=== PATIENT | female | born 1945 | race Caucasian/White ===

== ENCOUNTER → 2017-06-07 13:23 | Outpatient (CLI) | payer MEDICARE, BC, SELFPAY ==
--- NOTE | 2017-06-07 13:28 | CT_ITS ---
STUDY: CT TEMPORAL BONES WITHOUT CONTRAST - ATTN: I.A.C. S REASON FOR EXAM: Female, 72 years old. 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 RADIATION DOSAGE (If Supplied By Facility): CTDIvol = ( 82.28 ) mGy, DLP = ( 775.93 ) mGycm TECHNIQUE: The patient was scanned in a multi detector CT scanner. Transaxial imaging was performed without the administration of intravenous contrast material. Sagittal and coronal images were reconstructed. Individualized dose optimization techniques were used for this CT. COMPARISON: None. FINDINGS: RIGHT TEMPORAL BONE Normal right internal auditory canal. Normal visualized ossicles and tympanic cavity. Normal right cochlea and semicircular canals. Normal vestibular aqueduct. Normal right petrous carotid artery. Normal right jugular fossa. Normal right mastoid air cells. Normal right petrous apex. LEFT TEMPORAL BONE Normal left internal auditory canal. Normal visualized ossicles and tympanic cavity. Normal left cochlea and semicircular canals. Normal vestibular aqueduct. Normal left petrous carotid artery. Normal right jugular fossa. Normal left mastoid air cells. Normal left petrous apex. CT/Orb Sella Post Fossa Ear w/o IMPRESSION: Normal unenhanced CT examination of the bilateral temporal bones (I.A.C.'s). Electronically Signed: Oskar Garcia MD at 14:51 EST Tel [phone], Service support ,
== END ==
PROVIDERS: Family Provider Internal Medicine; PCP Internal Medicine; Visit Provider Otolaryngology Otolaryngology/Facial Plastic Surgery
DX: R42 Dizziness and giddiness (principal)
CPT/HCPCS: 70480

== ENCOUNTER → 2017-11-12 11:48 | Outpatient (CLI) | payer MEDICARE, BC, SELFPAY ==
[2017-11-12 13:13] LABS: Potassium 4.2 mmol/L (3.5-5.1)
== END ==
PROVIDERS: Family Provider Internal Medicine; PCP Internal Medicine; Visit Provider Otolaryngology Otolaryngology/Facial Plastic Surgery
DX: Z79.899 Other long term (current) drug therapy (principal)
CPT/HCPCS: 36415; 84132

== ENCOUNTER → 2019-01-08 12:32 | Outpatient (CLI) | payer MEDICARE, BC, SELFPAY ==
--- NOTE | 2019-01-08 12:36 | BI_ITS ---
BILATERAL DIGITAL MAMMOGRAM WITH TOMOSYNTHESIS: Mediolateraloblique and craniocaudal views demonstrate no evidence of dominant parenchymal masses. No cluster of microcalcifications or architectural distortion is seen. No evidence of skin thickening is identified There has been no significant change since 04/04/2017 . Breast Density: The breast tissue is heterogeneously dense, which may obscure small masses. CAD was used to assist in final assessment. BI/SCREEN MAMM (CAD) W/SHANKAR BILAT IMPRESSION: NORMAL MAMMOGRAM BILATERALLY. ASSESSMENT CATEGORY: FINAL ASSESSMENT: BI-RAD CATEGORY I (NEGATIVE) YEARLY MAMMOGRAPHY RECOMMENDED Approximately 10% of breast cancers are not detected by mammography. A normal mammogram should not delay biopsy of a clinically suspicious abnormality. [id number] Electronically Signed: Adonis Farfan, at 18:07 EDT Tel , Service support ,
== END ==
PROVIDERS: Family Provider Internal Medicine; PCP Internal Medicine; Referring Provider Internal Medicine; Visit Provider Internal Medicine
DX: Z12.31 Encounter for screening mammogram for malignant neoplasm of breast (principal)
CPT/HCPCS: 77063; 77067

== ENCOUNTER → 2020-07-07 10:47 | Outpatient (CLI) | payer MEDICARE, BC, SELFPAY ==
[2020-06-30 13:16] VITALS: BMI 24.2
[2020-07-07 11:22] LABS: Hematocrit 40.9 % (37-47); Hemoglobin 13.5 g/dL (12.0-15.0); Mean Corpuscular Hgb 29.2 pg (27.0-32.0); Mean Corpuscular Volume 88.3 fL (81-99); Mean Platelet Vol. 10.5 fl (6.2-12.0); Platelet Count 240 K/mm3 (150-450); RBC Distribution Width CV 12.8 % (11.6-14.6); RBC Distribution Width SD 40.3 fl (35.1-43.9); Red Blood Count 4.63 M/mm3 (4.2-5.4); White Blood Count 5.9 K/mm3 (4.4-11.0)
[2020-07-07 11:26] LABS: Erythrocyte Sedimentation Rate 19 mm/hr (0-30)
[2020-07-07 11:47] LABS: Vitamin B12 950 pg/mL (211-911)
[2020-07-07 12:25] LABS: ALB/GLOB Ratio 1.1 RATIO (0.9-2.4); AST(SGOT) 20 U/L (15-37); Alanine Aminotransfer ALT/SGPT 29 U/L (13-56); Alkaline Phosphatase 100 U/L (45-117); Anion Gap 4 (5-15); BUN 17 mg/dL (7-18); BUN/Creat Ratio 20.5 RATIO (10-20); CRP 5.85 mg/L (0.0-3.0); Calcium,Total 9.4 mg/dL (8.5-10.1); Chloride 103 mmol/L (98-107); Creatinine, Serum 0.83 mg/dL (0.55-1.02); EST Glomerular Filtration Rate 71 mL/min (>60); Est Glom Filt Rate - Afr Amer 86 mL/min (>60); Globulin 3.7 g/dL (2.2-4.2); Glucose 100 mg/dL (74-106); Potassium 4.3 mmol/L (3.5-5.1); Protein, Total 7.7 g/dL (6.4-8.2); Sodium Level 134 mmol/L (136-145); Thyroid Stim Hormone (TSH) 2.62 uIU/mL (0.358-3.74)
[2020-07-08 21:05] LABS: ANTINUCLEAR ANTIBODIES DIRECT Negative (Negative)
== END ==
PROVIDERS: PCP Internal Medicine; Referring Provider Psychiatry & Neurology Neurology; Visit Provider Psychiatry & Neurology Neurology
DX: R53.83 Other fatigue (principal); I67.9 Cerebrovascular disease, unspecified
CPT/HCPCS: 36415; 80053; 82607; 82746; 84443; 85027; 85652; 86038; 86140; 86225; 86235

== ENCOUNTER → 2020-07-13 13:16 | Outpatient (CLI) | payer MEDICARE, BC, SELFPAY ==
[2020-06-30 13:16] VITALS: BMI 24.2
--- NOTE | 2020-07-13 13:19 | CT_ITS ---
STUDY: CTA HEAD AND NECK WITH CONTRAST REASON FOR EXAM: Female, 75 years old. Ischemic stroke RADIATION DOSAGE (If Supplied By Facility): CTDIvol = ( 25.94 ) mGy, DLP = ( 1353.73 ) mGycm TECHNIQUE: CT angiography was performed with a multi-detector CT scanner. Data acquisition was obtained from the skull base through the vertex following intravenous administration of IV 100mL Isovue-370. MIP images were reconstructed from the axial data set. Post-processing of the angiographic images was performed, with multiplanar reformation and 3D reconstruction. Individualized dose optimization techniques were used for this CT. COMPARISON: No relevant priors. FINDINGS: Normal bilateral petrous carotid arteries. Normal right cavernous carotid artery with a normal supraclinoid bifurcation. Normal left cavernous carotid artery with a normal supraclinoid bifurcation. Normal right A1 segments of the anterior cerebral artery. Normal left A1 segments of the anterior cerebral artery. Normal intact anterior communicating artery (ACOM). Normal bilateral A2 segments of the anterior cerebral arteries. Normal right M1 and M2 segments of the middle cerebral arteries, with a normal M1 bifurcation. Normal left M1 and M2 segments of the middle cerebral arteries, with a normal M1 bifurcation. Normal right posterior communicating artery (PCOM). Normal left posterior communicating artery (PCOM). Normal bilateral vertebral arteries. Normal basilar artery with a normal basilar bifurcation. The visualized bilateral superior cerebellar (SCA) arteries are normal. Normal bilateral P1, P2 and visualized P3 segments of the posterior cerebral arteries. There is no demonstrated aneurysm of the [place]. Mild degree of cerebral atrophy. Small calcifications in the basal ganglia bilaterally. This is a normal variant. Focal area of decreased attenuation is seen in the medial posterior occipital lobe with focal calcification. AORTIC ARCH: There is atherosclerotic calcific plaque formation of the aortic arch and great vessels arising from the aortic arch, without a hemodynamically significant stenosis. There is a normal origin of the brachiocephalic, left common carotid, and left subclavian arteries. 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 It travels posterior to the esophagus. RIGHT CAROTID ARTERIES: Normal right common carotid artery (CCA). Normal right common carotid bulb. Normal origin of the right internal carotid (ICA) artery without a hemodynamically significant stenosis. Normal visualized cervical portion of the right internal carotid artery. Normal origin of the right external carotid artery (ECA). LEFT CAROTID ARTERIES: Normal left common carotid artery (CCA). Normal left common carotid bulb. Normal origin of the left internal carotid (ICA) artery without a hemodynamically significant stenosis. Normal visualized cervical portion of the left internal carotid artery. Normal origin of the left external carotid artery (ECA). VERTEBRAL ARTERIES: Normal bilateral vertebral arteries. CT/CTA Head AND Neck W/ Contrast IMPRESSION: Normal CTA Head and neck with contrast. Electronically Signed: Oskar Garcia MD at 14:41 EDT , Service support ,
== END ==
PROVIDERS: PCP Internal Medicine; Referring Provider Psychiatry & Neurology Neurology; Visit Provider Psychiatry & Neurology Neurology
DX: I67.9 Cerebrovascular disease, unspecified (principal); Z86.73 Personal history of transient ischemic attack (TIA), and cerebral infarction without residual deficits
CPT/HCPCS: 70496; 70498; Q9967

== ENCOUNTER → 2020-08-02 12:27 | Outpatient (CLI) | payer MEDICARE, BC, SELFPAY ==
[2020-06-30 13:16] VITALS: BMI 24.2
--- NOTE | 2020-08-02 12:28 | EKG12_ITS ---
Test Reason : Blood Pressure : / mmHG Vent. Rate : 075 BPM Atrial Rate : 075 BPM P-R Int : 184 ms QRS Dur : 082 ms QT Int : 362 ms P-R-T Axes : 074 078 062 degrees QTc Int : 404 ms Normal sinus rhythm Normal ECG Confirmed by RAKESH CARRERA, AMERICA ([id number]), newspaper or periodical editor SAYRA LLANES ([id number]) on 08/03/2020 9:06:18 AM Referred By: Silvia Rowland Confirmed By:AMERICA CAMERON MD
== END ==
PROVIDERS: PCP Internal Medicine; Referring Provider Nurse Practitioner Family; Visit Provider Nurse Practitioner Family
DX: I63.9 Cerebral infarction, unspecified (principal)
CPT/HCPCS: 93005; 93225; 93226

== ENCOUNTER 2021-04-11 14:28 | Outpatient (CLI) | payer MEDICARE, BC, SELFPAY ==
[2021-04-11 16:30] LABS: Progesterone Level 1.08 ng/mL (See Comment)
[2021-04-11 16:34] LABS: Anion Gap 5 (5-15); BUN 16 mg/dL (7-18); BUN/Creat Ratio 18.3 RATIO (10-20); Calcium,Total 9.5 mg/dL (8.5-10.1); Chloride 100 mmol/L (98-107); Creatinine, Serum 0.87 mg/dL (0.55-1.02); EST Glomerular Filtration Rate 67 mL/min (>60); Est Glom Filt Rate - Afr Amer 81 mL/min (>60); Estradiol 14.9 pg/mL; Glucose 108 mg/dL (74-106); Sodium Level 135 mmol/L (136-145)
[2021-04-13 22:07] LABS: Chlamydia By Nucleic Acid AMP Negative (Negative)
[2021-04-14 11:30] LABS: Gonococcus By Nucleic Acid AMP Negative (Negative)
== END 2021-04-11 23:59 | disposition short-term general hospital (02) ==
LOC: WOBLAB 14:29
PROVIDERS: PCP Internal Medicine; Visit Provider Student in an Organized Health Care Education/Training Program
DX: Z78.0 Asymptomatic menopausal state (principal)
CPT/HCPCS: 36415; 80048; 82670; 84144; 87491; 87591

== ENCOUNTER 2021-05-23 14:22 | Outpatient (CLI) | payer MEDICARE, BC, SELFPAY ==
--- NOTE | 2021-05-23 14:28 | BI_ITS ---
MAMMOGRAPHY - BILATERAL SCREENING REASON FOR EXAM: Female, 76 years old. Routine annual screening examination. PERTINENT HISTORY: Non-contributory. TECHNIQUE: Digital bilateral breast shankar (3D mammographic acquisition) in the CC and MLO projections. 2-D mediolateral oblique (MLO) and craniocaudad (CC) views of both breasts were obtained. CAD: Full Field Digital Mammography with Computer Added Detection was performed. COMPARISON: Comparison is made with prior study dated 01/08/2019. FINDINGS: Breast Composition: There are scattered areas of fibroglandular density. There are no dominant masses or suspicious calcifications. No other significant abnormalities are identified. There has been no significant change since the prior study. BI/SCRN MAMM (CAD)W/SHANKAR BILAT IMPRESSION: Stable bilateral screening mammogram. Yearly follow-up mammogram recommended. (A) ASSESSMENT CATEGORY: BIRADS Category 1: Negative. A letter regarding these results will be sent to the patient by the facility within 30 days. Approximately 10% of breast cancers are not detected by mammography. A normal mammogram should not delay biopsy of a clinically suspicious abnormality. [id number] Electronically Signed: Oskar Garcia MD at 15:18 EST ,
[2021-05-23 15:59] LABS: Cholesterol 280 mg/dL (200); High Density Lipoprotein 79 mg/dL; Triglycerides 113 mg/dL; Very Low Density Lipoprotein 23 mg/dL (5-40)
== END 2021-05-23 23:59 | disposition home or self-care (01) ==
PROVIDERS: Psychiatry & Neurology Neurology; PCP Internal Medicine; Visit Provider Internal Medicine
DX: Z12.31 Encounter for screening mammogram for malignant neoplasm of breast (principal); E78.00 Pure hypercholesterolemia, unspecified
CPT/HCPCS: 36415; 77063; 77067; 80061

== ENCOUNTER 2021-06-29 17:01 | Emergency (ER) | payer MEDICARE, BC, SELFPAY ==
[2021-06-29] VITALS (10 sets, daily range): BP systolic 97–142; BP diastolic 68–90; PULSE 65–77; RESP 14–18; TEMP 36.5; O2SAT 95–98; BMI 23.7
--- NOTE | 2021-06-29 17:03 | EKG12_ITS ---
Test Reason : Blood Pressure : / mmHG Vent. Rate : 069 BPM Atrial Rate : 069 BPM P-R Int : 174 ms QRS Dur : 090 ms QT Int : 378 ms P-R-T Axes : 066 074 068 degrees QTc Int : 405 ms Normal sinus rhythm Normal ECG Confirmed by JOHNIE CARRERA, JULIAN ([id number]), senior editor SAYRA LLANES ([id number]) on 06/30/2021 2:48:03 PM Referred By: YULISSA Confirmed By:JULIAN JETT MD
--- NOTE | 2021-06-29 17:05 | ED.VIS.STROK ---
HPI History of Present Illness Chief Complaint: Neuro S/Sx Informant: patient and spouse/S.O. Onset/Context/Timing Onset: Days Context: Gradual Onset Timing: Waxes and wanes Narrative Narrative: Patient presents with secondary to confusion and difficulty speaking. He reports that she has not been speaking normally for the last 2 days. Apparently today she grandsons and had difficulty with that. They stated that she could not speak at all. On arrival to the emergency room she is able to speak but does not feel it is at baseline. She denies headache. She reportedly has had prior stroke but was asymptomatic with those. [facility] Medical History Breast cyst Cataracts, bilateral Chronic rhinitis CVA, old, homonymous hemianopsia Depression MISTY (generalized anxiety disorder) Gallstones Gastritis Gastritis and gastroduodenitis GERD (gastroesophageal reflux disease) History of UTI Meniere's disease Mixed hyperlipidemia Osteoporosis Quadrantanopia of right eye Home Medications triamterene-hydrochlorothiazid 1 each PO DAILY 10/28/16 [History Last Taken Unknown] 7-oxodehydroepiandroste (bulk) 1 each MC DAILY gm 06/29/20 [History Last Taken Unknown] eqfco-p-bzisagsgidkbv 150 unit tablet 300 unit PO TID PRN tablet 06/29/20 [History Last Taken Unknown] cetirizine 10 mg capsule 10 mg PO DAILY 06/29/20 [History Last Taken Unknown] coenzyme Q10 100 mg capsule 100 mg PO DAILY 06/29/20 [History Last Taken Unknown] fluoxetine 10 mg capsule 10 mg PO DAILY cap 06/29/20 [History Last Taken Unknown] minoxidil 2 % topical solution 1 ml TOPICAL BID 06/29/20 [History Last Taken Unknown] omega-3 fatty acids 1,000 mg capsule 1,000 mg PO BID 06/29/20 [History Last Taken Unknown] vitamin B complex 1 tablet PO DAILY 06/29/20 [History Last Taken Unknown] vitamins A,C,B-fpfg-gcbeak 7,160 unit-113 mg-100 unit tablet 1 tablet PO BID tablet 06/29/20 [History Last Taken Unknown] omeprazole 40 mg capsule,delayed release 40 mg PO DAILY cap 12/06/20 [History Last Taken Unknown] aspirin 81 mg tablet 81 mg PO DAILY 05/08/21 [History Last Taken Unknown] meclizine 25 mg PO DAILY PRN 06/29/21 [History Last Taken Unknown] Allergy/AdvReac Type Severity Reaction Status Date / Time Sulfa (Sulfonamide Allergy Unknown Unknown Verified 06/20/21 13:54 Antibiotics) Family History Other Heart disease Myocardial infarction Surgical History History of oophorectomy History of tonsillectomy Social History Smoking Status: Never smoker Electronic Cigarette Use: not used second hand exposure: No alcohol intake: never substance use type: does not use ROS ROS ED Constitutional Constitutional ED: Denies chills or fever(s) Eyes Eyes: Denies blurry vision or change in vision ENT ENT ED: Denies rhinorrhea or sore throat Cardiovascular Cardiovascular: Denies chest pain Respiratory/Chest Respiratory/Chest: Denies cough or dyspnea Gastrointestinal Gastrointestinal: Denies abdominal pain, nausea or vomiting Musculoskeletal Musculoskeletal: Denies myalgias Integumentary Denies rash Neurologic Neurologic: Denies headache(s) Hematologic/Lymphatic Hematologic/Lymphatic: Denies easy bleeding or easy bruising Allergic/Immunologic Allergic/Immunologic ED: Denies urticaria EXAM Physical Exam Const Vital Signs: 06/29/21 17:02 06/29/21 17:06 06/29/21 17:30 Temperature 97.7 F L 97.7 F L Temperature Source Temporal Temporal Pulse Rate 74 74 70 Respiratory Rate 14 14 17 Blood Pressure 140/72 H 140/72 H 142/90 H Blood Pressure Mean 94 94 107 Pulse Ox 96 96 97 Oxygen Delivery Method Room Air Room Air Room Air 06/29/21 18:00 06/29/21 18:30 06/29/21 19:00 Temperature Temperature Source Pulse Rate 77 77 69 Respiratory Rate 18 14 16 Blood Pressure 139/76 H 141/70 H 97/77 Blood Pressure Mean 97 93 83 Pulse Ox 97 97 98 Oxygen Delivery Method Room Air Room Air Room Air 06/29/21 19:30 06/29/21 20:00 06/29/21 20:30 Temperature Temperature Source Pulse Rate 67 65 66 Respiratory Rate 14 15 15 Blood Pressure 141/69 H 126/68 H 137/70 H Blood Pressure Mean 93 87 92 Pulse Ox 98 97 95 Oxygen Delivery Method Room Air Room Air Room Air 06/29/21 21:00 Temperature Temperature Source Pulse Rate 70 Respiratory Rate 14 Blood Pressure 140/73 H Blood Pressure Mean 95 Pulse Ox 98 Oxygen Delivery Method Room Air Positive well nourished and well developed General Appearance ED: well developed HEENT Reports moist mucous membranes Eyes PERRL and EOMs intact bilaterally Neck supple Chest Wall inspection of chest normal and palpation of chest normal Resp normal respiratory effort and clear to auscultation bilaterally Cardio Rate: regular rate Rhythm: regular rhythm GI soft to palpation and non-tender Extremity normal to inspection Neuro oriented x3 Neuro Narrative: See NIH stroke scale Sensorium / Orientation: alert Skin Lesions: no lesions Rashes: no rashes STROKE Vital Signs/Narrative: Vital Signs Pulse Resp BP Pulse Ox 06/29/21 21:00 70 14 140/73 H 98 06/29/21 20:30 66 15 137/70 H 95 06/29/21 20:00 65 15 126/68 H 97 06/29/21 19:30 67 14 141/69 H 98 NIHSS Initial: 1a Level of Consciousness: 0 1b LOC Questions (Score 2 if aphasic/stupor): 0 1c LOC Commands (Only score 1st attempt): 0 2 Best Gaze (If aphasic, use reflexive mvmts.): 0 3 Visual: 0 4 Facial Palsy: 0 5 Motor Arm Right (UN = amputation/fusion): 0 5 Motor Arm Left: 0 6 Motor Leg Right: 0 6 Motor Leg Left: 0 7 Limb ataxia (Only + if out of proportion): 0 8 Sensory (Aphasia/stupor=0 or 1, coma=2): 0 9 Best Language: 0 10 Dysarthria (mute, coma=2, intubated=UN): 1 11 Extinction and Inattention (only scored if +): 0 Total Score: 1 MDM MDM MDM Narrative Medical decision making narrative: Lab work, EKG, chest x-ray obtained. CTA of the head and neck ordered. Lab Data Attestation: I reviewed the patient's lab results. Labs: Laboratory Results - last 24 hr 06/29/21 06/29/21 06/29/21 16:54 17:03 17:03 WBC 9.6 RBC 4.75 Hgb 13.7 Hct 40.3 MCV 84.8 MCH 28.8 MCHC 34.0 RDW Std Deviation 37.7 RDW Coeff of Rahul 12.2 Plt Count 303 MPV 10.6 Immature Gran % (Auto) 0.200 Neut % (Auto) 62.6 Lymph % (Auto) 27.8 [place] % (Auto) 8.4 Eos % (Auto) 0.2 Baso % (Auto) 0.8 Absolute Neuts (auto) 6.0 Absolute Lymphs (auto) 2.66 Nucleated RBC % 0 PT 13.2 INR 1.1 APTT 26.5 Sodium Potassium Chloride Carbon Dioxide Anion Gap BUN Creatinine Estim Creat Clear Calc Est GFR (MDRD) Af Amer Est GFR (MDRD) Non-Af BUN/Creatinine Ratio Glucose Calcium Troponin I High Sens POC Glucose 124 H 06/29/21 17:03 WBC RBC Hgb Hct MCV MCH MCHC RDW Std Deviation RDW Coeff of Rahul Plt Count MPV Immature Gran % (Auto) Neut % (Auto) Lymph % (Auto) [place] % (Auto) Eos % (Auto) Baso % (Auto) Absolute Neuts (auto) Absolute Lymphs (auto) Nucleated RBC % PT INR APTT Sodium 132 L Potassium 4.0 Chloride 100 Carbon Dioxide 24.0 Anion Gap 8 BUN 13 Creatinine 0.84 Estim Creat Clear Calc 45.77 Est GFR (MDRD) Af Amer 85 Est GFR (MDRD) Non-Af 71 BUN/Creatinine Ratio 15.5 Glucose 118 H Calcium 9.5 Troponin I High Sens < 3 L POC Glucose Radiography Diagnostic Testing: Clinical Impression(s) from Imaging Studies Brain CT 06/29/21 18:09 IMPRESSION: 1. Small to medium-sized intraparenchymal hemorrhage noted within the LEFT frontal lobe, in the region of the LEFT frontal operculum with extension into the LEFT insular region, with maximal axial dimension of 2.2 x 1.8 cm, and a superior to inferior dimension of 2.1 cm. Surrounding edema is noted. This is approaching the region of Broca''s area. 2. There is trace subarachnoid blood noted within the posterior aspect of the insula and along the dorsal lateral convexity of both frontal lobes greater on LEFT than RIGHT. 3. No intraventricular blood, no evidence of ventricular dilatation. 4. Extensive deep white matter disease and area of remote infarct involving the inferior aspect of LEFT occipital lobe. 5. No midline shift. N.B. : The above Results were Read Back by Herbert Perry MD to Dr Keara MD, and understanding confirmed on 06/29/2021 18:31:53 (ET). Electronically Signed: Herbert Perry MD at 18:36 EDT , ADDENDUM: 06/29/21 1843 IMPRESSION: 1. Small to medium-sized intraparenchymal hemorrhage noted within the LEFT frontal lobe, in the region of the LEFT frontal operculum with extension into the LEFT insular region, with maximal axial dimension of 2.2 x 1.8 cm, and a superior to inferior dimension of 2.1 cm. Surrounding edema is noted. This is approaching the region of Broca''s area. 2. There is trace subarachnoid blood noted within the posterior aspect of the insula and along the dorsal lateral convexity of both frontal lobes greater on LEFT than RIGHT. 3. No intraventricular blood, no evidence of ventricular dilatation. 4. Extensive deep white matter disease and area of remote infarct involving the inferior aspect of LEFT occipital lobe. 5. No midline shift. N.B. : The above Results were Read Back by Herbert Perry MD to Dr Keara MD, and understanding confirmed on 06/29/2021 18:31:53 (ET). Electronically Signed: Herbert Perry MD at 18:36 EDT , Chest X-Ray 06/29/21 18:10 IMPRESSION: 1. No evidence of acute cardiopulmonary process Electronically Signed: Herbert ePrry MD at 18:39 EDT , EKG Initial EKG: Attestation: I personally reviewed and interpreted this EKG as follows: Interpretation: Sinus Rhythm (Sinus at 69 with no acute ischemia.) Treatment and Re-Evaluation Narrative: Chest x-ray per my interpretation reveals chronic changes only. Lab work is unremarkable. CT of the head does reveal a left intraparenchymal bleed. I spoke with at bedside as soon as CT called. He would prefer transfer to [place]. Patient has been accepted at [facility]. Patient's NIH score remains at 1. Critical Care Time Critical Care Time: Yes Critical care time (excluding procedures): 30-74 minutes (30 minutes), Including time spent:, Discussing w/Patient &/or Family/Psychopaedic Nurse, Discussing w/Consultants, Arranging Admission or Transfer and Performing Direct Patient Care at Bedside Discharge Plan Triage Chief Complaint: Neuro S/Sx ED Provider: Jojo Sarah Dx/Rx/DC Orders Clinical Impression: Hemorrhagic stroke Prescriptions: No Action Zyrtec 10 mg capsule 10 mg PO DAILY RF: 0 Beano 150 unit tablet 300 unit PO TID PRNRF: 0 vitamin B complex Tablet 1 tablet PO DAILY RF: 0 vitamins A,C,T-vdbc-ysibrj 7,160-113-100 ffqo-ox-xvzf tablet 1 tablet PO BID RF: 0 minoxidil 2 % solution 1 ml TOPICAL BID RF: 0 7-Keto DHEA Powder 1 each MC DAILY RF: 0 coenzyme Q10 100 mg capsule 100 mg PO DAILY RF: 0 omega-3 fatty acids 1,000 mg capsule 1,000 mg PO BID RF: 0 omeprazole 40 mg capsule,delayed release(DR/EC) 40 mg PO DAILY RF: 0 aspirin 81 mg tablet 81 mg PO DAILY RF: 0 triamterene-hydrochlorothiazid 1 EACH capsule 1 each PO DAILY RF: 0 fluoxetine 10 mg capsule 10 mg PO DAILY RF: 0 meclizine 25 mg Tablet 25 mg PO DAILY PRN (Reason: Dizziness) RF: 0 Primary Care Provider: Reagan Hodges Referrals: Reagan Hodges MD [Primary Care Provider] - Disposition Disposition: Acute Care Hospital Discharge Location: [facility] Discharge Date/Time: 06/29/21 21:26
[2021-06-29 17:34] LABS: Anion Gap 8 (5-15); BUN 13 mg/dL (7-18); BUN/Creat Ratio 15.5 RATIO (10-20); Calcium,Total 9.5 mg/dL (8.5-10.1); Chloride 100 mmol/L (98-107); Creatinine, Serum 0.84 mg/dL (0.55-1.02); EST Glomerular Filtration Rate 71 mL/min (>60); Est Glom Filt Rate - Afr Amer 85 mL/min (>60); Estimated Creatinine Clearance 45.77 ml/min; Glucose 118 mg/dL (74-106); Sodium Level 132 mmol/L (136-145); Troponin-I HS < 3 pg/mL (3.0-54.0)
--- NOTE | 2021-06-29 17:40 | ED.RN ---
PATIENT STATES THAT SHE HAS BEEN DIZZY AND OFF BALANCE FOR A COUPLE WEEKS. HAS BEEN TAKING MECLIZINE DAILY.
[2021-06-29 17:45] LABS: International Normalized Ratio 1.1; Prothrombin Time (Protime)PT. 13.2 SECONDS (11.7-14.9)
[2021-06-29 17:46] LABS: Absolute Lymphocyte Count 2.66 X10^3/uL (0.83-4.51); Basophil# 0.08 X10^3/uL; Basophil% 0.8 % (0-1); Eosinophil# 0.02 X10^3/uL; Eosinophils% 0.2 % (0-5); Hematocrit 40.3 % (37-47); Hemoglobin 13.7 g/dL (12.0-15.0); Lymphocyte # 2.66 X10^3/ul (0.83-4.51); Lymphocyte % 27.8 % (19-41); Mean Corpuscular Hgb 28.8 pg (27.0-32.0); Mean Corpuscular Volume 84.8 fL (81-99); Mean Platelet Vol. 10.6 fl (6.2-12.0); Monocyte% 8.4 % (0-10); NRBC Flagged by Analyzer 0 % (0-5); Neutrophil % 62.6 % (47-70); Partial Thromboplast Time 26.5 Seconds (24.1-36.2); Platelet Count 303 K/mm3 (150-450); RBC Distribution Width CV 12.2 % (11.6-14.6); RBC Distribution Width SD 37.7 fl (35.1-43.9); Red Blood Count 4.75 M/mm3 (4.2-5.4); White Blood Count 9.6 K/mm3 (4.4-11.0)
[2021-06-29 17:55] LABS: Bedside Glucose 124 mg/dL (74-106)
--- NOTE | 2021-06-29 18:09 | CT_ITS ---
INDICATION: Neuro deficit, acute, stroke suspected EXAMINATION: CT BRAIN - CT Head Stroke Protocol W/O Contrast Injection TECHNIQUE: Multiple axial images were obtained of the head without intravenous contrast. A radiation dose optimization technique was used for this scan. IV Contrast dosage and agent: None. Radiation Dose (provided by facility) CTDIvol (NA ) mGy, DLP ( NA) mGy-cm COMPARISON: 07/13/2020 FINDINGS: HEMISPHERES: 1. The cerebral parenchyma, ventricular system and gyral pattern have normal configuration. 2. There is focal area of interparenchymal hemorrhage along the lateral aspect LEFT frontal lobe extending into the insula, maximal axial dimension estimated at approximately 2.2 x 1.8 cm, superior to inferior dimension estimated at 2.1 cm. Mild surrounding edema is present. 3. There is trace subarachnoid blood within the insula. Additional trace subarachnoid blood noted along the lateral convexity of both frontal lobes greater on LEFT than RIGHT. No intraventricular blood noted. 4. Chronic deep white matter disease is noted bilaterally, additional area of remote infarct and encephalomalacic N noted along the inferior aspect of the LEFT occipital lobe. 5. No area of acute territorial infarct identified. Incidental note of scattered benign calcifications in the basal ganglia. CEREBELLUM - BRAINSTEM: The cerebellum, brainstem, basilar and suprasellar cisterns have normal appearance. No Chiari malformation. PITUITARY: Infundibulum and pituitary have normal configuration. Midline structures appear normal. VESSELS: 1. No significant vascular calcifications in the cavernous carotid vessels. 2. No hyperdense vascular signs noted.. ORBITS AND PARANASAL SINUSES: 1. Normal appearance of the bony orbits. Normal appearance of the globes and retrobulbar soft tissues.. 2. Paranasal sinuses are clear. BONY ELEMENTS: Bony elements of the cranial vault, facial skeleton and skull base have normal appearance. SCALP AND SOFT TISSUES: Normal appearance of the soft tissues of the scalp and the visualized face OTHER: None CT/STROKE Brain/Head without Cont IMPRESSION: 1. Small to medium-sized intraparenchymal hemorrhage noted within the LEFT frontal lobe, in the region of the LEFT frontal operculum with extension into the LEFT insular region, with maximal axial dimension of 2.2 x 1.8 cm, and a superior to inferior dimension of 2.1 cm. Surrounding edema is noted. This is approaching the region of Broca''s area. 2. There is trace subarachnoid blood noted within the posterior aspect of the insula and along the dorsal lateral convexity of both frontal lobes greater on LEFT than RIGHT. 3. No intraventricular blood, no evidence of ventricular dilatation. 4. Extensive deep white matter disease and area of remote infarct involving the inferior aspect of LEFT occipital lobe. 5. No midline shift. N.B. : The above Results were Read Back by Herbert Perry MD to Dr Keara MD, and understanding confirmed on 06/29/2021 18:31:53 (ET). Electronically Signed: Herbert Perry MD at 18:36 EDT ,
--- NOTE | 2021-06-29 18:10 | RAD_ITS ---
INDICATION: Neuro deficit, acute, stroke suspected EXAMINATION/TECHNIQUE: X-RAY - XR Chest 1 View COMPARISON: 10/28/2016 FINDINGS: LIFE-SUPPORT AND LINES: 1. None HEART AND VESSELS: The cardiac silhouette, pulmonary vasculature have normal appearance. No evidence of congestive failure. LUNGS AND PLEURAL SPACES: Lungs are clear. No focal infiltrate, consolidation or effusions. No evidence of pneumothorax. No pulmonary mass is noted. MEDIASTINUM AND HILAR REGIONS: No masses adenopathy noted. No areas of calcification. Visualized upper airway is normal in position. BONY ELEMENTS: No acute bony changes noted. RAD/Chest 1 View IMPRESSION: 1. No evidence of acute cardiopulmonary process Electronically Signed: Herbert Perry MD at 18:39 EDT ,
--- NOTE | 2021-06-29 18:23 | ED.RN ---
[facility] ETA AROUND [id number]
--- NOTE | 2021-06-29 18:33 | ED.RN ---
PER [facility], [facility] TRANSPORTING TO BE HERE [phone]
--- NOTE | 2021-06-29 18:47 | ED.RN ---
NEED TO CALL [facility] WHEN WE GET A BED
== END 2021-06-29 21:26 | disposition short-term general hospital (02) ==
PROVIDERS: Emergency Provider Emergency Medicine; PCP Internal Medicine; Visit Provider Emergency Medicine
DX: I63.9 Cerebral infarction, unspecified (principal); R47.9 Unspecified speech disturbances; E78.2 Mixed hyperlipidemia; R41.0 Disorientation, unspecified; K21.9 Gastro-esophageal reflux disease without esophagitis; M81.0 Age-related osteoporosis without current pathological fracture; Z86.73 Personal history of transient ischemic attack (TIA), and cerebral infarction without residual deficits
CPT/HCPCS: 70450; 71045; 80048; 82962; 84484; 85025; 85610; 85730; 93005; 99285; A4216

== ENCOUNTER 2021-08-26 09:48 | Emergency (ER) | payer MEDICARE, BC, SELFPAY ==
[2021-08-26 09:49] VITALS: BP 143/98; PULSE 79; RESP 18; TEMP 36.6; O2SAT 97; O2SAT 98; BMI 23.1
--- NOTE | 2021-08-26 10:05 | EKG12_ITS ---
Test Reason : CP Blood Pressure : / mmHG Vent. Rate : 078 BPM Atrial Rate : 078 BPM P-R Int : 174 ms QRS Dur : 086 ms QT Int : 366 ms P-R-T Axes : 063 071 059 degrees QTc Int : 417 ms Normal sinus rhythm Normal ECG Confirmed by JOHNIE CARRERA, JULIAN ([id number]), editor index LEYDA TUCKER ([id number]) on 08/29/2021 1:11:47 PM Referred By: Confirmed By:JULIAN JETT MD
--- NOTE | 2021-08-26 10:05 | CT_ITS ---
STUDY: CT BRAIN WITHOUT CONTRAST REASON FOR EXAM: Female, 76 years old. blurry vision RADIATION DOSAGE (If Supplied By Facility): CTDIvol = ( 44.99 ) mGy, DLP = ( 762.36 ) mGycm TECHNIQUE: Transaxial CT imaging of the brain was performed without administration of intravenous contrast material. Individualized dose optimization techniques were used for this CT. COMPARISON: No relevant priors. FINDINGS: Normal soft tissue structures. Normal calvarium. There is mild cortical and central atrophy. There are dystrophic calcifications in the medial lentiform nuclei bilaterally likely age-related. There is moderate chronic microvascular ischemic change in the periventricular white matter most pronounced extending superior laterally and posteriorly from the body and atrium of the left lateral ventricle. There is no evidence of acute intra or extra-axial hemorrhage. There is no intracranial hemorrhage. There are no findings of an acute ischemic infarction. Normal visualized paranasal sinuses. CT/Brain/Head without Contrast IMPRESSION: Mild cortical and central atrophy. Dystrophic calcifications basal ganglia bilaterally. Moderate chronic microvascular ischemic change most pronounced in the periventricular white matter adjacent to the body and atrium of the left lateral ventricle extending into the left frontoparietal centrum semiovale. Electronically Signed: Delvis Teran MD, LAILA at 10:29 EDT ,
--- NOTE | 2021-08-26 10:10 | EX.ED.DYSGE1 ---
HPI <IVETH Balbuena - Last Filed: 08/26/21 12:38> History of Present Illness Chief Complaint: Chest Pain Narrative Narrative: 76-year-old female with history of CVA hypertension hyperlipidemia presents the emergency department with 1 week of intermittent left-sided back pain that radiates to her epigastric area. Patient is pain-free on arrival, patient recently 1.5 months ago was admitted [facility] for CVA. Patient states that her vision to her right eye is getting worse since getting discharged. Patient does have M?ni?re's disease with weird study. However today, patient had continued pain to her chest, left back and was here for evaluation. Patient did have echocardiogram and a full work-up done at [facility] 1.5 months ago. PFS <IVETH Balbuena - Last Filed: 08/26/21 12:38> [facility] Medical History Breast cyst Cataracts, bilateral Chronic rhinitis CVA, old, homonymous hemianopsia Depression MISTY (generalized anxiety disorder) Gallstones Gastritis Gastritis and gastroduodenitis GERD (gastroesophageal reflux disease) History of UTI Meniere's disease Mixed hyperlipidemia Osteoporosis Quadrantanopia of right eye Home Medications 7-oxodehydroepiandroste (bulk) 1 each MC DAILY gm 06/29/20 [History Last Taken Unknown] glfxy-g-nppwasxlgpnmh 150 unit tablet 300 unit PO TID PRN tablet 06/29/20 [History Last Taken Unknown] cetirizine 10 mg capsule 10 mg PO DAILY 06/29/20 [History Last Taken Unknown] fluoxetine 10 mg capsule 10 mg PO DAILY cap 06/29/20 [History Last Taken Unknown] minoxidil 2 % topical solution 1 ml TOPICAL BID 06/29/20 [History Last Taken Unknown] vitamin B complex 1 tablet PO DAILY 06/29/20 [History Last Taken Unknown] vitamins A,C,F-mdfs-lwpfmw 7,160 unit-113 mg-100 unit tablet 1 tablet PO BID tablet 06/29/20 [History Last Taken Unknown] omeprazole 40 mg capsule,delayed release 40 mg PO DAILY cap 12/06/20 [History Last Taken Unknown] meclizine 25 mg PO DAILY PRN 06/29/21 [History Last Taken Unknown] aspirin 81 mg tablet,delayed release 81 mg PO DAILY 07/27/21 [History Last Taken Unknown] ezetimibe 10 mg tablet 10 mg PO DAILY 07/27/21 [History Last Taken Unknown] Allergy/AdvReac Type Severity Reaction Status Date / Time Sulfa (Sulfonamide Allergy Unknown Unknown Verified 08/26/21 09:53 Antibiotics) Family History Other Heart disease Myocardial infarction Surgical History History of oophorectomy History of tonsillectomy Social History Smoking Status: Never smoker Electronic Cigarette Use: not used second hand exposure: No alcohol intake: never substance use type: does not use ROS <IVETH Balbuena - Last Filed: 08/26/21 12:38> ROS ED ROS Narrative Constitutional: Negative for fever, chills, weight loss, weakness Eyes: Negative for vision loss, double vision. Positive vision change of the right ENT: Negative for any sore throat, ear pain, congestion Cardiovascular: Negative for any tightness, palpitations. Positive for chest pain Respiratory: Negative for any cough, sputum production, hemoptysis, dyspnea, dyspnea on exertion, orthopnea Gastrointestinal: Negative for any abdominal pain, nausea, vomiting, diarrhea, constipation, blood in stool, blood in vomit : Negative for any urinary frequency, dysuria, retention, blood in urine Muscle skeletal: Negative for any muscle joint pain, stiffness, myalgias, arthralgias, neck pain. Positive left-sided back pain Neurological: Negative for any headache, syncope, numbness or tingling, dizziness Skin: Negative for any rashes, lumps, itching, abrasions, lacerations Psychiatric: Negative for any depression, anxiety, stress, suicidal ideation, homicidal ideation Hematologic: Negative for any easy bruising, excessive bruising, easy bleeding Allergies: Negative for any eczema, hives, rash EXAM <IVETH Balbuena - Last Filed: 08/26/21 12:38> Physical Exam Narrative Exam Narrative: Vital signs reviewed. Patient is asymptomatic at this time. HEET: Head normocephalic atraumatic, TMs clear bilaterally. Posterior pharynx is clear, moist mucous membranes. Nares clear bilaterally. Pupils equal round react to light Neck: Supple with no lymphadenopathy or tenderness. No signs of meningismus, negative jolt sign. Cardiac: Regular rate and rhythm no murmurs gallops or rubs, equal peripheral pulses bilaterally. Respiratory: Lungs clear to auscultation bilaterally. No chest tenderness. Abdomen: Soft, nontender, nondistended. No abdominal bruit or pulsatile masses. No hepatosplenomegaly Extremities: No peripheral edema, no signs of gross trauma or deformity. Active full range of motion of all extremities. Neuro: Cranial nerves II through XII intact, no focal neurological deficits. Skin: Clean dry and intact with no rash, purpura, petechiae, vesicles or pustules. Backs/flank: No CVA tenderness, no midline spinal tenderness, no deformity. Psych: Normal mood and affect. No SI, HI or acute psychosis. Const Vital Signs: 08/26/21 09:49 08/26/21 10:09 08/26/21 13:14 Temperature 98 F Temperature Source Oral Pulse Rate 79 89 Respiratory Rate 18 16 Blood Pressure 143/98 H 121/69 H Blood Pressure Mean 113 Pulse Ox 98 96 Oxygen Delivery Method Room Air Room Air Positive well nourished and well developed General Appearance ED: well developed <Dr. Sis Da Silva DO - Last Filed: 08/26/21 18:13> Physical Exam Const Vital Signs: 08/26/21 09:49 08/26/21 10:09 08/26/21 13:14 Temperature 98 F Temperature Source Oral Pulse Rate 79 89 Respiratory Rate 18 16 Blood Pressure 143/98 H 121/69 H Blood Pressure Mean 113 Pulse Ox 98 96 Oxygen Delivery Method Room Air Room Air [facility] <IVETH Balbuena - Last Filed: 08/26/21 12:38> [facility] Narrative Medical decision making narrative: Patient appears well, patient appears nontoxic, vital signs are stable. Patient presents to the emergency department with complaints of some blurred vision as well as left-sided back pain, epigastric pain. Patient did receive a full cardiac work-up as well as CT scan of the brain. Patient CBC was unremarkable, patient's chemistries were unremarkable, D-dimer was negative, patient had a negative high-sensitivity troponin. Patient's liver function test were unremarkable lipase was within normal limits. Patient's urinalysis was negative for any infection. Patient did receive a chest x-ray, this showed no acute process. Patient's CT the brain showed mild cortical and central atrophy. Chronic changes, no acute process. Looking at the patient's records from [facility], patient does have decreased vision to the upper vega of her vision that is chronic and ongoing since this past stroke. This is not new. I do not believe that the patient is suffering from any acute cardiopulmonary process. Patient has minimal evidence for any ACS, PE, ME. The patient looks well, feels well. The patient feels comfortable going home and will follow up outpatient. Patient be diagnosed with chest wall pain, history of CVA, stable for discharge instructed return for worsening symptoms Lab Data Labs: Laboratory Results - last 24 hr 08/26/21 08/26/21 08/26/21 09:55 09:55 09:55 WBC 5.9 RBC 4.64 Hgb 13.7 Hct 39.9 MCV 86.0 MCH 29.5 MCHC 34.3 RDW Std Deviation 39.2 RDW Coeff of Rahul 12.5 Plt Count 280 MPV 10.8 Immature Gran % (Auto) 0.200 Neut % (Auto) 56.5 Lymph % (Auto) 32.7 Fountain % (Auto) 7.1 Eos % (Auto) 2.6 Baso % (Auto) 0.9 Absolute Neuts (auto) 3.3 Absolute Lymphs (auto) 1.92 Nucleated RBC % 0 D-Dimer Quant (PE/DVT) 0.27 Sodium 135 L Potassium 3.9 Chloride 102 Carbon Dioxide 27.0 Anion Gap 6 BUN 12 Creatinine 0.81 Estim Creat Clear Calc 47.46 Est GFR (MDRD) Af Amer 89 Est GFR (MDRD) Non-Af 74 BUN/Creatinine Ratio 14.9 Glucose 128 H Calcium 9.4 Total Bilirubin Direct Bilirubin AST ALT Alkaline Phosphatase Troponin I High Sens < 3 L Total Protein Albumin Globulin Lipase Urine Color Urine Clarity Urine pH Ur Specific Garretson Urine Protein Urine Glucose (UA) Urine Ketones Urine Occult Blood Urine Nitrite Urine Bilirubin Urine Urobilinogen Ur Leukocyte Esterase Urine RBC Urine WBC Ur Squamous Epith Cells Urine Bacteria Urine Mucus 08/26/21 08/26/21 08/26/21 09:55 09:55 09:55 WBC RBC Hgb Hct MCV MCH MCHC RDW Std Deviation RDW Coeff of Rahul Plt Count MPV Immature Gran % (Auto) Neut % (Auto) Lymph % (Auto) Fountain % (Auto) Eos % (Auto) Baso % (Auto) Absolute Neuts (auto) Absolute Lymphs (auto) Nucleated RBC % D-Dimer Quant (PE/DVT) Sodium Potassium Chloride Carbon Dioxide Anion Gap BUN Creatinine Estim Creat Clear Calc Est GFR (MDRD) Af Amer Est GFR (MDRD) Non-Af BUN/Creatinine Ratio Glucose Calcium Total Bilirubin 0.50 Direct Bilirubin 0.12 AST 17 ALT 23 Alkaline Phosphatase 93 Troponin I High Sens Cancelled Total Protein 7.7 Albumin 3.9 Globulin 3.8 Lipase 143 Urine Color Urine Clarity Urine pH Ur Specific Garretson Urine Protein Urine Glucose (UA) Urine Ketones Urine Occult Blood Urine Nitrite Urine Bilirubin Urine Urobilinogen Ur Leukocyte Esterase Urine RBC Urine WBC Ur Squamous Epith Cells Urine Bacteria Urine Mucus 08/26/21 11:54 WBC RBC Hgb Hct MCV MCH MCHC RDW Std Deviation RDW Coeff of Rahul Plt Count MPV Immature Gran % (Auto) Neut % (Auto) Lymph % (Auto) Fountain % (Auto) Eos % (Auto) Baso % (Auto) Absolute Neuts (auto) Absolute Lymphs (auto) Nucleated RBC % D-Dimer Quant (PE/DVT) Sodium Potassium Chloride Carbon Dioxide Anion Gap BUN Creatinine Estim Creat Clear Calc Est GFR (MDRD) Af Amer Est GFR (MDRD) Non-Af BUN/Creatinine Ratio Glucose Calcium Total Bilirubin Direct Bilirubin AST ALT Alkaline Phosphatase Troponin I High Sens Total Protein Albumin Globulin Lipase Urine Color Yellow Urine Clarity Clear Urine pH 7.0 Ur Specific Garretson 1.005 Urine Protein Negative Urine Glucose (UA) Normal Urine Ketones Negative Urine Occult Blood Negative Urine Nitrite Negative Urine Bilirubin Negative Urine Urobilinogen Normal Ur Leukocyte Esterase Negative Urine RBC 0 SEEN Urine WBC 0 SEEN Ur Squamous Epith Cells 0 SEEN Urine Bacteria 0 SEEN Urine Mucus 0 SEEN Radiography Diagnostic Testing: Clinical Impression(s) from Imaging Studies Brain CT 08/26/21 10:05 IMPRESSION: Mild cortical and central atrophy. Dystrophic calcifications basal ganglia bilaterally. Moderate chronic microvascular ischemic change most pronounced in the periventricular white matter adjacent to the body and atrium of the left lateral ventricle extending into the left frontoparietal centrum semiovale. Electronically Signed: Delvis Teran MD, LAILA at 10:29 EDT , Chest X-Ray 08/26/21 10:20 IMPRESSION: Probable bilateral nipple shadows. Recommend repeat PA and slight oblique views with nipple markers in place. Remainder of lungs clear. Electronically Signed: Delvis Teran MD, LAILA at 10:40 EDT , EKG Normal sinus rhythm: Attestation: I personally reviewed and interpreted this EKG as follows: Comments: Normal sinus rhythm, rate of 70 bpm, VA interval under 74 ms, QRS duration 86 ms, no acute ST elevation, no acute infarct noted <Dr. Sis Da Silva, DO - Last Filed: 08/26/21 18:13> [facility] MDM Narrative Medical decision making narrative: I have personally performed a face to face assessment of the patient and have reviewed the SHAHNAZ Note. I performed a substantive portion of the visit including all aspects of the following. My ye findings include: History is patient who is evaluated for intermittent episodes of epigastric and left-sided backslash chest discomfort for the past week. Patient did have a ischemic stroke with hemorrhagic conversion in the end of May and was treated [facility] conservatively. Patient also feels that she her vision has been more off over the past week. Exam is Patient is well-appearing in no acute distress. Normocephalic atraumatic. EOMI. Moist mucosal membranes. Neck is supple with no JVD. Lungs clear to auscultation. Heart regular rate and rhythm. Abdomen is soft and nontender. Skin is normal with no rash. No edema of the lower extremities appreciated. No deformity of the extremities appreciated. On neuro exam patient has bilateral right upper quadrant visual field cut but no other acute neurologic process. Normal [id number]. Normal coordination and no truncal ataxia. Medical Decision Making patient is evaluated for sensation of worsening vision changes as well as this vague chest/epigastric discomfort. Given her recent hospitalization a D-dimer was obtained but patient is no other PE risk factors. This is normal I do not suspect a PE or think a CT is indicated. CBC is normal. BMP is normal. Liver panel lipase added on as she does have epigastric and discomfort with this is also normal. EKG is normal with no acute changes and her high since her troponin is less than 3. I do not think this is ACS. I did review patient's chart from [facility] on [address], which has documented that the patient has previously had this right upper quadrant hemianopsia. I do not think this is an acute stroke. I suspect patient is continue to have symptoms from her prior stroke. I do not think there is any acute pathology and I do not think patient requires admission at this time. She is agreeable to splenic care. She is encouraged to follow-up outpatient. She is counseled on return precautions. Other additions or changes: [None] Lab Data Attestation: I reviewed the patient's lab results. Labs: Laboratory Results - last 24 hr 08/26/21 08/26/21 08/26/21 09:55 09:55 09:55 WBC 5.9 RBC 4.64 Hgb 13.7 Hct 39.9 MCV 86.0 MCH 29.5 MCHC 34.3 RDW Std Deviation 39.2 RDW Coeff of Rahul 12.5 Plt Count 280 MPV 10.8 Immature Gran % (Auto) 0.200 Neut % (Auto) 56.5 Lymph % (Auto) 32.7 Fountain % (Auto) 7.1 Eos % (Auto) 2.6 Baso % (Auto) 0.9 Absolute Neuts (auto) 3.3 Absolute Lymphs (auto) 1.92 Nucleated RBC % 0 D-Dimer Quant (PE/DVT) 0.27 Sodium 135 L Potassium 3.9 Chloride 102 Carbon Dioxide 27.0 Anion Gap 6 BUN 12 Creatinine 0.81 Estim Creat Clear Calc 47.46 Est GFR (MDRD) Af Amer 89 Est GFR (MDRD) Non-Af 74 BUN/Creatinine Ratio 14.9 Glucose 128 H Calcium 9.4 Total Bilirubin Direct Bilirubin AST ALT Alkaline Phosphatase Troponin I High Sens < 3 L Total Protein Albumin Globulin Lipase Urine Color Urine Clarity Urine pH Ur Specific Garretson Urine Protein Urine Glucose (UA) Urine Ketones Urine Occult Blood Urine Nitrite Urine Bilirubin Urine Urobilinogen Ur Leukocyte Esterase Urine RBC Urine WBC Ur Squamous Epith Cells Urine Bacteria Urine Mucus 08/26/21 08/26/21 08/26/21 09:55 09:55 09:55 WBC RBC Hgb Hct MCV MCH MCHC RDW Std Deviation RDW Coeff of Rahul Plt Count MPV Immature Gran % (Auto) Neut % (Auto) Lymph % (Auto) Fountain % (Auto) Eos % (Auto) Baso % (Auto) Absolute Neuts (auto) Absolute Lymphs (auto) Nucleated RBC % D-Dimer Quant (PE/DVT) Sodium Potassium Chloride Carbon Dioxide Anion Gap BUN Creatinine Estim Creat Clear Calc Est GFR (MDRD) Af Amer Est GFR (MDRD) Non-Af BUN/Creatinine Ratio Glucose Calcium Total Bilirubin 0.50 Direct Bilirubin 0.12 AST 17 ALT 23 Alkaline Phosphatase 93 Troponin I High Sens Cancelled Total Protein 7.7 Albumin 3.9 Globulin 3.8 Lipase 143 Urine Color Urine Clarity Urine pH Ur Specific Garretson Urine Protein Urine Glucose (UA) Urine Ketones Urine Occult Blood Urine Nitrite Urine Bilirubin Urine Urobilinogen Ur Leukocyte Esterase Urine RBC Urine WBC Ur Squamous Epith Cells Urine Bacteria Urine Mucus 08/26/21 11:54 WBC RBC Hgb Hct MCV MCH MCHC RDW Std Deviation RDW Coeff of Rahul Plt Count MPV Immature Gran % (Auto) Neut % (Auto) Lymph % (Auto) Fountain % (Auto) Eos % (Auto) Baso % (Auto) Absolute Neuts (auto) Absolute Lymphs (auto) Nucleated RBC % D-Dimer Quant (PE/DVT) Sodium Potassium Chloride Carbon Dioxide Anion Gap BUN Creatinine Estim Creat Clear Calc Est GFR (MDRD) Af Amer Est GFR (MDRD) Non-Af BUN/Creatinine Ratio Glucose Calcium Total Bilirubin Direct Bilirubin AST ALT Alkaline Phosphatase Troponin I High Sens Total Protein Albumin Globulin Lipase Urine Color Yellow Urine Clarity Clear Urine pH 7.0 Ur Specific Garretson 1.005 Urine Protein Negative Urine Glucose (UA) Normal Urine Ketones Negative Urine Occult Blood Negative Urine Nitrite Negative Urine Bilirubin Negative Urine Urobilinogen Normal Ur Leukocyte Esterase Negative Urine RBC 0 SEEN Urine WBC 0 SEEN Ur Squamous Epith Cells 0 SEEN Urine Bacteria 0 SEEN Urine Mucus 0 SEEN Radiography Diagnostic Testing: Clinical Impression(s) from Imaging Studies Brain CT 08/26/21 10:05 IMPRESSION: Mild cortical and central atrophy. Dystrophic calcifications basal ganglia bilaterally. Moderate chronic microvascular ischemic change most pronounced in the periventricular white matter adjacent to the body and atrium of the left lateral ventricle extending into the left frontoparietal centrum semiovale. Electronically Signed: Delvis Teran MD, JD at 10:29 EDT , Chest X-Ray 08/26/21 10:20 IMPRESSION: Probable bilateral nipple shadows. Recommend repeat PA and slight oblique views with nipple markers in place. Remainder of lungs clear. Electronically Signed: Delvis Teran MD, JD at 10:40 EDT , Discharge Plan Triage Chief Complaint: Chest Pain ED Midlevel Provider: Kalpesh Christy ED Provider: Sis Da Silva Dx/Rx/DC Orders Clinical Impression: History of cardioembolic cerebrovascular accident (CVA), Acute chest wall pain Instructions: ED Chest Pain, Uncertain Cause Prescriptions: No Action Zyrtec 10 mg capsule 10 mg PO DAILY RF: 0 Beano 150 unit tablet 300 unit PO TID PRNRF: 0 vitamin B complex Tablet 1 tablet PO DAILY RF: 0 vitamins A,C,W-qbgc-wosspx 7,160-113-100 mllo-dj-jkub tablet 1 tablet PO BID RF: 0 minoxidil 2 % solution 1 ml TOPICAL BID RF: 0 7-Keto DHEA Powder 1 each MC DAILY RF: 0 omeprazole 40 mg capsule,delayed release(DR/EC) 40 mg PO DAILY RF: 0 aspirin [Aspirin Low Dose] 81 mg tablet,delayed release (DR/EC) 81 mg PO DAILY RF: 0 ezetimibe [Zetia] 10 mg tablet 10 mg PO DAILY RF: 0 fluoxetine 10 mg capsule 10 mg PO DAILY RF: 0 meclizine 25 mg Tablet 25 mg PO DAILY PRN (Reason: Dizziness) RF: 0 Primary Care Provider: Reagan Hodges Referrals: Reagan Hodges MD [Primary Care Provider] - Activity Restrictions/Additional Instructions: At this time, there is no indication of ongoing stroke, pulmonary embolus, cardiac issues. You are being diagnosed with chest wall pain, please use Tylenol for pain and follow-up with your PCP. Please return for any worsening symptoms Print Language: [place] Disposition Disposition: Home, Self Care Discharge Date/Time: 08/26/21 13:15
[2021-08-26 10:17] LABS: Absolute Lymphocyte Count 1.92 X10^3/uL (0.83-4.51); Absolute Neutrophil Count 3.3 X10^3/uL (2.0-7.7); Basophil# 0.05 X10^3/uL; Basophil% 0.9 % (0-1); Eosinophil# 0.15 X10^3/uL; Eosinophils% 2.6 % (0-5); Hematocrit 39.9 % (37-47); Hemoglobin 13.7 g/dL (12.0-15.0); Lymphocyte # 1.92 X10^3/ul (0.83-4.51); Lymphocyte % 32.7 % (19-41); Mean Corp Hgb Conc 34.3 g/dL (32-36); Mean Corpuscular Hgb 29.5 pg (27.0-32.0); Mean Platelet Vol. 10.8 fl (6.2-12.0); Monocyte# 0.42 X10^3/uL; Monocyte% 7.1 % (0-10); NRBC Flagged by Analyzer 0 % (0-5); Neutrophil # 3.33 X10^3/uL (2.7-7.7); Neutrophil % 56.5 % (47-70); Platelet Count 280 K/mm3 (150-450); RBC Distribution Width CV 12.5 % (11.6-14.6); RBC Distribution Width SD 39.2 fl (35.1-43.9); Red Blood Count 4.64 M/mm3 (4.2-5.4); White Blood Count 5.9 K/mm3 (4.4-11.0)
--- NOTE | 2021-08-26 10:20 | RAD_ITS ---
STUDY: X-RAY CHEST REASON FOR EXAM: Female, 76 years old. chest pain TECHNIQUE: Frontal view COMPARISON: 06/29/2021 5:59 PM FINDINGS: Probable bilateral nipple shadows. Remainder of lungs clear bilaterally. There is no demonstrated pleural abnormality. Normal size heart. Normal mediastinum and kendell. Normal visualized pulmonary arteries. Normal visualized aortic arch and descending thoracic aorta. Normal visualized thoracic spine. Normal visualized ribs, clavicles, and shoulders. There is no demonstrated abnormality of the visualized soft tissue structures of the upper abdomen. RAD/Chest 1 View (Portable) IMPRESSION: Probable bilateral nipple shadows. Recommend repeat PA and slight oblique views with nipple markers in place. Remainder of lungs clear. Electronically Signed: Delvis Teran MD, LAILA at 10:40 EDT ,
[2021-08-26 10:39] LABS: Anion Gap 6 (5-15); BUN 12 mg/dL (7-18); BUN/Creat Ratio 14.9 RATIO (10-20); Calcium,Total 9.4 mg/dL (8.5-10.1); Chloride 102 mmol/L (98-107); Creatinine, Serum 0.81 mg/dL (0.55-1.02); EST Glomerular Filtration Rate 74 mL/min (>60); Est Glom Filt Rate - Afr Amer 89 mL/min (>60); Estimated Creatinine Clearance 47.46 ml/min; Glucose 128 mg/dL (74-106); Potassium 3.9 mmol/L (3.5-5.1); Sodium Level 135 mmol/L (136-145); Troponin-I HS (w/2H Reflex) < 3 pg/mL (3.0-54.0)
[2021-08-26 10:56] LABS: D-Dimer Quantitative (DVT/PE) 0.27 FEU/ug/m (0.27-0.49)
[2021-08-26 11:25] LABS: Lipase 143 U/L (73-393)
[2021-08-26 11:29] LABS: AST(SGOT) 17 U/L (15-37); Alanine Aminotransfer ALT/SGPT 23 U/L (13-56); Albumin, Serum 3.9 g/dL (3.2-5.0); Alkaline Phosphatase 93 U/L (45-117); Bilirubin, Direct 0.12 mg/dL (0.00-0.30); Globulin 3.8 g/dL (2.2-4.2); Protein, Total 7.7 g/dL (6.4-8.2)
[2021-08-26 11:57] LABS: Bacteria 0 SEEN /hpf (None Seen); Mucous, Urine 0 SEEN /hpf (<or=2+); Red Blood Cells-Urine 0 SEEN /hpf (0-5); Squamous Epithelial Cells - UA 0 SEEN /hpf (5-10); White Blood Cells 0 SEEN /hpf (0-5)
[2021-08-26 12:06] LABS: Color, Urine Yellow (Yellow); Glucose, Dipstick Normal (Normal); Ketone-Dipstick Negative (Negative); Leukocyte Esterase-Dipstick Negative /ul (Negative); Nitrite-Dipstick Negative (Negative); Occult Blood-Urine Negative /ul (Negative); Protein-Dipstick Negative (Negative); Specific Gravity, Urine 1.005 (1.002-1.030); Urine Bilirubin Dipstick Negative (Negative); Urine Clarity Clear (Clear); Urine Urobilinogen Normal (Normal)
[2021-08-26 12:14] LABS: Reflex Troponin-HS? (from REC) Y
[2021-08-26 13:14] VITALS: BP 121/69; PULSE 89; RESP 16; O2SAT 96
== END 2021-08-26 13:15 | disposition home or self-care (01) ==
PROVIDERS: Nurse Practitioner; Emergency Provider Emergency Medicine; PCP Internal Medicine; Visit Provider Emergency Medicine
DX: R07.89 Other chest pain (principal); G31.9 Degenerative disease of nervous system, unspecified; M54.9 Dorsalgia, unspecified; H53.8 Other visual disturbances; Z86.73 Personal history of transient ischemic attack (TIA), and cerebral infarction without residual deficits; R10.13 Epigastric pain; E78.2 Mixed hyperlipidemia; Z79.82 Long term (current) use of aspirin
CPT/HCPCS: 70450; 71045; 80048; 80076; 81001; 83690; 84484; 85025; 85379; 87086; 87088; 93005; 99283

== ENCOUNTER → 2021-10-23 | Outpatient (CLI) | payer MEDICARE, BC, SELFPAY ==
[2021-10-23 18:26] LABS: Hemoglobin A1c 5.5 % (3.8-5.6)
== END | disposition home or self-care (01) ==
PROVIDERS: PCP Internal Medicine; Referring Provider Psychiatry & Neurology Neurology; Visit Provider Psychiatry & Neurology Neurology
DX: R73.9 Hyperglycemia, unspecified (principal)
CPT/HCPCS: 36415; 83036

== ENCOUNTER → 2022-03-29 | Outpatient (CLI) | payer MEDICARE, BC, SELFPAY ==
[2022-03-29 17:46] LABS: Hematocrit 39.1 % (37-47); Hemoglobin 12.8 g/dL (12.0-15.0); Mean Corp Hgb Conc 32.7 g/dL (32-36); Mean Corpuscular Hgb 28.6 pg (27.0-32.0); Mean Corpuscular Volume 87.3 fL (81-99); Platelet Count 297 K/mm3 (150-450); RBC Distribution Width CV 12.5 % (11.6-14.6); RBC Distribution Width SD 39.7 fl (35.1-43.9); Red Blood Count 4.48 M/mm3 (4.2-5.4); White Blood Count 6.6 K/mm3 (4.4-11.0)
[2022-03-29 18:28] LABS: ALB/GLOB Ratio 1.2 RATIO (0.9-2.4); AST(SGOT) 13 U/L (15-37); Alanine Aminotransfer ALT/SGPT 19 U/L (13-56); Alkaline Phosphatase 94 U/L (45-117); Anion Gap 9 (5-15); BUN 12 mg/dL (7-18); BUN/Creat Ratio 15.7 RATIO (10-20); Calcium,Total 9.1 mg/dL (8.5-10.1); Chloride 98 mmol/L (98-107); Creatinine, Serum 0.76 mg/dL (0.55-1.02); EST Glomerular Filtration Rate 78 mL/min (>60); Est Glom Filt Rate - Afr Amer 95 mL/min (>60); Globulin 3.3 g/dL (2.2-4.2); Glucose 100 mg/dL (74-106); Potassium 4.1 mmol/L (3.5-5.1); Protein, Total 7.3 g/dL (6.4-8.2); Sodium Level 133 mmol/L (136-145); Thyroid Stim Hormone (TSH) 1.35 uIU/mL (0.358-3.74)
[2022-04-03 16:35] LABS: Vitamin B1, Thiamine 108.1 nmol/L (66.5-200.0)
== END | disposition home or self-care (01) ==
LOC: MTLAB 14:07
PROVIDERS: PCP Internal Medicine; Referring Provider Psychiatry & Neurology Neurology; Visit Provider Psychiatry & Neurology Neurology
DX: I67.9 Cerebrovascular disease, unspecified (principal); F03.90 Unspecified dementia, unspecified severity, without behavioral disturbance, psychotic disturbance, mood disturbance, and anxiety; R53.83 Other fatigue
CPT/HCPCS: 36415; 80053; 82746; 84425; 84443; 85027

== ENCOUNTER 2022-04-29 12:07 | Emergency (ER) | payer MEDICARE, BC, SELFPAY ==
[2022-04-29 12:08] VITALS: BP 136/66; PULSE 85; RESP 16; TEMP 36.8; O2SAT 98; BMI 22.3
[2022-04-29] MEDS: Ondansetron 4 MG/2 ML Vial IV (13:10)
[2022-04-29] MEDS: 0.9% Normal Saline 1,000 ML 1000 ML IV (13:10)
[2022-04-29] MEDS: Morphine 4 MG/ML Syringe IV (13:11)
[2022-04-29 13:13] VITALS: RESP 16
[2022-04-29 13:33] LABS: Absolute Lymphocyte Count 1.07 X10^3/uL (0.83-4.51); Absolute Neutrophil Count 8.9 X10^3/uL (2.0-7.7); Basophil# 0.04 X10^3/uL; Basophil% 0.4 % (0-1); Eosinophil# 0.01 X10^3/uL; Eosinophils% 0.1 % (0-5); Hematocrit 37.7 % (37-47); Hemoglobin 12.7 g/dL (12.0-15.0); Lymphocyte # 1.07 X10^3/ul (0.83-4.51); Lymphocyte % 10.1 % (19-41); Mean Corp Hgb Conc 33.7 g/dL (32-36); Mean Corpuscular Hgb 29.2 pg (27.0-32.0); Mean Corpuscular Volume 86.7 fL (81-99); Mean Platelet Vol. 10.3 fl (6.2-12.0); Monocyte# 0.58 X10^3/uL; Monocyte% 5.5 % (0-10); NRBC Flagged by Analyzer 0 % (0-5); Neutrophil # 8.87 X10^3/uL (2.7-7.7); Neutrophil % 83.4 % (47-70); Platelet Count 247 K/mm3 (150-450); RBC Distribution Width CV 12.8 % (11.6-14.6); RBC Distribution Width SD 40.5 fl (35.1-43.9); Red Blood Count 4.35 M/mm3 (4.2-5.4); White Blood Count 10.6 K/mm3 (4.4-11.0)
--- NOTE | 2022-04-29 13:41 | ED.VIS.GI ---
HPI HPI - GI History of Present Illness Chief Complaint: Abd Pain Informant: patient Abdominal Pain/Flank Pain Onset: Weeks (1) Context: Gradual Onset Timing: Continuous Quality: Sharp Location: LLQ Worsened by: Nothing Relieved by: - (Having a bowel movement) Nausea/Vomiting/Emesis GI Symptom: Positive for Nausea; Negative for Vomiting Diarrhea/Melena/Hematochezia GI Symptom: Negative for Diarrhea, Melena or Hematochezia Associated Symptoms Associated Symptoms: Positive for Frequency; Negative for Dysuria or Hematuria Narrative Narrative: Patient presents with abdominal pain that has been getting progressively worse over the past week. Patient states it began rather suddenly. Patient states it is sharp. Patient states it is over the left lower abdomen. Patient states nothing makes it worse. Patient states it gets better briefly after having a bowel movement. Patient admits to some nausea but denies any vomiting. Patient denies any diarrhea, melena, or hematochezia. Patient admits to some urinary frequency but denies any dysuria or hematuria. Patient denies any fevers or chills. PFSH PFSH Medical History Breast cyst Cataracts, bilateral Cerebrovascular accident (CVA) Chronic rhinitis CVA, old, homonymous hemianopsia Depression MISTY (generalized anxiety disorder) Gallstones Gastritis Gastritis and gastroduodenitis GERD (gastroesophageal reflux disease) History of UTI Meniere's disease Mixed hyperlipidemia Osteoporosis Quadrantanopia of right eye Home Medications 7-oxodehydroepiandroste (bulk) (7-Keto DHEA powder) 1 each miscellaneous DAILY 06/29/20 [History Last Taken Unknown] pbzha-f-ermimuzpobtma 150 unit tablet (Beano) 300 unit PO TID PRN 06/29/20 [History Last Taken Unknown] fluoxetine 10 mg capsule 10 mg PO DAILY 06/29/20 [History Last Taken Unknown] minoxidil 2 % topical solution 1 ml topical BID 06/29/20 [History Last Taken Unknown] vitamin B complex 1 tablet PO DAILY 06/29/20 [History Last Taken Unknown] vitamins A,C,W-mqdn-cycjfq 2,148 mcg-113 mg-45 mg-17.4 mg tablet 1 tablet PO BID 06/29/20 [History Last Taken Unknown] omeprazole 40 mg capsule,delayed release 40 mg PO DAILY 12/06/20 [History Last Taken Unknown] meclizine 25 mg tablet 25 mg PO DAILY PRN Dizziness 06/29/21 [History Last Taken Unknown] aspirin 81 mg tablet,delayed release (Mayela Low Dose Aspirin) 81 mg PO DAILY 07/27/21 [History Last Taken Unknown] ezetimibe 10 mg tablet (Zetia) 10 mg PO DAILY 07/27/21 [History Last Taken Unknown] rosuvastatin 5 mg tablet 5 mg PO 10/23/21 [History Last Taken Unknown] Allergy/AdvReac Type Severity Reaction Status Date / Time Sulfa (Sulfonamide Allergy Unknown Unknown Verified 04/29/22 12:08 Antibiotics) Family History Other Heart disease Myocardial infarction Surgical History History of oophorectomy History of tonsillectomy Social History Smoking Status: Never smoker Electronic Cigarette Use: not used second hand exposure: No alcohol intake: never substance use type: does not use ROS ROS ED Constitutional Constitutional ED: Denies chills or fever(s) Eyes Eyes: Denies blurry vision or change in vision ENT ENT ED: Denies rhinorrhea or sore throat Cardiovascular Cardiovascular: Denies chest pain or palpitations Respiratory/Chest Respiratory/Chest: Denies cough or dyspnea Gastrointestinal Gastrointestinal: Reports abdominal pain and nausea; Denies constipation, diarrhea or vomiting Genitourinary Genitourinary ED: Denies dysuria or hematuria Musculoskeletal Musculoskeletal: Reports back pain; Denies neck pain Integumentary Denies abscess or rash Neurologic Neurologic: Reports headache(s); Denies weakness Allergic/Immunologic Allergic/Immunologic ED: Denies mouth swelling or urticaria EXAM Physical Exam Const Vital Signs: 04/29/22 12:08 04/29/22 13:13 04/29/22 15:23 Temperature 98.3 F Temperature Source Temporal Pulse Rate 85 73 Respiratory Rate 16 16 16 Blood Pressure 136/66 H 118/62 Blood Pressure Mean 89 80 Pulse Ox 98 99 Oxygen Delivery Method Room Air Room Air Positive well nourished and well developed General Appearance ED: well developed HEENT Reports moist mucous membranes Neck supple and no JVD Resp normal respiratory effort and clear to auscultation bilaterally Cardio regular rate, regular rhythm and no murmurs GI normal to inspection, nondistended, normoactive bowel sounds Palpation: soft and tender LLQ; Negative for guarding or rebound tenderness present Extremity normal to inspection General Extremety ED: Negative for edema or tenderness General Extremity: Negative for edema Neuro oriented x3, CN's II-XII intact bilaterally and no sensory deficits noted Sensorium / Orientation: alert Motor Exam: strength 5/5 throughout Psych mental status grossly normal Skin no rashes or lesions noted MDM MDM MDM Narrative Medical decision making narrative: Patient was given IV fluids, morphine, and Zofran. Differential diagnosis includes diverticulosis, diverticulitis, urinary tract infection, pyelonephritis, ureteral calculus, bowel obstruction, perforation, and abscess. CBC will be obtained to assess for leukocytosis and anemia. Basic metabolic profile will be obtained to assess for electrolyte abnormality, and renal function. Urinalysis will be obtained to assess for urinary tract infection and hematuria. CT scan of the abdomen and pelvis will be obtained to assess for diverticulitis, diverticulosis, bowel obstruction, perforation, and ureteral calculus. Lab Data Attestation: I reviewed the patient's lab results. Lab results narrative: CBC was reviewed and was within normal limits. Basic metabolic profile was reviewed and was within normal limits. Urinalysis was reviewed and was normal. Labs: Laboratory Results - last 24 hr 04/29/22 04/29/22 04/29/22 13:12 13:12 14:05 WBC 10.6 RBC 4.35 Hgb 12.7 Hct 37.7 MCV 86.7 MCH 29.2 MCHC 33.7 RDW Std Deviation 40.5 RDW Coeff of Rahul 12.8 Plt Count 247 MPV 10.3 Immature Gran % (Auto) 0.500 Neut % (Auto) 83.4 H Lymph % (Auto) 10.1 L [place] % (Auto) 5.5 Eos % (Auto) 0.1 Baso % (Auto) 0.4 Absolute Neuts (auto) 8.9 H Absolute Lymphs (auto) 1.07 Nucleated RBC % 0 Sodium 136 Potassium 4.2 Chloride 102 Carbon Dioxide 27.0 Anion Gap 7 BUN 10 Creatinine 0.81 Estim Creat Clear Calc 47.46 Est GFR (MDRD) Af Amer 88 Est GFR (MDRD) Non-Af 73 BUN/Creatinine Ratio 12.3 Glucose 120 H Calcium 9.2 Urine Color Yellow Urine Clarity Clear Urine pH 6.5 Ur Specific [place] 1.010 Urine Protein Negative Urine Glucose (UA) Normal Urine Ketones 15 H Urine Occult Blood 10 H Urine Nitrite Negative Urine Bilirubin Negative Urine Urobilinogen Normal Ur Leukocyte Esterase Negative Urine RBC 0 SEEN Urine WBC 0 SEEN Ur Squamous Epith Cells 0 SEEN Urine Bacteria 0 SEEN Urine Mucus 0 SEEN Radiography Diagnostic Testing: Clinical Impression(s) from Imaging Studies Abdomen/Pelvis CT 04/29/22 14:59 IMPRESSION: 1. 1.3 cm solitary calcified gallstone. 2. Diverticulosis in the sigmoid colon and descending colon but no diverticulitis. 3. No suspicious acute abnormality in the abdomen and pelvis. Electronically Signed: Link Santos MD at 15:30 EST , CT scan of the abdomen and pelvis was reviewed. On my independent review, there is no acute process. There is no free air. There is no evidence of bowel obstruction. Radiologist also interpreted the CT scan and noted diverticulosis of the sigmoid colon but no diverticulitis. He also noted a 1.3 cm solitary gallstone. The patient's pain is in the left lower quadrant. This should not be a cause of her pain. Treatment and Re-Evaluation Narrative: Patient was feeling better on reevaluation. Patient was advised of her findings. Patient was instructed to eat a bland diet. Patient was instructed to drink plenty of fluids. Patient was instructed to follow-up with her primary care physician and 5 to 7 days. Patient understood and was agreeable with the plan. All questions were answered. Discharge Plan Triage Chief Complaint: Abd Pain ED Provider: Maurice Giordano Dx/Rx/DC Orders Clinical Impression: Left lower quadrant abdominal pain, Nausea Instructions: ED Abdominal Pain Unkn Cause Fem Prescriptions: No Action Beano 150 unit tablet 300 unit PO TID PRN vitamin B complex Tablet 1 tablet PO DAILY vitamins A,C,X-bcng-akpcvf 7,160-113-100 iokr-xu-tdyc tablet 1 tablet PO BID Rx Instructions: administer with AM and PM meals minoxidil 2 % solution 1 ml TOPICAL BID 7-Keto DHEA Powder 1 each MC DAILY Rx Instructions: Take 100mg PO Daily omeprazole 40 mg capsule,delayed release(DR/EC) 40 mg PO DAILY Label Comments: TAKE 1 CAPSULE BY MOUTH EVERY DAY rosuvastatin 5 mg tablet 5 mg PO Label Comments: TAKE 1 TABLET BY MOUTH EVERYDAY AT BEDTIME aspirin [Mayela Low Dose Aspirin] 81 mg tablet,delayed release (DR/EC) 81 mg PO DAILY ezetimibe [Zetia] 10 mg tablet 10 mg PO DAILY fluoxetine 10 mg capsule 10 mg PO DAILY meclizine 25 mg Tablet 25 mg PO DAILY PRN (Reason: Dizziness) Primary Care Provider: Fatimah Bond Referrals: Fatimah Bond DO [Primary Care Provider] - 5-7 Days Disposition Disposition: Home, Self Care
[2022-04-29 13:48] LABS: Anion Gap 7 (5-15); BUN 10 mg/dL (7-18); BUN/Creat Ratio 12.3 RATIO (10-20); Calcium,Total 9.2 mg/dL (8.5-10.1); Chloride 102 mmol/L (98-107); Creatinine, Serum 0.81 mg/dL (0.55-1.02); EST Glomerular Filtration Rate 73 mL/min (>60); Est Glom Filt Rate - Afr Amer 88 mL/min (>60); Estimated Creatinine Clearance 47.46 ml/min; Glucose 120 mg/dL (74-106); Potassium 4.2 mmol/L (3.5-5.1); Sodium Level 136 mmol/L (136-145)
[2022-04-29 14:08] LABS: Bacteria 0 SEEN /hpf (None Seen); Mucous, Urine 0 SEEN /hpf (<or=2+); Red Blood Cells-Urine 0 SEEN /hpf (0-5); Squamous Epithelial Cells - UA 0 SEEN /hpf (5-10); White Blood Cells 0 SEEN /hpf (0-5)
[2022-04-29 14:16] LABS: Color, Urine Yellow (Yellow); Glucose, Dipstick Normal (Normal); Ketone-Dipstick 15 mg/dl (Negative); Leukocyte Esterase-Dipstick Negative /ul (Negative); Nitrite-Dipstick Negative (Negative); Occult Blood-Urine 10 /ul (Negative); Protein-Dipstick Negative (Negative); Urine Bilirubin Dipstick Negative (Negative); Urine Clarity Clear (Clear); Urine Urobilinogen Normal (Normal); Urine pH 6.5 (5.0 - 8.0)
--- NOTE | 2022-04-29 14:59 | CT_ITS ---
EXAM: CT ABDOMEN AND PELVIS WITHOUT INTRAVENOUS CONTRAST CLINICAL INDICATION: Abdominal pain TECHNIQUE: Helically acquired images were obtained of the abdomen and pelvis without intravenous contrast. This CT exam was performed using one or more of the following dose reduction techniques: automated exposure control, adjustment of the mA and/or kV according to patient size, and/or use of iterative reconstruction technique. This report was created using [employer] report generation technology. RADIATION DOSE: CTDIvol = 6.15 mGy, DLP = 276.51 mGy-cm COMPARISON: None. FINDINGS: LOWER THORAX: Unremarkable. Lung bases are clear. No cardiomegaly. No significant pericardial effusion. ABDOMEN: LIVER: Unremarkable. Homogeneous. GALLBLADDER AND BILE DUCTS: 1.3 cm calcified gallstone. No gallbladder distention or wall edema. No intra- or extrahepatic biliary ductal dilation. PANCREAS: Unremarkable. No focal cystic mass. SPLEEN: Unremarkable. Normal size without focal cystic or solid mass. ADRENALS: Unremarkable. No nodules. KIDNEYS AND URETERS: Unremarkable. Normal renal size and position. No hydronephrosis. STOMACH AND BOWEL: Few diverticula in the sigmoid colon and lower descending colon without diverticulitis. No stomach or bowel distention. PELVIS: APPENDIX: Normal. BLADDER: Unremarkable. REPRODUCTIVE: Unremarkable as visualized. No mass. ABDOMEN and PELVIS: INTRAPERITONEAL SPACE: Unremarkable. No ascites or other fluid collection. No free air. BONES/JOINTS: Unremarkable. No suspicious lytic or blastic abnormality. SOFT TISSUES: Unremarkable. No discrete abdominal or pelvic wall hernia. VASCULATURE: Unremarkable. Abdominal aorta is non-dilated. LYMPH NODES: Unremarkable. No enlarged lymph nodes. CT/Abdomen/Pelvis without Cont IMPRESSION: 1. 1.3 cm solitary calcified gallstone. 2. Diverticulosis in the sigmoid colon and descending colon but no diverticulitis. 3. No suspicious acute abnormality in the abdomen and pelvis. Electronically Signed: Link Santos MD at 15:30 EST ,
[2022-04-29 15:23] VITALS: BP 118/62; PULSE 73; RESP 16; O2SAT 99
== END 2022-04-29 16:34 | disposition home or self-care (01) ==
PROVIDERS: Emergency Provider Emergency Medicine; PCP Internal Medicine; Visit Provider Emergency Medicine
DX: R10.32 Left lower quadrant pain (principal); R35.0 Frequency of micturition; E78.2 Mixed hyperlipidemia; R11.0 Nausea; Z86.73 Personal history of transient ischemic attack (TIA), and cerebral infarction without residual deficits; K21.9 Gastro-esophageal reflux disease without esophagitis
CPT/HCPCS: 74176; 80048; 81001; 85025; 96361; 96374; 96375; 99283; J7030; J2405

== ENCOUNTER → 2022-06-05 | Outpatient (CLI) | payer MEDICARE, BC, SELFPAY ==
--- NOTE | 2022-06-05 13:05 | BI_ITS ---
MAMMOGRAPHY - BILATERAL SCREENING REASON FOR EXAM: Female, 77 years old. Routine annual screening examination. PERTINENT HISTORY: Non-contributory. TECHNIQUE: Digital bilateral breast shankar (3D mammographic acquisition) in the CC and MLO projections. 2-D mediolateral oblique (MLO) and craniocaudad (CC) views of both breasts were obtained. CAD: Full Field Digital Mammography with Computer Added Detection was performed. COMPARISON: Comparison is made with prior study dated February 20, 2022 and January 08, 2019. FINDINGS: Breast Composition: There are scattered areas of fibroglandular density. There are no dominant masses or suspicious calcifications. No other significant abnormalities are identified. There has been no significant change since the prior study. BI/SCRN MAMM (CAD)W/SHANKAR BILAT IMPRESSION: Stable bilateral screening mammogram. Yearly follow-up mammogram recommended. (A) ASSESSMENT CATEGORY: BIRADS Category 1: Negative. A letter regarding these results will be sent to the patient by the facility within 30 days. Approximately 10% of breast cancers are not detected by mammography. A normal mammogram should not delay biopsy of a clinically suspicious abnormality. [id number] Electronically Signed: Oskra Garcia MD at 17:29 EST ,
--- NOTE | 2022-06-05 13:05 | US_ITS ---
EXAM: US RIGHT UPPER EXTREMITY NON-VASCULAR, COMPLETE CLINICAL INDICATION: mass of right axilla TECHNIQUE: Real-time ultrasound scan of the right upper extremity with image documentation. This report was created using [employer] report [employer] technology. COMPARISON: None. FINDINGS: Elongated fat-containing structure in the area of the right axilla with no suspicious features. This measures 2.5 x 0.8 cm. No other significant abnormalities. US/Ext Non Vasc Limited/Soft Tiss IMPRESSION: Lipoma involving the right axilla. Electronically Signed: Bryan Canada MD at 2:24 EST ,
== END | disposition home or self-care (01) ==
LOC: US 13:02
PROVIDERS: PCP Internal Medicine; Visit Provider Internal Medicine
DX: Z12.31 Encounter for screening mammogram for malignant neoplasm of breast (principal); R22.31 Localized swelling, mass and lump, right upper limb
CPT/HCPCS: 76882; 77063; 77067

== ENCOUNTER → 2022-06-14 | Outpatient (CLI) | payer MEDICARE, BC, SELFPAY | END | disposition home or self-care (01) | LOC: LABSPEC 13:21 | PROVIDERS: PCP Internal Medicine; Referring Provider Internal Medicine; Visit Provider Internal Medicine | DX: E87.5 Hyperkalemia (principal) | CPT/HCPCS: 84132 ==

== ENCOUNTER → 2022-07-24 | Outpatient (CLI) | payer MEDICARE, BC, SELFPAY ==
[2022-07-24 18:44] LABS: Anion Gap 6 (5-15); BUN 13 mg/dL (7-18); BUN/Creat Ratio 18.1 RATIO (10-20); Calcium,Total 9.2 mg/dL (8.5-10.1); Chloride 99 mmol/L (98-107); Creatinine, Serum 0.72 mg/dL (0.55-1.02); EST Glomerular Filtration Rate 84 mL/min (>60); Est Glom Filt Rate - Afr Amer 101 mL/min (>60); Glucose 99 mg/dL (74-106); Potassium 3.9 mmol/L (3.5-5.1); Sodium Level 130 mmol/L (136-145)
== END | disposition home or self-care (01) ==
LOC: MTLAB 15:38
PROVIDERS: PCP Internal Medicine; Referring Provider Psychiatry & Neurology Neurology; Visit Provider Psychiatry & Neurology Neurology
DX: E87.1 Hypo-osmolality and hyponatremia (principal); R53.83 Other fatigue
CPT/HCPCS: 36415; 80048

== ENCOUNTER 2022-10-12 10:08 | Day surgery (SDC) | payer MEDICARE, BC, SELFPAY ==
[2022-10-11 08:16] VITALS: BMI 20.8
--- NOTE | 2022-10-12 12:16 | CL.IE_ITS ---
Patient: FAYE LMIA Study Date: 10/12/2022 Performing: Cornell Pandya MD : 1945 Age: 77 Gender: female PROCEDURES PERFORMED [id number])INSERTION OF LOOP RECORDER INDICATIONS Atrial fibrillation and past cva PROCEDURE DETAILS The patient was brought to the Catheterization Lab in the postabsorptive nonsedated state. Informed consent was obtained prior to the procedure. Incision was made to the left upper chest. ICM Loop Recorder was inserted. The patient tolerated the procedure well. Estimated Blood Loss: < 10 mls IMPLANTED / EX-PLANTED DEVICES IMPLANTED DEVICE(S): ICM Loop Recorder - Director Medical Affairs: [employer], Model # [id number] , Serial # [id number] DEVICE PARAMETERS CONCLUSIONS / RECOMMENDATIONS Device Conclusions: Successful implantation of a patient activated loop recorder. Device Recommendations: Follow up with Primary Care Physician PROCEDURE MEDICATIONS Versed 1 mg IV Oxygen: 2 L/min via nasal cannula Ancef 1 Gm IV @ 10/12/2022 11:59:40 Signed By Cornell Pandya MD On 10/12/2022 12:15:13 Cornell Pandya MD
== END 2022-10-12 13:10 | disposition home or self-care (01) ==
PROVIDERS: PCP Internal Medicine; Referring Provider Internal Medicine Cardiovascular Disease; Visit Provider Internal Medicine Cardiovascular Disease
DX: I48.91 Unspecified atrial fibrillation (principal); Z86.73 Personal history of transient ischemic attack (TIA), and cerebral infarction without residual deficits; E78.00 Pure hypercholesterolemia, unspecified; E87.1 Hypo-osmolality and hyponatremia; E78.5 Hyperlipidemia, unspecified; Z82.49 Family history of ischemic heart disease and other diseases of the circulatory system
CPT/HCPCS: 33285; 99152; J7040

== ENCOUNTER 2022-12-17 14:48 | Emergency (ER) | payer MEDICARE, BC, SELFPAY ==
[2022-12-17 14:52] VITALS: BP 131/76; PULSE 79; RESP 18; TEMP 36.3; O2SAT 96; BMI 21.0
--- NOTE | 2022-12-17 15:20 | CT_ITS ---
We are attempting to reach an attending provider to discuss findings. An addendum with communication details will be sent when the communication is complete. INDICATION: Neuro deficit, acute, stroke suspected EXAMINATION: CT BRAIN - CT Head Stroke Protocol W/O Contrast Injection TECHNIQUE: Multiple axial images were obtained of the head without intravenous contrast. A radiation dose optimization technique was used for this scan. IV Contrast dosage and agent: None. RADIATION DOSAGE (If Supplied By Facility): CTDIvol = ( ) mGy, DLP = ( ) mGycm COMPARISON: August 26, 2021 FINDINGS: BRAIN PARENCHYMA: No intra- or extra-axial hemorrhage. No evidence of acute infarct. Moderate periventricular white matter ischemic changes with old deep white matter infarct in left parietal lobe. There is also old infarct in left occipital lobe demonstrating dystrophic calcification. No intracranial mass or mass effect. There is preservation of the cruz/white matter interface. Posterior fossa structures are unremarkable. CSF SPACES: Mild cerebral atrophy No hydrocephalus. Basal cisterns are patent. CALVARIUM, SKULL BASE, PARANASAL SINUSES AND MASTOID AIR CELLS: Clear. No discrete lytic or blastic abnormalities. ORBITS: Both globes, extraocular muscles, optic nerves and retrobulbar fat appear unremarkable. No significant change since prior exam CT/STROKE Brain/Head without Cont IMPRESSION: Mild atrophy and moderate periventricular white matter ischemic changes. Old left occipital lobe infarct and old deep white matter infarct in left parietal lobe No acute bleed. If concern for acute infarct MRI recommended Electronically Signed: Faraz Chung MD at 16:12 EDT ,
[2022-12-17 15:22] VITALS: PULSE 67; RESP 16; O2SAT 100; O2SAT 97
--- NOTE | 2022-12-17 15:22 | CT_ITS ---
We are attempting to reach an attending provider to discuss findings. An addendum with communication details will be sent when the communication is complete. STUDY: CTA HEAD AND NECK WITH CONTRAST REASON FOR EXAM: Female, 77 years old. vision change RADIATION DOSAGE (If Supplied By Facility): CTDIvol = ( 15.56 ) mGy, DLP = ( 534.50 ) mGycm TECHNIQUE: CT angiography was performed with a multi-detector CT scanner. Data acquisition was obtained from the skull base through the vertex following intravenous administration of IV 100mL [id number]-[id number]. MIP images were reconstructed from the axial data set. Post-processing of the angiographic images was performed, with multiplanar reformation and 3D reconstruction. Individualized dose optimization techniques were used for this CT. COMPARISON: No relevant priors. FINDINGS: Normal bilateral petrous carotid arteries. Normal right cavernous carotid artery with a normal supraclinoid bifurcation. Normal left cavernous carotid artery with a normal supraclinoid bifurcation. Normal right A1 segments of the anterior cerebral artery. Normal left A1 segments of the anterior cerebral artery. Anterior communicating artery not visualized consistent with normal variant). Normal bilateral A2 segments of the anterior cerebral arteries. Normal right M1 and M2 segments of the middle cerebral arteries, with a normal M1 bifurcation. Normal left M1 and M2 segments of the middle cerebral arteries, with a normal M1 bifurcation. Normal right posterior communicating artery (PCOM). Normal left posterior communicating artery (PCOM). Normal bilateral vertebral arteries. Normal basilar artery with a normal basilar bifurcation. The visualized bilateral superior cerebellar (SCA) arteries are normal. Normal bilateral P1, P2 and visualized P3 segments of the posterior cerebral arteries. There is no demonstrated aneurysm of the [place]. AORTIC ARCH: Normal visualized aortic arch. Normal origins of the brachiocephalic, left common carotid, and left subclavian arteries. RIGHT CAROTID ARTERIES: Normal right common carotid artery (CCA). Normal right common carotid bulb. Normal origin of the right internal carotid (ICA) artery without a hemodynamically significant stenosis. Normal visualized cervical portion of the right internal carotid artery. Normal origin of the right external carotid artery (ECA). LEFT CAROTID ARTERIES: Normal left common carotid artery (CCA). Normal left common carotid bulb. Normal origin of the left internal carotid (ICA) artery without a hemodynamically significant stenosis. Normal visualized cervical portion of the left internal carotid artery. Normal origin of the left external carotid artery (ECA). VERTEBRAL ARTERIES: Normal bilateral vertebral arteries. CT/CTA Head AND Neck W/ Contrast IMPRESSION: Normal CTA Head and neck with contrast. Electronically Signed: Faraz Chung MD at 16:15 EDT ,
--- NOTE | 2022-12-17 15:22 | EDS_ITS ---
HPI History of Present Illness Chief Complaint: Vision Prob Informant: patient and spouse/S.O. Onset/Context/Timing Location: Bilateral Eyes Onset: Today Context: Sudden Onset Timing: Continuous Current Severity: Mild Maximum Severity: Moderate Associated Symptoms History of injury: No Visual correction: None Narrative Narrative: 77-year-old female history of prior strokes and intracranial bleed last year. States today around 130 had blurry vision. It is improved but still not at her baseline. Denies any trouble speaking. No trouble walking. No weakness to her upper or lower extremities or numbness. Prior similar symptoms: Yes Recent Illness/Hospitalization: No [facility] Medical History Abdominal pain Breast cyst Cataracts, bilateral Cerebrovascular accident (CVA) Chronic rhinitis CVA, old, homonymous hemianopsia Depression Diarrhea MISTY (generalized anxiety disorder) Gallstones Gastritis Gastritis and gastroduodenitis GERD (gastroesophageal reflux disease) History of UTI Hypercholesterolemia Hyperlipidemia Meniere's disease Mixed hyperlipidemia Osteoporosis Quadrantanopia of right eye Vascular dementia, moderate, with anxiety Home Medications minoxidil 2 % topical solution 1 ml topical BID 06/29/20 [History Last Taken Unknown] vitamins A,C,G-kucw-vupiwp 2,148 mcg-113 mg-45 mg-17.4 mg tablet 1 tablet PO BID 06/29/20 [History Last Taken Unknown] aspirin 81 mg tablet,delayed release (Mayela Low Dose Aspirin) 81 mg PO DAILY 07/27/21 [History Last Taken Unknown] omeprazole 40 mg capsule,delayed release 40 mg PO DAILY PRN acid reflux 10/03/22 [History Last Taken Unknown] ezetimibe 10 mg tablet 10 mg PO DAILY 10/05/22 [History Last Taken Unknown] Allergy/AdvReac Type Severity Reaction Status Date / Time sulfamethoxazole Allergy Intermediate Other Verified 12/17/22 14:52 [From Bactrim] trimethoprim [From Bactrim] Allergy Intermediate Other Verified 12/17/22 14:52 cetirizine [From Zyrtec] Allergy Unknown Unknown Verified 12/17/22 14:52 Bgisykc-KWO-YdH Reductase Allergy Unknown Unknown Verified 12/17/22 14:52 Inhibitor Sulfa (Sulfonamide Allergy Unknown Unknown Verified 12/17/22 14:52 Antibiotics) Family History Other Heart disease Myocardial infarction Surgical History History of oophorectomy History of tonsillectomy Hx of cataract extraction Social History Smoking Status: Never smoker Electronic Cigarette Use: not used second hand exposure: No alcohol intake: never substance use type: does not use what type of physical activity do you participate in: none seatbelt use: always ROS ROS ED ROS Narrative Denies recent illness. Review of Systems ROS Unobtainable: Denies due to encephalopathy Constitutional Constitutional ED: Denies chills or fever(s) Eyes Eyes: Denies blurry vision ENT ENT ED: Denies ear pain Cardiovascular Cardiovascular: Denies chest pain or palpitations Respiratory/Chest Respiratory/Chest: Denies cough or dyspnea Gastrointestinal Gastrointestinal: Denies abdominal pain Genitourinary Genitourinary ED: Denies dysuria or hematuria Musculoskeletal Musculoskeletal: Denies arthralgias Integumentary Denies abscess Neurologic Neurologic: Denies headache(s) or paresthesias Psychiatric Psychiatric: Denies anxiety or depression Endocrine Endocrinology: Denies polydipsia Hematologic/Lymphatic Hematologic/Lymphatic: Denies easy bleeding Allergic/Immunologic Allergic/Immunologic ED: Denies mouth swelling EXAM Physical Exam Narrative Exam Narrative: Well-appearing 77-year-old female. Vital signs stable afebrile. H EENT exam. Normal speech. No facial droop. Given very advised motions are intact. Neck nontender. Lungs clear to auscultation bilaterally. Heart regular rhythm rate about 80 no murmur. Chest wall nontender. Abdomen soft nontender. Moving all 4 extremities. 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 Dorsi plantarflexion intact. No drift. Fingertip to nose within normal limits. Neurologically she is awake and alert with no focal motor deficits. NIH 0. Const Vital Signs: 12/17/22 14:52 Temperature 97.4 F L Temperature Source Temporal Pulse Rate 79 Respiratory Rate 18 Blood Pressure 131/76 H Blood Pressure Mean 94 Pulse Ox 96 Oxygen Delivery Method Room Air Positive well nourished and well developed; Negative for obese, cachectic, contractures or unkempt General Appearance ED: well developed and NAD; Negative for unkempt, cachectic or contractures Nutritional Appearance: Negative for cachectic or obese HEENT Denies other atraumatic; Negative for trauma, tenderness or other Nose: external nose normal Neck no lymphadenopathy, supple and no JVD General: Negative for tenderness Resp normal respiratory effort, no retractions, no use of accessory muscles and clear to auscultation bilaterally Cardio regular rate, regular rhythm, S1 normal heart sound, S2 normal heart sound and no murmurs GI non-tender, non-distended and no masses Inspection: Negative for other Auscultation: normoactive bowel sounds Palpation: soft Back/Spine no CVA tenderness General Back: Negative for CVA tenderness Extremity normal to inspection General Extremety ED: Negative for edema or other findings General Extremity: Negative for edema or other findings Neuro oriented x3, CN's II-XII intact bilaterally and moves all extremities Sensorium / Orientation: alert, oriented to person, oriented to place and o riented to time; Negative for orientation impaired Motor Exam: strength 5/5 throughout Psych Appearance: Negative for unkempt Attitude: No agitated Mood & Affect: Negative for depressed, anxious or tearful Skin no wounds Lesions: no lesions Rashes: no rashes Trauma: Negative for abrasion or laceration MDM MDM MDM Narrative Medical decision making narrative: 77-year-old vision change. Neurologic exam otherwise normal. She undergo a stroke work-up. She is currently not a tPA candidate. Repeat exam patient doing well at 5 PM. Neurologic exam remains normal. Her vision is back to her baseline. She and I and her discussed her test results. She is comfortable not being admitted. 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 NIH is 0. History & Record Review Discussion w/independent historian: Patient and Family Lab Data Attestation: I reviewed the patient's lab results. Lab results narrative: CBC, chemistries and troponin are all normal. PT/INR unremarkable. CTA head and neck unremarkable per the radiologist. CT brain unremarkable per radiologist. Radiography Chest X-Ray - ED: 1 View, Read by ED Physician, Heart, Lungs, Mediastinum, Bony Structures, No Acute Disease and Chronic Changes Diagnostic Testing: Chest x-ray, portable, single view shows no acute abnormality. Normal cardiac silhouette. Normal mediastinum. Normal lung vega. Left-sided loop recorder. Chronic changes. No acute abnormality Rhythm Strip Rhythm Strip: Sinus Rhythm Rate: 70 Ectopy: None EKG Initial EKG: Attestation: I personally reviewed and interpreted this EKG as follows: Interpretation: Sinus Rhythm and No Acute Injury Pattern Comments: Normal sinus rhythm rate of 70 no acute signs of [place] or ischemia. Discharge Plan Triage Chief Complaint: Vision Prob ED Provider: Jonas Verdugo Dx/Rx/DC Orders Prescriptions: No Action vitamins A,C,F-apfb-umkgjg 7,160-113-100 wkqv-gi-xsbv tablet 1 tablet PO BID Rx Instructions: administer with AM and PM meals minoxidil 2 % solution 1 ml TOPICAL BID omeprazole 40 mg capsule,delayed release(DR/EC) 40 mg PO DAILY PRN (Reason: acid reflux) Patient Comments: TAKE 1 CAPSULE BY MOUTH EVERY DAY aspirin [Mayela Low Dose Aspirin] 81 mg tablet,delayed release (DR/EC) 81 mg PO DAILY ezetimibe 10 mg tablet 10 mg PO DAILY Primary Care Provider: Fatimah Bond Referrals: Fatimah Bond DO [Primary Care Provider] -
[2022-12-17 15:34] LABS: Absolute Lymphocyte Count 1.66 X10^3/uL (0.83-4.51); Absolute Neutrophil Count 3.6 X10^3/uL (2.0-7.7); Basophil# 0.05 X10^3/uL; Basophil% 0.9 % (0-1); Eosinophil# 0.05 X10^3/uL; Eosinophils% 0.9 % (0-5); Hematocrit 38.7 % (37-47); Hemoglobin 12.8 g/dL (12.0-15.0); Lymphocyte # 1.66 X10^3/ul (0.83-4.51); Lymphocyte % 28.6 % (19-41); Mean Corp Hgb Conc 33.1 g/dL (32-36); Mean Corpuscular Volume 87.8 fL (81-99); Monocyte# 0.43 X10^3/uL; Monocyte% 7.4 % (0-10); NRBC Flagged by Analyzer 0 % (0-5); Neutrophil # 3.59 X10^3/uL (2.7-7.7); Neutrophil % 61.7 % (47-70); Platelet Count 217 K/mm3 (150-450); RBC Distribution Width CV 11.9 % (11.6-14.6); RBC Distribution Width SD 38.5 fl (35.1-43.9); Red Blood Count 4.41 M/mm3 (4.2-5.4); White Blood Count 5.8 K/mm3 (4.4-11.0)
[2022-12-17 15:43] LABS: Prothrombin Time (Protime)PT. 13.1 SECONDS (11.7-14.9)
--- NOTE | 2022-12-17 15:50 | RAD_ITS ---
STUDY: X-RAY CHEST REASON FOR EXAM: Female, 77 years old. Neuro deficit, acute, stroke suspected TECHNIQUE: AP portable COMPARISON: August 26, 2021 FINDINGS: The lungs are clear and expanded. There is no demonstrated pleural abnormality. Normal size heart. Normal mediastinum and kendell. Normal visualized pulmonary arteries. Normal visualized aortic arch and descending thoracic aorta. Normal visualized thoracic spine. Normal visualized ribs, clavicles, and shoulders. There is no demonstrated abnormality of the visualized soft tissue structures of the upper abdomen. No significant change since prior study RAD/Chest 1 View IMPRESSION: Normal x-ray examination of the chest. Electronically Signed: Faraz Chung MD at 16:49 EDT ,
[2022-12-17 15:57] LABS: Anion Gap 5 (5-15); BUN 12 mg/dL (7-18); BUN/Creat Ratio 16.2 RATIO (10-20); Calcium,Total 9.2 mg/dL (8.5-10.1); Chloride 102 mmol/L (98-107); Creatinine, Serum 0.74 mg/dL (0.55-1.02); EST Glomerular Filtration Rate 81 mL/min (>60); Est Glom Filt Rate - Afr Amer 98 mL/min (>60); Estimated Creatinine Clearance 37.85 ml/min; Glucose 109 mg/dL (74-106); Potassium 3.9 mmol/L (3.5-5.1); Sodium Level 135 mmol/L (136-145); Troponin-I HS < 3 pg/mL (3.0-54.0)
[2022-12-17 16:13] VITALS: BP 112/57; PULSE 68; RESP 18; O2SAT 98
[2022-12-17 16:34] LABS: Bedside Glucose 86 mg/dL (74-106)
[2022-12-17 17:03] VITALS: BP 114/82; PULSE 68; RESP 18; O2SAT 98
[2022-12-17 17:21] VITALS: BP 132/84; PULSE 71; RESP 15; O2SAT 98
== END 2022-12-17 17:22 | disposition home or self-care (01) ==
PROVIDERS: Emergency Provider Emergency Medicine; PCP Internal Medicine; Visit Provider Emergency Medicine
DX: H53.9 Unspecified visual disturbance (principal); E78.2 Mixed hyperlipidemia; Z86.73 Personal history of transient ischemic attack (TIA), and cerebral infarction without residual deficits; Z79.82 Long term (current) use of aspirin; K21.9 Gastro-esophageal reflux disease without esophagitis; Z79.899 Other long term (current) drug therapy; Z98.49 Cataract extraction status, unspecified eye
CPT/HCPCS: 70450; 70496; 70498; 71045; 80048; 82962; 84484; 85025; 85610; 85730; 93005; 99284; Q9967

== ENCOUNTER → 2023-01-22 | Outpatient (CLI) | payer MEDICARE, BC, SELFPAY ==
--- NOTE | 2023-01-22 12:48 | MRI_ITS ---
EXAM: MR HEAD WITHOUT AND WITH INTRAVENOUS CONTRAST CLINICAL INDICATION: possible TIAs (vision loss, confusion, aphasia), please compare to previous MRI and CT 06/2021 TECHNIQUE: Multiplanar and multisequence MR images of the brain were obtained without and with intravenous contrast. Magnetic field strength 1.5 T. CONTRAST: 11 cc of Clariscan IV. COMPARISON: Noncontrast head CT 12/17/2022. MRV brain 07/03/2021. FINDINGS: BRAIN AND EXTRA-AXIAL SPACES: Small old left frontal opercular cortical infarct. Abnormal T2 signal in the deep cerebral white matter is consistent with chronic small vessel ischemic/degenerative changes. The cerebral and cerebellar sulci are prominent consistent with brain atrophy. No intra- or extra-axial hemorrhage. No intracranial mass or mass effect. Basal cisterns are patent. SELLA: Unremarkable. Normal sella turcica, pituitary gland, infundibular stalk, optic chiasm and hypothalamus. AUDITORY SYSTEM: Unremarkable. The internal auditory canals are patent. BONES/JOINTS: Unremarkable. No discrete lytic or blastic abnormalities. SINUSES: Unremarkable as visualized. Clear. MASTOID AIR CELLS: Unremarkable as visualized. Clear. ORBITS: Unremarkable as visualized. Both globes, extraocular muscles, optic nerves and retrobulbar fat appear unremarkable. VASCULATURE: Unremarkable as visualized. Normal flow voids in the major intracranial circulation. MRI/Brain W/WO Contrast IMPRESSION: 1. Small old left frontal opercular cortical infarct. 2. Chronic small vessel ischemic/degenerative changes. 3. Mild cerebral and cerebellar atrophy. Electronically Signed: Bob Campuzano MD at 5:53 EDT ,
[2023-01-22 13:23] LABS: CREATININE FINGERSTICK < 0.9 mg/dL (0.55-1.02); EGFR FINGERSTICK > 60.0000 mL/min (>60)
== END | disposition home or self-care (01) ==
LOC: MRI 12:27
PROVIDERS: PCP Internal Medicine; Referring Provider Psychiatry & Neurology Neurology; Visit Provider Psychiatry & Neurology Neurology
DX: G45.9 Transient cerebral ischemic attack, unspecified (principal); F03.90 Unspecified dementia, unspecified severity, without behavioral disturbance, psychotic disturbance, mood disturbance, and anxiety; I61.9 Nontraumatic intracerebral hemorrhage, unspecified; I67.9 Cerebrovascular disease, unspecified
CPT/HCPCS: 70553; A9575

== ENCOUNTER 2023-03-21 05:06 | Day surgery (SDC) | payer MEDICARE, BC, SELFPAY ==
--- NOTE | 2023-03-20 06:30 | COLBX_PTH ---
PATIENT: FAYE LIMA LOC: EN U#:[id number] AGE/SX: 77/F ROOM: RE03/21/[address]: Dr. Roland Jessica DO : 1945 BED: DIS: 03/21/2023 SPEC #: [id number] RECD: 03/21/23 09:13 STATUS: MYRANDA MARLENI #: [id number] JORDY: 03/20/23 06:[address]: Roland Jessica DEPT: SURGICAL PATHOLOGY RECD BY: Linda Atkins ENTERED: 03/21/23 09:14 SP TYPE: COLON BX OTHR DR: Dr. Fatimah Bond DO Tissues: A - Duodenum, NOS B - Gastric mucous membrane Procedures: Surgery Specimen Level IV HEADER OPERATION: Colonoscopy, EGD, biopsy PRE-OP DIAGNOSIS: Flatulence, gastritis, screening for colon cancer TISSUE SUBMITTED: A - Duodenum ulcer biopsy, B - Gastric ulcer biopsy MICROSCOPIC DIAGNOSIS A. Duodenal ulcer, biopsy: Focal gastric metaplasia. Focal granulation suggestive of ulcer. B. Gastric ulcer, biopsy: Focal changes of ulcer. Mild chronic inflammation. AM:mauricio 03/22/2023 COMMENT B. The results of immunohistochemistry for Helicobacter pylori will be reported separately ([id number]). MICROSCOPIC DESCRIPTION Slides are reviewed. GROSS DESCRIPTION A - Received in fixative is one container labeled with the patient's name and designated duodenum ulcer biopsy. The specimen consists of multiple irregular fragments of light hernandez soft tissue that in aggregate measure 1.2 x 0.5 x 0.1 cm. The specimen is totally submitted in one cassette. B - Received in fixative is one container labeled with the patient's name and designated gastric ulcer biopsy. The specimen consists of multiple irregular fragments of light hernandez soft tissue that in aggregate measure 1.2 x 0.5 x 0.1 cm. The specimen is totally submitted in one cassette. / SJ:mauricio 03/21/2023 TC:2 CPT: 49772 x2
--- NOTE | 2023-03-20 06:30 | IMM_PTH ---
PATIENT: FAYE LIMA LOC: EN U#:[id number] AGE/SX: 77/F ROOM: RE03/21/[address]: Dr. Roland Jessica DO : 1945 BED: DIS: 03/21/2023 SPEC #: [id number] RECD: 03/21/23 13:10 STATUS: MYRANDA REQ #: [id number] JORDY: 03/20/23 06:[address]: Roland Jessica DEPT: IMMUNOHISTOCHEMISTRY RECD BY: Linda Atkins ENTERED: 03/21/23 13:11 SP TYPE: IMMUNO OTHR DR: Dr. Fatimah Bond DO Tissues: B - Gastric mucous membrane Procedures: H Pylori (initial) PHYSICIAN & [place] [id number] SPECIMEN INFORMATION: Tissue Source: B - Gastric ulcer biopsy Clinical Info: Colonoscopy Specimen Number: [id number] CPT code: 42328 METHODOLOGY: Deparaffinized sections of prefer/formalin-fixed tissue or PAP/DQ stained slides are incubated with monoclonal/polyclonal antibodies/oligonucleotide probes. Localization is made via biotin free immunoperoxidase method. Appropriate controls are performed and reacted as expected. Results on target cell population are indicated in the following table: RESULTS: ANTIBODY / CLONE RESULT Block B H Pylori (polyclonal) negative These tests were developed and their performance characteristics determined by [facility]. They may not have been cleared or approved by the U.S. Food and Drug Administration. The FDA has determined that such clearance or approval is not necessary. The above immunohistochemical/dualISH markers are ordered and reviewed by the Pathologist. INTERPRETATION: B. Gastric ulcer, biopsy: Negative for Helicobacter pylori organisms. AM:mauricio 03/22/2023
[2023-03-21] MEDS: Lactated Ringers 1,000 ML 15 ML IV (05:54)
[2023-03-21 05:55] VITALS: BP 102/60; PULSE 66; RESP 18; TEMP 36.6; O2SAT 100; BMI 21.0
--- NOTE | 2023-03-21 06:37 | PCM.HP.BLA ---
History and Physical Date of Admission: 03/21/23 FAYE LIMA, is a 77 F who presents to the office today for PMH dementia *BGI established 08.13.22 with primary concern of flatulence. Reports history of abdominal pain, resolved with start of probiotic. BM daily and soft but incomplete evacuation. Start fiber. OV 03.13.23 Reports that typically she has a normal BM each day without difficulty. Recently has been having some heartburn and loose stools in the last two days. ROS Const Constitutional: No fatigue ENT ENT: No difficulty swallowing Gastro GI: No abdominal pain, belching, bloating, change in bowel habits, change in stool character, coffee ground emesis, constipation, cramping, diarrhea, heartburn, difficulty swallowing, feeling full early, excessive flatus, incontinent of stools, Vomiting blood/hematemesis, Blood in stool, loose stools, Black,tarry stools, nausea/dyspepsia, pain with swallowing, vomiting or other Musc Musculoskeletal: Positive for stiffness and leg pain at night; No joint pain Skin Skin: No yellowing of the eye or itchy eyes Psych Psychiatric: Positive for anxiety and Positive for depression Endo Endocrine: No fatigue Aller/Imm Allergy/Immunologic: No itchy eyes Yury/Lymp Hematologic/Lymphatic: No easy bleeding or easy bruising Exam Const General: cooperative, healthy appearing and comfortable Nutritional Appearance: average body habitus Orientation: alert, awake and oriented x3 HENMT Head: normal to inspection Eyes Sclera: sclerae normal Resp Effort & Inspection: normal respiratory effort GI Inspection: normal to inspection Palpation: soft, no hepatosplenomegaly, no masses and nontender Skin General: no rashes or lesions noted Neuro Gait: normal gait Quality Reporting Tobacco Screening (CMS 138) Smoking Status: Never smoker Assessment and Plan Assessment and Plan (1) Flatulence: Status: Chronic Plan: Somewhat of a difficult historian. She is unaccompanied today. Flatulence most bothersome symptom for her at this time, sometimes feels like not evacuated. She has psyllium husk at home, will try taking it daily to see if that helps. She reports that she has epigastric abdominal pain that radiates into her back that has been present for the past 6 months. It is present 70% of the time. It is a sharp pain that is 10 out of 10 at worst and 8 out of 10 currently. Is worsened by nothing and relieved by food. Patient is here today because she has been nauseated and vomited multiple times over the past 3 days. No blood in her emesis. She has had subjective fever and chills. No diarrhea. Her last bowel movement was yesterday. No melena or hematochezia. No dysuria or frequency. According to her this workup she does have a hip of bloating and got some resolution with doxycycline. Apparently she was treated for small bacterial overgrowth. I suspect a lot of her symptoms in her upper GI tract is likely secondary to bile induced gastritis versus NSAID induced gastropathy or duodenopathy and less likely H. pylori associated disease. She will undergo an upper endoscopy to evaluate upper GI tract. Continue omeprazole therapy. (2) Gastritis: Status: Chronic Qualifiers: Gastritis type: other gastritis Chronicity: chronic Gastritis bleeding: without bleeding Qualified Code(s): K29.50 - Unspecified chronic gastritis without bleeding Plan: She does have a history of gastritis but I do not know what type of gastritis it was. We will evaluate her upper GI tract for previous injury and current if any inflammation. (3) Screening for colon cancer: Status: Acute Plan: Patient has complaints of weight loss and thinner caliber stools with rectal pain. It has been over 10 years since she had her last colonoscopy. She will undergo screening colonoscopy to evaluate her lower GI tract for colon cancer and precancerous polyps. She was explained alternatives, risk, benefits including not withstanding bleeding, infection, sepsis, perforation, need for emergent urgent . She have an ASA of 3. Orders: Orders EGD 03/21/23 K29.70 - Gastritis, unspecified, without bleeding, R14.3 - Flatulence Colonoscopy 03/21/23 K29.70 - Gastritis, unspecified, without bleeding, R14.3 - Flatulence I have examined the patient and the H&P has been reviewed. There are no clinical changes since date of exam.
[2023-03-21 07:20] VITALS: BP 102/60; BP 99/59; PULSE 68; RESP 18; TEMP 36.2; O2SAT 100
[2023-03-21 07:25] VITALS: BP 102/60; BP 91/63; PULSE 66; RESP 18; O2SAT 99
--- NOTE | 2023-03-21 07:27 | OP.CCLET_ITS ---
03/21/2023 Fatimah Bond [address] [place] [address] Re : Upper GI endoscopy procedure for Kiya Cabello Dear Dr. Bond This procedure was performed on March. My impressions and recommendations are as follows: Impressions : - Normal esophagus. - Erythematous mucosa in the gastric body. - Non-bleeding gastric ulcers with no stigmata of bleeding. Biopsied. - Oozing duodenal ulcers with pigmented material. Treated with a heater probe. Biopsied. Recommendations : - Discharge patient to home. - Resume previous diet. - Continue present medications. - Await pathology results. My findings are described in the full procedure note, which is enclosed. If I can be of further assistance, please feel free to contact me at . Sincerely, Roland Jessica, 03/21/2023 7:26:05 AM This report has been signed electronically.
--- NOTE | 2023-03-21 07:27 | OP.EGD_ITS ---
Patient Name: Kiya Cabello Procedure Date: 03/21/2023 5:47 AM Date of : 1945 Age: 77 Procedure: Upper GI endoscopy Indications: Epigastric abdominal pain Providers: Roland Jessica DO Referring MD: Roland Jessica DO Medicines: Monitored Anesthesia Care Patient Profile: This is a 77 year old female. Refer to note in patient chart for documentation of history and physical. Patient has symptoms of chronic epigastric abdominal pain. Complications: No immediate complications. Procedure: Pre-Anesthesia Assessment: - Prior to the procedure, a History and Physical was performed, and patient medications and allergies were reviewed. The patient is competent. The risks and benefits of the procedure and the sedation options and risks were discussed with the patient. All questions were answered and informed consent was obtained. Patient identification and proposed procedure were verified by the physician in the pre-procedure area. Mental Status Examination: alert and oriented. Airway Examination: normal oropharyngeal airway and neck mobility. Respiratory Examination: clear to auscultation. CV Examination: normal. Prophylactic Antibiotics: The patient does not require prophylactic antibiotics. Prior Anticoagulants: The patient has taken no anticoagulant or antiplatelet agents. ASA Grade Assessment: II - A patient with mild systemic disease. After reviewing the risks and benefits, the patient was deemed in satisfactory condition to undergo the procedure. The anesthesia plan was to use monitored anesthesia care (MAC). Immediately prior to administration of medications, the patient was re-assessed for adequacy to receive sedatives. The heart rate, respiratory rate, oxygen saturations, blood pressure, adequacy of pulmonary ventilation, and response to care were monitored throughout the procedure. The physical status of the patient was re-assessed after the procedure. After obtaining informed consent, the endoscope was passed under direct vision. Throughout the procedure, the patient's blood pressure, pulse, and oxygen saturations were monitored continuously. The Colonoscope was introduced through the mouth, and advanced to the second part of duodenum. The upper GI endoscopy was accomplished without difficulty. The patient tolerated the procedure well. Scope In: 5:55:08 AM Scope Out: 7:00:58 AM Total Procedure Duration Time 1 hour 5 minutes 50 seconds Findings: The examined esophagus was normal. Patchy mildly erythematous mucosa without bleeding was found in the gastric body. Two non-bleeding cratered gastric ulcers with no stigmata of bleeding were found in the gastric antrum. The largest lesion was 6 mm in largest dimension. Biopsies were taken with a cold forceps for histology. Verification of patient identification for the specimen was done. Biopsies were taken with a cold forceps for Helicobacter pylori testing. Verification of patient identification for the specimen was done. Estimated blood loss was minimal. Two oozing linear duodenal ulcers with pigmented material were found in the duodenal bulb. The largest lesion was 6 mm in largest dimension. Coagulation for hemostasis using heater probe was successful. Biopsies were taken with a cold forceps for histology. Verification of patient identification for the specimen was done. Estimated blood loss was minimal. Impression: - Normal esophagus. - Erythematous mucosa in the gastric body. - Non-bleeding gastric ulcers with no stigmata of bleeding. Biopsied. - Oozing duodenal ulcers with pigmented material. Treated with a heater probe. Biopsied. Recommendation: - Discharge patient to home. - Resume previous diet. - Continue present medications. - Await pathology results. Procedure Code(s): --- Professional --- 32135, 59, Esophagogastroduodenoscopy, flexible, transoral; with control of bleeding, any method 45226, 51, Esophagogastroduodenoscopy, flexible, transoral; with biopsy, single or multiple CPT copyright 2021 [employer]. All rights reserved. The codes documented in this report are preliminary and upon revival clerk review may be revised to meet current compliance requirements. Roland Jessica DO 03/21/2023 7:26:05 AM This report has been signed electronically. Number of Addenda: 0 Note Initiated On: 03/21/2023 5:47 AM
--- NOTE | 2023-03-21 07:28 | OP.CCLET_ITS ---
03/21/2023 Fatimah Bond [address] [place] [address] Re : Colonoscopy procedure for Kiya Cabello Dear Dr. Bond This procedure was performed on March. My impressions and recommendations are as follows: Impressions : - Diverticulosis in the recto-sigmoid colon, in the sigmoid colon and in the descending colon. - The examination was otherwise normal on direct and retroflexion views. - No specimens collected. Recommendations : - Discharge patient to home. - Resume previous diet. - Continue present medications. - Repeat colonoscopy in 10 years for screening purposes. My findings are described in the full procedure note, which is enclosed. If I can be of further assistance, please feel free to contact me at . Sincerely, Roland Jessica, 03/21/2023 7:27:58 AM This report has been signed electronically.
--- NOTE | 2023-03-21 07:28 | OP.COLON_ITS ---
Patient Name: Kiya Cabello Procedure Date: 03/21/2023 7:01 AM Date of : 1945 Age: 77 Procedure: Colonoscopy Indications: Screening for colorectal malignant neoplasm Providers: Roland Jessica DO Referring MD: Roland Jessica DO Medicines: Monitored Anesthesia Care Patient Profile: This is a 77 year old female. Refer to note in patient chart for documentation of history and physical. Patient has symptoms of chronic epigastric abdominal pain. Last Colonoscopy: more than 10 years ago. Complications: No immediate complications. Procedure: Pre-Anesthesia Assessment: - Prior to the procedure, a History and Physical was performed, and patient medications and allergies were reviewed. The patient is competent. The risks and benefits of the procedure and the sedation options and risks were discussed with the patient. All questions were answered and informed consent was obtained. Patient identification and proposed procedure were verified by the physician in the pre-procedure area. Mental Status Examination: alert and oriented. Airway Examination: normal oropharyngeal airway and neck mobility. Respiratory Examination: clear to auscultation. CV Examination: normal. Prophylactic Antibiotics: The patient does not require prophylactic antibiotics. Prior Anticoagulants: The patient has taken no anticoagulant or antiplatelet agents. ASA Grade Assessment: II - A patient with mild systemic disease. After reviewing the risks and benefits, the patient was deemed in satisfactory condition to undergo the procedure. The anesthesia plan was to use monitored anesthesia care (MAC). Immediately prior to administration of medications, the patient was re-assessed for adequacy to receive sedatives. The heart rate, respiratory rate, oxygen saturations, blood pressure, adequacy of pulmonary ventilation, and response to care were monitored throughout the procedure. The physical status of the patient was re-assessed after the procedure. After I obtained informed consent, the scope was passed under direct vision. Throughout the procedure, the patient's blood pressure, pulse, and oxygen saturations were monitored continuously. The Colonoscope was introduced through the anus and advanced to the terminal ileum. The colonoscopy was performed without difficulty. The patient tolerated the procedure well. The quality of the bowel preparation was adequate. The terminal ileum, ileocecal valve, appendiceal orifice, and rectum were photographed. Scope In: 7:03:28 AM Scope Withdrawal Time 0 hours 6 minutes 42 seconds Scope Out: 7:14:23 AM Total Procedure Duration Time 0 hours 10 minutes 55 seconds Findings: The perianal and digital rectal examinations were normal. Multiple small and large-mouthed diverticula were found in the recto-sigmoid colon, sigmoid colon and descending colon. The exam was otherwise without abnormality on direct and retroflexion views. Impression: - Diverticulosis in the recto-sigmoid colon, in the sigmoid colon and in the descending colon. - The examination was otherwise normal on direct and retroflexion views. - No specimens collected. Recommendation: - Discharge patient to home. - Resume previous diet. - Continue present medications. - Repeat colonoscopy in 10 years for screening purposes. Procedure Code(s): --- Professional --- G0121, Colorectal cancer screening; colonoscopy on individual not meeting criteria for high risk CPT copyright 2021 [employer]. All rights reserved. The codes documented in this report are preliminary and upon sample tester review may be revised to meet current compliance requirements. Roland Jessica DO 03/21/2023 7:27:58 AM This report has been signed electronically. Number of Addenda: 0 Note Initiated On: 03/21/2023 7:01 AM
[2023-03-21 07:30] VITALS: BP 102/60; BP 96/65; PULSE 66; RESP 18; TEMP 36.4; O2SAT 100
[2023-03-21 07:52] VITALS: BP 102/60
== END 2023-03-21 08:08 | disposition home or self-care (01) ==
LOC: EN 05:06 → AC 05:17
PROVIDERS: PCP Internal Medicine; Referring Provider Internal Medicine Gastroenterology; Visit Provider Internal Medicine Gastroenterology
PROC: 0DJD8ZZ Inspection of Lower Intestinal Tract, Via Natural or Artificial Opening Endoscopic (ICD-10-PCS; CPT 45378; principal; 2023-03-21 06:25)
DX: Z12.11 Encounter for screening for malignant neoplasm of colon (principal); F03.90 Unspecified dementia, unspecified severity, without behavioral disturbance, psychotic disturbance, mood disturbance, and anxiety; K25.9 Gastric ulcer, unspecified as acute or chronic, without hemorrhage or perforation; K57.30 Diverticulosis of large intestine without perforation or abscess without bleeding; K29.50 Unspecified chronic gastritis without bleeding; K26.4 Chronic or unspecified duodenal ulcer with hemorrhage; K31.A19 Gastric intestinal metaplasia without dysplasia, unspecified site; Z79.82 Long term (current) use of aspirin; Z79.899 Other long term (current) drug therapy; E78.2 Mixed hyperlipidemia; K21.9 Gastro-esophageal reflux disease without esophagitis
CPT/HCPCS: G0121; 43239; 43255; 88305; 88342; J7120; J2405

== ENCOUNTER → 2023-04-25 | Outpatient (CLI) | payer MEDICARE, BC, SELFPAY ==
--- NOTE | 2023-04-25 12:28 | CT_ITS ---
STUDY: CT CHEST WITH CONTRAST REASON FOR EXAM: Female, 77 years old. FAM HX CAD RADIATION DOSAGE (If Supplied By Facility): CTDIvol = ( 24.66 ) mGy, DLP = ( 1538.49 ) mGycm TECHNIQUE: Transaxial imaging was performed following intravenous administration of IV-100 ML ISOVUE 370. Individualized dose optimization techniques were used for this CT. COMPARISON: No relevant priors. FINDINGS: CHEST The lungs are normal. There is no demonstrated pleural abnormality. There are calcifications of the coronary arteries. There are small lymph nodes within the mediastinum, which are normal in size and morphology most compatible with reactive lymph hyperplasia. Normal hilar regions. Normal unenhanced pulmonary arteries. There is atherosclerotic calcification of the aortic arch. Aberrant origin of the right subclavian artery. There are degenerative changes of the thoracic spine. There is no demonstrated abnormality of the visualized upper abdomen. IMPRESSION: Aberrant origin of the right subclavian artery. Mild coronary artery calcification. Electronically Signed: Oskar Garcia MD at 15:14 EST Reading Location ID and State: [address] [facility] , Service support , STUDY: CT CHEST WITHOUT CONTRAST REASON FOR EXAM: Female, 77 years old. FAM HX CAD RADIATION DOSAGE (If Supplied By Facility): CTDIvol = ( 24.66 ) mGy, DLP = ( 1538.49 ) mGycm TECHNIQUE: Transaxial imaging was performed without the administration of intravenous contrast material. Individualized dose optimization techniques were used for this CT. COMPARISON: No relevant priors. FINDINGS: CHEST The lungs are normal. There is no demonstrated pleural abnormality. There are calcifications of the coronary arteries. There are small lymph nodes within the mediastinum, which are normal in size and morphology most compatible with reactive lymph hyperplasia. Normal hilar regions. Normal unenhanced pulmonary arteries. Normal aorta arch and descending thoracic aorta. There are degenerative changes of the thoracic spine. There is no demonstrated abnormality of the visualized upper abdomen. CT/Limited Chest CT Cardiac Only IMPRESSION: Mild coronary artery calcification. Electronically Signed: Oskar Garcia MD at 15:15 EST ,
--- OUTSIDE RECORDS SUMMARY | 2023-04-25 12:38 | XMS RPT_ITS | CCD ---
Author Name Unknown Address [address] [place] [address] Organization [facility] Care Team Providers Care Steamblaster Name Role Phone Reagan Mejia MD Primary Care Provider [phone] Eb GILLILAND, Amisha Unavailable Unavailable Varun DO Fatimah Unavailable [phone] [place] CHIEF CONTROLLER TOWER, Ava Unavailable Unavailable Varun DOCucoFatimah Unavailable Jero Simmons LPN Unavailable Unavailable Unavailable Unavailable Shawna Berry MA Unavailable Unavailable Friend, Dr. Watkins Unavailable [phone] [place] CHIEF CONTROLLER TOWER, Kayela Unavailable Unavailable Aubrey MASSEYN, Jade Unavailable Unavailable Manjc STEELE, Lexi Unavailable Unavailable Fatimah Bond DO Attending Unavailable Fatimah Bond DO Referring Unavailable Fatimah Bond DO Consulting Unavailable Reagan Mejia MD Primary Care Provider [phone] Reagan Mejia MD Primary Care Provider [phone] Fatimah Bond DO Primary Care Provider REAGAN MEJIA Primary Care Unavailable ADRIANNA PITTMAN Attending Unavailable REAGAN MEJIA Referring Unavailable REAGAN MEJIA Primary Care Unavailable CODY, SARY Attending Unavailable Allergies Allergy Classification Reported Allergen(s) Allergy Type Date of Onset Reaction(s) Facility (15 sources) atorvastatin; Translations: [ATORVASTATIN] Drug Allergy 11-04-19 21 Intolerance [facility] Work Phone: (15 sources) Sulfonamides (Antibiotic); Translations: [SULFA (SULFONAMIDE ANTIBIOTICS)] Propensity to adverse reactions to drug 01-08-20 15 Other: See Comments [facility] (20 sources) Cetirizine; Translations: [ZyrTEC *ANTIHISTAMINES*] Drug Allergy [facility] Work Phone: (20 sources) Sulfamethoxazole / Trimethoprim; Translations: [Bactrim *ANTI-INFECTIVE AGENTS - MISC.*] Drug Allergy [facility]; [facility] Work Phone: Medications Completed/Discontinued Medications Medication Drug Class(es) Dates Sig (Normalized) Sig (Original) [id number]-[id number]-qbpmmiojfpwys (BEANO ORAL) (14 sources) take 2 tablets by mo uth three times daily before mealtime as needed [id number]-[id number]-naerppsgbcdo e (BEANO ORAL) Take 2 tablets by mouth three times daily before meals. Patient taking as needed. 0 Active Problems Active Problems Problem Classification Problem Date Documented Da te Episodic/Chronic Abdominal pain (20 sources) Epigastric pain; Translations: [Epigastric pain] Resolved: 10-18-2022 12-27-2021 Episodic Acute cerebrovascular disease (20 sources) Intracranial hemorrhage; Translations: [Nontraumatic intracranial hemorrhage, unspecified] Onset: 06-29-2021 06-29-2021 Chronic Past or Other Problems Problem Classification Problem Date Documented Date Episodic/Chronic Blindness and vision defects (14 sources) Homonymous bilateral field defects, right side; Translations: [Homonymous bilateral field defects] Onset: 03-16-2020 03-16-2020 Episodic Gastritis and duodenitis (14 sources) Gastritis; Translations: [Gastritis, unspecified, without bleeding] Onset: 06-02-2013 08-07-2017 Episodic Headache; including migraine (14 sources) Headache; Translations: [Headache] Onset: 06-29-2021 07-05-2021 Episodic Other circulatory disease (14 sources) History of cerebrovascular accident; Translations: [Personal history of transient ischemic attack (TIA), and cerebral infarction without residual deficits] Onset: 06-29-2021 06-29-2021 Episodic Unclassified (20 sources) Deliveries (Parity); Translations: [Deliveries (Parity)] 12-27-2021 Results Test Name Value Interpretation Reference Range Facil ity Vital Signs Date Time Vital Sign Value Performing Clinician Facility 10-18-2022 13:19-0400 Body height 154.94 cm Shawnajarred Berry MA [facility] Work Phone: 10-18-2022 13:040 Body mass index (BMI) [Ratio] 21.54 kg/m2 Shawna Jamal [facility] Work Phone: 10-18-2022 13:040 Body surface area Derived from formula 1.49 m2 Shawna Berry MA [facility] Work Phone: 10-18-2022 13:040 Body temperature 96.1 [degF] Shawnajarred Berry MA [facility] Work Phone: 10-18-2022 13: Body weight 51.71 kg Shawnajarred Berry MA [facility] Work Phone: 10-18-2022 13:040 Diastolic blood pressure 80 mm[Hg] Shawna Jamalkatiana [facility] Work Phone: Encounters Encounter Date Encounter Type Care Provider Facility Start: 10-18-2022 End: 10-18-2022 Office outpatient visit 25 minutes Fatimah Bond DO Work Phone: [facility] Start: 10-18-2022 Review Fatimah quesada DO Work Phone: [facility] Start: 10-15-2022 ambulatory Kelsie Montano MA [facility] Procedures Date Procedure Procedure Detail Performing Clinician Start: 12-25-2022 End: 12-25-2022 Neurology Visit Report Procedure Note: See Note; NOTES: [facility] [address] [facility] [place] [id number] OFFICE VISIT Date of Service: 12/25/22 MR#: [id number] Acct: [id number] Name: KIYA CABELLO Rep #: [id number] : 1945 Provider: Dr. Terence mendoza MD Age/Sex: 77/F Location: [facility] Status: Signed Intake Vital Signs 07/24/22 14:27 12/17/22 14:52 12/25/22 13:41 Height 5 ft 2 in 5 ft 2 in 5 ft 2 in Weight: 116 lb 6 oz BMI 21.2 BP 120/60 Blood Pressure Location Lt brachial Position Sitting Respiration 16 Pulse 81 Pulse Source Monitor Temp 98.4 F Temp Source Temporal Pulse Oximetry (%) 98 Oxygen Delivery Method room air Intake Visit Reasons: 5 MO Chief Complaint: Medical Technical Writer Required: No Accompanied by: Self Allergies sulfamethoxazole [From Bactrim] Allergy (Intermediate, Verified 12/25/22 13:49) Other trimethoprim [From Bactrim] Allergy (Intermediate, Verified 12/25/22 13:49) Other cetirizine [From Zyrtec] Allergy (Unknown, Verified 12/25/22 13:49) Unknown Onmwgoi-IAE-GxA Reductase Inhibitor Allergy (Unknown, Verified 12/25/22 13:49) Unknown Sulfa (Sulfonamide Antibiotics) Allergy (Unknown, Verified 12/25/22 13:49) Unknown [facility] Medical History Abdominal pain Breast cyst Cataracts, bilateral Cerebrovascular accident (CVA) Chronic rhinitis CVA, old, homonymous hemianopsia Depression Diarrhea MISTY (generalized anxiety disorder) Gallstones Gastritis Gastritis and gastroduodenitis GERD (gastroesophageal reflux disease) History of UTI Hypercholesterolemia Hyperlipidemia Meniere's disease Mixed hyperlipidemia Osteoporosis Quadrantanopia of right eye Vascular dementia, moderate, with anxiety Surgical History History of oophorectomy History of tonsillectomy Hx of cataract extraction Family History Other Heart disease Myocardial infarction Social History Smoking Status: Never smoker Electronic Cigarette Use: not used second hand exposure: No alcohol intake: never substance use type: does not use what type of physical activity do you participate in: none seatbelt use: always HPI HPI Chief Complaint: Details: Interim History: Kiya returns for follow-up visit. She has a history of hypercholesterolemia and elevated C- reactive protein. On routine eye examination in 2019, she was noted to have a right visual field deficit and a subsequent head MRI revealed an old left occipital and left parietal cortical infarcts (that were not seen an a prior MRI from 2017), as well as chronic small vessel ischemic disease. She did not have acute symptoms that made her aware of cerebrovascular ischemia. 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 She has chronic bilateral tinnitus and chronic bilateral hearing loss and also experiences intermittent disequilibrium and has had vertigo. She had pulsatile tinnitus. She uses hearing aids. She has triamterene/hydrochlorothiazi de twice per week and her dizziness diminished diminished; since her last visit in June 2022 she discontinued triamterene/hydrochlorothiazi de and has had an increase in the frequency of her dizziness. She has had some neck pain. She has had brief sharp stabbing pains in the neck and right side of the head that last for seconds each that began around 2014; these previously occurred 2-3 times per day but since 2021 these have diminished in frequency and are presently not a prominent symptom. Her neck pain has recently diminished. She takes fluoxetine for depression and anxiety. Due to concern about possible side effects, she decided to discontinue atorvastatin. She no longer takes Zetia. She has been taking aspirin 81 mg daily since the . She reported having a history of 4 occurrences of gastric ulcer, the last of which occurred in 2020. She took omeprazole for a period of time but subsequently discontinued this. She has fatigue. B12 1500 mcg injections have been of benefit for her fatigue. She stated that on prior evaluation the elevated C-reactive protein was thought to be related to an autoimmune process however she is unaware of any specific autoimmune disease being diagnosed. Her C-reactive protein checked in 2020 was again elevated. A 48-hour Holter did not reveal atrial fibrillation. She has seen a grey inspector, Dr. Pandya. She now has an implanted loop recorder. She was hospitalized on 06/29/2021 with aphasia that began earlier that day and had nausea and vomiting for the prior 2 days. On evaluation, she was found to have an acute left frontal 2.2 x 2.1 x 1.8 cm intracerebral hemorrhage with extension to the left insular lobe with associated edema and trace bilateral subarachnoid hemorrhage. Initial blood pressure was noted to be 140/72. Neurosurgery was consulted. She did not need surgical intervention. A cerebral angiogram did not reveal evidence of aneurysm or other vascular malformation that would account for her hemorrhage. Aspirin was held for a period of time and then resumed at her prior dose of 81 mg daily. She is now essentially back to her baseline. A 14 day cardiac event monitor in June 2021, did not reveal atrial fibrillation or atrial flutter. Coenzyme Q 10 was discontinued due to concern of increased bleeding risk with this supplement. She reports in October 2022 she had a 5-minute episode of expressive aphasia; she did not seek medical attention for this. Earlier in November 2022 she had an episode of confusion and difficulty focusing her vision that resolved over a period of several hours. She was seen in the emergency room that day; her symptoms were improving; a head CT did not reveal acute pathology. She was discharged home with instructions to follow-up with her eye doctor. A diagnosis of TIA/acute cerebrovascular ischemia was not made. Since 2016 she has had some memory difficulty and this had gradually worsened over time including some further worsening within recent months. She has a tendency to forget conversations and to r epeat conversations. On one occasion, she made 3 trips to the grocery store to obtain an item and each time purchased the wrong item. She has poor recall of faces. She has word finding difficulty and this has recently worsened further. Increasingly, her has been driving her to appointments and other errands. Donepezil was not well tolerated (caused bad dreams) and was discontinued. Mini-mental status exam score was 27/30 in March 2022. Physical Exam: Neuro: The patient is awake; she is mildly bradyphrenic; she is oriented to day of the week; she was able to spell world backwards; she was able to subtract 7 from 100; speech is fluent; no nystagmus; EOMI; she reports having mild partial incomplete visual field impairment in the temporal field of the right eye; visual vega are full in the left eye; visual acuity is 20/70 on the right and 20/100 on the left; she had a tendency to repeat conversations during the interview; gait is unremarkable Neck: No bruits HEENT: Tympanic membranes are clear Heart: Regular rate and rhythm Note: On prior testing a right superior homonymous quadrantanopia was noted Office Meds cyanocobalamin (vitamin B-12) 1,000 mcg/mL injection solution Performing Provider: Terence Briones MD Performing Location: [facility] Administered by: Teresa Farley on 12/25/22 14:47 Dose Route Admin Location Dispensed Lot Number Expiration Date NACHO Rodriguez ufacturer 1,000 mcg IM left deltoid 1 mL [id number] 03/31/25 18024-584-79 SAFIA SULLIVAN Comments: She has fatigue. Her last B12 injection was of benefit for fatigue. The patient is awake and alert. B12 1500mcg IM was administered today. There were no complications Supplemental Info Brain MRI 06/22/14 IMPRESSION: Patchy white matter abnormality in the periventricular deep white matter distribution consistent with moderate small vessel ischemic changes. No abnormal enhancement in the internal auditory canal or cerebellopontine angle cisterns. EKG 04/06/17 Normal sinus rhythm Nonspecific ST abnormality Abnormal ECG Head MRI (03/17/2020): Remote left occipital and left parietal cortical infarcts which are new since 03/29/2017. Mild interval progression of chronic microvascular ischemic changes. No evidence of an acute intracranial process. Chronic blood byproducts are now noted along the margins of the remote infarct in the inferior left occipital lobe and at the cephalad margin of the left parietal occipital sulcus. 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 His images were reviewed on 08/04/2020. CBC, BMP, Lipid Profile (04/05/20): Na 135, CHOL 220, LDL CHOL 129, N-HDL CHOL 150 CBC, CMP, C-reactive protein, B12, folate, TSH, ESR, LONNIE (07/07/2020): Sodium 134, C-reactive protein 5.85 (elevated), B12 950. Head/neck CTA (07/13/2020): Normal CTA of head and neck. These images were reviewed on 08/04/2020. 48-hour Holter (08/02-08/2020): Average heart rate was 75 bpm in normal sinus rhythm. The minimum heart rate was 54 bpm and sinus bradycardia. The maximum heart rate was 129 bpm and sinus tachycardia. There were a total of 57 ventricular ectopic beats. There were a total of 27 supraventricular ectopic beats. The longest R- R interval was 1.3 seconds. There was no atrial fibrillation. There was no ventricular tachycardia. The patient kept a 48-hour diary and noted flutters and pain under her left breast which occasionally correlated with ectopy. EKG (08/03/2020): Normal sinus rhythm; normal EKG BMP (04/11/2021): Sodium 135, glucose 108 Cytochrome P450 2C19 (05/23/2021): Findings are consistent with ultra-rapid metabolic activity (rapid metabolism of drug utilizing this pathway may lead to inadequate drug efficacy and therapeutic failure because the drug may not reach the therapeutic serum concentration. For pro drugs like clopidogrel, ultra-rapid metabolizer's may be at risk for elevated exposure of active drug metabolites leading to adverse drug reaction). EKG (06/29/2021): Normal sinus rhythm. Normal EKG. CBC, PT/PTT, troponin, BMP (06/29/2021): Sodium 132, glucose [address] (06/29/2021): FINDINGS: HEMISPHERES: 1. The cerebral parenchyma, ventricular system and gyral pattern have normal configuration. 2. There is focal area of interparenchymal hemorrhage along the lateral aspect LEFT frontal lobe extending into the insula, maximal axial dimension estimated at approximately 2.2 x 1.8 cm, superior to inferior dimension estimated at 2.1 cm. Mild surrounding edema is present. 3. There is trace subarachnoid blood within the insula. Additional trace subarachnoid blood noted along the lateral convexity of both frontal lobes greater on LEFT than RIGHT. No intraventricular blood noted. 4. Chronic deep white matter disease is noted bilaterally, additional area of remote infarct and encephalomalacic N noted along the inferior aspect of the LEFT occipital lobe. 5. No area of acute territorial infarct identified. Incidental note of scattered benign calcifications in the basal ganglia. CEREBELLUM - BRAINSTEM: The cerebellum, brainstem, basilar and suprasellar cisterns have normal appearance. No Chiari malformation. PITUITARY: Infundibulum and pituitary have normal configuration. Midline structures appear normal. VESSELS: 1. No significant vascular calcifications in the cavernous carotid vessels. 2. No hyperdense vascular signs noted.. ORBITS AND PARANASAL SINUSES: 1. Normal appearance of the bony orbits. Normal appearance of the globes and retrobulbar soft tissues.. 2. Paranasal sinuses are clear. BONY ELEMENTS: Bony elements of the cranial vault, facial skeleton and skull base have normal appearance. SCALP AND SOFT TISSUES: Normal appearance of the soft tissues of the scalp and the visualized face OTHER: None IMPRESSION: 1. Small to medium-sized intraparenchymal hemorrhage noted within the LEFT frontal lobe, in the region of the LEFT frontal operculum with extension into the LEFT insular region, with maximal axial dimension of 2.2 x 1.8 cm, and a superior to inferior dimension of 2.1 cm. Surrounding edema is noted. This is approaching the region of Broca''s area. 2. There is trace subarachnoid blood noted within the posterior aspect of the insula and along the dorsal lateral convexity of both frontal lobes greater on LEFT than RIGHT. 3. No intraventricular blood, no evidence of ventricular dilatation. 4. Extensive deep white matter disease and area of remote infarct involving the inferior aspect of LEFT occipital lobe. 5. No midline shift. These images were reviewed on 07/27/2021. Head CT (06/30/2021): Stable left frontal operculum intraparenchymal hemorrhage. Stable bilateral subarachnoid hemorrhage. Local mass-effect. There is mild generalized volume loss. Scattered patchy foci of low-attenuation are present within supratentorial white matter which is nonspecific finding but likely represents mild microvascular ischemia. Chronic left occipital infarct. Head/neck CTA (06/30/2021): Left frontal operculum parenchymal hemorrhage measuring up to 2.6 x 2.0 cm with surrounding vasogenic edema. There is subarachnoid extension of hemorrhage into the left sylvian fissure and bifrontal regions. No major intracranial branch occlusion. No intracranial aneurysm identified. No spot sign identified on the CTA portion. Right internal carotid stenosis: 0% Left internal carotid stenosis: 0% Codominant patent bilateral vertebral arteries. Cardiac echo (06/30/2021): Technically difficult exam due to small windows, respiratory interference. The left ventricle is small. There is no left ventricular hypertrophy. Left ventricular systolic function is hyperdynamic. EF equals 75+/- 5% (visual estimate). Normal left ventricular diastolic function. The right ventricle is normal in size. Right ventricular systolic function is normal. There is mild (1+) tricuspid valve regurgitation. CBC, BMP, PT/PTT, TSH, T3, free T4, lipid profile (06/30/2021): TSH 4.46 (elevated) cholesterol 280, H non-HDL cholesterol 210, LDL cholesterol 188, sodium 134 Cervical cerebral angiography (07/01/2021): No evidence of cerebral aneurysm or early venous drainage to suggest etiology of ICH/SAH. A variant arch anatomy with late takeoff of right subclavian artery from descending arch and bifurcating or igin to bilateral carotids. BMP, CBC, phosphorus, magnesium (07/01/2021): Sodium 134, bicarb 21. BMP, CBC (07/02/2021): Sodium 131, bicarb 20 BMP, CBC (07/03/2021): Sodium 132 Head MRI (07/03/2021): Impression: 1) scattered foci restricted diffusion within cerebral convexity cortex, consistent with multiple acute punctate cortical infarcts. No evidence of acute restricted diffusion in a large vessel distribution. 2) redemonstration of isointense and hyperintense left frontal operculum intraparenchymal hematoma perilesional vasogenic edema, unchanged. Minimal marginal enhancement without evidence of nodular mass. No abnormal parenchymal or leptomeningeal enhancement to indicate underlying neoplasm. 3) sequela of chronic transcortical infarct posterior left temporal/occipital lobe. FLAIR signal consistent with chronic medial left parietal lobe cortical infarct. Findings also noted moderate/advanced degree supratentorial chronic microvascular ischemic changes in the centrum semiovale, deep and subcortical levels. Transesophageal echo (07/05/2021): The left ventricle is small. There is moderate left ventricular hypertrophy. Left ventricular systolic function is normal. Ejection fraction equals 70+/- 5% (visual estimate). The right ventricle is normal in size. Right ventricular systolic function is normal. There are no significant valvular abnormalities. No vegetation seen. Normal variant mild thickening with lab raise excrescence noted on undersurface of valve. Arch and descending aorta are normal in caliber without atheromatous disease. No cardiac source of embolus seen. 14 day cardiac event monitor (07/13/21-07/27/21): Primary rhythm was sinus rhythm. Average heart rate was 72 bpm. MInimum heart rate was 53 bpm. Maximum heart rate was 126 bpm. Atrial fibrillation or flutter: burdon was 0%. PSVT: burden was 0.05%. maximal count per 24 hours was 88. SVT (AT,RT): 22 events, longest event 18 beats, fastest event 152 bpm. Pauses: 0 events AV Block: 0% PVC(s): burden was 0.61%, maximal count per 24 hours 642, 2 disparate morphologies. Ventricular tachycardia: 1 event (4 beats; rate 114 bpm). CBC, CMP (08/26/2021): Sodium 135, glucose [address] (08/26/2021): FINDINGS: Normal soft tissue structures. Normal calvarium. There is mild cortical and central atrophy. There are dystrophic calcifications in the medial lentiform nuclei bilaterally likely age-related. There is moderate chronic microvascular ischemic change in the periventricular white matter most pronounced extending superior laterally and posteriorly from the body and atrium of the left lateral ventricle. There is no evidence of acute intra or extra-axial hemorrhage. There is no intracranial hemorrhage. There are no findings of an acute ischemic infarction. Normal visualized paranasal sinuses. IMPRESSION: Mild cortical and central atrophy. Dystrophic calcifications basal ganglia bilaterally. Moderate chronic microvascular ischemic change most pronounced in the periventricular white matter adjacent to the body and atrium of the left lateral ventricle extending into the left frontoparietal centrum semiovale. EKG (08/26/2021): Normal sinus rhythm; normal EKG. Hemoglobin A1c (10/23/2021): Normal. CBC, CMP, thiamine, folate, TSH (03/29/2022): Sodium 133 CBC (04/29/22): unremarkable. Vitamin D, CBC, ESR, urine culture, CMP, B12, c-reactive protein, TSH (06/13/22): vitamin D 29.4 (marginally low), mixed urogenital robinson (10,000-25,000 CFU/ml) on urine culture, glucose 102 (high), sodium 129 (low), potassium 5.5 (high), B12 1380 (high) Potassium (06/14/2022): Normal. BMP (07/24/2022): Sodium 130 (low) EKG (10/03/2022): Sinus rhythm - negative precordial T waves. Within normal limits. CBC, BMP, troponin, PT/PTT (12/17/2022): Sodium 135 (low) Head CT (12/17/2022): COMPARISON: August 26, 2021 FINDINGS: BRAIN PARENCHYMA: No intra- or extra-axial hemorrhage. No evidence of acute infarct. Moderate periventricular white matter ischemic changes with old deep white matter infarct in left parietal lobe. There is also old infarct in left occipital lobe demonstrating dystrophic calcification. No intracranial mass or mass effect. There is preservation of the cruz/white matter interface. Posterior fossa structures are unremarkable. CSF SPACES: Mild cerebral atrophy No hydrocephalus. Basal cisterns are patent. CALVARIUM, SKULL BASE, PARANASAL SINUSES AND MASTOID AIR CELLS: Clear. No discrete lytic or blastic abnormalities. ORBITS: Both globes, extraocular muscles, optic nerves and retrobulbar fat appear unremarkable. IMPRESSION: Mild atrophy and moderate periventricular white matter ischemic changes. Old left occipital lobe infarct and old deep white matter infarct in left parietal lobe No acute bleed. If concern for acute infarct MRI recommended These images were reviewed on 12/25/2022. Mild diffuse age-related cerebral atrophy is noted. Moderate bilateral periventricular and subcortical white matter chronic small vessel ischemic disease is noted. An old left frontal area of encephalomalacia/infarction is noted. An old deep left parietal infarct is noted. An old left occipital subcortical infarct is noted. Head/neck CTA (12/17/2022): FINDINGS: Normal bilateral petrous carotid arteries. Normal right cavernous carotid artery with a normal supraclinoid bifurcation. Normal left cavernous carotid artery with a normal supraclinoid bifurcation. Normal right A1 segments of the anterior cerebral artery. Normal left A1 segments of the anterior cerebral artery. Anterior communicating artery not visualized consistent with normal variant). Normal bilateral A2 segments of the anterior cerebral arteries. Normal right M1 and M2 segments of the middle cerebral arteries, with a normal M1 bifurcation. Normal left M1 and M2 segments of the middle cerebral arteries, with a normal M1 bifurcation. Normal right posterior communicating artery (PCOM). Normal left posterior communicating artery (PCOM). Normal bilateral vertebral arteries. Normal basilar artery with a normal basilar bifurcation. The visualized bilateral superior cerebellar (SCA) arteries are normal. Normal bilateral P1, P2 and visualized P3 segments of the posterior cerebral arteries. There is no demonstrated aneurysm of the [place]. AORTIC ARCH: Normal visualized aortic arch. Normal origins of the brachiocephalic, left common carotid, and left subclavian arteries. RIGHT CAROTID ARTERIES: Normal right common carotid artery (CCA). Normal right common carotid bulb. Normal origin of the right internal carotid (ICA) artery without a hemodynamically significant stenosis. Normal visualized cervical portion of the right internal carotid artery. Normal origin of the right external carotid artery (ECA). LEFT CAROTID ARTERIES: Normal left common carotid artery (CCA). Normal left common carotid bulb. Normal origin of the left internal carotid (ICA) artery without a hemodynamically significant stenosis. Normal visualized cervical portion of the left internal carotid artery. Normal origin of the left external carotid artery (ECA). VERTEBRAL ARTERIES: Normal bilateral vertebral arteries. IMPRESSION: Normal CTA Head and neck with contrast. These images were reviewed on 12/25/2022. Coding Level of Care Code Off vis,est,level 4 Diagnoses Cerebrovascular disease I67.9 Chronic fatigue R53.82 Fatigue type: chronic, unspecified Dementia without behavioral disturbance, psychotic disturbance, mood disturbance, or anxiety, unspecified dementia severity, unspecified dementia type F03.90 Dementia type: unspecified type Dementia severity: unspecified severity Dementia behavioral or psychological symptom: without behavioral, psychotic, or mood disturbance or anxiety Nontraumatic intracerebral hemorrhage, unspecified cerebral location, unspecified laterality I61.9 Intracerebral hemorrhage etiology: nontraumatic Laterality: unspecified laterality Cerebral hemorrhage location: unspecified cerebral location Assessment and Plan Assessment and Plan (1) Cerebrovascular disease: Status: Chronic (2) Fatigue: Status: Chronic Qualifiers: Fatigue type: chronic, unspecified Qualified Code(s): R53.82 - Chronic fatigue, unspecified (3) Dementia: Status: Chronic Qualifiers: Dementia type: unspecified type Dementia severity: unspecified severity Dementia behavioral or psychological symptom: without behavioral, psychotic, or mood disturbance or anxiety Qualified Code(s): F03.90 - Unspecified dementia, unspecified severity, without behavioral disturbance, psychotic disturbance, mood disturbance, and anxiety (4) Intracerebral hemorrhage: Status: Resolved Qualifiers: Intracerebral hemorrhage etiology: nontraumatic Laterality: unspecified laterality Cerebral hemorrhage location: unspecified cerebral location Qualified Code(s): I61.9 - Nontraumatic intracerebral hemorrhage, unspecified Orders: Orders Brain W/WO Contrast Today F03.90 - Unspecified dementia, unspecified severity, without behavioral disturbance, psychotic disturbance, mood disturbance, and anxiety, G45.9 - Transient cerebral ischemic attack, unspecified, I61.9 - Nontraumatic intracerebral hemorrhage, unspecified, I67.9 - Cerebrovascular disease, unspecified Vitamin B12 Today R53.83 - Other fatigue Plan Details Additional Comments: The patient has a history of visual field defect that was noted on eye examination in the 2019 and 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 On evaluation with a head MRI in March 2020, she was found to have old left occipital and left parietal cortical infarcts that were new when compared to a head MRI from 2017. In addition, chronic small vessel ischemic disease was noted. She is unaware of having symptoms at the time the strokes occurred. The MRI report from March 2020 also notes chronic blood byproducts noted along the margins of the remote infarcts in the left occipital lobe and left parietal occipital sulcus suggesting that these cortical infarcts may have had a hemorrhagic transformation; the possibility of amyloid angiopathy is also a consideration. In May and June 2021, she was hospitalized for acute onset aphasia and nausea and vomiting and was found to have an acute left frontal/insular lobe intracerebral hemorrhage with associated mild subarachnoid hemorrhage the etiology of which is unclear. Diagnostic considerations include primary hypertensive hemorrhage, amyloid angiopathy or cerebral infarct with hemorrhagic transformation. A cerebral angiogram did not reveal any vascular malformation to account for her hemorrhage. She returned back to her baseline. She reports in October 2022 she had a 5-minute episode of expressive aphasia; she did not seek medical attention for this. Earlier in November 2022 she had an episode of confusion and difficulty focusing her vision that resolved over a period of several hours. She was seen in the emergency room that day; her symptoms were improving; a head CT did not reveal acute pathology. She was discharged home with instructions to follow-up with her eye doctor. A diagnosis of TIA/acute cerebrovascular ischemia was not made. A 14 day cardiac event monitor in June 2021 did not reveal atrial fibrillation or atrial flutter however since she has had infarcts involving the cerebral cortex, concern remains for the possibility of a cardiac embolic etiology for her prior occipital and parietal strokes. - She is seeing a grey inspector, Dr. Pandya. An implanted cardiac loop recorder was placed earlier in 2022. - Aspirin was held for a period of time during her hospitalization in May/June 2021 and then resumed at her prior dose of 81 mg daily and this will be continued. - A head MRI will be ordered to assess for progression of her cerebrovascular disease. - She was advised to follow-up with her eye doctor. She has had progressive memory difficulty since 2016. She has a tendency to forget conversations and to repeat conversations. She has difficulty recognizing faces. She has made errors such as selecting a wrong item when shopping. She may possibly have a mild and early dementia. With her history of vascular disease the possibility of a vascular dementia is a consideration. She feels that her memory has slightly worsened further within recent months. - Donepezil was not well tolerated. Per prior discussion, she did not wish to try another medication for treatment of dementia. She reported a history of 4 occurrences of gastric ulcers the last of which was in 2020. She takes omeprazole. Cytochrome P450 2C19 activity revealed that she is an ultra rapid metabolizer for drugs (such as clopidogrel) utilizing this pathway; since this may reduce the efficacy of clopidogrel, treatment with clopidogrel is not an option. She reported having an elevated C-reactive protein in the past and reported a prior history of possible autoimmune process though she is unaware of any clear autoimmune disease being diagnosed. Her C-reactive protein checked in 2020 was again elevated. She has had M???ni???re's disease since the . She has chronic bilateral hearing loss and chronic bilateral tinnitus. She has had left ear pulsatile tinnitus. Triamteren e/hydrochlorothiazide has been of some benefit in reducing the frequency of her vestibular symptoms. She recently discontinued triamterene/hydrochlorothiazi de and has had some increase in the recurrence of her dizziness. - I recommend that she resume triamterene/hydrochlorothiazi de twice per week (Per prior discussion, she did not wish to take triamterene/hydrochlorothiazi de daily due to concern about potential renal side effects). She has fatigue. Monthly B12 injections have been of benefit for her fatigue. - B12 1500 mcg IM was administered today and will be continued monthly. She has hypercholesterolemia. Due to concern about potential side effects she decided to discontinue atorvastatin She decided not to resume Zetia. She was advised not to resume coenzyme Q10. She has a history of some neck pain and has had brief sharp stabbing pains in the neck and right side of the head that last for seconds each that began around 2014. More recently her neck pain has subsided. The right sided sharp head pains have decreased om frequency and are presently not a prominent complaint. - Her course will be followed. I will have her return for reassessment in 4 months. 12/25/222119 <Electronically signed by Terence Briones MD> Date Terence Briones MD [facility] Signature: Date (if applicable) CC: Fatimah Bond DO Work Phone: Start: 12-17-2022 End: 12-17-2022 Chest 1 View Procedure Note: See Note; NOTES: [facility] Imaging Services [address] [place] [address] Chest 1 View MR#: [id number] Acct: [id number] Name: KIYA CABELLO Rep #: [id number] : 1945 F 77 From: Faraz Chung MD PCP: Dr. Fatimah Bond DO Status: REG ER Study: Chest 1 View Date of Exam: 12/17/22 Exam# [id number] Ordering Dr: Jonas Verdugo MD [id number] STUDY: X-RAY CHEST REASON FOR EXAM: Female, 77 years old. Neuro deficit, acute, stroke suspected TECHNIQUE: AP portable COMPARISON: August 26, 2021 FINDINGS: The lungs are clear and expanded. There is no demonstrated pleural abnormality. Normal size heart. Normal mediastinum and kendell. Normal visualized pulmonary arteries. Normal visualized aortic arch and descending thoracic aorta. Normal visualized thoracic spine. Normal visualized ribs, clavicles, and shoulders. There is no demonstrated abnormality of the visualized soft tissue structures of the upper abdomen. No significant change since prior study RAD/Chest 1 View IMPRESSION: Normal x-ray examination of the chest. Electronically Signed: Faraz Chung MD at 16:49 EDT , CC: Dr. Jonas Verdugo MD; Dr. Fatimah Bond DO Mechanical Facilities Technician: Signed Fatimah Bond DO Work Phone: Start: 12-17-2022 End: 12-17-2022 CTA Head AND Neck W/ Contrast Procedure Note: See Note; NOTES: [facility] Imaging Services [address] [place] [address] CTA Head AND Neck W/ Contrast MR#: [id number] Acct: [id number] Name: KIYA CABELLO Rep #: [id number] : 1945 F 77 From: Faraz Chung MD PCP: Dr. Fatimah Bond DO Status: REG ER Study: CTA Head AND Neck W/ Contrast Date of Exam: Exam# [id number] Ordering Dr: Jonas Verdugo MD We are attempting to reach an attending provider to discuss findings. An addendum with communication details will be sent when the communication is complete. [id number] STUDY: CTA HEAD AND NECK WITH CONTRAST REASON FOR EXAM: Female, 77 years old. vision change RADIATION DOSAGE (If Supplied By Facility): CTDIvol = ( 15.56 ) mGy, DLP = ( 534.50 ) mGycm TECHNIQUE: CT angiography was performed with a multi-detector CT scanner. Data acquisition was obtained from the skull base through the vertex following intravenous administration of IV 100mL Isovue-370. MIP images were reconstructed from the axial data set. Post-processing of the angiographic images was performed, with multiplanar reformation and 3D reconstruction. Individualized dose optimization techniques were used for this CT. COMPARISON: No relevant priors. FINDINGS: Normal bilateral petrous carotid arteries. Normal right cavernous carotid artery with a normal supraclinoid bifurcation. Normal left cavernous carotid artery with a normal supraclinoid bifurcation. Normal right A1 segments of the anterior cerebral artery. Normal left A1 segments of the anterior cerebral artery. Anterior communicating artery not visualized consistent with normal variant). Normal bilateral A2 segments of the anterior cerebral arteries. Normal right M1 and M2 segments of the middle cerebral arteries, with a normal M1 bifurcation. Normal left M1 and M2 segments of the middle cerebral arteries, with a normal M1 bifurcation. Normal right posterior communicating artery (PCOM). Normal left posterior communicating artery (PCOM). Normal bilateral vertebral arteries. Normal basilar artery with a normal basilar bifurcation. The visualized bilateral superior cerebellar (SCA) arteries are normal. Normal bilateral P1, P2 and visualized P3 segments of the posterior cerebral arteries. There is no demonstrated aneurysm of the [place]. AORTIC ARCH: Normal visualized aortic arch. Normal origins of the brachiocephalic, left common carotid, and left subclavian arteries. RIGHT CAROTID ARTERIES: Normal right common carotid artery (CCA). Normal right common carotid bulb. Normal origin of the right internal carotid (ICA) artery without a hemodynamically significant stenosis. Normal visualized cervical portion of the right internal carotid artery. Normal origin of the right external carotid artery (ECA). LEFT CAROTID ARTERIES: Normal left common carotid artery (CCA). Normal left common carotid bulb. Normal origin of the left internal carotid (ICA) artery without a hemodynamically significant stenosis. Normal visualized cervical portion of the left internal carotid artery. Normal origin of the left external carotid artery (ECA). VERTEBRAL ARTERIES: Normal bilateral vertebral arteries. CT/CTA Head AND Neck W/ Contrast IMPRESSION: Normal CTA Head and neck with contrast. Electronically Signed: Faraz Chung MD at 16:15 EDT , CC: Dr. Jonas Verdugo MD; Dr. Fatimah Bond DO Mechanical Facilities Technician: Signed Fatimah Bond DO Work Phone: Start: 12-17-2022 End: 12-17-2022 Emergency Department Summary Procedure Note: See Note; NOTES: [facility] Medical Records Department [address] [place] [id number] Emergency Department Summary 12/17/22 MR#: [id number] Acct: [id number] Name: KIYA CABELLO Rep #: [id number] : 1945 77 From: Jonas Verdugo MD PCP: Dr. Fatimah Bond, DO Status:REG ER Location: ED HPI History of Present Illness Chief Complaint: Vision Prob Informant: patient and spouse/S.O. Onset/Context/Timing Location: Bilateral Eyes Onset: Today Context: Sudden Onset Timing: Continuous Current Severity: Mild Maximum Severity: Moderate Associated Symptoms History of injury: No Visual correction: None Narrative Narrative: 77-year-old female history of prior strokes and intracranial bleed last year. States today around 130 had blurry vision. It is improved but still not at her baseline. Denies any trouble speaking. No trouble walking. No weakness to her upper or lower extremities or numbness. Prior similar symptoms: Yes Recent Illness/Hospitalization: No PFSH PFSH Medical History Abdominal pain Breast cyst Cataracts, bilateral Cerebrovascular accident (CVA) Chronic rhinitis CVA, old, homonymous hemianopsia Depression Diarrhea MISTY (generalized anxiety disorder) Gallstones Gastritis Gastritis and gastroduodenitis GERD (gastroesophageal reflux disease) History of UTI Hypercholesterolemia Hyperlipidemia Meniere's disease Mixed hyperlipidemia Osteoporosis Quadrantanopia of right eye Vascular dementia, moderate, with anxiety Home Medications minoxidil 2 % topical solution 1 ml topical BID 06/29/20 [History Last Taken Unknown] vitamins A,C,I-trpm-aqjzdv 2,148 mcg-113 mg-45 mg-17.4 mg tablet 1 tablet PO BID 06/29/20 [History Last Taken Unknown] aspirin 81 mg tablet,delayed release (Mayela Low Dose Aspirin) 81 mg PO DAILY 07/27/21 [History Last Taken Unknown] omeprazole 40 mg capsule,delayed release 40 mg PO DAILY PRN acid reflux 10/03/22 [History Last Taken Unknown] ezetimibe 10 mg tablet 10 mg PO DAILY 10/05/22 [History Last Taken Unknown] Allergy/AdvReac Type Severity Reaction Status Date / Time sulfamethoxazole Allergy Intermediate Other Verified 12/17/22 14:52 [From Bactrim] trimethoprim [From Bactrim] Allergy Intermediate Other Verified 12/17/22 14:52 cetirizine [From Zyrtec] Allergy Unknown Unknown Verified 12/17/22 14:52 Yzgduae-ESW-RhT Reductase Allergy Unknown Unknown Verified 12/17/22 14:52 Inhibitor Sulfa (Sulfonamide Allergy Unknown Unknown Verified 12/17/22 14:52 Antibiotics) Family History Other Heart disease Myocardial infarction Surgical History History of oophorectomy History of tonsillectomy Hx of cataract extraction Social History Smoking Status: Never smoker Electronic Cigarette Use: not used second hand exposure: No alcohol intake: never substance use type: does not use what type of physical activity do you participate in: none seatbelt use: always ROS ROS ED ROS Narrative Denies recent illness. Review of Systems ROS Unobtainable: Denies due to encephalopathy Constitutional Constitutional ED: Denies chills or fever(s) Eyes Eyes: Denies blurry vision ENT ENT ED: Denies ear pain Cardiovascular Cardiovascular: Denies chest pain or palpitations Respiratory/Chest Respiratory/Chest: Denies cough or dyspnea Gastrointestinal Gastrointestinal: Denies abdominal pain Genitourinary Genitourinary ED: Denies dysuria or hematuria Musculoskeletal Musculoskeletal: Denies arthralgias Integumentary Denies abscess Neurologic Neurologic: Denies headache(s) or paresthesias Psychiatric Psychiatric: Denies anxiety or depression Endocrine Endocrinology: Denies polydipsia Hematologic/Lymphatic Hematologic/Lymphatic: Denies easy bleeding Allergic/Immunologic Allergic/Immunologic ED: Denies mouth swelling EXAM Physical Exam Narrative Exam Narrative: Well-appearing 77-year-old female. Vital signs stable afebrile. H EENT exam. Normal speech. No facial droop. Given very advised motions are intact. Neck nontender. Lungs clear to auscultation bilaterally. Heart regular rhythm rate about 80 no murmur. Chest wall nontender. Abdomen soft nontender. Moving all 4 extremities. 5 out of 5 template layout worker strength. Dorsi plantarflexion intact. No drift. Fingertip to nose within normal limits. Neurologically she is awake and alert with no focal motor deficits. NIH 0. Const Vital Signs: 12/17/22 14:52 Temperature 97.4 F L Temperature Source Temporal Pulse Rate 79 Respiratory Rate 18 Blood Pressure 131/76 H Blood Pressure Mean 94 Pulse Ox 96 Oxygen Delivery Method Room Air Positive well nourished and well developed; Negative for obese, cachectic, contractures or unkempt General Appearance ED: well developed and NAD; Negative for unkempt, cachectic or contractures Nutritional Appearance: Negative for cachectic or obese HEENT Denies other atraumatic; Negative for trauma, tenderness or other Nose: external nose normal Neck no lymphadenopathy, supple and no JVD General: Negative for tenderness Resp normal respiratory effort, no retractions, no use of accessory muscles and clear to auscultation bilaterally Cardio regular rate, regular rhythm, S1 normal heart sound, S2 normal heart sound and no murmurs GI non-tender, non-distended and no masses Inspection: Negative for other Auscultation: normoactive bowel sounds Palpation: soft Back/Spine no CVA tenderness General Back: Negative for CVA tenderness Extremity normal to inspection General Extremety ED: Negative for edema or other findings General Extremity: Negative for edema or other findings Neuro oriented x3, CN's II-XII intact bilaterally and moves all extremities Sensorium / Orientation: alert, oriented to person, oriented to place and oriented to time; Negative for orientation impaired Motor Exam: strength 5/5 throughout Psych Appearance: Negative for unkempt Attitude: No agitated Mood Affect: Negative for depressed, anxious or tearful Skin no wounds Lesions: no lesions Rashes: no rashes Trauma: Negative for abrasion or laceration MDM MDM MDM Narrative Medical decision making narrative: 77-year-old vision change. Neurologic exam otherwise normal. She undergo a stroke work-up. She is currently not a tPA candidate. Repeat exam patient doing well at 5 PM. Neurologic exam remains normal. Her vision is back to her baseline. She and I and her discussed her test results. She is comfortable not being admitted. She will follow-up with her piano mechanic. NIH is 0. History Record Review Discussion w/independent historian: Patient and Family Lab Data Attestation: I reviewed the patient's lab results. Lab results narrative: CBC, chemistries and troponin are all normal. PT/INR unremarkable. CTA head and neck unremarkable per the radiologist. CT brain unremarkable per radiologist. Radiography Chest X-Ray - ED: 1 View, Read by ED Physician, Heart, Lungs, Mediastinum, Bony Structures, No Acute Disease and Chronic Changes Diagnostic Testing: Chest x-ray, portable, single view shows no acute abnormality. Normal cardiac silhouette. Normal mediastinum. Normal lung vega. Left-sided loop recorder. Chronic changes. No acute abnormality Rhythm Strip Rhythm Strip: Sinus Rhythm Rate: 70 Ectopy: None EKG Initial EKG: Attestation: I personally reviewed and interpreted this EKG as follows: Interpretation: Sinus Rhythm and No Acute Injury Pattern Comments: Normal sinus rhythm rate of 70 no acute signs of DC or ischemia. Discharge Plan Triage Chief Complaint: Vision Prob ED Provider: Jonas Verdugo Dx/Rx/DC Orders Prescriptions: No Action vitamins A,C,S-lxbf-obpqgv 7,160-113-100 iney-mm-awid tablet 1 tablet PO BID Rx Instructions: administer with AM and PM meals minoxidil 2 % solution 1 ml TOPICAL BID omeprazole 40 mg capsule,delayed release(DR/EC) 40 mg PO DAILY PRN (Reason: acid reflux) Patient Comments: TAKE 1 CAPSULE BY MOUTH EVERY DAY aspirin [Mayela Low Dose Aspirin] 81 mg tablet,delayed release (DR/EC) 81 mg PO DAILY ezetimibe 10 mg tablet 10 mg PO DAILY Primary Care Provider: Fatimah Bond Referrals: Fatimah Bond DO [Primary Care Provider] - What to do if you have Problems For any increased pain, shortness of breath, bleeding, nausea or vomiting, chest pain, or any unexpected problems, contact your Primary Care Provider. Call [facility] ([phone]) or report to the closest Emergency Room. Call 911 if necessary. 12/17/22 1701 <Electronically signed by Jonas Verdugo MD> Cosigner Signature (if applicable): CC: Dr. Fatimah Bond DO Signed Fatimah Bond DO Work Phone: Start: 12-17-2022 End: 12-17-2022 STROKE Brain/Head without Cont Procedure Note: See Note; NOTES: [facility] Imaging Services [address] [place] [address] STROKE Brain/Head without Cont MR#: [id number] Acct: [id number] Name: KIYA CABELLO Rep #: [id number] : 1945 F 77 From: Faraz Chung MD PCP: Dr. Fatimah Bond, DO Status: REG ER Study: STROKE Brain/Head without Cont Date of Exam: 0 12/17/22 Exam# [id number] Ordering Dr: Jonas Verdugo MD We are attempting to reach an attending provider to discuss findings. An addendum with communication details will be sent when the communication is complete. [id number] INDICATION: Neuro deficit, acute, stroke suspected EXAMINATION: CT BRAIN - CT Head Stroke Protocol W/O Contrast Injection TECHNIQUE: Multiple axial images were obtained of the head without intravenous contrast. A radiation dose optimization technique was used for this scan. IV Contrast dosage and agent: None. RADIATION DOSAGE (If Supplied By Facility): CTDIvol = ( ) mGy, DLP = ( ) mGycm COMPARISON: August 26, 2021 FINDINGS: BRAIN PARENCHYMA: No intra- or extra-axial hemorrhage. No evidence of acute infarct. Moderate periventricular white matter ischemic changes with old deep white matter infarct in left parietal lobe. There is also old infarct in left occipital lobe demonstrating dystrophic calcification. No intracranial mass or mass effect. There is preservation of the cruz/white matter interface. Posterior fossa structures are unremarkable. CSF SPACES: Mild cerebral atrophy No hydrocephalus. Basal cisterns are patent. CALVARIUM, SKULL BASE, PARANASAL SINUSES AND MASTOID AIR CELLS: Clear. No discrete lytic or blastic abnormalities. ORBITS: Both globes, extraocular muscles, optic nerves and retrobulbar fat appear unremarkable. No significant change since prior exam CT/STROKE Brain/Head without Cont IMPRESSION: Mild atrophy and moderate periventricular white matter ischemic changes. Old left occipital lobe infarct and old deep white matter infarct in left parietal lobe No acute bleed. If concern for acute infarct MRI recommended Electronically Signed: Faraz Chung MD at 16:12 EDT , CC: Dr. Jonas Verdugo MD; Dr. Fatimah Bond DO Mechanical Facilities Technician: Signed Fatimah Bond DO Work Phone: Start: 11-08-2022 End: 12-03-2022 Office Visit Report Procedure Note: See Note; NOTES: [facility] RACHEL Luciano [address] OFFICE VISIT Date of Service: 11/08/22 MR#: [id number] Acct: [id number] Patient: KIYA CABELLO Rep #: [id number] : 1945 Provider: Dr. Terence mendoza MD Age/Sex: 77/F Location: [facility] [place]. Status: Signed Intake Vital Signs 10/12/22 10:24 11/08/22 14:21 Height 5 ft 2 in 5 ft 2 in Weight: 117 lb 10 oz BMI 21.4 BP 122/70 H Blood Pressure Location Lt brachial Position Sitting Respiration 16 Pulse 82 Pulse Source Monitor Temp 98.3 F Temp Source Temporal Pulse Oximetry (%) 97 Oxygen Delivery Method room air Intake Visit Reasons: B12 inject Chief Complaint: Allergies sulfamethoxazole [From Bactrim] Allergy (Intermediate, Verified 10/03/22 15:08) Other trimethoprim [From Bactrim] Allergy (Intermediate, Verified 10/03/22 15:08) Other cetirizine [From Zyrtec] Allergy (Unknown, Verified 10/03/22 15:08) Unknown Hzaeozb-AZO-JuC Reductase Inhibitor Allergy (Unknown, Verified 10/03/22 15:08) Unknown Sulfa (Sulfonamide Antibiotics) Allergy (Unknown, Verified 10/03/22 15:08) Unknown Office Meds cyanocobalamin (vitamin B-12) 1,000 mcg/mL injection solution Performing Provider: Terence Briones MD Performing Location: [facility] Administered by: Jero Simmons on 11/08/22 14:24 Dose Route Admin Location Dispensed Lot Number Expiration Date NDC Man ufacturer 1,500 mcg IM left deltoid 1.5 mL [id number] 03/31/25 32438-539-60 SAFIA SULLIVAN Comments: The patient presents for B12 injection for treatment of fatigue. Her last B12 injection was of benefit for fatigue. The patient is awake and alert. B12 1500mcg was administered today. There were no complications. 12/03/22 1124 <Electronically signed by Terence Briones MD> Date Terence Briones MD Cosigner Signature: Date (if applicable) CC: Fatimah Bond DO Work Phone: Start: 10-12-2022 End: 10-12-2022 TXT:Device Implant / Explant Procedure Note: See Note; NOTES: [facility] Imaging Services [address] [place] [address] TXT:Device Implant / Explant MR#: [id number] Acct: [id number] Name: KIYA CABELLO Rep #: [id number] : 1945 77 From: Cornell Pandya MD PCP: Dr. Fatimah Bond, DO Status:[facility] Patient: KIYA CABELLO Study Date: 10/12/2022 Performing: Cornell Pandya MD : 1945 Age: 77 Gender: female PROCEDURES PERFORMED LP01-(60179)INSERTION OF LOOP RECORDER INDICATIONS Atrial fibrillation and past cva PROCEDURE DETAILS The patient was brought to the Catheterization Lab in the postabsorptive nonsedated state. Informed consent was obtained prior to the procedure. Incision was made to the left upper chest. ICM Loop Recorder was inserted. The patient tolerated the procedure well. Estimated Blood Loss: < 10 mls IMPLANTED / EX-PLANTED DEVICES IMPLANTED DEVICE(S): ICM Loop Recorder - Radiology Interventional Physician: [employer], Model # [id number] , Serial # [id number] DEVICE PARAMETERS CONCLUSIONS / RECOMMENDATIONS Device Conclusions: Successful implantation of a patient activated loop recorder. Device Recommendations: Follow up with Primary Care Physician PROCEDURE MEDICATIONS Versed 1 mg IV Oxygen: 2 L/min via nasal cannula Ancef 1 Gm IV @ 10/12/2022 11:59:40 Signed By Cornell Pandya MD On 10/12/2022 12:15:13 Cornell Pandya MD 10/12/22 1216 Date Cornell Pandya MD Cosigner Signature: Date (if indicated) CC: Dr. Cornell Pandya MD; Dr. Fatimah Bond DO Date Dictated: 10/12/22 1157 Date Transcribed: 10/12/22 1215 Mechanical Facilities Technician: [place] Signed Fatimah Bond DO Work Phone: Start: 10-03-2022 End: 10-05-2022 12 Lead EKG performed by [facility] [place] Procedure Note: See Note; NOTES: [facility] [address] [place] [id number] 12 Lead EKG performed by [facility] 10/03/22 1459 MR#: [id number] Acct: [id number] Name: KIYA CABELLO Rep #: [id number] : 1945 77 From: Cornell Pandya MD Attending Dr: Dr. Cornell Pandya MD Status: REG A MB Ordering Dr: Cornell Pandya MD Date: 10/03/22 Location: [facility] [place] Sex: F C Admitted: [facility] – [place]/ Lead EKG performed by [facility] [place] Sinus Rhythm - Negative precordial T-waves. WITHIN NORMAL LIMITS 10/03/22 1521 <Electronically signed by Cornell Pandya MD> Date Cornell Pandya MD CC: Dr. Fatimah Bond, Date Dictated: 10/03/221458 Date Transcribed: 10/03/221458 Mechanical Facilities Technician: [place] Signed Fatimah Bond DO Work Phone: Start: 10-03-2022 End: 10-03-2022 Cardiology Visit Report Procedure Note: See Note; NOTES: [facility] [address] [place] [address] OFFICE VISIT Date of Service: 10/03/22 MR#: [id number] Acct: [id number] Name: KIYA CABELLO Rep #: [id number] : 1945 Provider: Dr. Cornell Pandya MD Age/Sex: 77/F Location: [facility] – [place].[facility] Status: Signed HPI HPI History of Present Illness Details: Pleasant 77-year-old lady with no overt cardiac history who says that she was told that she had had a cerebrovascular accident in June 2021. She has been worked up in the past with echocardiograms which have not demonstrated any significant abnormality other than mild aortic valve calcification. She was evaluated in the 2019 with a right homonymous quadrantanopia and had an MRI which demonstrated an old left occipital and an old left cortical infarct. In May and June 2021 she was hospitalized with acute onset aphasia and nausea and vomiting and found to have a left frontal and insular lobe intracerebral hemorrhage with a mild subarachnoid hemorrhage. The etiology was unclear it was thought that this was due to hypertensive hemorrhage amyloid angiopathy or cerebral infarct with hemorrhagic transformation. A cerebral angiogram did not demonstrate any vascular malformation. 14-day event monitor did not demonstrate any evidence of atrial fibrillation aspirin was held and she tells me that more recently she stopped taking his statin and did not want to take any Zetia. She comes to me today for further evaluation and management. She denies any neck arm or jaw discomfort suggest angina. Intake Vital Signs 09/17/22 09:17 10/03/22 08:49 10/03/22 15:13 Height 5 ft 2 in 5 ft 2 in Weight: 114 lb BP 132/75 H Blood Pressure Location Lt brachial Position Sitting Respiration 20 H Pulse 62 Pulse Source Monitor Intake Visit Reasons: CEREBROVASCULAR DISEASE / POSS LOOP (BADDOUR) Medical Technical Writer Required: No Accompanied by: Is patient in pain?: No Allergies sulfamethoxazole [From Bactrim] Allergy (Intermediate, Verified 10/03/22 15:08) Other trimethoprim [From Bactrim] Allergy (Intermediate, Verified 10/03/22 15:08) Other cetirizine [From Zyrtec] Allergy (Unknown, Verified 10/03/22 15:08) Unknown Bdgzzvo-EWV-OiZ Reductase Inhibitor Allergy (Unknown, Verified 10/03/22 15:08) Unknown Sulfa (Sulfonamide Antibiotics) Allergy (Unknown, Verified 10/03/22 15:08) Unknown Medications htaah-l-qzmdkbozcyxnm 150 unit tablet (Beano) 300 unit PO TID PRN 06/29/20 [History Confirmed 10/03/22] minoxidil 2 % topical solution 1 ml topical BID 06/29/20 [History Confirmed 08/13/22] vitamins A,C,Y-ttbq-skmksj 2,148 mcg-113 mg-45 mg-17.4 mg tablet 1 tablet PO BID 06/29/20 [History Confirmed 10/03/22] meclizine 25 mg tablet 25 mg PO DAILY PRN Dizziness 06/29/21 [History Confirmed 10/03/22] aspirin 81 mg tablet,delayed release (Mayela Low Dose Aspirin) 81 mg PO DAILY 07/27/21 [History Confirmed 10/03/22] triamterene 37.5 mg-hydrochlorothiazide 25 mg capsule 1 cap PO DAILY 05/14/22 [History Confirmed 09/10/22] omeprazole 40 mg capsule,delayed release 40 mg PO DAILY PRN 10/03/22 [History Confirmed 10/03/22] [facility] Medical History Abdominal pain Breast cyst Cataracts, bilateral Cerebrovascular accident (CVA) Chronic rhinitis CVA, old, homonymous hemianopsia Depression Diarrhea MISTY (generalized anxiety disorder) Gallstones Gastritis Gastritis and gastroduodenitis GERD (gastroesophageal reflux disease) History of UTI Hypercholesterolemia Hyperlipidemia Meniere's disease Mixed hyperlipidemia Osteoporosis Quadrantanopia of right eye Vascular dementia, moderate, with anxiety Surgical History History of oophorectomy History of tonsillectomy Hx of cataract extraction Family History Other Heart disease Myocardial infarction Social History Smoking Status: Never smoker Electronic Cigarette Use: not used second hand exposure: No alcohol intake: never substance use type: does not use what type of physical activity do you participate in: none seatbelt use: always ROS Const Const: Positive for fatigue; Negative for weakness, headache(s), frequent falls, difficulty sleeping or excessive sweating Eyes Eyes: Negative for loss of peripheral vision, transient loss of vision, blurry vision, double vision or tunnel vision ENT ENT: Negative for headache(s), dizziness, Nosebleed/epistaxis or balance problems Cardio Chest Pain: No Palpitations: Yes Edema: None Muscle aches with walking: None Resp Respiratory: Positive for SOB with activity; Negative for SOB at rest, SOB orthopnea SOB lying down, Cough or paroxysmal nocturnal dyspnea GI GI: Negative nausea, vomiting or heartburn : Negative for hematuria Musc Musc: Negative for muscle aches/ myalgia, muscle weakness, joint pain or balance problems Skin Skin: Negative non-healing lesions, rash or unusual bruising Neuro Neuro: Negative for dizziness, lightheadedness, near syncope, syncope, orthostatic symptoms, frequent falls, headache(s), weakness, confusion, memory loss, blurry vision, double vision, vertigo or lack of coordination Yury Hematologic/Lymphatic: Negative for easy bleeding or easy bruising Endo Endo: Positive for fatigue; Negative for excessive sweating, flushing or increased thirst/drinking Psych Psych: Negative for anxiety or depression Allergy Allergy/Immunology: Negative for hives and Negative for rash Cardiology Exam Const Appearance: cooperative, healthy appearing, no acute distress, well developed and well groomed Nutritional Appearance: average body habitus and well nourished Orientation: alert, awake and oriented x3 Head Head: normal to inspection, normocephalic and atraumatic Ears: hearing grossly normal bilaterally and external ears normal Nose: external nose normal, nares normal, nasal mucous membranes and turbinates normal, septum normal and no nasal discharge Face and Sinus: face symmetric Mouth: oral mucosae normal, tongue normal, oropharynx normal and moist mucous membranes Teeth and gingiva: dentition normal Throat: posterior oropharynx normal, tonsils normal and uvula midline Eyes General: appearance normal, both eyes and all related structures Eyelids: eyelids normal Conjunctivae: conjunctivae normal Pupils: PERRL, normal by confrontation and accommodation normal EOM: EOM intact bilaterally Neck Neck: normal visual inspection, trachea midline and no JVD JVD: +5 Carotids: normal carotid upstroke and bounding pulses Chest Chest inspection: normal inspection of the chest, symmetric chest movement and normal respiratory effort Auscultation: Bilateral: Clear to Auscultation Cardio Palpation: normal PMI Rate: regular rate Rhythm: regular rhythm Heart sounds: S1 normal, S2 normal and normal, physiologic split S2; Negative rub, gallop or murmur GI GI: normal to inspection, soft, no hepatosplenomegaly and bowel sounds present Neuro General: patient alert, patient awake, patient oriented x3, gait normal, moves all extremities and no focal sensory deficit Skin Skin: no rashes or lesions noted Extremities Pulses: Normal: Right Femoral Pulse, Left Femoral Pulse, Right Dorsalis Pedis Pulse, Left Dorsalis Pedis Pulse, Right Posterior Tibial Pulse, Left Posterior Tibial Pulse, Right Radial Pulse and Left Radial Pulse Lower Extremity Edema: None: Bilateral Musculoskel Musculoskeletal: No joint tenderness Psych Psychological: normal affect Supplemental Info Supplemental Information Echocardiograham 07/05/2021 CONCLUSIONS: - Exam indication: TIA - The left ventricle is small. There is moderate left ventricular hypertrophy. Left ventricular systolic function is normal. EF = 70 ??? 5% (visual est.) - The right ventricle is normal in size. Right ventricular systolic function is normal. - There are no significant valvular abnormalities. - No vegetation seen; normal variant mild thickening with lamble's excrescence noted on undersurface of valve. Arch and desc aorta normal in caliber without atheromatous disease No cardiac source of embolus seen - Exam was compared with the prior echocardiographic exam performed on 06/30/2021. Echocardiograham 06/30/2021 CONCLUSIONS: - Technically difficult exam due to small windows, respiratory interference. - Exam indication: Stroke - The left ventricle is small. There is no left ventricular hypertrophy. Left ventricular systolic function is hyperdynamic. EF = 75 ??? 5% (visual est.) Normal left ventricular diastolic function. - The right ventricle is normal in size. Right ventricular systolic function is normal. - There is mild (1+) tricuspid valve regurgitation. - The patient has not had a prior CC echocardiographic exam for comparison. Labs: No Data to Display Diagnostics: Electrocardiogram Abdomen/Pelvis CT Pulmonary: No Data to Display Past Visits: Cardiology Visit 10/03/22 Assessment and Plan Assessment and Plan (1) Cerebrovascular disease: Status: Chronic Plan: She Clearly has evidence of multiple cerebrovascular accidents. This has been manifest on MRI and her echocardiogram has been normal. There has been possible lumbar is excrescence noted on the u nderside of the valve. Recommendations at this time will be for us to proceed with an implantable loop recorder and depending on the findings further recommendations will be made. I explained the above to her and her they understand and agree to proceed. (2) Hyperlipidemia: Status: Chronic Qualifiers: Hyperlipidemia type: pure hypercholesterolemia Qualified Code(s): E78.00 - Pure hypercholesterolemia, unspecified Plan: She does have evidence of hyperlipidemia. My recommendation would be for her to start rosuvastatin 10 mg a day. Depending on the findings further recommendations will be made Orders: Orders 12 Lead EKG performed by [facility] Today E87.1 - Hypo-osmolality and hyponatremia, I67.9 - Cerebrovascular disease, unspecified Loop Recorder 1 Week I67.9 - Cerebrovascular disease, unspecified Basic Metabolic Profile (BMP) 1 Week I67.9 - Cerebrovascular disease, unspecified Plan Details Follow Up: 6 Months ([facility]) Coding Level of Care Code Off vis,new,level 4 Diagnoses Cerebrovascular disease I67.9 Pure hypercholesterolemia E78.00 Hyperlipidemia type: pure hypercholesterolemia Coding Level of Care Code Off vis,new,level 4 Diagnoses Cerebrovascular disease I67.9 Pure hypercholesterolemia E78.00 Hyperlipidemia type: pure hypercholesterolemia 10/03/22 1559 <Electronically signed by Cornell Pandya MD> Date Cornell Pandya MD Cosigner Signature: Date (if applicable) CC: Dr. Fatimah Bond, DO Fatimah Bond DO Work Phone: Start: 08-30-2022 End: 09-16-2022 Office Visit Report Procedure Note: See Note; NOTES: [facility] [place] [address] OFFICE VISIT Date of Service: 08/30/22 MR#: [id number] Acct: [id number] Patient: KIYA CABELLO Rep #: [id number] : 1945 Provider: Dr. Terence mendoza MD Age/Sex: 77/F Location: [facility] Status: Signed Intake Vital Signs 08/30/22 14:02 Height 5 ft 2 in Weight: 118 lb 10 oz BMI 21.7 BP 130/82 H Blood Pressure Location Lt brachial Position Sitting Respiration 16 Pulse 72 Pulse Source Monitor Temp 98.6 F Temp Source Temporal Pulse Oximetry (%) 95 Oxygen Delivery Method room air Intake Visit Reasons: B12 inject Chief Complaint: Allergies sulfamethoxazole [From Bactrim] Allergy (Intermediate, Verified 09/10/22 10:17) Other trimethoprim [From Bactrim] Allergy (Intermediate, Verified 09/10/22 10:17) Other cetirizine [From Zyrtec] Allergy (Unknown, Verified 09/10/22 10:17) Unknown Aryufmf-JQP-VvC Reductase Inhibitor Allergy (Unknown, Verified 09/10/22 10:17) Unknown Sulfa (Sulfonamide Antibiotics) Allergy (Unknown, Verified 09/10/22 10:17) Unknown Office Meds cyanocobalamin (vitamin B-12) Performing Provider: Terence Briones MD Administered by: Teresa Farley on 08/30/22 14:15 Dose Route Admin Location Lot Number Expiration Date [facility] Manufactu rer 1,500 mcg IM right deltoid [id number] 03/31/25 61529-205-78 SAFIA SULLIVAN Comments: Patient arrived to the office for a B12 injection for fatigue. Patient is alert and responds appropriately. Patient states that the last B12 injection was effective for her fatigue. B12 1500mcg IM was given today. Patient tolerated the procedure well. 09/16/22 1610 <Electronically signed by Terence Briones MD> Date Terence Cr Signature: Date (if applicable) CC: Fatimah Bond DO Work Phone: Start: 08-13-2022 End: 08-14-2022 Gastroenterology Visit Report Procedure Note: See Note; NOTES: [facility] [address] [place] [address] OFFICE VISIT Date of Service: 08/13/22 MR#: [id number] Acct: [id number] Name: KIYA CABELLO Rep #: [id number] : 1945 Provider: IVETH Galvez Age/Sex: 77/F Location: [facility] [place].[facility] Status: Signed Intake Vital Signs 04/29/22 12:08 08/13/22 15:05 Height 5 ft 2 in 5 ft 2 in Weight: 121 lb BMI 22.1 BP 120/76 Pulse 78 Pulse Oximetry (%) 94 Oxygen Delivery Method room air Intake Visit Reasons: CONSULT Chief Complaint: Allergies sulfamethoxazole [From Bactrim] Allergy (Intermediate, Verified 08/13/22 15:05) Other trimethoprim [From Bactrim] Allergy (Intermediate, Verified 08/13/22 15:05) Other Sulfa (Sulfonamide Antibiotics) Allergy (Unknown, Verified 08/13/22 15:05) Unknown Medications 7-oxodehydroepiandroste (bulk) (7-Keto DHEA powder) 1 each miscellaneous DAILY 06/29/20 [History Confirmed 08/13/22] yqtls-x-bymqvlmenfltj 150 unit tablet (Beano) 300 unit PO TID PRN 06/29/20 [History Confirmed 08/13/22] fluoxetine 10 mg capsule 10 mg PO DAILY 06/29/20 [History Confirmed 08/13/22] minoxidil 2 % topical solution 1 ml topical BID 06/29/20 [History Confirmed 08/13/22] vitamin B complex 1 tablet PO DAILY 06/29/20 [History Confirmed 08/13/22] vitamins A,C,C-stnl-wzgtea 2,148 mcg-113 mg-45 mg-17.4 mg tablet 1 tablet PO BID 06/29/20 [History Confirmed 08/13/22] omeprazole 40 mg capsule,delayed release 40 mg PO DAILY 12/06/20 [History Confirmed 08/13/22] meclizine 25 mg tablet 25 mg PO DAILY PRN Dizziness 06/29/21 [History Confirmed 08/13/22] aspirin 81 mg tablet,delayed release (Mayela Low Dose Aspirin) 81 mg PO DAILY 07/27/21 [History Confirmed 08/13/22] ezetimibe 10 mg tablet (Zetia) 10 mg PO DAILY 07/27/21 [History Confirmed 08/13/22] rosuvastatin 5 mg tablet 5 mg PO 10/23/21 [History Confirmed 08/13/22] triamterene 37.5 mg-hydrochlorothiazide 25 mg capsule 1 cap PO DAILY 05/14/22 [History Confirmed 08/13/22] [facility] Medical History (Reviewed 08/13/22 @ 15:16 by Malou Galvez SALES TRAINING REPRESENTATIVE, SALES TRAINING REPRESENTATIVE-C) Abdominal pain Breast cyst Cataracts, bilateral Cerebrovascular accident (CVA) Chronic rhinitis CVA, old, homonymous hemianopsia Depression Diarrhea MISTY (generalized anxiety disorder) Gallstones Gastritis Gastritis and gastroduodenitis GERD (gastroesophageal reflux disease) History of UTI Meniere's disease Mixed hyperlipidemia Osteoporosis Quadrantanopia of right eye Vascular dementia, moderate, with anxiety Surgical History (Reviewed 08/13/22 @ 15:16 by Malou Galvez SALES TRAINING REPRESENTATIVE, SALES TRAINING REPRESENTATIVE-C) History of oophorectomy History of tonsillectomy Family History (Reviewed 08/13/22 @ 15:16 by Malou Galvez SALES TRAINING REPRESENTATIVE, SALES TRAINING REPRESENTATIVE-C) Other Heart disease Myocardial infarction Social History (Reviewed 08/13/22 @ 15:16 by Malou Galvez SALES TRAINING REPRESENTATIVE, SALES TRAINING REPRESENTATIVE-C) Smoking Status: Never smoker Electronic Cigarette Use: not used second hand exposure: No alcohol intake: never substance use type: does not use what type of physical activity do you participate in: none seatbelt use: always HPI HPI Chief Complaint: Details: KIYA CABELLO, is a 77 F who presents to the office today to establish with Gastroenterology for flatulence, change in stools. Today her main concern is flatulence. Had one episode of fecal incontinence after eating cabbage. No longer having abd pain since she started taking probiotic daily. Has daily BM, can be a bit soft, doesn't always feel like rectum empties. Has psyllium husk but doesn't take it daily, wonders if she she try taking it daily. Hx gastric ulcers, most recently 2020. No nausea, vomiting, acid reflux, heartburn, dysphagia. No melena or hematochezia. Takes omeprazole 40 mg daily. ROS Const Constitutional: No fatigue ENT ENT: No difficulty swallowing Gastro GI: No abdominal pain, belching, bloating, change in bowel habits, change in stool character, coffee ground emesis, constipation, cramping, diarrhea, heartburn, difficulty swallowing, feeling full early, excessive flatus, incontinent of stools, Vomiting blood/hematemesis, Blood in stool, loose stools, Black,tarry stools, nausea/dyspepsia, pain with swallowing, vomiting or other Musc Musculoskeletal: Positive for stiffness and leg pain at night; No joint pain Skin Skin: No yellowing of the eye or itchy eyes Psych Psychiatric: Positive for anxiety and Positive for depression Endo Endocrine: No fatigue Aller/Imm Allergy/Immunologic: No itchy eyes Yury/Lymp Hematologic/Lymphatic: No easy bleeding or easy bruising Exam Const General: cooperative, healthy appearing and comfortable Nutritional Appearance: average body habitus Orientation: alert, awake and oriented x3 HENMT Head: normal to inspection Eyes Sclera: sclerae normal Resp Effort Inspection: normal respiratory effort GI Inspection: normal to inspection Palpation: soft, no hepatosplenomegaly, no masses and nontender Skin General: no rashes or lesions noted Neuro Gait: normal gait Quality Reporting Tobacco Screening ([facility]) Smoking Status: Never smoker Assessment and Plan Assessment and Plan (1) Flatulence: Status: Acute Plan: Somewhat of a difficult historian. She has dementia. She is unaccompanied today. Flatulence most bothersome symptom for her at this time, sometimes feels like not evacuated. She has psyllium husk at home, will try taking it daily to see if that helps. Will get records for endoscopies, not due yet per her recollection. Coding Level of Care Code Off vis,new,level 2 Diagnoses Flatulence R14.3 08/14/22 0905 <Electronically signed by Malou Galvez SALES TRAINING REPRESENTATIVE SALES TRAINING REPRESENTATIVE-C> Date Malou Galvez SALES TRAINING REPRESENTATIVE SALES TRAINING REPRESENTATIVE-C Cosigner Signature: Date (if applicable) CC: DO Fatimah Santana DO Work Phone: Start: 06-05-2022 End: 06-06-2022 Ext Non Vasc Limited/Soft Tiss Procedure Note: See Note; NOTES: [facility] Imaging Services [address] [place] [id number] Ext Non Vasc Limited/Soft Tiss MR#: [id number] Acct: [id number] Name: KIYA CABELLO Rep #: [id number] : 1945 F 77 From: Bryan Canada MD PCP: Fatimah Bond DO Status: REG CLI Study: Ext Non Vasc Limited/Soft Tiss Date of Exam: 0 06/05/22 Exam# [id number] Ordering Dr: Fatimah Bond DO EXAM: US RIGHT UPPER EXTREMITY NON-VASCULAR, COMPLETE CLINICAL INDICATION: mass of right axilla TECHNIQUE: Real-time ultrasound scan of the right upper extremity with image documentation. This report was created using [employer] report generation technology. COMPARISON: None. FINDINGS: Elongated fat-containing structure in the area of the right axilla with no suspicious features. This measures 2.5 x 0.8 cm. No other significant abnormalities. US/Ext Non Vasc Limited/Soft Tiss IMPRESSION: Lipoma involving the right axilla. Electronically Signed: Bryan Canada MD at 2:24 EST , CC: Dr. Fatimah Bond DO; Fatimah Bond DO Mechanical Facilities Technician: Signed Fatimah Bond DO Work Phone: Start: 06-05-2022 End: 06-05-2022 SCRN MAMM (CAD)W/SHANKAR BILAT Procedure Note: See Note; NOTES: [facility] Imaging Services [address] [place] [address] SCRN MAMM (CAD)W/SHANKAR BILAT MR#: [id number] Acct: [id number] Name: KIYA CABELLO Rep #: [id number] : 1945 F 77 From: Oskar flroian MD PCP: Fatimah Bond DO Status: REG CLI Study: SCRN MAMM (CAD)W/SHANKAR BILAT Date of Exam: 10/21 Exam# [id number] Ordering Dr: Fatimah Bond DO MAMMOGRAPHY - BILATERAL SCREENING REASON FOR EXAM: Female, 77 years old. Routine annual screening examination. PERTINENT HISTORY: Non-contributory. TECHNIQUE: Digital bilateral breast shankar (3D mammographic acquisition) in the CC and MLO projections. 2-D mediolateral oblique (MLO) and craniocaudad (CC) views of both breasts were obtained. CAD: Full Field Digital Mammography with Computer Added Detection was performed. COMPARISON: Comparison is made with prior study dated February 20, 2022 and January 08, 2019. FINDINGS: Breast Composition: There are scattered areas of fibroglandular density. There are no dominant masses or suspicious calcifications. No other significant abnormalities are identified. There has been no significant change since the prior study. BI/SCRN MAMM (CAD)W/SHANKAR BILAT IMPRESSION: Stable bilateral screening mammogram. Yearly follow-up mammogram recommended. (A) ASSESSMENT CATEGORY: BIRADS Category 1: Negative. A letter regarding these results will be sent to the patient by the facility within 30 days. Approximately 10% of breast cancers are not detected by mammography. A normal mammogram should not delay biopsy of a clinically suspicious abnormality. [id number] Electronically Signed: Oskar Garcia MD at 17:29 EST , CC: Dr. Fatimah Bond DO; Fatimah Bond DO Mechanical Facilities Technician: Signed Fatimah Bond DO Work Phone: Start: 05-07-2022 End: 05-07-2022 Acute Abdomen Inc Chest Procedure Note: See Note; NOTES: [facility] Radiology [address] [place] [address] Acute Abdomen Inc Chest MR#: [id number] Acct: [id number] Name: KIYA CABELLO Rep #: [id number] : 1945 F 76 From: Faraz Chung MD PCP: Fatimah Bond DO Status: DEP [facility] Study: Acute Abdomen Inc Chest Date of Exam: 05/07/22 Exam# [id number] Ordering Dr: Fatimah Bond DO STUDY: X-RAY - ACUTE ABDOMINAL SERIES REASON FOR EXAM: Female, 76 years old. LLQ PAIN TECHNIQUE: Single view of the chest. Supine, and upright view(s) of the abdomen were obtained. COMPARISON: None. FINDINGS: The lungs are clear and expanded. Normal size heart. Normal mediastinum and kendell. Normal visualized pulmonary arteries. Mildly calcified aortic arch and descending thoracic aorta. There is a non-specific bowel gas pattern. Large calcification in the right upper quadrant likely gallstones Lumbar spine demonstrates scoliosis and degenerative change. RAD/Acute Abdomen Inc Chest IMPRESSION: Cholelithiasis. No evidence for bowel obstruction or other significant abnormality. Electronically Signed: Faraz Chung MD at 20:42 EST Reading Location ID and State: [address] [place] [address] , Service support , CC: Dr. Fatimah Bond DO; Fatimah Bond DO Mechanical Facilities Technician: Signed Fatimah Bond DO Work Phone: Start: 03-20-2022 End: 03-21-2022 Neurology Visit Report Procedure Note: See Note; NOTES: [facility] [address] [place] [address], [address] [place] [address] OFFICE VISIT Date of Service: 03/20/22 MR#: [id number] Acct: [id number] Name: KIYA CABELLO Rep #: [id number] : 1945 Provider: Dr. Terence mendoza MD Age/Sex: 76/F Location: [facility] – [place]. Status: Signed Intake Vital Signs 08/26/21 09:49 02/13/22 13:35 03/20/22 13:07 Height 5 ft 2 in 5 ft 2 in 5 ft 2 in Weight: 122 lb 6 oz 123 lb 8 oz BMI 22.4 22.6 BP 110/62 136/70 H Blood Pressure Location Lt brachial Lt brachial Position Sitting Sitting Respiration 16 16 Pulse 78 71 Pulse Source Monitor Monitor Temp 98.4 F Temp Source Temporal Pulse Oximetry (%) 97 98 Oxygen Delivery Method room air simple mask Intake Visit Reasons: 4 M FU Chief Complaint: F/U Fatigue Medical Technical Writer Required: No Accompanied by: Self Is patient in pain?: No Allergies Sulfa (Sulfonamide Antibiotics) Allergy (Unknown, Verified 03/20/22 13:14) Unknown Medications 7-oxodehydroepiandroste (bulk) (7-Keto DHEA powder) 1 each miscellaneous DAILY 06/29/20 [History Confirmed 03/20/22] rlqnj-t-ddzdhlhytqglw 150 unit tablet (Beano) 300 unit PO TID PRN 06/29/20 [History Confirmed 03/20/22] fluoxetine 10 mg capsule 10 mg PO DAILY 06/29/20 [History Confirmed 03/20/22] minoxidil 2 % topical solution 1 ml topical BID 06/29/20 [History Confirmed 03/20/22] vitamin B complex 1 tablet PO DAILY 06/29/20 [History Confirmed 03/20/22] vitamins A,C,Q-srlf-oyfolp 2,148 mcg-113 mg-45 mg-17.4 mg tablet 1 tablet PO BID 06/29/20 [History Confirmed 03/20/22] omeprazole 40 mg capsule,delayed release 40 mg PO DAILY 12/06/20 [History Confirmed 03/20/22] meclizine 25 mg tablet 25 mg PO DAILY PRN Dizziness 06/29/21 [History Confirmed 03/20/22] aspirin 81 mg tablet,delayed release (Mayela Low Dose Aspirin) 81 mg PO DAILY 07/27/21 [History Confirmed 03/20/22] ezetimibe 10 mg tablet (Zetia) 10 mg PO DAILY 07/27/21 [History Confirmed 03/20/22] rosuvastatin 5 mg tablet 5 mg PO 10/23/21 [History Confirmed 03/20/22] donepezil 10 mg tablet 10 mg PO QHS #30 tabs 03/20/22 [Rx Confirmed 03/20/22] donepezil 5 mg tablet 5 mg PO QHS #30 tabs 03/20/22 [Rx Confirmed 03/20/22] PFSH Medical History Breast cyst Cataracts, bilateral Cerebrovascular accident (CVA) Chronic rhinitis CVA, old, homonymous hemianopsia Depression MISTY (generalized anxiety disorder) Gallstones Gastritis Gastritis and gastroduodenitis GERD (gastroesophageal reflux disease) History of UTI Meniere's disease Mixed hyperlipidemia Osteoporosis Quadrantanopia of right eye Surgical History History of oophorectomy History of tonsillectomy Family History Other Heart disease Myocardial infarction Social History Smoking Status: Never smoker Electronic Cigarette Use: not used second hand exposure: No alcohol intake: never substance use type: does not use HPI HPI Chief Complaint: F/U Fatigue Details: Interim History: Kiya returns for follow-up visit. She has a history of hypercholesterolemia and elevated C- reactive protein. On routine eye examination in 2019, she was noted to have a right visual field deficit and on further evaluation with a head MRI was found to have an old left occipital and left parietal cortical infarcts (that were not seen an a prior MRI from 2016), as well as chronic small vessel ischemic disease. She did not have acute symptoms that made her aware of cerebrovascular ischemia. 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 She has chronic bilateral tinnitus and chronic bilateral hearing loss and also experiences intermittent disequilibrium and has had vertigo. She had had pulsatile tinnitus. She uses hearing aids. She takes triamterene/hydrochlorothiazi de twice per week and her dizziness has diminished. She has had some neck pain. She has had brief sharp stabbing pains in the neck and right side of the head that last for seconds each that began around 2014; these previously occurred 2-3 times per day but since her last visit earlier in 2021 these have diminished in frequency and occur every few days (they occur about twice in a day on the days they do occur). She takes fluoxetine for depression and anxiety. Due to concern about possible side effects, she decided to discontinue atorvastatin and has taken ihcz-ebh-dllpwgs supplements for her hypercholesterolemia. For a period of time she was prescribed Zetia. She has been taking aspirin 81 mg daily since the . She reports having a history of 4 occurrences of gastric ulcer, the last of which occurred in 2020. She took omeprazole for a period of time but has discontinued this. She has fatigue. B12 1500 mcg injections have been of benefit for her fatigue. She stated that on prior evaluation the elevated C-reactive protein was thought to be related to an autoimmune process however she is unaware of any specific autoimmune disease being diagnosed. Her C-reactive protein checked in 2020 was again elevated. A 48-hour Holter did not reveal atrial fibrillation. She was hospitalized on 06/29/2021 with aphasia that began earlier that day and had nausea and vomiting for the prior 2 days. On evaluation, she was found to have an acute left frontal 2.2 x 2.1 x 1.8 cm intracerebral hemorrhage with extension to the left insular lobe with associated edema and trace bilateral subarachnoid hemorrhage. Initial blood pressure was noted to be 140/72. Neurosurgery was consulted. She did not need surgical intervention. A cerebral angiogram did not reveal evidence of aneurysm or other vascular malformation that would account for her hemorrhage. Aspirin was held for a period of time and then resumed at her prior dose of 81 mg daily. She is now essentially back to her baseline. She had a 14-day cardiac event monitor; results are presently not available. Coenzyme Q 10 was discontinued due to concern of increased bleeding risk with this supplement. She now reports that since 2017 she has had some memory difficulty and this has gradually worsened over time. She has a tendency to forget conversations and to repeat conversations. Recently she made 3 trips to the grocery store to obtain an item and each time purchased the wrong item. She has poor recall of faces. She has word finding difficulty. Increasingly, her has been driving her to appointments and other errands. Physical Exam: Neuro: The patient is awake; she is mildly bradyphrenic; Mini-Mental status exam score is 27/30; gait is unremarkable Neck: No bruits Heart: Regular rate and rhythm Note: On prior testing a right superior homonymous quadrantanopia was noted; visual field testing was not performed today Office Meds cyanocobalamin (vitamin B-12) Performing Provider: Terence Briones MD Administered by: Teresa Farley on 03/20/22 14:07 Dose Route Admin Location Lot Number Expiration Date NDC Manufactu rer 1,500 mcg IM lright deltoid [id number] 08/30/23 4197-3336-52 [employer] Comments: The patient has fatigue. Patient is alert and responds appropriately. Patient stated that the last B12 injection was effective for her fatigue. 1500 mcg of B12 was given IM today. Patient tolerated the procedure well Supplemental Info Brain MRI 06/22/14 IMPRESSION: Patchy white matter abnormality in the periventricular deep white matter distribution consistent with moderate small vessel ischemic changes. No abnormal enhancement in the internal auditory canal or cerebellopontine angle cisterns. EKG 04/06/17 Normal sinus rhythm Nonspecific ST abnormality Abnormal ECG Head MRI (03/17/2020): Remote left occipital and left parietal cortical infarcts which are new since 03/29/2017. Mild interval progression of chronic microvascular ischemic changes. No evidence of an acute intracranial process. Chronic blood byproducts are now noted along the margins of the remote infarct in the inferior left occipital lobe and at the cephalad margin of the left parietal occipital sulcus. 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 His images were reviewed on 08/04/2020. CBC, BMP, Lipid Profile (04/05/20): Na 135, CHOL 220, LDL CHOL 129, N-HDL CHOL 150 CBC, CMP, C-reactive protein, B12, folate, TSH, ESR, LONNIE (07/07/2020): Sodium 134, C-reactive protein 5.85 (elevated), B12 950. Head/neck CTA (07/13/2020): Normal CTA of head and neck. These images were reviewed on 08/04/2020. 48-hour Holter (08/02-08/2020): Average heart rate was 75 bpm in normal sinus rhythm. The minimum heart rate was 54 bpm and sinus bradycardia. The maximum heart rate was 129 bpm and sinus tachycardia. There were a total of 57 ventricular ectopic beats. There were a total of 27 supraventricular ectopic beats. The longest R- R interval was 1.3 seconds. There was no atrial fibrillation. There was no ventricular tachycardia. The patient kept a 48-hour diary and noted flutters and pain under her left breast which occasionally correlated with ectopy. EKG (08/03/2020): Normal sinus rhythm; normal EKG BMP (04/11/2021): Sodium 135, glucose 108 Cytochrome P450 2C19 (05/23/2021): Findings are consistent with ultra-rapid metabolic activity (rapid metabolism of drug utilizing this pathway may lead to inadequate drug efficacy and therapeutic failure because the drug may not reach the therapeutic serum concentration. For pro drugs like clopidogrel, ultra-rapid metabolizer's may be at risk for elevated exposure of active drug metabolites leading to adverse drug reaction). EKG (06/29/2021): Normal sinus rhythm. Normal EKG. CBC, PT/PTT, troponin, BMP (06/29/2021): Sodium 132, glucose [address] (06/29/2021): FINDINGS: HEMISPHERES: 1. The cerebral parenchyma, ventricular system and gyral pattern have normal configuration. 2. There is focal area of interparenchymal hemorrhage along the lateral aspect LEFT frontal lobe extending into the insula, maximal axial dimension estimated at approximately 2.2 x 1.8 cm, superior to inferior dimension estimated at 2.1 cm. Mild surrounding edema is present. 3. There is trace subarachnoid blood within the insula. Additional trace subarachnoid blood noted along the lateral convexity of both frontal lobes greater on LEFT than RIGHT. No intraventricular blood noted. 4. Chronic deep white matter disease is noted bilaterally, additional area of remote infarct and encephalomalacic N noted along the inferior aspect of the LEFT occipital lobe. 5. No area of acute territorial infarct identified. Incidental note of scattered benign calcifications in the basal ganglia. CEREBELLUM - BRAINSTEM: The cerebellum, brainstem, basilar and suprasellar cisterns have normal appearance. No Chiari malformation. PITUITARY: Infundibulum and pituitary have normal configuration. Midline structures appear normal. VESSELS: 1. No significant vascular calcifications in the cavernous carotid vessels. 2. No hyperdense vascular signs noted.. ORBITS AND PARANASAL SINUSES: 1. Normal appearance of the bony orbits. Normal appearance of the globes and retrobulbar soft tissues.. 2. Paranasal sinuses are clear. BONY ELEMENTS: Bony elements of the cranial vault, facial skeleton and skull base have normal appearance. SCALP AND SOFT TISSUES: Normal appearance of the soft tissues of the scalp and the visualized face OTHER: None IMPRESSION: 1. Small to medium-sized intraparenchymal hemorrhage noted within the LEFT frontal lobe, in the region of the LEFT frontal operculum with extension into the LEFT insular region, with maximal axial dimension of 2.2 x 1.8 cm, and a superior to inferior dimension of 2.1 cm. Surrounding edema is noted. This is approaching the region of Broca''s area. 2. There is trace subarachnoid blood noted within the posterior aspect of the insula and along the dorsal lateral convexity of both frontal lobes greater on LEFT than RIGHT. 3. No intraventricular blood, no evidence of ventricular dilatation. 4. Extensive deep white matter disease and area of remote infarct involving the inferior aspect of LEFT occipital lobe. 5. No midline shift. These images were reviewed on 07/27/2021. Head CT (06/30/2021): Stable left frontal operculum intraparenchymal hemorrhage. Stable bilateral subarachnoid hemorrhage. Local mass-effect. There is mild generalized volume loss. Scattered patchy foci of low-attenuation are present within supratentorial white matter which is nonspecific finding but likely represents mild microvascular ischemia. Chronic left occipital infarct. Head/neck CTA (06/30/2021): Left frontal operculum parenchymal hemorrhage measuring up to 2.6 x 2.0 cm with surrounding vasogenic edema. There is subarachnoid extension of hemorrhage into the left sylvian fissure and bifrontal regions. No major intracranial branch occlusion. No intracranial aneurysm identified. No spot sign identified on the CTA portion. Right internal carotid stenosis: 0% Left internal carotid stenosis: 0% Codominant patent bilateral vertebral arteries. Cardiac echo (06/30/2021): Technically difficult exam due to small windows, respiratory interference. The left ventricle is small. There is no left ventricular hypertrophy. Left ventricular systolic function is hyperdynamic. EF equals 75+/- 5% (visual estimate). Normal left ventricular diastolic function. The right ventricle is normal in size. Right ventricular systolic function is normal. There is mild (1+) tricuspid valve regurgitation. CBC, BMP, PT/PTT, TSH, T3, free T4, lipid profile (06/30/2021): TSH 4.46 (elevated) cholesterol 280, H non-HDL cholesterol 210, LDL cholesterol 188, sodium 134 Cervical cerebral angiography (07/01/2021): No evidence of cerebral aneurysm or early venous drainage to suggest etiology of ICH/SAH. A variant arch anatomy with late takeoff of right subclavian artery from descending arch and bifurcating origin to bilateral carotids. BMP, CBC, phosphorus, magnesium (07/01/2021): Sodium 134, bicarb 21. BMP, CBC (07/02/2021): Sodium 131, bicarb 20 BMP, CBC (07/03/2021): Sodium 132 Head MRI (07/03/2021): Impression: 1) scattered foci restricted diffusion within cerebral convexity cortex, consistent with multiple acute punctate cortical infarcts. No evidence of acute restricted diffusion in a large vessel distribution. 2) redemonstration of isointense and hyperintense left frontal operculum intraparenchymal hematoma perilesional vasogenic edema, unchanged. Minimal marginal enhancement without evidence of nodular mass. No abnormal parenchymal or leptomeningeal enhancement to indicate underlying neoplasm. 3) sequela of chronic transcortical infarct posterior left temporal/occipital lobe. FLAIR signal consistent with chronic medial left parietal lobe cortical infarct. Findings also noted moderate/advanced degree supratentorial chronic microvascular ischemic changes in the centrum semiovale, deep and subcortical levels. Transesophageal echo (07/05/2021): The left ventricle is small. There is moderate left ventricular hypertrophy. Left ventricular systolic function is normal. Ejection fraction equals 70+/- 5% (visual estimate). The right ventricle is normal in size. Right ventricular systolic function is normal. There are no significant valvular abnormalities. No vegetation seen. Normal variant mild thickening with lab raise excrescence noted on undersurface of valve. Arch and descending aorta are normal in caliber without atheromatous disease. No cardiac source of embolus seen. CBC, CMP (08/26/2021): Sodium 135, glucose [address] (08/26/2021): FINDINGS: Normal soft tissue structures. Normal calvarium. There is mild cortical and central atrophy. There are dystrophic calcifications in the medial lentiform nuclei bilaterally likely age-related. There is moderate chronic microvascular ischemic change in the periventricular white matter most pronounced extending superior laterally and posteriorly from the body and atrium of the left lateral ventricle. There is no evidence of acute intra or extra-axial hemorrhage. There is no intracranial hemorrhage. There are no findings of an acute ischemic infarction. Normal visualized paranasal sinuses. IMPRESSION: Mild cortical and central atrophy. Dystrophic calcifications basal ganglia bilaterally. Moderate chronic microvascular ischemic change most pronounced in the periventricular white matter adjacent to the body and atrium of the left lateral ventricle extending into the left frontoparietal centrum semiovale. EKG (08/26/2021): Normal sinus rhythm; normal EKG. Hemoglobin A1c (10/23/2021): Normal. Coding Level of Care Code Off vis,est,level 4 Diagnoses Fatigue R53.83 Cerebrovascular disease I67.9 Hypercholesterolemia E78.00 Intracerebral hemorrhage I61.9 Dementia F03.90 Assessment and Plan Assessment and Plan (1) Fatigue: Status: Chronic (2) Cerebrovascular disease: Status: Chronic (3) Hypercholesterolemia: Status: Chronic (4) Intracerebral hemorrhage: Status: Resolved (5) Dementia: Status: Acute Orders: Orders Vitamin B12 Today R53.83 - Other fatigue Comprehensive Metabolic Profil Today F03.90 - Unspecified dementia, unspecified severity, without behavioral disturbance, psychotic disturbance, mood disturbance, and anxiety Folates, (Folic Acid) Today F03.90 - Unspecified dementia, unspecified severity, without behavioral disturbance, psychotic disturbance, mood disturbance, and anxiety Thyroid Stim Hormone (TSH) Today F03.90 - Unspecified dementia, unspecified severity, without behavioral disturbance, psychotic disturbance, mood disturbance, and anxiety, R53.83 - Other fatigue CBC-Complete Blood Cnt No Diff Today F03.90 - Unspecified dementia, unspecified severity, without behavioral disturbance, psychotic disturbance, mood disturbance, and anxiety, I67.9 - C erebrovascular disease, unspecified Vitamin B1, Thiamine Today F03.90 - Unspecified dementia, unspecified severity, without behavioral disturbance, psychotic disturbance, mood disturbance, and anxiety Medications: New donepezil 5 mg PO QHS 30 tabs 0RF donepezil Begin after completing one month of treatment of donepezil 5mg nightly 10 mg PO QHS 30 tabs 5RF Plan Details Additional Comments: The patient has a history of visual field defect that was noted on eye examination in the 2019 and has 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 On evaluation with a head MRI in March 2020, she was found to have old left occipital and left parietal cortical infarcts that were new when compared to a head MRI from 2017. In addition, chronic small vessel ischemic disease was noted. She is unaware of having symptoms at the time the strokes occurred. The MRI report from March 2020 also notes chronic blood byproducts noted along the margins of the remote infarcts in the left occipital lobe and left parietal occipital sulcus suggesting that these cortical infarcts may have had a hemorrhagic transformation; the possibility of amyloid angiopathy is also a consideration. In May and June 2021, she was hospitalized for acute onset aphasia and nausea and vomiting and was found to have an acute left frontal/insular lobe intracerebral hemorrhage with associated mild subarachnoid hemorrhage the etiology of which is unclear. Diagnostic considerations include primary hypertensive hemorrhage, amyloid angiopathy or cerebral infarct with hemorrhagic transformation. A cerebral angiogram did not reveal any vascular malformation to account for her hemorrhage. She is now back to her baseline and she has not heard clear symptoms suggestive of further lateralizing cerebrovascular events. - Result of her 14 day cardiac event monitor (CodeNgo) will be obtained for review. - Aspirin was held for a period of time during her hospitalization in June 2021 and then resumed at her prior dose of 81 mg daily and this will be continued. She now reports having progressive memory difficulty since 2017. She has a tendency to forget conversations and to repeat conversations. She has difficulty recognizing faces. She has made errors, selecting a wrong item when shopping. She may possibly have a mild and early dementia. With her history of vascular disease the possibility of a vascular dementia is a consideration. - I will have her begin donepezil 5 mg nightly for 1 month then 10 mg nightly thereafter. - A CBC, CMP, TSH, folate and thiamine level will be checked. She reported a history of 4 occurrences of gastric ulcers the last of which was in 2020. She takes omeprazole. Cytochrome P450 2C19 activity revealed that she is an ultra rapid metabolizer for drugs (such as clopidogrel) utilizing this pathway; since this may reduce the efficacy of clopidogrel, treatment with clopidogrel is not an option. She reported having an elevated C-reactive protein in the past and reported a prior history of possible autoimmune process though she is unaware of any clear autoimmune disease being diagnosed. Her C-reactive protein checked in 2020 was again elevated. She has had M???ni???re's disease since the . She has chronic bilateral hearing loss and chronic bilateral tinnitus. She has had left ear pulsatile tinnitus. - She takes triamterene/hydrochlorothiazi de twice per week and this has been of benefit for her vertigo/disequilibrium and her disequilibrium has been overall less severe than in years past. She did not wish to take triamterene/hydrochlorothiazi de daily due to concern about potential renal side effects. She has fatigue. Monthly B12 injections have been of benefit for her fatigue. - B12 1500 mcg IM was administered today and will be continued monthly. She has hypercholesterolemia. Due to concern about potential side effects she decided to discontinue atorvastatin She had taken Zetia and will discuss resuming this with her primary care provider at her follow-up visit in April 2022. She was advised not to resume coenzyme Q10. - Results of her recent lipid profile will be obtained for review. She has a history of some neck pain and has had brief sharp stabbing pains in the neck and right side of the head that last for seconds each that began around 2014; these have diminished in frequency recently and now occur every few days (on days these episodes do occur, they may occur up to twice in a day). These may be ice pick headaches or an occipital neuralgia. These are not a prominent symptom presently. I will have her return for reassessment in 4 months. 03/20/222000 <Electronically signed by Terence Briones MD> Date Terence Briones MD Cosigner Signature: Date (if applicable) CC: Dr. Fatimah Bond, DO Fatimah Bond DO Work Phone: Start: 07-17-2021 Ct head/brain w/o contrast material Mercedes Navarrete PA-C Work Phone: Start: 06-30-2021 Antibody screen Plan of Treatment Date Care Activity Detail Author Start: 01-18-2030 Colonoscopy COLONOSCOPY [facility] Start: 01-18-2030 COLORECTAL CANCER SCREENING COLORECTAL CANCER SCREENING [facility] Start: 10-12-2026 LIPID SCREEN LIPID SCREEN [facility] Start: 06-30-2026 LIPID SCREEN LIPID SCREEN [facility] Start: 08-24-2024 DIABETES SCREEN DIABETES SCREEN [facility] Start: 07-03-2024 DIABETES SCREEN DIABETES SCREEN [facility] Start: 11-30-2022 Influenza vaccination [facility] Start: 10-27-2022 ANNUAL PCP TEAM CHRONIC DISEASE VISIT ANNUAL PCP TEAM CHRONIC DISEASE VISIT [facility] Start: 10-27-2022 BP CONTROLLED (<130/80) BP CONTROLLED (<130/80) [facility] Start: 10-18-2022 Procedure Education Eprescribed prescriptions (G8553) [facility]; [facility] Work Phone: Start: 10-18-2022 Provider Instructions for Treatment [facility]; [facility] Work Phone: Start: 10-18-2022 Assay of thyroid stimulating hormone tsh TSH (05198) [facility]; [facility] Work Phone: Start: 10-18-2022 Comprehensive metabolic panel METABOLIC PANEL, COMPREHENSIVE (00775) [facility]; [facility] Work Phone: Start: 10-18-2022 Blood count complete auto&auto difrntl wbc CBC W/AUTO DIFF WBC (81126) [facility]; [facility] Work Phone: Start: 10-18-2022 Lipid panel LIPID PANEL (87834) [facility]; [facility] Work Phone: Start: 08-02-2022 Procedure Education Eprescribed prescriptions (G8553) [facility]; [facility] Work Phone: Start: 08-02-2022 Provider Instructions for Treatment [facility]; [facility] Work Phone: Start: 07-17-2022 BP CONTROLLED (<130/80) BP CONTROLLED (<130/80) [facility] Start: 07-13-2022 ANNUAL PCP TEAM CHRONIC DISEASE VISIT ANNUAL PCP TEAM CHRONIC DISEASE VISIT [facility] Start: 06-21-2022 Procedure Education Eprescribed prescriptions (G8553) [facility]; [facility] Work Phone: Start: 06-21-2022 Provider Instructions for Treatment [facility]; [facility] Work Phone: Start: 06-14-2022 Potassium serum plasma/whole blood POTASSIUM SERUM (43939) [facility]; [facility] Work Phone: Start: 06-13-2022 25 hydroxy includes fractions if performed CALCIFIDIOL (75236) VIT D 25 [facility]; [facility] Work Phone: Start: 06-13-2022 Cyanocobalamin vitamin b-12 VITAMIN B-12 (CYANOCOBALAMIN) (07627) [facility]; [facility] Work Phone: Start: 06-13-2022 Assay of thyroid stimulating hormone tsh TSH (05328) [facility]; [facility] Work Phone: Start: 06-13-2022 Sedimentation rate rbc non-automated SED RATE ERYTHROCYTE (83970) [facility]; [facility] Work Phone: Start: 06-13-2022 Comprehensive metabolic panel METABOLIC PANEL, COMPREHENSIVE (19993) [facility]; [facility] Work Phone: Start: 06-13-2022 C-reactive protein C-REACTIVE PROTEIN (41770) [facility]; [facility] Work Phone: Start: 06-13-2022 Blood count complete automated CBC (AUTO) (99177) [facility]; [facility] Work Phone: Start: 06-13-2022 Culture bacterial quanttative colony count urine URINE SIA CULTURE (BAL COL COUNT) (15058) [facility]; [facility] Work Phone: Start: 06-13-2022 Procedure Education Eprescribed prescriptions (G8553) [facility]; [facility] Work Phone: Start: 06-13-2022 Urnls dip stick/tablet reagent auto microscopy URINALYSIS, W/ MICRO (12456) [facility]; [facility] Work Phone: Start: 05-07-2022 Procedure Education Eprescribed prescriptions (G8553) [facility]; [facility] Work Phone: Start: 05-07-2022 Provider Instructions for Treatment [facility]; [facility] Work Phone: Start: 04-01-2022 ADVANCE DIRECTIVE DISCUSSION ADVANCE DIRECTIVE DISCUSSION [facility] Start: 03-29-2022 Procedure Education Eprescribed prescriptions (G8553) [facility]; [facility] Work Phone: Start: 03-29-2022 Provider Instructions for Treatment [facility]; [facility] Work Phone: Start: 03-09-2022 Comprehensive metabolic panel METABOLIC PANEL, COMPREHENSIVE (97036) [facility]; [facility] Work Phone: Start: 03-09-2022 Blood count complete auto&auto difrntl wbc CBC W/AUTO DIFF WBC (52609) [facility]; [facility] Work Phone: Start: 03-09-2022 Assay of thyroid stimulating hormone tsh TSH (05741) [facility]; [facility] Work Phone: Start: 03-09-2022 Lipid panel LIPID PANEL (90792) [facility]; [facility] Work Phone: Start: 03-09-2022 Procedure Education Eprescribed prescriptions (G8553) [facility]; [facility] Work Phone: Start: 03-09-2022 Provider Instructions for Treatment Continue Current Prescription(s) [facility]; [facility] Work Phone: Start: 03-03-2022 ANNUAL PCP TEAM CHRONIC DISEASE VISIT ANNUAL PCP TEAM CHRONIC DISEASE VISIT [facility] Start: 02-03-2022 FECAL OCCULT BLOOD FECAL OCCULT BLOOD [facility] Start: 01-27-2022 End: 03-29-2022 Lipid 1996 panel - Serum or Plasma LIPID PANEL BASIC Lab Routine Mixed hyperlipidemia Expected: 01/27/2022 (Approximate), Expires: 03/29/2022 [facility] Work Phone: Immunizations Immunization Date Immunization Notes Care Provider Fa cili 02-02-2021 influenza, high-dose , quadrivalent vaccine (FLUZONE HIGH DOSE QUADRIVALENT) [facility] Work Phone: 03-30-2019 zoster vaccine recombinant [facility] Work Phone: 01-29-2019 zoster vaccine recombinant [facility] Work Phone: 12-26-2018 influenza, seasonal, injectable [facility] Work Phone: 08-07-2017 pneumococcal conjuga te vaccine, 13 valent [facility] Work Phone: 05-27-2013 zoster vaccine, live [facility] 02-16-2013 influenza virus vacc ine, unspecified formulation [facility] 12-15-2011 influenza virus vacc ine, unspecified formulation [facility] Work Phone: 09-17-2011 pneumococcal polysaccharide vaccine, 23 valent [facility] 09-17-2011 tetanus toxoid, redu freeman diphtheria toxoid, and acellular pertussis vaccine, adsorbed [facility] 01-24-2010 influenza virus vacc ine, whole virus [facility] Work Phone: 01-21-2009 influenza virus vacc ine, whole virus [facility] Work Phone: 01-30-2007 influenza virus vacc ine, whole virus [facility] Work Phone: 12-30-2006 influenza virus vacc ine, unspecified formulation [facility] 12-31-2003 influenza virus vacc ine, unspecified formulation [facility] 01-20-2000 tetanus and diphther ia toxoids, adsorbed, preservative free, for adult use (2 Lf of tetanus toxoid and 2 Lf of diphtheria toxoid) [facility] 07-25-1994 hepatitis B vaccine, adult dosage [facility] Work Phone: 02-26-1994 hepatitis B vaccine, adult dosage [facility] Work Phone: 01-24-1994 hepatitis B vaccine, adult dosage [facility] Work Phone: Payers Date Payer Category Payer Medicare MEDICARE MEDICAR E A AND B [id number] 2011-Present [phone] [place] [place] [address] Medicare [id number] 2011 Medicare [id number] 2011 Medicare MEDICARE MEDICAR E A AND B [id number] 2011-Present [phone] [place] [address] Medicare [id number] 2005 Unknown ANTHEM BLUE CARD TRADITIONAL OOS [id number] 2005-Present [phone] [address] [place] [address] Indemnity [id number] 2005 Unknown 2005 Unknown [id number] 1945 Unknown [id number] Social History Date Type Detail Facility Start: 11-22-2014 Tobacco smoking stat us [facility]IS Never smoked tobacco [facility] Start: 06-29-2021 End: 10-27-2021 Alcohol intake Current drinker of alcohol (finding) [facility] Start: 06-29-2021 End: 09-07-2022 Alcohol intake [facility] Clinical Notes 06-11-2019 to 10-15-2022 Kelsie Montano MA - 10/15/2022 4:16 PM EDTAdrianna Pittman, SHAKA - 09/07/2022 1:30 PM EDTKelsie Montano MA - 07/31/2022 9:32 AM EDTTelephone Encounter - Shawna Thad - 07/16/2022 9:16 AM EDT Note Date & Type Note Facility 10-15-2022 Note HNO ID: [id number] Author: Kelsie Montano MA Service: ? Author Type: Foreign Agent Type: Progress Notes Filed: 10/16/2022 11:52 AM Note Text: POPULATION HEALTH NAVIGATION OUTREACH Action/FYI Spoke to Kiya. She has a new PCP. Dr. Ander Bond VERIFY PCP ANNUAL MEDICARE WELLNESS EXAM Patient Identified by Name and : NO Outreach Outcome/Action Spoke to patient / parent / legal guardian: PCP confirmed / updated Did you use a PCP flex slot to schedule this appointment? N/A Reason for Outreach Care Gap or Scheduling/Wellness visits Payer: Payor: MEDICARE / Plan: MEDICARE A AND B / Product Type: Medicare / Care Gap Reviewed:: Annual Wellness visit Reminder: Reminder note to check Health Maintenance for items below Health Maintenance items due: COVID-19 VACCINE(1) Never done DTAP,TDAP,TD(2 - Td or Tdap) due on 09/16/2021 ADVANCE DIRECTIVE DISCUSSION Never done Navigation Signature: Kelsie Montano MA October 15, 2022 4:16 PM [facility] 10-15-2022 History of Present illness Narrative POPULATION HEALTH NAVIGATION OUTREACH Action/FYI Spoke to Kiya. She has a new PCP. Dr. Ander Bond VERIFY PCP ANNUAL MEDICARE WELLNESS EXAM Patient Identified by Name and : NO Outreach Outcome/Action Spoke to patient / parent / legal guardian: PCP confirmed / updated Did you use a PCP flex slot to schedule this appointment? N/A Reason for Outreach Care Gap or Scheduling/Wellness visits Payer: Payor: MEDICARE / Plan: MEDICARE A AND B / Product Type: Medicare / Care Gap Reviewed:: Annual Wellness visit Reminder: Reminder note to check Health Maintenance for items below Health Maintenance items due: COVID-19 VACCINE(1) Never done DTAP,TDAP,TD(2 - Td or Tdap) due on 09/16/2021 ADVANCE DIRECTIVE DISCUSSION Never done Navigation Signature: Kelsie Montano MA October 15, 2022 4:16 PM documented in this encounter [facility] 10-15-2022 Note Patient Outreach (NE TNAV) ---- KIYA CABELLO ([id number]) 1945 F Date Time Provider Department 10/15/22 KELSIE MONTANO NETNAV During your visit today, we recorded the following information about you: Kelsie Montano MA 10/16/2022 11:52 AM Signed POPULATION HEALTH NAVIGATION OUTREACH Action/FYI Spoke to Kiya. She has a new PCP. Dr. Ander Bond VERIFY PCP ANNUAL MEDICARE WELLNESS EXAM Patient Identified by Name and : NO Outreach Outcome/Action Spoke to patient / parent / legal guardian: PCP confirmed / updated Did you use a PCP flex slot to schedule this appointment? N/A Reason for Outreach Care Gap or Scheduling/Wellness visits Payer: Payor: MEDICARE / Plan: MEDICARE A AND B / Product Type: Medicare / Care Gap Reviewed:: Annual Wellness visit Reminder: Reminder note to check Health Maintenance for items below Health Maintenance items due: COVID-19 VACCINE(1) Never done DTAP,TDAP,TD(2 - Td or Tdap) due on 09/16/2021 ADVANCE DIRECTIVE DISCUSSION Never done Navigation Signature: Kelsie Montano MA October 15, 2022 4:16 PM Allergies As of Date: 10/15/2022 Noted Allergy Reaction ATORVASTATIN 11/03/2020 5 - Intolerance Comments: Fatigue, balance issues, back aching SULFA (SULFONAMIDE ANTIBIOTICS) 01/07/2015 14 - Other: See Comments Date Reviewed: 10/27/2021 Reviewed by: Sary Khalil APRN.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 - FLUoxetine (PROZAC) 10 mg capsule Take 1 capsule by mouth once daily. - triamterene-hydroCHLOROthiazide (DYAZIDE) 37.5-25 mg per capsule Take 1 capsule by mouth once daily. - LOW-DOSE ASPIRIN ORAL Take 81 mg by mouth once daily. - lhbey-P-vwpkbwamvxxvo (BEANO ORAL) Take 2 tablets by mouth three times daily before meals. Patient taking as needed. - OMEGA-3 FATTY ACIDS (FISH OIL CONCENTRATE ORAL) Take 1 tablet by mouth twice daily. - DIETARY SUPPLEMENT ORAL Take by mouth. AminoSculpt - Ant-Aging Liquid Collagen. Problem List As Of Date 10/15/2022 Noted Resolved Mixed hyperlipidemia [E78.2] Osteoporosis [M81.0] CHOLELITHIASIS SEE ALSO GALLBLADD WITHOUT CH*12/28/2005 10/27/2015 Blood in stool [K92.1] 07/09/2007 10/27/2015 Diverticulitis of colon (without mention of hem*08/07/2007 08/07/2017 CHRONIC RHINITIS [J31.0] 01/06/2008 Abdominal pain, epigastric [R10.13] 05/25/2013 10/27/2015 Gastritis and gastroduodenitis [K29.70, K29.90] 06/02/2013 Stress and adjustment reaction [F43.29] 07/27/2015 08/07/2017 Meniere's disease [H81.09] 10/27/2015 Deviated septum [J34.2] 10/27/2015 08/07/2017 Depression [F32.A] 10/27/2015 Heartburn [R12] 10/27/2015 08/07/2017 Generalized anxiety disorder [F41.1] 03/19/2017 Esophageal thickening on MRI of the neck [K22.8*06/11/2019 03/17/2020 Quadrantanopia, 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 Author Type: Buoy Tender Type: Progress Notes Filed: 09/14/2022 4:41 PM Note Text: [facility] [place] [facility], Speech and Balance Services ADULT COCHLEAR IMPLANT CANDIDACY EVALUATION Audiometric Testing Name: Kiya Cabello [facility]#: [id number] Date of Service: August 24, 2022 Date of : 1945 Age: [age] year old This patient was referred for an evaluation to determine cochlear implant candidacy. Relevant case history includes the following: HISTORY: Audiologic - Progressive hearing loss in both ears, R>L - Tinnitus initially began in the right ear and moved to the left ear. However, no tinnitus was noted in the right ear recently. Otologic/medical - History of Meniere's disease in the right ear 25 years ago. - History of Ischemic strokes since 2017 which was discovered through testing for Cataracts. - June 2021 - ICU stay in [place] for 7 days due to stroke. - March 2022 - The patient was diagnosed with Dementia from her [place] neurologist. - Gait was described as off balance . 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 - History of noise exposure. -Patient denied otalgia (0/10), otorrhea, prior otologic surgery, history of chemotherapy/radiation, family history of hearing loss. Amplification - Third set of hearing aids. Currently fit with Phonak Audeo P90-R hearing aids from an outside clinic for roughly one year. - Has consistently worn hearing aids since her Meniere's Disease diagnosis. Communication limitations/participation restrictions - Occasional difficulty with one-on-one conversations. - Difficulty with speech understanding when multiple speakers are present. - Difficulty understanding the television and utilizes closed captioning. AUDIOMETRIC TESTING Audiometric testing was completed at an outside clinic on 09/06/2022 with the following results: Right Ear (unaided): Results reveal the presence of a severe sensorineural hearing loss. Word recognition scores were very poor (56% at 105 dB HL). Left Ear (unaided): Results reveal the presence of a mild sloping to moderately-severe sensorineural hearing loss. Word recognition scores were poor (64% at 85 dB HL). HEARING AID TEST RESULTS Kiya Cabello is currently wearing Phonak Audeo P90-R hearing aids that were fit one year ago and were last programmed 09/06/2022. Clinic Phonak Awilda P90-UP hearing aids were programmed to patient's most recent audiogram. Utilizing the Audioscan Verifit equipment, the clinic hearing aids were evaluated. According to NAL-NL1 fitting method, the clinic hearing aid(s) are meeting target gain for average speech as well as possible given degree of hearing loss. The post-verification Speech Intelligibility Index (SII) was 44 for the right ear and 71 for the left ear. A CNC word list was administered in the right aided and left aided condition with the patient's hearing aids and the Clinic's hearing aids. The contralateral ear was plugged and muffed or masked. Results indicated slight improvement with clinic hearing aids and the patient subjectively reported the clinic hearing aids were clearer and easier to understand words. Testing was completed with clinic hearing aids for both ears. AIDED SPEECH TESTING The contralateral ear was plugged and muffed during testing. Speech perception testing was completed using recorded stimuli in quiet in the sound field at conversational level (60 machine strap buckler); results were: Ruwutrlyq-Hyzfuoh-Gcbphlspz Words (CNC) Test Condition List # Phonemes Words Right Ear (Patient HALE) 3 52% 8% Left Ear (Patient HALE) 1 84% 64% Right Ear (Clinic HALE) 5 61% 36% Left Ear (Clinic HALE) 2 88% 68% Bilateral 9 93% 92% AZ BIO (quiet) Test Condition List # Score Right Ear 4 37% Left Ear 1 77% Bilateral 6 95% AZ BIO (quiet, -10 dB HL) Test Condition List # Score Right Ear 5 24% Left Ear 2 74% Bilateral 8 85% AZ BIO (+5 SNR) Test Condition List # Score Right Ear 7 0% Left Ear 3 26% SUMMARY AND RECOMMENDATIONS Based on the audiometric testing, this patient does not meet Medicare criteria for cochlear implantation at this time. While the above speech perception measures identify areas of difficulty in everyday listening situations, there are additional technologies that could provide benefit to this patient. Recommend reprogramming of her current devices (specifically the right device) due to results of today's testing. Although the right hearing aid alone yields limited benefit, it adds benefit beyond the left hearing aid only in the bilateral condition. Recommend consideration of remote microphone technology. Recommend re-evaluation of cochlear implantation in one year or sooner if changes arise. Continue the use of binaural amplification during all waking hours. TOTAL TIME: 85 minutes Ev (more content not included)... [facility] 09-07-2022 History of Present illness Narrative Head [facility] Ne[facility] [place] [facility], Speech and Balance Services ADULT COCHLEAR IMPLANT CANDIDACY EVALUATION Audiometric Testing Name: Kiya Cabello [facility]#: [id number] Date of Service: August 24, 2022 Date of : 1945 Age: [age] year old This patient was referred for an evaluation to determine cochlear implant candidacy. Relevant case history includes the following: HISTORY: Audiologic - Progressive hearing loss in both ears, R>L - Tinnitus initially began in the right ear and moved to the left ear. However, no tinnitus was noted in the right ear recently. Otologic/medical - History of Meniere's disease in the right ear 25 years ago. - History of Ischemic strokes since 2017 which was discovered through testing for Cataracts. - June 2021 - ICU stay in [place] for 7 days due to stroke. - March 2022 - The patient was diagnosed with Dementia from her [place] neurologist. - Gait was described as off balance . 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 - History of noise exposure. -Patient denied otalgia (0/10), otorrhea, prior otologic surgery, history of chemotherapy/radiation, family history of hearing loss. Amplification - Third set of hearing aids. Currently fit with Phonak Audeo P90-R hearing aids from an outside clinic for roughly one year. - Has consistently worn hearing aids since her Meniere's Disease diagnosis. Communication limitations/participation restrictions - Occasional difficulty with one-on-one conversations. - Difficulty with speech understanding when multiple speakers are present. - Difficulty understanding the television and utilizes closed captioning. AUDIOMETRIC TESTING Audiometric testing was completed at an outside clinic on 09/06/2022 with the following results: Right Ear (unaided): Results reveal the presence of a severe sensorineural hearing loss. Word recognition scores were very poor (56% at 105 dB HL). Left Ear (unaided): Results reveal the presence of a mild sloping to moderately-severe sensorineural hearing loss. Word recognition scores were poor (64% at 85 dB HL). HEARING AID TEST RESULTS Kiya Cabello is currently wearing Phonak Audeo P90-R hearing aids that were fit one year ago and were last programmed 09/06/2022. Clinic Phonak Awilda P90-UP hearing aids were programmed to patient's most recent audiogram. Utilizing the [employer] equipment, the clinic hearing aids were evaluated. According to NAL-NL1 fitting method, the clinic hearing aid(s) are meeting target gain for average speech as well as possible given degree of hearing loss. The post-verification Speech Intelligibility Index (SII) was 44 for the right ear and 71 for the left ear. A CNC word list was administered in the right aided and left aided condition with the patient's hearing aids and the Clinic's hearing aids. The contralateral ear was plugged and muffed or masked. Results indicated slight improvement with clinic hearing aids and the patient subjectively reported the clinic hearing aids were clearer and easier to understand words. Testing was completed with clinic hearing aids for both ears. AIDED SPEECH TESTING The contralateral ear was plugged and muffed during testing. Speech perception testing was completed using recorded stimuli in quiet in the sound field at conversational level (60 machine strap buckler); results were: Cvqssoxap-Tcthtrq-Kkezezvsu Words (CNC) Test Condition List # Phonemes Words Right Ear (Patient HALE) 3 52% 8% Left Ear (Patient HALE) 1 84% 64% Right Ear (Clinic HALE) 5 61% 36% Left Ear (Clinic HALE) 2 88% 68% Bilateral 9 93% 92% AZ BIO (quiet) Test Condition List # Score Right Ear 4 37% Left Ear 1 77% Bilateral 6 95% AZ BIO (quiet, -10 dB HL) Test Condition List # Score Right Ear 5 24% Left Ear 2 74% Bilateral 8 85% AZ BIO (+5 SNR) Test Condition List # Score Right Ear 7 0% Left Ear 3 26% SUMMARY AND RECOMMENDATIONS Based on the audiometric testing, this patient does not meet Medicare criteria for cochlear implantation at this time. While the above speech perception measures identify areas of difficulty in everyday listening situations, there are additional technologies that could provide benefit to this patient. Recommend reprogramming of her current devices (specifically the right device) due to results of today's testing. Although the right hearing aid alone yields limited benefit, it adds benefit beyond the left hearing aid only in the bilateral condition. Recommend consideration of remote microphone technology. Recommend re-evaluation of cochlear implantation in one year or sooner if changes arise. Continue the use of binaural amplification during all waking hours. TOTAL TIME: 85 minutes Evaluation of auditory status: 15 minutes programming/verifying hearing aid(s) + 45 minutes aided testing = 60 minutes TOTAL Lan Villegas. Doctor of Audiology (AuD) Beauty Culturist Apprentice Shakira Maurer, M.AAdeel, CCC-A Clinical Buoy Tender I verify that I have reviewed the history, test results, and interpretation for this patient. Shakira Maurer, MTamar, CCC-A Clinical Buoy Tender copied to: Shawna Oneil, HIP Coordinator documented in this encounter [facility] 07-31-2022 Note Patient Outreach (OLIMPIA TNAV) ---- KIYA CABELLO ([id number]) 1945 F Date Time Provider Department 07/31/22 KELSIE MONTANO During your visit today, we recorded the following information about you: Kelsie Montano MA 07/31/2022 12:30 PM Addendum POPULATION HEALTH NAVIGATION OUTREACH Action/ NO ANSWER NO MYCHART LETTER MAILED ANNUAL MEDICARE WELLNESS EXAM ADVANCE DIRECTIVE DISCUSSION Never done MYCHART ACTIVATION Mailed letter 08/01/2022 MM Patient Identified by Name and : NO Outreach Outcome/Action Unable to reach patient: Phone number not valid / voicemail full Letter mailed Did you use a PCP flex slot to schedule this appointment? N/A Reason for Outreach Care Gap or Scheduling/Wellness visits Payer: Payor: MEDICARE / Plan: MEDICARE A AND B / Product Type: Medicare / Care Gap Reviewed:: Annual Wellness visit Reminder: Reminder note to check Health Maintenance for items below Health Maintenance items due: COVID-19 VACCINE(1) Never done DTAP,TDAP,TD(2 - Td or Tdap) due on 09/16/2021 ADVANCE DIRECTIVE DISCUSSION Never done Navigation Signature: Kelsie Montano MA July 31, 2022 9:32 AM Allergies As of Date: 07/31/2022 Noted Allergy Reaction ATORVASTATIN 11/03/2020 5 - Intolerance Comments: Fatigue, balance issues, back aching SULFA (SULFONAMIDE ANTIBIOTICS) 01/07/2015 14 - Other: See Comments Date Reviewed: 10/27/2021 Reviewed by: Sary Khalil APRN.CABLE SPLICER APPRENTICE - Fully Assessed Reason for Visit: Population Health Navigation Outreach [3910] Cmt: ACO HOWARD PCSA Prescriptions as of 08/01/2022 - ezetimibe (ZETIA) 10 mg tablet Take 1 tablet by mouth once daily. - FLUoxetine (PROZAC) 10 mg capsule Take 1 capsule by mouth once daily. - triamterene-hydroCHLOROthiazide (DYAZIDE) 37.5-25 mg per capsule Take 1 capsule by mouth once daily. - LOW-DOSE ASPIRIN ORAL Take 81 mg by mouth once daily. - pjptg-R-srxttowypwasg (BEANO ORAL) Take 2 tablets by mouth three times daily before meals. Patient taking as needed. - OMEGA-3 FATTY ACIDS (FISH OIL CONCENTRATE ORAL) Take 1 tablet by mouth twice daily. - DIETARY SUPPLEMENT ORAL Take by mouth. AminoSculpt - Ant-Aging Liquid Collagen. Problem List As Of Date 07/31/2022 Noted Resolved Mixed hyperlipidemia [E78.2] Osteoporosis [M81.0] CHOLELITHIASIS SEE ALSO GALLBLADD WITHOUT CH*12/28/2005 10/27/2015 Blood in stool [K92.1] 07/09/2007 10/27/2015 Diverticulitis of colon (without mention of hem*08/07/2007 08/07/2017 CHRONIC RHINITIS [J31.0] 01/06/2008 Abdominal pain, epigastric [R10.13] 05/25/2013 10/27/2015 Gastritis and gastroduodenitis [K29.70, K29.90] 06/02/2013 Stress and adjustment reaction [F43.29] 07/27/2015 08/07/2017 Meniere's disease [H81.09] 10/27/2015 Deviated septum [J34.2] 10/27/2015 08/07/2017 Depression [F32.A] 10/27/2015 Heartburn [R12] 10/27/2015 08/07/2017 Generalized anxiety disorder [F41.1] 03/19/2017 Esophageal thickening on MRI of the neck [K22.8*06/11/2019 03/17/2020 Quadrantanopia, 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 Author Type: Foreign Agent Type: Progress Notes Filed: 08/01/2022 3:19 PM Note Text: POPULATION HEALTH NAVIGATION OUTREACH Action/FYI NO ANSWER NO MYCHART LETTER MAILED ANNUAL MEDICARE WELLNESS EXAM ADVANCE DIRECTIVE DISCUSSION Never done MYCHART ACTIVATION Mailed letter 08/01/2022 MM Patient Identified by Name and : NO Outreach Outcome/Action Unable to reach patient: Phone number not valid / voicemail full Letter mailed Did you use a PCP flex slot to schedule this appointment? N/A Reason for Outreach Care Gap or Scheduling/Wellness visits Payer: Payor: MEDICARE / Plan: MEDICARE A AND B / Product Type: Medicare / Care Gap Reviewed:: Annual Wellness visit Reminder: Reminder note to check Health Maintenance for items below Health Maintenance items due: COVID-19 VACCINE(1) Never done DTAP,TDAP,TD(2 - Td or Tdap) due on 09/16/2021 ADVANCE DIRECTIVE DISCUSSION Never done Navigation Signature: Kelsie Montano MA July 31, 2022 9:32 AM [facility] 07-31-2022 History of Present illness Narrative POPULATION HEALTH NAVIGATION OUTREACH Action/FYI NO ANSWER NO MYCHART LETTER MAILED ANNUAL MEDICARE WELLNESS EXAM ADVANCE DIRECTIVE DISCUSSION Never done MYCHART ACTIVATION Patient Identified by Name and : NO Outreach Outcome/Action Unable to reach patient: Phone number not valid / voicemail full Letter mailed Did you use a PCP flex slot to schedule this appointment? N/A Reason for Outreach Care Gap or Scheduling/Wellness visits Payer: Payor: MEDICARE / Plan: MEDICARE A AND B / Product Type: Medicare / Care Gap Reviewed:: Annual Wellness visit Reminder: Reminder note to check Health Maintenance for items below Health Maintenance items due: COVID-19 VACCINE(1) Never done DTAP,TDAP,TD(2 - Td or Tdap) due on 09/16/2021 ADVANCE DIRECTIVE DISCUSSION Never done Navigation Signature: Kelsie Montano MA July 31, 2022 9:32 AM documented in this encounter [facility] 07-16-2022 Miscellaneous Notes Darren was returning the call left for Kiya last week. Informed Darren that the audiogram that we have for Kiya was completed in December so it will be past the 6 month window by the time of her implant evaluation appointments. I presented Darren with two options: either complete the hearing test locally and have it sent or I could schedule one with [facility]. Dr. Pittman reviewed the previous audiogram and approved the option of allowing [facility] to repeat the audiogram and send it to us. Darren stated they will get an audiogram done locally and faxed to us. Stated no further questions. Shawna Oneil HIP Coordinator documented in this encounter [facility] 07-05-2022 Note Patient Outreach (NE TNAV) ---- KIYA CABELLO ([id number]) 1945 F Date Time Provider Department 07/05/22 KELSIE MONTANOV During your visit today, we recorded the following information about you: Kelsie Montano MA 07/05/2022 1:48 PM Addendum POPULATION HEALTH NAVIGATION OUTREACH Action/ NO ANSWER NO MY CHART LETTER MAIL ANNUAL MEDICARE WELLNESS MYCHART ACTIVATION Mailed letter 07/05/2022 MM Patient Identified by Name and : NO Outreach Outcome/Action Unable to reach patient: Phone number not valid / voicemail full Letter mailed Did you use a PCP flex slot to schedule this appointment? N/A Reason for Outreach Care Gap or Scheduling/Wellness visits Payer: Payor: MEDICARE / Plan: MEDICARE A AND B / Product Type: Medicare / Care Gap Reviewed:: Annual Wellness visit Reminder: Reminder note to check Health Maintenance for items below Health Maintenance items due: COVID-19 VACCINE(1) Never done DTAP,TDAP,TD(2 - Td or Tdap) due on 09/16/2021 ADVANCE DIRECTIVE DISCUSSION Never done Navigation Signature: Kelsie Montano MA July 05, 2022 9:59 AM Allergies As of Date: 07/05/2022 Noted Allergy Reaction ATORVASTATIN 11/03/2020 5 - Intolerance Comments: Fatigue, balance issues, back aching SULFA (SULFONAMIDE ANTIBIOTICS) 01/07/2015 14 - Other: See Comments Date Reviewed: 10/27/2021 Reviewed by: Sary Khalil APRN.CABLE SPLICER APPRENTICE - Fully Assessed Reason for Visit: Population Health Navigation Outreach [3910] Cmt: ACO HOWARD PCSA Prescriptions as of 07/05/2022 - ezetimibe (ZETIA) 10 mg tablet Take 1 tablet by mouth once daily. - FLUoxetine (PROZAC) 10 mg capsule Take 1 capsule by mouth once daily. - triamterene-hydroCHLOROthiazide (DYAZIDE) 37.5-25 mg per capsule Take 1 capsule by mouth once daily. - LOW-DOSE ASPIRIN ORAL Take 81 mg by mouth once daily. - ykyqf-A-pnqadqzpydljx (BEANO ORAL) Take 2 tablets by mouth three times daily before meals. Patient taking as needed. - OMEGA-3 FATTY ACIDS (FISH OIL CONCENTRATE ORAL) Take 1 tablet by mouth twice daily. - DIETARY SUPPLEMENT ORAL Take by mouth. AminoSculpt - Ant-Aging Liquid Collagen. Problem List As Of Date 07/05/2022 Noted Resolved Mixed hyperlipidemia [E78.2] Osteoporosis [M81.0] CHOLELITHIASIS SEE ALSO GALLBLADD WITHOUT CH*12/28/2005 10/27/2015 Blood in stool [K92.1] 07/09/2007 10/27/2015 Diverticulitis of colon (without mention of hem*08/07/2007 08/07/2017 CHRONIC RHINITIS [J31.0] 01/06/2008 Abdominal pain, epigastric [R10.13] 05/25/2013 10/27/2015 Gastritis and gastroduodenitis [K29.70, K29.90] 06/02/2013 Stress and adjustment reaction [F43.29] 07/27/2015 08/07/2017 Meniere's disease [H81.09] 10/27/2015 Deviated septum [J34.2] 10/27/2015 08/07/2017 Depression [F32.A] 10/27/2015 Heartburn [R12] 10/27/2015 08/07/2017 Generalized anxiety disorder [F41.1] 03/19/2017 Esophageal thickening on MRI of the neck [K22.8*06/11/2019 03/17/2020 Quadrantanopia, 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 Author Type: Foreign Agent Type: Progress Notes Filed: 07/05/2022 4:12 PM Note Text: POPULATION HEALTH NAVIGATION OUTREACH Action/I NO ANSWER NO MY CHART LETTER MAIL ANNUAL MEDICARE WELLNESS MYCHART ACTIVATION Mailed letter 07/05/2022 MM Patient Identified by Name and : NO Outreach Outcome/Action Unable to reach patient: Phone number not valid / voicemail full Letter mailed Did you use a PCP flex slot to schedule this appointment? N/A Reason for Outreach Care Gap or Scheduling/Wellness visits Payer: Payor: MEDICARE / Plan: MEDICARE A AND B / Product Type: Medicare / Care Gap Reviewed:: Annual Wellness visit Reminder: Reminder note to check Health Maintenance for items below Health Maintenance items due: COVID-19 VACCINE(1) Never done DTAP,TDAP,TD(2 - Td or Tdap) due on 09/16/2021 ADVANCE DIRECTIVE DISCUSSION Never done Navigation Signature: Kelsie Montano MA July 05, 2022 9:59 AM [facility] 07-05-2022 History of Present illness Narrative POPULATION HEALTH NAVIGATION OUTREACH Action/I NO ANSWER NO MY CHART LETTER MAIL ANNUAL MEDICARE WELLNESS MYCHART ACTIVATION Mailed letter 07/05/2022 MM Patient Identified by Name and : NO Outreach Outcome/Action Unable to reach patient: Phone number not valid / voicemail full Letter mailed Did you use a PCP flex slot to schedule this appointment? N/A Reason for Outreach Care Gap or Scheduling/Wellness visits Payer: Payor: MEDICARE / Plan: MEDICARE A AND B / Product Type: Medicare / Care Gap Reviewed:: Annual Wellness visit Reminder: Reminder note to check Health Maintenance for items below Health Maintenance items due: COVID-19 VACCINE(1) Never done DTAP,TDAP,TD(2 - Td or Tdap) due on 09/16/2021 ADVANCE DIRECTIVE DISCUSSION Never done Navigation Signature: Kelsie Montano MA July 05, 2022 9:59 AM documented in this encounter [facility] 10-27-2021 Note HNO ID: [id number] Author: Sary Khalil APRN.CNP Service: ? Author Type: Nurse Practitioner Type: Progress Notes Filed: 10/27/2021 11:02 AM Note Text: CC: Patient presents with: review labs and medication HPI Kiya Cabello is a 76 year old female who presents today for above. Patient was seen for follow-up in August. She had been taking Zetia that was prescribed when she had a stroke in June, only marginal improvement in cholesterol. She has statin intolerance however PCP recommended adding on Crestor 5 mg daily. Patient states she developed diarrhea which she attributed to Crestor and stopped taking after a few weeks. Diarrhea eventually resolved. She mistakenly thought she was supposed to stop Zetia when Crestor was added on so she has not been taking this either. Cholesterol levels have worsened on most recent check. She has been exercising more and trying to eat healthier. 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 - SAH (subarachnoid hemorrhage) (HCC) 06/29/2021 - Stroke (HCC) - Unspecified gastritis and gastroduodenitis without mention of hemorrhage 06/02/2013 PAST SURGICAL HISTORY Procedure Laterality Date - ABDOMINAL SURGERY HX - COLONOSCOPY FLX DX W/COLLJ SPEC WHEN PFRMD 08/01/2007 Normal Colonscopy - COLONOSCOPY FLX DX W/COLLJ SPEC WHEN PFRMD 01/19/2020 Colonoscopy - ESOPHAGOGASTRODUODENOSCOPY TRANSORAL DIAGNOSTIC 07/12/2017 EGD - ESOPHAGOGASTRODUODENOSCOPY TRANSORAL DIAGNOSTIC 01/19/2020 EGD - ESOPHAGOGASTRODUODENOSCOPY TRANSORAL DIAGNOSTIC 10/11/2020 - EYE SURGERY HX - IR CEREBRAL ANGIOGRAM 07/01/2021 - OOPHORECTOMY PARTIAL/TOTAL UNI/BI 11/15/2015 LAPAROSCOPY WITH OOPHORECTOMY AND SALPINGECTOMY (Bilateral) - JESS (TRANSESOPHAGEAL ECHO) 07/05/2021 - TONSILLECTOMY HX - TONSILLECTOMY PRIMARY/SECONDARY Tonsillectomy ALLERGIES Atorvastatin and Sulfa (Sulfonamide Antibiotics) MEDICATIONS ezetimibe (ZETIA) 10 mg tablet Take 10 mg by mouth once daily. FLUoxetine (PROZAC) 10 mg capsule Take 1 capsule by mouth once daily. triamterene-hydroCHLOROthiazide (DYAZIDE) 37.5-25 mg per capsule Take 1 capsule by mouth once daily. LOW-DOSE ASPIRIN ORAL Take 81 mg by mouth once daily. xpppj-M-owulweigegzci (BEANO ORAL) Take 2 tablets by mouth three times daily before meals. Patient taking as needed. OMEGA-3 FATTY ACIDS (FISH OIL CONCENTRATE ORAL) Take 1 tablet by mouth twice daily. DIETARY SUPPLEMENT ORAL Take by mouth. AminoSculpt - Ant-Aging Liquid Collagen. rosuvastatin (CRESTOR) 5 mg tablet Take 1 tablet by mouth daily at bedtime. FAMILY HISTORY Problem Relation Age of Onset - Heart Mother DC - COPD Mother - Heart Father DC - Alcohol/Drug Father - other (leukemia) Father - Heart Maternal Grandmother - Heart Maternal Grandfather - Heart disease Brother 30 valvular heart disease, 3 surgeries, rheumatic - other (sleep apnea) Sister Social History Tobacco Use - Smoking status: Never Smoker - Smokeless tobacco: Never Used Vaping Use - Vaping Use: Never used Substance Use Topics - Alcohol use: Yes Alcohol/week: 2.5 standard drinks Types: 1 Mixed Drinks per week Comment: rarely - Drug use: No PHYSICAL EXAM BP 120/74 Pulse 78 Resp 16 Wt 53.1 kg (117 lb) BMI 22.11 kg/m? General Appearance: well appearing, in no acute distress, alert DATA REVIEWED: Most recent labs ASSESSMENT/PLAN: 1. Mixed hyperlipidemia - ICD9: 272.2, ICD10: E78.2 Worsening control - Resume treatment with ezetimibe (Zetia) 10 mg daily - Discussed the benefits of regular aerobic exercise and weight loss. - Check fasting lipid panel in 12 weeks. - Encouraged following a low carbohydrate, healthy oil intake diet. - LIPID PANEL BASIC Prescription instructions reviewed with patient as applicable. Potential red flag symptoms discussed with the patient. Reviewed appropriate action plan to take if red flag symptoms occur. Patient agreeable to treatment plan. During this patient visit I have spent approximately 20 minutes in counseling regarding treatment options, medications and test results. Sary Khalil, MISTI.[facility] 10-27-2021 History of Present illness Narrative CC: Patient presents with: review labs and medication HPI Kiya Cabello is a 76 year old female who presents today for above. Patient was seen for follow-up in August. She had been taking Zetia that was prescribed when she had a stroke in June, only marginal improvement in cholesterol. She has statin intolerance however PCP recommended adding on Crestor 5 mg daily. Patient states she developed diarrhea which she attributed to Crestor and stopped taking after a few weeks. Diarrhea eventually resolved. She mistakenly thought she was supposed to stop Zetia when Crestor was added on so she has not been taking this either. Cholesterol levels have worsened on most recent check. She has been exercising more and trying to eat healthier. 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 SAH (subarachnoid hemorrhage) (HCC) 06/29/2021 Stroke (HCC) Unspecified gastritis and gastroduodenitis without mention of hemorrhage 06/02/2013 PAST SURGICAL HISTORY Procedure Laterality Date ABDOMINAL SURGERY HX COLONOSCOPY FLX DX W/COLLJ SPEC WHEN PFRMD 08/01/2007 Normal Colonscopy COLONOSCOPY FLX DX W/COLLJ SPEC WHEN PFRMD 01/19/2020 Colonoscopy ESOPHAGOGASTRODUODENOSCOPY TRANSORAL DIAGNOSTIC 07/12/2017 EGD ESOPHAGOGASTRODUODENOSCOPY TRANSORAL DIAGNOSTIC 01/19/2020 EGD ESOPHAGOGASTRODUODENOSCOPY TRANSORAL DIAGNOSTIC 10/11/2020 EYE SURGERY HX IR CEREBRAL ANGIOGRAM 07/01/2021 OOPHORECTOMY PARTIAL/TOTAL UNI/BI 11/15/2015 LAPAROSCOPY WITH OOPHORECTOMY AND SALPINGECTOMY (Bilateral) JESS (TRANSESOPHAGEAL ECHO) 07/05/2021 TONSILLECTOMY HX TONSILLECTOMY PRIMARY/SECONDARY <AGE 13 1951 Tonsillectomy ALLERGIES Atorvastatin and Sulfa (Sulfonamide Antibiotics) MEDICATIONS ezetimibe (ZETIA) 10 mg tablet Take 10 mg by mouth once daily. FLUoxetine (PROZAC) 10 mg capsule Take 1 capsule by mouth once daily. triamterene-hydroCHLOROthiazide (DYAZIDE) 37.5-25 mg per capsule Take 1 capsule by mouth once daily. LOW-DOSE ASPIRIN ORAL Take 81 mg by mouth once daily. suyqc-B-dmwvpljfgbjjq (BEANO ORAL) Take 2 tablets by mouth three times daily before meals. Patient taking as needed. OMEGA-3 FATTY ACIDS (FISH OIL CONCENTRATE ORAL) Take 1 tablet by mouth twice daily. DIETARY SUPPLEMENT ORAL Take by mouth. AminoSculpt - Ant-Aging Liquid Collagen. rosuvastatin (CRESTOR) 5 mg tablet Take 1 tablet by mouth daily at bedtime. FAMILY HISTORY Problem Relation Age of Onset Heart Mother DC COPD Mother Heart Father DC Alcohol/Drug Father other (leukemia) Father Heart Maternal Grandmother Heart Maternal Grandfather Heart disease Brother 30 valvular heart disease, 3 surgeries, rheumatic other (sleep apnea) Sister Social History Tobacco Use Smoking status: Never Smoker Smokeless tobacco: Never Used Vaping Use Vaping Use: Never used Substance Use Topics Alcohol use: Yes Alcohol/week: 2.5 standard drinks Types: 1 Mixed Drinks per week Comment: rarely Drug use: No PHYSICAL EXAM BP 120/74 Pulse 78 Resp 16 Wt 53.1 kg (117 lb) BMI 22.11 kg/m General Appearance: well appearing, in no acute distress, alert DATA REVIEWED: Most recent labs ASSESSMENT/PLAN: 1. Mixed hyperlipidemia - ICD9: 272.2, ICD10: E78.2 Worsening control - Resume treatment with ezetimibe (Zetia) 10 mg daily - Discussed the benefits of regular aerobic exercise and weight loss. - Check fasting lipid panel in 12 weeks. - Encouraged following a low carbohydrate, healthy oil intake diet. - LIPID PANEL BASIC Prescription instructions reviewed with patient as applicable. Potential red flag symptoms discussed with the patient. Reviewed appropriate action plan to take if red flag symptoms occur. Patient agreeable to treatment plan. During this patient visit I have spent approximately 20 minutes in counseling regarding treatment options, medications and test results. Sary Khalil APRN.CNP documented in this encounter [facility] 08-16-2021 Miscellaneous Notes FLuoxetine refilled. Spoke with pt and she reports she has been taking this. Her last rx was 12/01/20 for 6 months. She just now is running out and needs a refill. Patient has been identified by name and date of : Yes Patient phones for refill(s): Pending Prescriptions Disp Refills FLUOXETINE 10 MG CAPSULE 90 capsule 1 Sig: Take 1 capsule by mouth once daily. JEFF: No Signed Prescriptions Disp Refills ezetimibe (ZETIA) 10 mg tablet 90 tablet 1 Si tablet by ORAL/FEEDING TUBE route once daily. JEFF: No Authorizing Provider: REAGAN MEJIA Refused Prescriptions Disp Refills FLUoxetine (PROZAC) 10 mg capsule 90 capsule 1 Sig: Take 1 capsule by mouth once daily. JEFF: No Refused By: REAGAN MEJIA Reason for Refusal: A Refill not appropriate Date of last office visit in primary care: 07/13/21 next apt 09/01/21 Last 2 Encounter Wt Readings: Date: Wt: 07/17/2021 55.8 kg (123 lb) 07/13/2021 55.8 kg (123 lb) Previous labs/tests for medication: Not applicable Please advise. Thank you. Mattie Miranda LPN Prozac has not been prescribed for a few years. Patient has been identified by name and date of : Yes Patient phones for refill(s): Pending Prescriptions Disp Refills FLUOXETINE 10 MG CAPSULE 90 capsule 1 Sig: Take 1 capsule by mouth once daily. JEFF: No EZETIMIBE 10 MG TABLET 90 tablet 0 Si tablet by ORAL/FEEDING TUBE route once daily. JEFF: No Date of last office visit in primary care: 07/13/2021 6 month follow-up: 09/01/2021 Last 2 Encounter Wt Readings: Date: Wt: 07/17/2021 55.8 kg (123 lb) 07/13/2021 55.8 kg (123 lb) Previous labs/tests for medication: Cholesterol: Triglycerides (mg/dL) Date Value 12/03/2018 166 HDL Cholesterol (mg/dL) Date Value 06/30/2021 70 04/05/2020 70 LDL Cholesterol (mg/dL) Date Value 06/30/2021 188 04/05/2020 129 ALT (U/L) Date Value 03/19/2019 26 Non HDL Cholesterol (mg/dL) Date Value 06/30/2021 210 04/05/2020 150 Please advise. Thank you. Ghazala Leblanc LPN Patient has been identified by name and date of : Yes Pending Prescriptions Disp Refills FLUOXETINE 10 MG CAPSULE 90 capsule 1 Sig: Take 1 capsule by mouth once daily. JEFF: No EZETIMIBE 10 MG TABLET 30 tablet 0 Si tablet by ORAL/FEEDING TUBE route once daily. JEFF: No RX INSTRUCTIONS: Patient completely out of fluoxetine 7 days, would like 90 day supply, also got prescriptions ezetimibe 10 mg would like 90 day supply for future refills. Patient aware RX will be sent to pharmacy. No need to notify patient. Isha Meenndez documented in this encounter [facility] 08-02-2021 History of Present illness Narrative TRANSITION CARE MANAGEMENT (TCM) FOLLOW-UP NOTE Provider Action/FYI TCM [facility] discharge 07-05-21 follow up Chart and previous TCM Outreach encounter(s) reviewed Readmission Risk Score: 9 No CDM (CHF, COPD, CKD) Based on new call deanne and nursing judgement, no further TCM follow up indicated Summary: Pt discharged from on 07-05-21. 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 JEFF: No Patient is asking if she should continue medication prescribed at hospital? She only has 6 pill remaining RX INSTRUCTIONS: Patient aware RX will be sent to pharmacy. Please notify patient if approved documented in this encounter [facility] 07-17-2021 Note HNO ID: [id number] Author: Jolene Faustin APRN.CNP Service: ? Author Type: Nurse Practitioner Type: Progress Notes Filed: 07/17/2021 12:07 PM Note Text: NEUROSURGERY FOLLOWUP NOTE KILEY Martinez Date of visit: July 17, 2021 Patient Name: Ms.Cheryl Akira Cabello Date of : 1945 Current Age: [age] year old Sex: female MRN/E# [id number] Last Office Visit: Visit date not found Chief Complaint: Patient presents with: Hospital Follow Up HPI Ms.Cheryl Akira Cabello 76 year old female w/ PMHx remote CVA (left occipital infarct), meniere's disease, HLD. She presented to [facility] as a transfer from [place] with reports of n/v 6 days prior, which was not unusual for her given Meniere's disease. She also was started having difficulty with expressive speech and text messaging. CT brain imaging revealed evidence of acute left frontal 2.2 x 1.8cm ICH and trace b/l SAH. She underwent a DCA with Dr. Oliva on 07/01/2021, no evidence of cerebral aneurysm or early venous drainage to suggest etiology of ICH/SAH. MRI brain was obtained which showed no evidence of underlying lesion. She was instructed to hold aspirin (taking for hx of CVA). She was discharged home on 07/05/2021 with instructions to follow-up with neurosurgery and repeat CT brain in 2 weeks, prompting her visit today. Today she comes to the office with her . She reports she has resumed daily baby aspirin. She denies any new onset of visual changes, speech deficits, seizure activity, motor or sensory deficits. She reports mild occasional headaches and feeling fatigue but tells me this has been ongoing for several years. Overall, she is feeling much improved since being discharged from hospital. Symptoms: Occasional headache and fatigue PAIN EVALUATION No data found in the last 1 encounters. 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 - SAH (subarachnoid hemorrhage) (HCC) 06/29/2021 - Stroke (HCC) - Unspecified gastritis and gastroduodenitis without mention of hemorrhage 06/02/2013 PAST SURGICAL HISTORY Procedure Laterality Date - ABDOMINAL SURGERY HX - COLONOSCOPY FLX DX W/COLLJ SPEC WHEN PFRMD 08/01/2007 Normal Colonscopy - COLONOSCOPY FLX DX W/COLLJ SPEC WHEN PFRMD 01/19/2020 Colonoscopy - ESOPHAGOGASTRODUODENOSCOPY TRANSORAL DIAGNOSTIC 07/12/2017 EGD - ESOPHAGOGASTRODUODENOSCOPY TRANSORAL DIAGNOSTIC 01/19/2020 EGD - ESOPHAGOGASTRODUODENOSCOPY TRANSORAL DIAGNOSTIC 10/11/2020 - EYE SURGERY HX - IR CEREBRAL ANGIOGRAM 07/01/2021 - OOPHORECTOMY PARTIAL/TOTAL UNI/BI 11/15/2015 LAPAROSCOPY WITH OOPHORECTOMY AND SALPINGECTOMY (Bilateral) - JESS (TRANSESOPHAGEAL ECHO) 07/05/2021 - TONSILLECTOMY HX - TONSILLECTOMY PRIMARY/SECONDARY Tonsillectomy FAMILY HISTORY Problem Relation Age of Onset - Heart Mother DC - COPD Mother - Heart Father DC - Alcohol/Drug Father - other (leukemia) Father - Heart Maternal Grandmother - Heart Maternal Grandfather - Heart disease Brother 30 valvular heart disease, 3 surgeries, rheumatic - other (sleep apnea) Sister ALLERGIES Allergen Reactions - Atorvastatin Intolerance Fatigue, balance issues, back aching - Sulfa (Sulfonamide * Other: See Comments Current Outpatient Medications Medication Sig Dispense Refill - ezetimibe (ZETIA) 10 mg tablet 1 tablet by ORAL/FEEDING TUBE route once daily. 30 tablet 0 - triamterene-hydroCHLOROthiazide (DYAZIDE) 37.5-25 mg per capsule Take 1 capsule by mouth once daily. 90 capsule 1 - LOW-DOSE ASPIRIN ORAL Take 81 mg by mouth once daily. - nqazl-S-ipcphjkclqvdo (BEANO ORAL) Take 2 tablets by mouth three times daily before meals. Patient taking as needed. - OMEGA-3 FATTY ACIDS (FISH OIL CONCENTRATE ORAL) Take 1 tablet by mouth twice daily. - DIETARY SUPPLEMENT ORAL Take by mouth. AminoSculpt - Ant-Aging Liquid Collagen. No current facility-administered medications for this visit. REVIEW OF SYSTEMS Review of Systems Constitutional: Negative for chills, diaphoresis and fever. HENT: Negative for congestion, ear pain and sinus pressure. Eyes: Negative for discharge and redness. Respiratory: Negative for cough, shortness of breath and wheezing. Cardiovascular: Negative for chest pain, palpitations and leg swelling. Gastrointestinal: Negative for constipation, diarrhea and nausea. Endocrine: Negative for cold intolerance and heat intolerance. Musculoskeletal: Negative for back pain, gait problem and neck pain. Skin: Negative (more content not included)... [facility] 07-17-2021 Note HNO ID: [id number] Author: RT Sam(R) Service: Radiology Author Type: Technologist Type: Progress Notes Filed: 07/17/2021 10:47 AM Note Text: Radiology Service Progress Note PATIENT NAME: Kiya Cabello DATE OF SERVICE: July 17, 2021 TIME: 10:47 AM PATIENT IDENTITY VERIFICATION COMPLETED USING TWO (2) IDENTIFIERS: Name and Date of confirmed by patient verbally. FALL SCREENING: Has the patient had 2 falls in the last year or 1 fall with injury or currently using an Ambulatory Assistive Device (Walker, Cane, Wheelchair, Crutches, etc.)? No PATIENT GENDER DATA: Female. status: : No status: NO. PATIENT RELEVANT IMPLANT DATA REVIEWED: Not Applicable RADIOLOGY DEPARTMENT: CT; Exam(s) Completed: Brain PERIPHERAL IV DATA: Not applicable SIGNED BY: RT Boo(R) July 17, 2021 10:47 AM [facility] 07-17-2021 History of Present illness Narrative NEUROSURGERY FOLLOWUP NOTE Jolene Faustin APRN-NEPTALI Date of visit: July 17, 2021 Patient Name: Ms.Cheryl Akira Cabello Date of : 1945 Current Age: [age] year old Sex: female MRN/E# [id number] Last Office Visit: Visit date not found Chief Complaint: Patient presents with: Hospital Follow Up HPI Ms.Cheryl Akira Cabello 76 year old female w/ PMHx remote CVA (left occipital infarct), meniere's disease, HLD. She presented to [facility] as a transfer from [place] with reports of n/v 6 days prior, which was not unusual for her given Meniere's disease. She also was started having difficulty with expressive speech and text messaging. CT brain imaging revealed evidence of acute left frontal 2.2 x 1.8cm ICH and trace b/l SAH. She underwent a DCA with Dr. Oliva on 07/01/2021, no evidence of cerebral aneurysm or early venous drainage to suggest etiology of ICH/SAH. MRI brain was obtained which showed no evidence of underlying lesion. She was instructed to hold aspirin (taking for hx of CVA). She was discharged home on 07/05/2021 with instructions to follow-up with neurosurgery and repeat CT brain in 2 weeks, prompting her visit today. Today she comes to the office with her . She reports she has resumed daily baby aspirin. She denies any new onset of visual changes, speech deficits, seizure activity, motor or sensory deficits. She reports mild occasional headaches and feeling fatigue but tells me this has been ongoing for several years. Overall, she is feeling much improved since being discharged from hospital. Symptoms: Occasional headache and fatigue PAIN EVALUATION No data found in the last 1 encounters. 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 SAH (subarachnoid hemorrhage) (HCC) 06/29/2021 Stroke (HCC) Unspecified gastritis and gastroduodenitis without mention of hemorrhage 06/02/2013 PAST SURGICAL HISTORY Procedure Laterality Date ABDOMINAL SURGERY HX COLONOSCOPY FLX DX W/COLLJ SPEC WHEN PFRMD 08/01/2007 Normal Colonscopy COLONOSCOPY FLX DX W/COLLJ SPEC WHEN PFRMD 01/19/2020 Colonoscopy ESOPHAGOGASTRODUODENOSCOPY TRANSORAL DIAGNOSTIC 07/12/2017 EGD ESOPHAGOGASTRODUODENOSCOPY TRANSORAL DIAGNOSTIC 01/19/2020 EGD ESOPHAGOGASTRODUODENOSCOPY TRANSORAL DIAGNOSTIC 10/11/2020 EYE SURGERY HX IR CEREBRAL ANGIOGRAM 07/01/2021 OOPHORECTOMY PARTIAL/TOTAL UNI/BI 11/15/2015 LAPAROSCOPY WITH OOPHORECTOMY AND SALPINGECTOMY (Bilateral) JESS (TRANSESOPHAGEAL ECHO) 07/05/2021 TONSILLECTOMY HX TONSILLECTOMY PRIMARY/SECONDARY <AGE 12 1951 Tonsillectomy FAMILY HISTORY Problem Relation Age of Onset Heart Mother DC COPD Mother Heart Father DC Alcohol/Drug Father other (leukemia) Father Heart Maternal Grandmother Heart Maternal Grandfather Heart disease Brother 30 valvular heart disease, 3 surgeries, rheumatic other (sleep apnea) Sister ALLERGIES Allergen Reactions Atorvastatin Intolerance Fatigue, balance issues, back aching Sulfa (Sulfonamide * Other: See Comments Current Outpatient Medications Medication Sig Dispense Refill ezetimibe (ZETIA) 10 mg tablet 1 tablet by ORAL/FEEDING TUBE route once daily. 30 tablet 0 triamterene-hydroCHLOROthiazide (DYAZIDE) 37.5-25 mg per capsule Take 1 capsule by mouth once daily. 90 capsule 1 LOW-DOSE ASPIRIN ORAL Take 81 mg by mouth once daily. sxoxs-Y-fhbseicowodwj (BEANO ORAL) Take 2 tablets by mouth three times daily before meals. Patient taking as needed. OMEGA-3 FATTY ACIDS (FISH OIL CONCENTRATE ORAL) Take 1 tablet by mouth twice daily. DIETARY SUPPLEMENT ORAL Take by mouth. AminoSculpt - Ant-Aging Liquid Collagen. No current facility-administered medications for this visit. REVIEW OF SYSTEMS Review of Systems Constitutional: Negative for chills, diaphoresis and fever. HENT: Negative for congestion, ear pain and sinus pressure. Eyes: Negative for discharge and redness. Respiratory: Negative for cough, shortness of breath and wheezing. Cardiovascular: Negative for chest pain, palpitations and leg swelling. Gastrointestinal: Negative for constipation, diarrhea and nausea. Endocrine: Negative for cold intolerance and heat intolerance. Musculoskeletal: Negative for back pain, gait problem and neck pain. Skin: Negative for rash and wound. Allergic/Immunologic: Negative for environmental allergies and food allergies. Neurological: Positive for headaches. Negative for dizziness, seizures, syncope, speech difficulty, weakness, light-headedness and numbness. Hematological: Does not bruise/bleed easily. Psychiatric/Behavioral: Negative for agitation and behavioral problems. The patient is not nervous/anxious. OBJECTIVE: BP 118/72 Pulse 65 Ht 5' 1 (1.55m) Wt 123 lb (55.8kg) SpO2 98% BMI 23.25 kg/(m^2). PHYSICAL EXAM: Mental State : Alert, memory function unremarkable. Attention span and concentration normal for patient's age. Speech normal, no receptive or expressive speech deficit. Recent and remote memory substandard Orientation : Oriented to person, place and time. Higher Cortical Function : Intact speech and language. Spontaneous speech and comprehension normal. Fund of knowledge intact for pt level of education. Cranial Nerves : II: Decreased peripheral vision in right eye. III, IV, : Normal, no double vision or drooping. Pupils equal and reactive to light. Extraocular muscles intact. No nystagmus V: Normal sensation on the face, normal jaw movements VII: No paresis on either side VIII: No gross hearing deficit IX: Good and equal shoulder shrugs XII: Tongue midline, no fasciculations Sensory: Normal Sensation in upper and lower extremities and trunk to touch and noxious stimuli. Motor: Normal muscle tone and bulk. No tremor or uncontrollable movements. No spasticity or tremor. Strength: Upper Extremities : R L Deltoid 5/5 5/5 Biceps 5/5 5/5 Triceps 5/5 5/5 Wrist Ext 5/5 5/5 Wrist Flx 5/5 5/5 Hand Int 5/5 5/5 Lower Extremities : Hip Flexors 5/5 5/5 Hip Extensors 5/5 5/5 Hip Abductors 5/5 5/5 Ankle dorsiflex 5/5 5/5 Ankle Plantar 5/5 5/5 Cerebellar Function : Normal finger to nose. Normal rapid alternating movements. No ataxia. Negative Romberg. Gait and Station: Normal gait. No assistive device usage. Pulmonary: Lungs without cough, audible wheeze. Respirations unlabored. Cardiac: Regular rate and rhythm. No murmer, gallop or rub. Data Review IMAGING STUDIES: CT brain completed on 06/30/2021: IMPRESSION: Left frontal operculum parenchymal hemorrhage measuring up to 2.6 x 2.0 cm as above, with surrounding vasogenic edema. There is subarachnoid extension of hemorrhage in the left sylvian fissure and bifrontal regions. No major intracranial branch occlusion. No intracranial aneurysm identified. No Spot sign identified on the CTA portion. Arterial blood flow was measured to detect acute large vessel occlusion by computer aided detection software: Not Performed. Concordance between software and imaging review: Not Applicable. MRI brain completed on 07/03/2021: IMPRESSION: 1. Scattered foci restricted diffusion within cerebral convexity cortex, consistent with multiple acute punctate cortical infarcts. No evidence of acute restricted diffusion in a large vessel distribution. 2.Redemonstration of isointense and hyperintense left frontal operculum intraparenchymal hematoma perilesional vasogenic edema, unchanged. Minimal marginal enhancement without evidence of a nodular mass. No abnormal parenchymal or leptomeningeal enhancement to indicate underlying neoplasm 3.Sequelae of chronic transcortical infarct posterior left temporal/occipital lobe. Flair signal consistent with chronic medial left parietal lobe cortical infarct FLAIR axial image 23. CT los completed on 07/17/2021: No acute intracranial findings,will await final radiology report. Assessment & Plan: (I62.9) Intracranial hemorrhage (HCC) (primary encounter diagnosis) Comment: This is a 76-year-old female who presents as a hospital discharge follow-up with a repeat CT brain for monitoring of left frontal ICH. CT reviewed today in clinic, appears significant resolution of ICH. Will await final read and contact patient if impression warrants. Patient tells me she has previously already resumed aspirin. Neurologically she is intact on exam with exception of substandard recent and remote memory and decreased peripheral vision in her right thigh. She tells me change in overall vision occurred several years ago. She has no new complaints at today's office visit. Plan: Overall very pleased with progress to date and anticipate additional recovery over time. As there are no ongoing neurosurgical issues of concern will follow up on as needed basis. Jolene Faustin APRN-NEPTALI Neurosurgery Nurse Practitioner [facility] Olu Melo This note was partially generated using Bahu voice recognition system, and there may be some incorrect words, spellings, and punctuation that were not noted in checking the note before saving. documented in this encounter [facility] 07-17-2021 History of Present illness Narrative Radiology Service Progress Note PATIENT NAME: Kiya Cabello DATE OF SERVICE: July 17, 2021 TIME: 10:47 AM PATIENT IDENTITY VERIFICATION COMPLETED USING TWO (2) IDENTIFIERS: Name and Date of confirmed by patient verbally. FALL SCREENING: Has the patient had 2 falls in the last year or 1 fall with injury or currently using an Ambulatory Assistive Device (Walker, Cane, Wheelchair, Crutches, etc.)? No PATIENT GENDER DATA: Female. status: : No status: NO. PATIENT RELEVANT IMPLANT DATA REVIEWED: Not Applicable RADIOLOGY DEPARTMENT: CT; Exam(s) Completed: Brain PERIPHERAL IV DATA: Not applicable SIGNED BY: RT Boo(R) July 17, 2021 10:47 AM documented in this encounter [facility] 07-06-2021 History of Present illness Narrative POPULATION HEALTH NAVIGATION OUTREACH Action/FYI July 06, 2021 Reagan Mejia MD PSS scheduling, Please contact patient to assist with scheduling her [facility] Hospital follow up in the next four days per encounter below from RN. First available I can schedule is 07.12.2021 Thank you Pt identified by name and : NO Outreach Outcome/Action Sent message to PCP scheduling pool Reason for Outreach Community Monitoring Pool Payer: Payor: MEDICARE / Plan: MEDICARE A AND B / Product Type: Medicare / Care Gap Reviewed:: Follow-up appointment Reminder: Reminder note to check Health Maintenance for items below Health Maintenance items due: COVID-19 VACCINE(1) Never done BP CONTROLLED (<130/80) Never done ADVANCE DIRECTIVE DISCUSSION Never done Message Sent to Practice: No Navigation Signature: Emily Antonio Population Health Navigator July 06, 2021 4:21 PM TCM Home Visit Referral Source of Stratification: [facility] Hospital Admission Status: Discharged Readmission Risk Score: 9 SOHEILA Score: 3 Program referral criteria met: Does not meet referral criteria Patient does not qualify for High Risk TCM Home Visit program due to: Does not meet referral criteria Patient does not quality for High Risk TCM Home Visit Program due to: Does not meet referral criteria Preferred contact number: N/A Is patient staying somewhere other than the listed home address: No Dialysis Patient: No 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 RN, BSN Care Coordination team TRANSITIONAL CARE MANAGEMENT (TCM) COMMUNITY MONITORING PROGRAM Provider Action/FYI: [facility] discharge 07-05-21- initial outreach LABS AND PROCEDURES PENDING AT DISCHARGE: Aspergillus test pending Spoke with patient's Darren Cabello who validated he is involved with patient's care, and patient. Patient doing much better. Patient able to text and talking without difficulty. Spouse reports patient's mental status is back to normal . PCP follow up 4 days PSS: Please assist with follow up with PCP in [address] Roche follow up 2 weeks/ Neuro follow up 07-17-21 Future Appointments Date Time Provider Department Center 07/17/2021 11:[address] [facility] 07/17/2021 11:30 AM Jolene Faustin APRN.CABLE SPLICER APPRENTICE [facility] 09/01/2021 2:20 PM Reagan Mejia MD [facility] SUMMARY: Pt discharged from on 07-05-21. Admitted for: Hemorrhagic stroke Contact made with patient: Yes Hi my name is 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 RN and I am calling from the [facility] on behalf of your PCP, Reagan Mejia MD I understand you were recently in the hospital so I am calling to check in with you to ensure you are feeling well now that you're home. May I ask you a few questions related to your hospital stay and well-being? Yes Contact with patient post discharge, spoke to spouse. Patient identified by name and . Do you feel your health is BETTER, WORSE, or the SAME since leaving the hospital? Better ACTION TAKEN: Patient indicated symptoms are better or same, no action required. Continue outreach. MEDICATIONS: Many patients have questions or concerns about their medications once they are home. Do you have any questions about taking your medications or which medication you should be on? No Do you need any medication refills at this time, including any of the medications you might take only when needed? No ACTION TAKEN: No action required For RNs or Pharmacy completing outreach ONLY, was a medication review completed? Yes SOCIAL: We would like to make sure you have what you need so that your basics needs are met - including your personal safety, food, housing and medications. Would you like to speak with a social work steam train driver to help give you support for any of these needs? No It can be normal to feel anxious or down during a time like this. Would you like to talk to a mental health professional about how you have been feeling? No ACTION TAKEN: No action taken DISCHARGE INTRUCTIONS: Your discharge instructions / After Visit Summary (AVS) are important in guiding you through the recovery process. Do you have any questions related to your discharge instructions? No Do you have all the necessary equipment and supplies at home? Yes ACTION TAKEN: No action required I would like to help you schedule a hospital follow-up virtual or telephone visit with your PCP. This is a great way for you to connect with your provider to ensure you have safely transitioned home. If you are agreeable, I will send your request to a flight crew scheduler who will contact and assist you with that appointment. This will give you an opportunity to ask any questions or address any concerns you may have with your PCP. Inform the patient that if they have any questions or concerns prior to that appointment, to call their PCP's office right away. ACTION TAKEN: Patient desires an appointment - Routed to [facility] [[id number]] for scheduling telehealth visit (telephonic, virtual visit, or Facetime) within 7 days of discharge with PCP care team. Indicate hospital follow-up appointment needed within 7 days in Provider/FYI box. End Outreach. Your doctor would like us to remind you of the recommendations regarding the coronavirus (Covid19) outbreak: Avoid public places as much as possible. Avoid close contact (within 6 feet) with others you don t live with, especially if they are sick. Stay home if you are sick. Wash your hands regularly for at least 20 seconds with soap and water. Wear a cloth mask in public places to help reduce community spread. Do not go to your Doctor s office unless instructed to do so. For any non-emergency symptoms, call your Doctor s office to get instructions on how to manage (we might recommend a telephone or virtual visit). For emergency symptoms, proceed to Emergency Department as usual but inform them of cough and fever symptoms [place] if present (or call on the way if possible). 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 RN, BSN Care Coordination team documented in this encounter [facility] 07-04-2021 Note HNO ID: [id number] Author: Quinten Hayes APRN.CABLE SPLICER APPRENTICE Service: Neurosurgery Author Type: Nurse Practitioner Type: Plan of Care Filed: 07/04/2021 4:59 PM Note Text: NSGY Plan of care: MRI completed IMPRESSION: 1. Scattered foci restricted diffusion within cerebral convexity cortex, consistent with multiple acute punctate cortical infarcts. No evidence of acute restricted diffusion in a large vessel distribution. 2.Redemonstration of isointense and hyperintense left frontal operculum intraparenchymal hematoma perilesional vasogenic edema, unchanged. Minimal marginal enhancement without evidence of a nodular mass. No abnormal parenchymal or leptomeningeal enhancement to indicate underlying neoplasm 3.Sequelae of chronic transcortical infarct posterior left temporal/occipital lobe. ?Flair signal consistent with chronic medial left parietal lobe cortical infarct FLAIR axial image 23. Mechanical Facilities Technician: CONNIE ? Transcribe Date/Time: Jun ?2021 ?7:21P --No underlying lesion noted on MRI --Two week follow up with DR. Roche. -- Neurosurgery S/O at this time, please call with any questions or concerns. We appreciate the opportunity to participate in the care of this patient. Quinten Hayes APRN.CABLE SPLICER APPRENTICE [facility] 07-04-2021 Note HNO ID: [id number] Author: Salo Crawford MD Service: Cardiovascular Medicine Author Type: Physician Type: Plan of Care Filed: 07/04/2021 2:19 PM Note Text: JESS CHECKLIST Indication: Absolute Contraindications: No - Esophageal disorders - Active GI bleed - Relative Contraindications: no - Esophageal varices - Symptomatic hiatal hernia - H/O: Dysphagia/Odynophagia - Severe thrombocytopenia (platelets<50), elevated INR>4 or prolonged PTT (>150s) - test: Not indicated. COVID test: negative Criteria for deep sedation: no - Equal to or greater than 3L/min oxygen - Active IV drug use/alcohol abuse - On chronic pain therapy (patch, NOVELTY MAKER pump, meds like methadone, suboxone or naltrexone) - Weight >350 lb Patient consentable?: no, has aphasia per chart review Location of JESS: POD/EP lab POD NPO for 8 hours: Yes Salo Crawford MD, [facility] Cardiovascular Medicine Pager: [phone] July 04, 2021 [facility] 07-04-2021 Note HNO ID: [id number] Author: Shimon Simon DO Service: Hospital Medicine Author Type: Physician Type: Progress Notes Filed: 07/04/2021 10:25 AM Note Text: HOSPITAL MEDICINE PROGRESS NOTE SERVICE DATE: July 04, 2021 SERVICE TIME: 10:18 AM Hospital Medicine/Primary Attending: Shimon Simon DO NIGHT AND WEEKEND COVERAGE: After 7pm please page [phone] CHIEF COMPLAINT: ams Assessment/Plan This is a very pleasant 76 yr old female PMH HLD, GERD, remote CVA, Meniere's disease (very hard of hearing), who was transfered from [place] ED with findings of acute left frontal 2.2 x 1.8cm ICH with associated edema. Trace bilateral SAH. No IVH. No OSH actual images available for review. NICU course 06/30: NAEON, repeat CTH stable, CTA h/n unrevealing for vascular abnormality. 07/01: NAEON, normal DCA completed today, plan to transfer to [facility] today 07/02: awaiting MRI 07/03: awaiting MRI 07/04: NAEON, MRI showing multiple scattered infarcts. Neuro recs JESS to r/o thromboembolic cause. Will need to be d/c on 30 day monitor #Acute intracranial hemorrhage #SAH - CTA HANDN (06/30) - no spot sign, no vascular abnormalities - [facility] 06/30 @ 0855 - stable - DCA completed 07/01 - no cerebral aneurysms or abnormalities to suggest etiology of ICH/SAH - MRI brain: mult scattered infarcts -pt/ot: home pt/ot -follow up NSG recs #multiple acute punctate cortical infarcts -JESS per neuro -galactomannan. Neuro recs r/u aspergillosis -no fevers, WBC and pt energetic. Arguing against infectious cause of endocarditis -asa -follow up neuro recs -will need 30 day even recorder on d/c (ordered) #aphasia / to above -speech therapy #CVA March 2020 -okay to resume ASA per neuro #HLD Ezetimibe #HTN -triamterine-hctz SUBJECTIVE: Pt seen and examined. Feels fine no complaints Patient denies CP, SOB, fevers, chills, nausea, or emesis. OBJECTIVE: PHYSICAL EXAM: BP 137/68 Pulse 83 Temp (Src) 98.1 (Oral) Resp 18 Ht 5' 1 (1.55m) Wt 126 lb 1.7 oz (57.2kg) SpO2 96% BMI 23.84 kg/(m2). O2 Therapy: Room Air Physical Exam Vitals and nursing note reviewed. Constitutional: General: She is not in acute distress. Comments: Very hard of hearing Eyes: General: Right eye: No discharge. Left eye: No discharge. Pulmonary: Effort: No respiratory distress. Abdominal: General: There is no distension. Tenderness: There is no guarding. Musculoskeletal: General: No swelling. Skin: Coloration: Skin is not jaundiced. Neurological: Mental Status: She is alert. Mental status is at baseline. Comments: Some verbal deficits noted. Moving extremities well! Psychiatric: Mood and Affect: Mood normal. MEDICATIONS: Current Facility-Administered Medications Medication Dose Route Frequency - NaCl 0.9% iv flush bag 20 mL INTRAVENOUS PRN - sodium chloride 0.9 % (flush) 3-5 mL (BD POSIFLUSH) 3-5 mL INTRAVENOUS q 12 H - acetaminophen 650 mg tab(s) (TYLENOL) 650 mg ORAL/FEEDING TUBE q 4 H PRN - ondansetron (PF) 4 mg injection (ZOFRAN) 4 mg INTRAVENOUS q 6 H PRN - sodium chloride 0.9 % (flush) 2-10 mL (BD POSIFLUSH) 2-10 mL INTRAVENOUS DIRECTED PRN And - perflutren lipid microspheres 1.1 mg/mL 1.3 mL injection (DEFINITY) 1.3 mL INTRAVENOUS DIRECTED PRN - triamterene-hydroCHLOROthiazide 37.5-25 mg 1 tablet (MAXZIDE-25) 1 tablet ORAL/FEEDING TUBE DAILY - senna-docusate 8.6-50 mg 1 tablet (SENNA-S) 1 tablet ORAL/FEEDING TUBE BID - ezetimibe 10 mg tab(s) (ZETIA) 10 mg ORAL/FEEDING TUBE DAILY - NaCl 0.9% iv infusion 75 mL/hr INTRAVENOUS CONTINUOUS - sodium chloride 0.9 % (flush) 2-10 mL (BD POSIFLUSH) 2-10 mL INTRAVENOUS q 12 H - sodium chloride 0.9 % (flush) 3-5 mL (BD POSIFLUSH) 3-5 mL INTRAVENOUS q 12 H DATA: Diagnostic tests reviewed for today's visit: CBC: No results for input(s): WBC, RBC, HB, HCT, PLT, MCV, MCH, MPV, RDW in the last 24 hours. Coags: No results for input(s): PT, INR, APTT in the last 24 hours. BMP: No results for input(s): NA, K, CHLOR, CO2, BUN, CREAT, GLUC in the last 24 hours. CMP: No results for input(s): NA, K, CHLOR, CO2, BUN, CREAT, GLUC, TPROT, CA, MG, ALBUMIN, TBILI, ALKPHOS, ALT, AST, ANION in the last 24 hours. Cardiac Enzymes: No results for input(s): CK, MB, CKMB, TROPT in the last 24 hours. Liver Function, Amylase, Lipase: No results for input(s): TPROT, ALB, ALT, AST, ALKPHOS, TBILI, AMYLASE, LIPASE, LACTATE in the last 24 hours. MG/PHOS: No results for input(s): MG, P in the last 24 hours. Renal Panel: No results for input(s): ALBUMIN, CREAT, BUN, GLUC, CA, P, CHLOR, K, CO2, NA in the last 24 hours. Heme: No results for input(s): RETICP, ABSRETIC, LD, FLOR, FE, TIBC, TRANSFERSAT in the last 24 hours. No results found for: UALBCR Medication and Non-Pharmacologic VTE Prophylaxis/Anticoagulants 07/01/21 1345 vte pharmacologic prophylaxis contraindicated (fl,oh) 07/01/21 1345 pneumatic compression stockings (more content not included)... [facility] 07-03-2021 Note HNO ID: [id number] Author: ZAHEER Mae Service: Care Management Author Type: Insurance Law Specialist Type: Care Mgt Progress Note Filed: 07/04/2021 4:00 PM Note Text: CARE MANAGEMENT PROGRESS NOTE SERVICE DATE: 07/04/2021 SERVICE TIME: 3:56 PM LOS: 5 days Stroke consult GERIATRIC DEPRESSION SCREEN 1. Are you basically satisfied with your life? Yes 2. Have you dropped many of your activities and interests? Yes (1 point) 3. Do you feel that your life is empty? Yes (1 point) 4. Do you often get bored? No 5. Are you in good spirits most of the time? Yes 6. Are you afraid that something bad is going to happen to you? No 7 Do you feel happy most of the time? Yes 8 Do you often feel helpless? No 9. Do you prefer to stay home, rather than going out and doing new things? Yes (1 point) 10. Do you feel that you have more problems with memory than most? Yes (1 point) 11. Do you think it is wonderful to be alive now? Yes 12. Do you feel worthless the way you are now? No 13. Do you feel full of energy? No (1 point) 14. Do you feel that your situation is hopeless? No 15. Do you think that most people are better off than you are? No Total Score: 5 Scores greater than 5 indicate probably depression Score Result 0-4 No Depression 5-10 Suggestive of Mild Depression 11+ Suggestive of Severe Depression SW completed stroke depression screen with pt at bedside. Pt scored a 5 indicating mild depression. SW educated pt on post stroke emotions and provided pt with stroke packet. No other questions or concerns at this time. SIGNATURE: ZAHEER Mae PATIENT NAME: Kiya Cabello DATE: July 04, 2021 TIME: 3:56 PM PAGER/CONTACT #: [phone] [facility] 07-03-2021 Note HNO ID: [id number] Author: Shimon Simon DO Service: Hospital Medicine Author Type: Physician Type: Progress Notes Filed: 07/03/2021 9:34 AM Note Text: HOSPITAL MEDICINE PROGRESS NOTE SERVICE DATE: July 03, 2021 SERVICE TIME: 9:32 AM Hospital Medicine/Primary Attending: Shimon Simon DO NIGHT AND WEEKEND COVERAGE: After 7pm please page [phone] CHIEF COMPLAINT: ams Assessment/Plan This is a very pleasant 76 yr old female PMH HLD, GERD, remote CVA, Meniere's disease, who was transfered from [place] ED with findings of acute left frontal 2.2 x 1.8cm ICH with associated edema. Trace bilateral SAH. No IVH. No actual images available for review. DISPO: based on PT/Ot and MRI NICU course 06/30: NAEON, repeat CTH stable, CTA h/n unrevealing for vascular abnormality. 07/01: NAEON, normal DCA completed today, plan to transfer to [facility] today #Acute intracranial hemorrhage #SAH - CTA HANDN (06/30) - no spot sign, no vascular abnormalities - [facility] 06/30 @ 0855 - stable - DCA completed 07/01 - no cerebral aneurysms or abnormalities to suggest etiology of ICH/SAH - MRI brain w/wo pending. -pt/ot -follow up NSG recs #aphasia 05/03 to above -speech therapy #CVA March 2020 -hold ASA in setting of bleed #HLD Ezetimibe #HTN -triamterine-hctz SUBJECTIVE: Pt seen and examined. Feels fine actually got sleep overnight Patient denies CP, SOB, fevers, chills, nausea, or emesis. OBJECTIVE: PHYSICAL EXAM: BP 119/67 Pulse 94 Temp (Src) 97.7 (Oral) Resp 16 Ht 5' 1 (1.55m) Wt 126 lb 1.7 oz (57.2kg) SpO2 97% BMI 23.84 kg/(m2). O2 Therapy: Room Air Physical Exam Vitals and nursing note reviewed. Constitutional: General: She is not in acute distress. Eyes: General: Right eye: No discharge. Left eye: No discharge. Pulmonary: Effort: No respiratory distress. Abdominal: General: There is no distension. Tenderness: There is no guarding. Musculoskeletal: General: No swelling. Skin: Coloration: Skin is not jaundiced. Neurological: Mental Status: She is alert. Mental status is at baseline. Comments: Some verbal deficits noted. Moving extremities well! Psychiatric: Mood and Affect: Mood normal. MEDICATIONS: Current Facility-Administered Medications Medication Dose Route Frequency - NaCl 0.9% iv flush bag 20 mL INTRAVENOUS PRN - sodium chloride 0.9 % (flush) 3-5 mL (BD POSIFLUSH) 3-5 mL INTRAVENOUS q 12 H - acetaminophen 650 mg tab(s) (TYLENOL) 650 mg ORAL/FEEDING TUBE q 4 H PRN - ondansetron (PF) 4 mg injection (ZOFRAN) 4 mg INTRAVENOUS q 6 H PRN - sodium chloride 0.9 % (flush) 2-10 mL (BD POSIFLUSH) 2-10 mL INTRAVENOUS DIRECTED PRN And - perflutren lipid microspheres 1.1 mg/mL 1.3 mL injection (DEFINITY) 1.3 mL INTRAVENOUS DIRECTED PRN - triamterene-hydroCHLOROthiazide 37.5-25 mg 1 tablet (MAXZIDE-25) 1 tablet ORAL/FEEDING TUBE DAILY - senna-docusate 8.6-50 mg 1 tablet (SENNA-S) 1 tablet ORAL/FEEDING TUBE BID - ezetimibe 10 mg tab(s) (ZETIA) 10 mg ORAL/FEEDING TUBE DAILY - NaCl 0.9% iv infusion 75 mL/hr INTRAVENOUS CONTINUOUS - sodium chloride 0.9 % (flush) 2-10 mL (BD POSIFLUSH) 2-10 mL INTRAVENOUS q 12 H - sodium chloride 0.9 % (flush) 3-5 mL (BD POSIFLUSH) 3-5 mL INTRAVENOUS q 12 H DATA: Diagnostic tests reviewed for today's visit: CBC: Recent Labs 07/03/21 0406 WBC 8.60 RBC 4.99 HB 14.6 HCT 42.3 PLT 306 MCV 84.8 MCH 29.3 MPV 10.4 Coags: No results for input(s): PT, INR, APTT in the last 24 hours. BMP: Recent Labs 07/03/21 0406 NA 132* K 3.8 CHLOR 96* CO2 22 BUN 17 CREAT 0.78 GLUC 115* CMP: Recent Labs 07/03/21 0406 NA 132* K 3.8 CHLOR 96* CO2 22 BUN 17 CREAT 0.78 GLUC 115* CA 9.7 ANION 14 Cardiac Enzymes: No results for input(s): CK, MB, CKMB, TROPT in the last 24 hours. Liver Function, Amylase, Lipase: No results for input(s): TPROT, ALB, ALT, AST, ALKPHOS, TBILI, AMYLASE, LIPASE, LACTATE in the last 24 hours. MG/PHOS: No results for input(s): MG, P in the last 24 hours. Renal Panel: Recent Labs 07/03/21 0406 CREAT 0.78 BUN 17 GLUC 115* CA 9.7 CHLOR 96* K 3.8 CO2 22 NA 132* Heme: No results for input(s): RETICP, ABSRETIC, LD, FLOR, FE, TIBC, TRANSFERSAT in the last 24 hours. No results found for: UALBCR Medication and Non-Pharmacologic VTE Prophylaxis/Anticoagulants 07/01/21 1345 vte pharmacologic prophylaxis contraindicated (in,oh) 07/01/21 1345 pneumatic compression stockings (in,oh) 06/30/21 1415 activity - mobilize patient (in,oh) 06/29/212244 vte pharmacologic prophylaxis contraindicated (in,oh) 06/29/21 224 pneumatic compression stockings (in,ct) Lines, Drains, and Airways Line Peripheral 06/29/212241 Admission to Hospital Short Right Antecubital 20 Gauge 3 days Peripheral 07/01/21 1144 Left Antecubital 20 Gauge 1 day Reviewed lines and needs to be continued: REASONS: Difficulty in obtaining/maint (more content not included)... [facility] 07-02-2021 Note HNO ID: [id number] Author: Mercedes Navarrete PA-C Service: Neurosurgery Author Type: Physician Cylinder Head Assembler Type: Progress Notes Filed: 07/02/2021 1:28 PM Note Text: PROGRESS NOTE NEUROSURGERY SERVICE DATE: 07/02/2021 Subjective INTERVAL HPI Patient more alert this AM and conversive. No c/o. Eager to go home. Current Facility-Administered Medications Medication Dose Route Frequency - NaCl 0.9% iv flush bag 20 mL INTRAVENOUS PRN - sodium chloride 0.9 % (flush) 3-5 mL (BD POSIFLUSH) 3-5 mL INTRAVENOUS q 12 H - acetaminophen 650 mg tab(s) (TYLENOL) 650 mg ORAL/FEEDING TUBE q 4 H PRN - ondansetron (PF) 4 mg injection (ZOFRAN) 4 mg INTRAVENOUS q 6 H PRN - sodium chloride 0.9 % (flush) 2-10 mL (BD POSIFLUSH) 2-10 mL INTRAVENOUS DIRECTED PRN And - perflutren lipid microspheres 1.1 mg/mL 1.3 mL injection (DEFINITY) 1.3 mL INTRAVENOUS DIRECTED PRN - triamterene-hydroCHLOROthiazide 37.5-25 mg 1 tablet (MAXZIDE-25) 1 tablet ORAL/FEEDING TUBE DAILY - senna-docusate 8.6-50 mg 1 tablet (SENNA-S) 1 tablet ORAL/FEEDING TUBE BID - ezetimibe 10 mg tab(s) (ZETIA) 10 mg ORAL/FEEDING TUBE DAILY - NaCl 0.9% iv infusion 75 mL/hr INTRAVENOUS CONTINUOUS - sodium chloride 0.9 % (flush) 2-10 mL (BD POSIFLUSH) 2-10 mL INTRAVENOUS q 12 H - sodium chloride 0.9 % (flush) 3-5 mL (BD POSIFLUSH) 3-5 mL INTRAVENOUS q 12 H Objective Physical Exam Performed: General - Alert, cooperative Resp - even, unlabored GI - non-distended HEENT - Normocephalic. Atraumatic. Neuro - A+O x3, PERRL, makes eye contact, LITTLE TRAVERSE, speech w/ mild aphasia- continues to improve. cranial nerves 2-12 grossly intact, QUIROZ, strength 5/5 BUE and BLE and equal. No sensory deficits Extremities- Grossly normal. Symmetrical. Pulses- 2+ DP ? VITAL SIGNS 24 HOUR REVIEW: Patient Vitals for the past 24 hrs: BP Temp Temp src Pulse Resp SpO2 Weight 07/02/21 1200 118/69 37 ?C (98.6 ?F) Oral 82 16 97 % ? 07/02/21 0822 125/64 37.4 ?C (99.3 ?F) Oral 73 16 96 % ? 07/02/21 0609 114/64 36.6 ?C (97.9 ?F) Oral 74 16 96 % ? 07/01/21 2350 108/53 36.9 ?C (98.4 ?F) Oral 82 16 97 % 57.2 kg (126 lb 1.7 oz) 07/01/21 1837 113/65 36.7 ?C (98.1 ?F) Oral 70 16 97 % ? 07/01/21 1803 106/60 ? ? 77 14 97 % ? 07/01/21 1600 109/63 ? ? 65 17 98 % ? 07/01/21 1500 109/63 ? ? 63 14 98 % ? 07/01/21 1430 ? ? ? 61 14 98 % ? 07/01/21 1400 ? ? ? 66 15 97 % ? 07/01/21 1345 ? ? ? 65 14 98 % ? LABS: CBC, Coags, BMP, Mg, Phos Recent Labs 07/02/21 0616 07/01/21 0548 06/30/21 0416 WBC 8.70 8.35 9.33 HB 14.2 13.9 13.6 HCT 41.4 40.6 39.9 PLT 301 272 266 INR -- -- 1.0 APTT -- -- 25.5 NA 131* 134* 134* K 4.2 3.8 4.3 CHLOR 96* 100 99 CO2 20* 21* 23 BUN 13 17 13 CREAT 0.76 0.76 0.69 GLUC 101* 116* 103* CA 9.4 9.4 9.2 MG -- 2.0 2.1 P -- 4.0 3.3 Assessment/Plan Ms. Cabello is a 76 year old female?w/ PMHx remote CVA, meniere's disease, HLD?who presents as a transfer from [place] w/ acute left frontal ICH and trace b/l SAH: ? -neuro stable -CT brain 06/30- stable -CTA HANDN neck negative for underlying vascular abnormality/aneurysm -NIL 07/01 for DCA- no underling vascular abnormality of ICH/SAH -MRI brain w/wo to r/o underlying lesion -ok for DVT ppx -NS will follow peripherally for MRI to ensure no underlying lesion. Please call w/ questions concerns ? Medication and Non-Pharmacologic VTE Prophylaxis/Anticoagulants 07/01/21 1345 vte pharmacologic prophylaxis contraindicated (in,ct) 07/01/21 1345 pneumatic compression stockings ([place], [place]) 06/30/21 1415 activity - mobilize patient (in,ct) 06/29/21 2245 vte pharmacologic prophylaxis contraindicated ([place], [place]) 06/29/21 2245 pneumatic compression stockings ([place], [place]) VTE Prophylaxis: VTE prophylaxis appropriate SIGNATURE: Mercedes Navarrete PA-C PATIENT NAME: Kiya Cabello DATE: July 02, 2021 TIME: 1:24 PM Pager [phone] [facility] 07-02-2021 Note HNO ID: [id number] Author: Shimon Simon DO Service: Hospital Medicine Author Type: Physician Type: Progress Notes Filed: 07/02/2021 11:13 AM Note Text: HOSPITAL MEDICINE PROGRESS NOTE SERVICE DATE: July 02, 2021 SERVICE TIME: 11:03 AM Hospital Medicine/Primary Attending: Shimon Simon DO NIGHT AND WEEKEND COVERAGE: After 7pm please page [phone] CHIEF COMPLAINT: ams Assessment/Plan This is a very pleasant 76 yr old female PMH HLD, GERD, remote CVA, Meniere's disease, who was transfered from [place] ED with findings of acute left frontal 2.2 x 1.8cm ICH with associated edema. Trace bilateral SAH. No IVH. No actual images available for review. NICU course 06/30: NAEON, repeat CTH stable, CTA h/n unrevealing for vascular abnormality. 07/01: NAEON, normal DCA completed today, plan to transfer to [facility] today #Acute intracranial hemorrhage #SAH - CTA HANDN (06/30) - no spot sign, no vascular abnormalities - r[facility]H 06/30 @ 0855 - stable - DCA completed 07/01 - no cerebral aneurysms or abnormalities to suggest etiology of ICH/SAH - MRI brain w/wo pending. -pt/ot -follow up NSG recs #aphasia 05/03 to above -speech therapy #CVA March 2020 -hold ASA in setting of bleed #HLD Ezetimibe #HTN -triamterine-hctz SUBJECTIVE: Pt seen and examined. Very pleasant. No complaints! Patient denies CP, SOB, fevers, chills, nausea, or emesis. OBJECTIVE: PHYSICAL EXAM: BP 125/64 Pulse 73 Temp (Src) 99.3 (Oral) Resp 16 Ht 5' 1 (1.55m) Wt 126 lb 1.7 oz (57.2kg) SpO2 96% BMI 23.84 kg/(m2). O2 Therapy: Room Air Physical Exam Vitals and nursing note reviewed. Constitutional: General: She is not in acute distress. Eyes: General: Right eye: No discharge. Left eye: No discharge. Pulmonary: Effort: No respiratory distress. Abdominal: General: There is no distension. Tenderness: There is no guarding. Musculoskeletal: General: No swelling. Skin: Coloration: Skin is not jaundiced. Neurological: Mental Status: She is alert. Mental status is at baseline. Comments: Some verbal deficits noted. Moving extremities well! Psychiatric: Mood and Affect: Mood normal. MEDICATIONS: Current Facility-Administered Medications Medication Dose Route Frequency - NaCl 0.9% iv flush bag 20 mL INTRAVENOUS PRN - sodium chloride 0.9 % (flush) 3-5 mL (BD POSIFLUSH) 3-5 mL INTRAVENOUS q 12 H - acetaminophen 650 mg tab(s) (TYLENOL) 650 mg ORAL/FEEDING TUBE q 4 H PRN - ondansetron (PF) 4 mg injection (ZOFRAN) 4 mg INTRAVENOUS q 6 H PRN - sodium chloride 0.9 % (flush) 2-10 mL (BD POSIFLUSH) 2-10 mL INTRAVENOUS DIRECTED PRN And - perflutren lipid microspheres 1.1 mg/mL 1.3 mL injection (DEFINITY) 1.3 mL INTRAVENOUS DIRECTED PRN - triamterene-hydroCHLOROthiazide 37.5-25 mg 1 tablet (MAXZIDE-25) 1 tablet ORAL/FEEDING TUBE DAILY - senna-docusate 8.6-50 mg 1 tablet (SENNA-S) 1 tablet ORAL/FEEDING TUBE BID - ezetimibe 10 mg tab(s) (ZETIA) 10 mg ORAL/FEEDING TUBE DAILY - NaCl 0.9% iv infusion 75 mL/hr INTRAVENOUS CONTINUOUS - sodium chloride 0.9 % (flush) 2-10 mL (BD POSIFLUSH) 2-10 mL INTRAVENOUS q 12 H - sodium chloride 0.9 % (flush) 3-5 mL (BD POSIFLUSH) 3-5 mL INTRAVENOUS q 12 H DATA: Diagnostic tests reviewed for today's visit: CBC: Recent Labs 07/02/21 0616 WBC 8.70 RBC 4.85 HB 14.2 HCT 41.4 PLT 301 MCV 85.4 MCH 29.3 MPV 10.6 Coags: No results for input(s): PT, INR, APTT in the last 24 hours. BMP: Recent Labs 07/02/21 0616 NA 131* K 4.2 CHLOR 96* CO2 20* BUN 13 CREAT 0.76 GLUC 101* CMP: Recent Labs 07/02/21 0616 NA 131* K 4.2 CHLOR 96* CO2 20* BUN 13 CREAT 0.76 GLUC 101* CA 9.4 ANION 15 Cardiac Enzymes: No results for input(s): CK, MB, CKMB, TROPT in the last 24 hours. Liver Function, Amylase, Lipase: No results for input(s): TPROT, ALB, ALT, AST, ALKPHOS, TBILI, AMYLASE, LIPASE, LACTATE in the last 24 hours. MG/PHOS: No results for input(s): MG, P in the last 24 hours. Renal Panel: Recent Labs 07/02/21 0616 CREAT 0.76 BUN 13 GLUC 101* CA 9.4 CHLOR 96* K 4.2 CO2 20* NA 131* Heme: No results for input(s): RETICP, ABSRETIC, LD, FLOR, FE, TIBC, TRANSFERSAT in the last 24 hours. No results found for: UALBCR Medication and Non-Pharmacologic VTE Prophylaxis/Anticoagulants 07/01/21 1345 vte pharmacologic prophylaxis contraindicated (in,ct) 07/01/21 1345 pneumatic compression stockings (in,ct) 06/30/21 1415 activity - mobilize patient (in,ct) 06/29/212244 vte pharmacologic prophylaxis contraindicated (in,ct) 06/29/21 224 pneumatic compression stockings ([place], [place]) Lines, Drains, and Airways Line Peripheral 06/29/212241 Admission to Hospital Short Right Antecubital 20 Gauge 2 days Peripheral 07/01/21 1144 Left Antecubital 20 Gauge <1 day Reviewed lines and needs to be continued: REASONS: Difficulty in obtaining/maintaining access, Telemetry and Electrolyte (more content not included)... [facility] 07-01-2021 Note HNO ID: [id number] Author: Kyara Munguia APRN.CNP Service: Neurology ICU Author Type: Nurse Practitioner Type: Progress Notes Filed: 07/01/2021 2:17 PM Note Text: SERVICE DATE: 07/01/2021 SERVICE TIME: 2:17 PM NEURO ICU PROGRESS NOTE DATE OF ADMISSION: 06/29/2021 Subjective Hospital Course: 06/30: NAEON, repeat CTH stable, CTA h/n unrevealing for vascular abnormality. 07/01: NAEON, normal DCA completed today, plan to transfer to [facility] today. Events Since Last Note: As above Objective BP 123/59 Pulse 80 Temp 36.4 ?C (97.5 ?F) (Temporal) Resp 12 Ht 154.9 cm (5' 1 ) Wt 57.2 kg (126 lb 1.7 oz) SpO2 98% BMI 23.83 kg/m? Weight change: Neuro: Alert, oriented to person place time, PERRL, EOMI, speech clear expressive aphasia, QUIROZ 5/5 sensation intact to light touch GCS: Eyes: 4. Spontaneous Verbal: 5: Oriented Motor: 6: Obeys Motor commands Total: 15 CV: HRR Pulm: CTA unlabored on RA GI/: soft NT/ND +BS Skin/Extremities: Edema- No Peripheral pulses- Present all extremities Wounds/Drsgs- right groin site c/d/i no hematoma Breakdown- No Diagnostic tests reviewed for today's visit: Most recent labs and imaging results. Lines, Drains, and Airways Line Peripheral 06/29/21 2242 Admission to Hospital Short Right Antecubital 20 Gauge 1 day Peripheral 07/01/21 1144 Left Antecubital 20 Gauge <1 day ICU Checklist Last Documented/Reviewed time: 07/01/2021 10:06 AM --------- A= Assess, Prevent, Manage Pain Pain adequately controlled?: Yes C= Choice of Sedation and Analgesia RASS at Goal?: Yes B= Both Spontaneous Awakening and Breathing Trials Ventilator: None D= Delirium: Assess, Prevent and Manage ICU Delirium Status: CAM Negative - no action required Sleep adequate?: Yes Restraint Status: None E= Early Mobility/Excercise ICU Mobility: ICU Mobility-Pt Has Been Out of Bed: No - Specify F= Family Engagement and Empowerment ICU plan of care visit at bedside in last 24 hours: Yes, Provider, RN, Patient/ designee ICU Disposition: ICU Disposition- Is Patient Clinically Ready to Transfer to [facility] or SDU?: Yes, transfer to SDU or RNF today Discharge Planning: To be determined Prevention: Line Status: None Thornton Status: None Pressure Injury Status: None GI/Stress Ulcer Prophylaxis: None - not required Nutrition is at Goal: NPO VTE Prophylaxis: Chemoprophylaxis: No chemoprophylaxis Mechanical Prophylaxis: Knee high SCD No Chemoprophylaxis Reason: Active bleeding PERSONAL INVOLVEMENT IN CARE: Reviewing initiation, responses and adjustments to therapies, coordination of care, and updating family with Staff Physician, Dr. Hernandez. Assessment AND Plan Active Hospital Problems as of 07/01/2021 Noted - Resolved [facility] Mixed hyperlipidemia Unknown - Present Yes Current Assessment AND Plan PLAN: - Reported statin allergy - LDL 188 - ezetimibe 10 mg daily Meniere's disease 10/27/2015 - Present Yes Current Assessment AND Plan Resume home triamterene-hydrochlorothiazide Generalized anxiety disorder 03/19/2017 - Present Yes Primary hypertension 03/06/2021 - Present Yes Current Assessment AND Plan PLAN: - SBP goal <140 for now - PRN antihypertensives * (Principal) Acute intracranial hemorrhage (HCC) 06/29/2021 - Present Yes Current Assessment AND Plan Assessment: Per CT brain from outside facility: ' Small to medium sized IPH within L frontal lobe extending into left insular region 2.2 x 1.8cm. Surrounding edema noted. Approaching Broca's area. Trace SAH within posterior aspect of insula and along dorsal convexity bilateral frontal lobes L >R. No IVH or hydro. Remote left occipital infarct. ' Etiology unclear. BP controlled in 140s. ?possibly elevated during bout of n/v Saturday, No hx trauma or falls, no thinners, no aneurysm hx or hx of hemorrhage. PLAN: - Fu CT in 6 hours 06/30 0100 - 2.6 x 2.0 cm left frontal IPH with surrounding vasogenic edema - CTA HANDN (06/30) - no spot sign, no vascular abnormalities - [facility] 06/30 @ 0855 - stable - Neuro checks - SBP goal <140 - Normonatremia - Euvolemia - Fu AM labs - coags WNL - Regular diet - Holding antiplatelets and SQ DVT ppx - ST eval - PT/TO - NSGY following - MRI w/wo - Dr. Oliva c/s for DCA - DCA completed 07/01 - no cerebral aneurysms or abnormalities to suggest etiology of ICH/SAH - bowel reg - senna-s 1 tab BID SAH (subarachnoid hemorrhage) (HCC) 06/29/2021 - Present Unknown Current Assessment AND Plan PLAN: See Intracranial Hemorrhage Aphasia 06/29/2021 - Present Unknown Current Assessment AND Plan Assessment: Expressive > receptive PLAN: Speech therapy Headache 06/29/2021 - Present Unknown Current Assessment AND Plan PLAN: - PRN pain control: Tylenol History of stroke 06/29/2021 - Present Unknown Current Ass (more content not included)... [facility] 07-01-2021 Note HNO ID: [id number] Author: Mercedes Navarrete PA-C Service: Neurosurgery Author Type: Physician Cylinder Head Assembler Type: Progress Notes Filed: 07/01/2021 8:41 AM Note Text: PROGRESS NOTE NEUROSURGERY SERVICE DATE: 07/01/2021 Subjective INTERVAL HPI NAEON. Patient awake, c/o minor HALE otherwise doing well. Current Facility-Administered Medications Medication Dose Route Frequency - potassium chloride ER 20-40 mEq tab(s) (K-DUR, KLOR-CON) 20-40 mEq ORAL/FEEDING TUBE PRN Or - potassium chloride iv piggyback 20 mEq/100 mL 20 mEq INTRAVENOUS PRN - magnesium sulfate 2 g in sterile water 50 ml 2 g INTRAVENOUS PRN - phosphorus 500 mg tab(s) (K PHOS NEUTRAL) 500 mg ORAL/FEEDING TUBE PRN(NO DISPENSE) - calcium gluconate 4 g in NaCl 0.9% 250 mL 4 g INTRAVENOUS PRN - NaCl 0.9% iv flush bag 20 mL INTRAVENOUS PRN - sodium chloride 0.9 % (flush) 3-5 mL (BD POSIFLUSH) 3-5 mL INTRAVENOUS q 12 H - acetaminophen 650 mg tab(s) (TYLENOL) 650 mg ORAL/FEEDING TUBE q 4 H PRN - ondansetron (PF) 4 mg injection (ZOFRAN) 4 mg INTRAVENOUS q 6 H PRN - hydrALAZINE 5-10 mg injection (APRESOLINE) 5-10 mg INTRAVENOUS q 1 H PRN - sodium chloride 0.9 % (flush) 2-10 mL (BD POSIFLUSH) 2-10 mL INTRAVENOUS DIRECTED PRN And - perflutren lipid microspheres 1.1 mg/mL 1.3 mL injection (DEFINITY) 1.3 mL INTRAVENOUS DIRECTED PRN - triamterene-hydroCHLOROthiazide 37.5-25 mg 1 tablet (MAXZIDE-25) 1 tablet ORAL/FEEDING TUBE DAILY - senna-docusate 8.6-50 mg 1 tablet (SENNA-S) 1 tablet ORAL/FEEDING TUBE BID - iv contrast (radiology procedure) INTRAVENOUS DIRECTED PRN - ezetimibe 10 mg tab(s) (ZETIA) 10 mg ORAL/FEEDING TUBE DAILY - NaCl 0.9% iv infusion 75 mL/hr INTRAVENOUS CONTINUOUS Objective Physical Exam Performed: General - Alert, cooperative, appropriate Resp - even, unlabored GI - non-distended HEENT - Normocephalic. Atraumatic. Neuro - A+O x3, PERRL, makes eye contact, LITTLE TRAVERSE, speech w/ mild aphasia- improved since previous exam, cranial nerves 2-12 grossly intact, QUIROZ, strength 5/5 BUE and BLE and equal. No sensory deficits Extremities- Grossly normal. Symmetrical. Pulses- 2+ DP VITAL SIGNS 24 HOUR REVIEW: Patient Vitals for the past 24 hrs: BP Temp Temp src Pulse Resp SpO2 Height Weight 07/01/21 0600 113/69 ? ? 61 11 98 % ? ? 07/01/21 0500 119/59 ? ? 64 16 98 % ? ? 07/01/21 0400 110/50 36.9 ?C (98.4 ?F) ? 69 15 97 % ? ? 07/01/21 0300 105/57 ? ? 63 14 96 % ? ? 07/01/21 0200 125/55 ? ? 69 16 96 % ? ? 07/01/21 0100 116/61 ? ? 65 15 95 % ? ? 07/01/21 0000 110/61 37 ?C (98.6 ?F) Temporal 73 16 96 % ? ? 06/30/21 2300 107/57 ? ? 63 15 97 % ? ? 06/30/21 2200 112/62 ? ? 76 20 96 % ? ? 06/30/21 2100 108/53 ? ? 72 15 96 % ? ? 06/30/212009 ? 154.9 cm (5' 1 ) 57.2 kg (126 lb 1.7 oz) 06/30/21 2000 110/57 36.7 ?C (98.1 ?F) Temporal 79 16 97 % ? ? 06/30/21 1900 ? ? ? 80 18 97 % ? ? 06/30/21 1800 124/66 ? ? 97 16 97 % ? ? 06/30/21 1700 125/64 ? ? 77 17 96 % ? ? 06/30/21 1600 119/69 36.6 ?C (97.9 ?F) Temporal 80 18 96 % ? ? 06/30/21 1500 100/60 ? ? 80 17 97 % ? ? 06/30/21 1400 123/53 ? ? 83 18 96 % ? ? 06/30/21 1300 90/65 ? ? 94 15 94 % ? ? 06/30/21 1200 118/65 36.8 ?C (98.2 ?F) Temporal 64 14 97 % ? ? 06/30/21 1100 128/51 ? ? 77 17 97 % ? ? 06/30/21 1000 128/65 ? ? 71 17 97 % ? ? 06/30/21 0955 122/57 ? ? 75 14 97 % ? ? 06/30/21 0900 149/109 ? ? 67 15 95 % ? ? LABS: CBC, Coags, BMP, Mg, Phos Recent Labs 07/01/21 0548 06/30/21 0416 WBC 8.35 9.33 HB 13.9 13.6 HCT 40.6 39.9 PLT 272 266 INR -- 1.0 APTT -- 25.5 NA 134* 134* K 3.8 4.3 CHLOR 100 99 CO2 21* 23 BUN 17 13 CREAT 0.76 0.69 GLUC 116* 103* CA 9.4 9.2 MG 2.0 2.1 P 4.0 3.3 Assessment/Plan Ms. Cabello is a 76 year old female w/ PMHx remote CVA, meniere's disease, HLD who presents as a transfer from [place] w/ acute left frontal ICH and trace b/l SAH: ? -neuro stable -CT brain 06/30- stable -CTA HANDN neck negative for underlying vascular abnormality/aneurysm -will discuss with NIL attending regarding possibility of DCA, keep NPO for now -MRI brain w/wo to r/o underlying lesion -hold DVT ppx and oral AC, SCDs ok -NSICU for medical management SIGNATURE: Mercedes Navarrete PA-C PATIENT NAME: Kiya Cabello DATE: July 01, 2021 TIME: 8:12 AM Pager [phone] [facility] 06-30-2021 Note HNO ID: [id number] Author: Carlie Peña (Statistics Tutor) Service: Pharmacy Author Type: Bail Bondsman Type: Plan of Care Filed: 06/30/2021 1:11 PM Note Text: PHARMACY MEDICATION REVIEW Patient Name: Kiya Cabello : 1945 The following medications were updated within the [facility] medication list: Medications ADDED to [facility] medication list ? Medications CHANGED on [facility] medication list ? Medications REMOVED from [facility] medication list FLUoxetine (PROZAC) 10 mg capsule Course of therapy completed ? Additional comments: Verified medication information with [facility] pharmacy and chart review. Did not confirm with patient/family. Did not check taking box. Per call to [facility], removed Prozac from med list - last fill 11/06/2020 for 90 days (also in Chart Review doctor talked about patient stopping Prozac in office visit 02/02/2021). The below information represents the best possible medication history: Yes Medication history completed by: Bail Bondsman: Carlie Peña (Statistics Tutor) Source of history: Pharmacy records: [facility] [phone] and [facility] records Medication nonadherence identified: Unable to assess Reconciliation completed: No, pharmacist not yet reviewed Patient interested in Bedside Delivery Services or using OP Pharmacy at discharge? Unable to assess Preferred outpatient pharmacy: e- [facility]/pharmacy #[id number] [place] [address] - [address] [phone] Allergies: Atorvastatin Intolerance Comment:Fatigue, balance issues, back aching Sulfa (Sulfonamide * Other: See Comments Prior to Admission Medications Prescriptions Last Dose Informant Patient Reported? Taking? DIETARY SUPPLEMENT ORAL Yes No Sig: Take by mouth. AminoSculpt - Ant-Aging Liquid Collagen. LOW-DOSE ASPIRIN ORAL Yes No Sig: Take 81 mg by mouth once daily. OMEGA-3 FATTY ACIDS (FISH OIL CONCENTRATE ORAL) Yes No Sig: Take 1 tablet by mouth twice daily. UBIDECARENONE (COENZYME Q10) 100 mg tab Yes No Sig: Take 1 tablet by mouth. tloet-A-ippopoeunugbq (BEANO ORAL) Yes No Sig: Take 2 tablets by mouth three times daily before meals. Patient taking as needed. cetirizine (ZYRTEC) 10 mg tablet Yes No Sig: Take 10 mg by mouth as needed. cyanocobalamin 1,000 mcg/mL Yes No Sig: Inject 1.5 mL intramuscularly once every month. Per Dr. Briones, Neurology. triamterene-hydroCHLOROthiazide (DYAZIDE) 37.5-25 mg per capsule No No Sig: Take 1 capsule by mouth once daily. Facility-Administered Medications: None Carlie Peña (Statistics Tutor)[id number] 06/30/2021 [facility] 06-30-2021 Note HNO ID: [id number] Author: Kyara Munguia APRN.CABLE SPLICER APPRENTICE Service: Neurology ICU Author Type: Nurse Practitioner Type: Progress Notes Filed: 06/30/2021 12:41 PM Note Text: ---- Attestation signed by Herbert Cristina DO at 06/30/2021 3:41 PM Neuro ICU Progress Note (Staff Addendum) THE NEURO ICU MANAGEMENT OF THIS PATIENT WAS DISCUSSED WITH THE NSICU TEAM UNDER DR. CRISTINA I have reviewed the progress note obtained and documented by the advanced practice provider Kyara Munguia. I have personally seen and examined the patient and discussed their management with the SHAHNAZ. I reviewed the SHAHNAZ note and agree with the documented findings and plan of care. Please see the documented [id number] plan in the updated problem list. PATIENT PROBLEMS I REVIEWED, REVISED AND/OR INITIATED: The care of this patient required my full attention and direct personal management of: Principal Problem: Acute intracranial hemorrhage (HCC) Active Problems: Mixed hyperlipidemia Meniere's disease Generalized anxiety disorder Primary hypertension SAH (subarachnoid hemorrhage) (HCC) Aphasia Headache History of stroke Hyponatremia Resolved Problems: * No resolved hospital problems. * Summary/Impression: 76 yr old F hx of Meniere's and remote stroke presenting from [place] w/ acute Left frontal IPH. NIH 1-2 for aphasia. Brief Exam Findings and Data: Patient is awake and alert No Cranial Nerve Deficits Continued intermittent aphasia Spontaneously moves all four extremities We made the following changes during rounds: Elevated TSH check T3/4 Bowel reg Stop IVF Echo PT/OT Restart home dyazide Actions/Plans: 76 yr old F hx of Meniere's and remote stroke presenting from [place] w/ acute Left frontal IPH. NIH 1-2 for aphasia. - Patient and family deny trauma - Left Frontal IPH, stable bilateral subarachnoid hemorrhage - Awaiting MRI and DCA for further evaluation - SBP < 140 - No antiplatelets, no anticoagulation for at least two days post-bleed Plan of care discussed with: Patient, Family/Significant Other: Patient's and Son, at bedside, ICU Team, RN, and Pharmacist. ==== STAFF COORDINATION OF CRITICAL CARE [facility] Staff Physician note of personal involvement in Care The patient is critically ill because of imminent risk of acute brain damage and continues to require intensive support and observation. This patient has a high probability of sudden, clinically significant deterioration, which requires the highest level of physician preparedness to intervene urgently. I managed/supervized life or organ supporting interventions that required frequent physician assessment. I devoted my full attention to the direct care of this patient for the amount of time indicated below. Time I spent with family or surrogate(s) is included only if the patient was incapable of providing the necessary information or participating in medical decision making. Time devoted to teaching or to any procedures I billed separately is not included. CRITICAL CARE: I personally spent 60 minutes of critical care time involved in the care of this patient. ==== Herbert Cristina DO Staff, Neurointensive Care [facility] [place] Date of Service: 06/30/2021 Time of Service: 3:41 PM ---- SERVICE DATE: 06/30/2021 SERVICE TIME: 12:41 PM NEURO ICU PROGRESS NOTE DATE OF ADMISSION: 06/29/2021 Subjective Hospital Course: 06/30: NAEON, repeat CTH stable, CTA h/n unrevealing for vascular abnormality. Events Since Last Note: As above Objective BP 118/65 Pulse 64 Temp 36.8 ?C (98.2 ?F) (Temporal) Resp 14 SpO2 97% Weight change: Neuro: Alert, oriented to person place and time, PERRL, EOMI, face symmetric, mild aphasia, follows simple commands, QUIROZ 5/5, sensation intact to light touch GCS: Eyes: 4. Spontaneous Verbal: 5: Oriented Motor: 6: Obeys Motor commands Total: 15 CV: HRR Pulm: CTA unlabored on RA GI/: soft, NT +BS Skin/Extremities: Edema- No Peripheral pulses- Present all extremities Wounds/Drsgs- No Breakdown- No Diagnostic tests reviewed for today's visit: Most recent labs and imaging results. Lines, Drains, and Airways Line Peripheral 06/29/212241 Admission to Hospital Short Right Antecubital 20 Gauge <1 day ICU Checklist Last Documented/Reviewed time: 06/30/2021 8:36 AM --------- A= Assess, Prevent, Manage Pain Pain adequately controlled?: Yes C= Choice of Sedation and Analgesia RASS at Goal?: Yes B= Both Spontaneous Awakening and Breathing Trials Ventilator: None D= Delirium: Assess, Prevent and Manage ICU Delirium Status: CAM Negative - no action require (more content not included)... [facility] documented as of this encounter (statuses as of 07/06/2021) [facility]03-12-2020 History of Past illness Narrative* Problem Noted Date Resolved Date Esophageal thickening on MRI of the neck 020 03/17/2020 Deviated septum 10/27/2015 08/07/2017 Heartburn 10/27/2015 08/07/2017 Stress and adjustment reaction 07/27/2015 0 08/07/2017 Abdominal pain, epigastric 05/25/201310/26 Diverticulitis of colon (wit hout mention of hemorrhage)(562.11) 08/07/2007 08/07/2017 Blood in stool 07/09/2007 10/27/2015 CHOLELITHIASIS SEE ALSO GALL BLADD WITHOUT CHOLECYSTITIS( Without obstruction) 12/28/2005 10/27/2015 documented as of this encounter (statuses as of 07/07/2021) [facility] History of Past illness Narrative* Problem Noted Date Resolved Date Esophageal thickening on MRI of the neck 020 03/17/2020 Deviated septum 10/27/2015 08/07/2017 Heartburn 10/27/2015 08/07/2017 Stress and adjustment reaction 07/27/2015 0 08/07/2017 Abdominal pain, epigastric 05/25/201310/26 Diverticulitis of colon (wit hout mention of hemorrhage)(562.11) 08/07/2007 08/07/2017 Blood in stool 07/09/2007 10/27/2015 CHOLELITHIASIS SEE ALSO GALL BLADD WITHOUT CHOLECYSTITIS( Without obstruction) 12/28/2005 10/27/2015 documented as of this encounter (statuses as of 07/17/2021) [facility] History of Past illness Narrative* Problem Noted Date Resolved Date Esophageal thickening on MRI of the neck 020 03/17/2020 Deviated septum 10/27/2015 08/07/2017 Heartburn 10/27/2015 08/07/2017 Stress and adjustment reaction 07/27/2015 0 08/07/2017 Abdominal pain, epigastric 05/25/201310/26 Diverticulitis of colon (wit hout mention of hemorrhage)(562.11) 08/07/2007 08/07/2017 Blood in stool 07/09/2007 10/27/2015 CHOLELITHIASIS SEE ALSO GALL BLADD WITHOUT CHOLECYSTITIS( Without obstruction) 12/28/2005 10/27/2015 documented as of this encounter (statuses as of 07/18/2021) [facility] History of Past illness Narrative* Problem Noted Date Resolved Date Esophageal thickening on MRI of the neck 020 03/17/2020 Deviated septum 10/27/2015 08/07/2017 Heartburn 10/27/2015 08/07/2017 Stress and adjustment reaction 07/27/2015 0 08/07/2017 Abdominal pain, epigastric 05/25/201310/26 Diverticulitis of colon (wit hout mention of hemorrhage)(562.11) 08/07/2007 08/07/2017 Blood in stool 07/09/2007 10/27/2015 CHOLELITHIASIS SEE ALSO GALL BLADD WITHOUT CHOLECYSTITIS( Without obstruction) 12/28/2005 10/27/2015 documented as of this encounter (statuses as of 07/31/2021) [facility] History of Past illness Narrative* Problem Noted Date Resolved Date Esophageal thickening on MRI of the neck 020 03/17/2020 Deviated septum 10/27/2015 08/07/2017 Heartburn 10/27/2015 08/07/2017 Stress and adjustment reaction 07/27/2015 0 08/07/2017 Abdominal pain, epigastric 05/25/201310/26 Diverticulitis of colon (wit hout mention of hemorrhage)(562.11) 08/07/2007 08/07/2017 Blood in stool 07/09/2007 10/27/2015 CHOLELITHIASIS SEE ALSO GALL BLADD WITHOUT CHOLECYSTITIS( Without obstruction) 12/28/2005 10/27/2015 documented as of this encounter (statuses as of 08/02/2021) [facility] History of Past illness Narrative* Problem Noted Date Resolved Date Esophageal thickening on MRI of the neck 020 03/17/2020 Deviated septum 10/27/2015 08/07/2017 Heartburn 10/27/2015 08/07/2017 Stress and adjustment reaction 07/27/2015 0 08/07/2017 Abdominal pain, epigastric 05/25/201310/26 Diverticulitis of colon (wit hout mention of hemorrhage)(562.11) 08/07/2007 08/07/2017 Blood in stool 07/09/2007 10/27/2015 CHOLELITHIASIS SEE ALSO GALL BLADD WITHOUT CHOLECYSTITIS( Without obstruction) 12/28/2005 10/27/2015 documented as of this encounter (statuses as of 08/16/2021) [facility] History of Past illness Narrative* Problem Noted Date Resolved Date Esophageal thickening on MRI of the neck 020 03/17/2020 Deviated septum 10/27/2015 08/07/2017 Heartburn 10/27/2015 08/07/2017 Stress and adjustment reaction 07/27/2015 0 08/07/2017 Abdominal pain, epigastric 05/25/201310/26 Diverticulitis of colon (wit hout mention of hemorrhage)(562.11) 08/07/2007 08/07/2017 Blood in stool 07/09/2007 10/27/2015 CHOLELITHIASIS SEE ALSO GALL BLADD WITHOUT CHOLECYSTITIS( Without obstruction) 12/28/2005 10/27/2015 documented as of this encounter (statuses as of 10/27/2021) [facility] History of Past illness Narrative* Problem Noted Date Resolved Date Esophageal thickening on MRI of the neck 020 03/17/2020 Deviated septum 10/27/2015 08/07/2017 Heartburn 10/27/2015 08/07/2017 Stress and adjustment reaction 07/27/2015 0 08/07/2017 Abdominal pain, epigastric 05/25/201310/26 Diverticulitis of colon (wit hout mention of hemorrhage)(562.11) 08/07/2007 08/07/2017 Blood in stool 07/09/2007 10/27/2015 CHOLELITHIASIS SEE ALSO GALL BLADD WITHOUT CHOLECYSTITIS( Without obstruction) 12/28/2005 10/27/2015 documented as of this encounter (statuses as of 07/05/2022) [facility] History of Past illness Narrative* Problem Noted Date Resolved Date Esophageal thickening on MRI of the neck 020 03/17/2020 Deviated septum 10/27/2015 08/07/2017 Heartburn 10/27/2015 08/07/2017 Stress and adjustment reaction 07/27/2015 0 08/07/2017 Abdominal pain, epigastric 05/25/201310/26 Diverticulitis of colon (wit hout mention of hemorrhage)(562.11) 08/07/2007 08/07/2017 Blood in stool 07/09/2007 10/27/2015 CHOLELITHIASIS SEE ALSO GALL BLADD WITHOUT CHOLECYSTITIS( Without obstruction) 12/28/2005 10/27/2015 documented as of this encounter (statuses as of 07/16/2022) [facility] History of Past illness Narrative* Problem Noted Date Resolved Date Esophageal thickening on MRI of the neck 020 03/17/2020 Deviated septum 10/27/2015 08/07/2017 Heartburn 10/27/2015 08/07/2017 Stress and adjustment reaction 07/27/2015 0 08/07/2017 Abdominal pain, epigastric 05/25/201310/26 Diverticulitis of colon (wit hout mention of hemorrhage)(562.11) 08/07/2007 08/07/2017 Blood in stool 07/09/2007 10/27/2015 CHOLELITHIASIS SEE ALSO GALL BLADD WITHOUT CHOLECYSTITIS( Without obstruction) 12/28/2005 10/27/2015 documented as of this encounter (statuses as of 07/31/2022) [facility] History of Past illness Narrative* Problem Noted Date Resolved Date Esophageal thickening on MRI of the neck 020 03/17/2020 Deviated septum 10/27/2015 08/07/2017 Heartburn 10/27/2015 08/07/2017 Stress and adjustment reaction 07/27/2015 0 08/07/2017 Abdominal pain, epigastric 05/25/201310/26 Diverticulitis of colon (wit hout mention of hemorrhage)(562.11) 08/07/2007 08/07/2017 Blood in stool 07/09/2007 10/27/2015 CHOLELITHIASIS SEE ALSO GALL BLADD WITHOUT CHOLECYSTITIS( Without obstruction) 12/28/2005 10/27/2015 documented as of this encounter (statuses as of 09/15/2022) [facility] History of Past illness Narrative* Problem Noted Date Diagnosed Date Resolved Date Esophageal thickening on MRI of the neck 06/11/2019 03/17/2020 Deviated septum 10/27/2015 08/07/2017 Heartburn 10/27/2015 08/07/2017 Stress and adjustment reaction 07/27/2015 08/07/2017 Abdominal pain, epigastric 05/25/2013 0 10/27/2015 Diverticulitis of colon (wit hout mention of hemorrhage)(562.11) 08/07/2007 08/07/2017 Blood in stool 07/09/2007 10/27/2015 CHOLELITHIASIS SEE ALSO GALL BLADD WITHOUT CHOLECYSTITIS( Without obstruction) 12/28/200509/30 documented as of this encounter (statuses as of 10/16/2022) [facility] Intracranial hemorrhage (HCC)- Primary Unspecified intracranial hemorrhage [facility] Diagnosis Intracranial hemorrhage (HCC) Unspecified intracranial hemorrhage [facility]* Diagnosis Generalized anxiety disorder Depression, unspecified depression type [facility]* Diagnosis Mixed hyperlipidemia- Primary [facility]* Diagnosis Meniere's disease of right ear- Primary Meniere's disease, unspecified Sensorineural hearing loss, bilateral [facility]* Name Dates Details Patient Instructions Indication:Non-smoker Start:27-Dec-2021 Instruction Type:Provider Instructions for Treatment How to Access Health Informa tion Online using Patient Portal and [employer]rd [employer] Apps Indication:Non-smoker Start:27-Dec-2021 Instruction Type:Patient Education [facility]; [facility] Work Phone: [employer]* Name Dates Details Patient Instructions Indication:Non-smoker Start:27-Dec-2021 Instruction Type:Provider Instructions for Treatment How to Access Health Informa tion Online using Patient Portal and [employer] Apps Indication:Non-smoker Start:27-Dec-2021 Instruction Type:Patient Education [facility]; [facility] Work Phone: instructions* Name Dates Details Patient Instructions Indication:BMI 23.0-23.9, adult Start:09-Mar-2022 Instruction Type:Provider Instructions for Treatment How to Access Health Informa tion Online using Patient Portal and [employer] Apps Indication:BMI 23.0-23.9, adult Start:09-Mar-2022 Instruction Type:Patient Education Patient Instructions Indication:Non-smoker Start:27-Dec-2021 Instruction Type:Provider Instructions for Treatment How to Access Health Informa tion Online using Patient Portal and [employer]rd [employer] Apps Indication:Non-smoker Start:27-Dec-2021 Instruction Type:Patient Education [facility]; [facility] Work Phone: instructions* Name Dates Details Patient Instructions Indication:Non-smoker Start:29-Mar-2022 Instruction Type:Provider Instructions for Treatment How to Access Health Informa tion Online using Patient Portal and [employer]rd [employer] Apps Indication:Non-smoker Start:29-Mar-2022 Instruction Type:Patient Education Patient Instructions Indication:BMI 23.0-23.9, adult Start:09-Mar-2022 Instruction Type:Provider Instructions for Treatment How to Access Health Informa tion Online using Patient Portal and [employer]rd [employer] Apps Indication:BMI 23.0-23.9, adult Start:09-Mar-2022 Instruction Type:Patient Education Patient Instructions Indication:Non-smoker Start:27-Dec-2021 Instruction Type:Provider Instructions for Treatment How to Access Health Informa tion Online using Patient Portal and [employer]rd [employer] Apps Indication:Non-smoker Start:27-Dec-2021 Instruction Type:Patient Education [facility]; [facility] Work Phone: instructions* Name Dates Details Patient Instructions Indication:Non-smoker Start:29-Mar-2022 Instruction Type:Provider Instructions for Treatment How to Access Health Informa tion Online using Patient Portal and [employer]rd [employer] Apps Indication:Non-smoker Start:29-Mar-2022 Instruction Type:Patient Education Patient Instructions Indication:BMI 23.0-23.9, adult Start:09-Mar-2022 Instruction Type:Provider Instructions for Treatment How to Access Health Informa tion Online using Patient Portal and [employer]rd [employer] Apps Indication:BMI 23.0-23.9, adult Start:09-Mar-2022 Instruction Type:Patient Education Patient Instructions Indication:Non-smoker Start:27-Dec-2021 Instruction Type:Provider Instructions for Treatment How to Access Health Informa tion Online using Patient Portal and [employer] Apps Indication:Non-smoker Start:27-Dec-2021 Instruction Type:Patient Education [facility]; [facility] Work Phone: instructions* Name Dates Details Patient Instructions Indication:BMI 22.0-22.9, adult Start:07-May-2022 Instruction Type:Provider Instructions for Treatment How to Access Health Informa tion Online using Patient Portal and [employer]rd [employer] Apps Indication:BMI 22.0-22.9, adult Start:07-May-2022 Instruction Type:Patient Education Patient Instructions Indication:Non-smoker Start:29-Mar-2022 Instruction Type:Provider Instructions for Treatment How to Access Health Informa tion Online using Patient Portal and [employer] Apps Indication:Non-smoker Start:29-Mar-2022 Instruction Type:Patient Education Patient Instructions Indication:BMI 23.0-23.9, adult Start:09-Mar-2022 Instruction Type:Provider Instructions for Treatment How to Access Health Informa tion Online using Patient Portal and [employer] Apps Indication:BMI 23.0-23.9, adult Start:09-Mar-2022 Instruction Type:Patient Education Patient Instructions Indication:Non-smoker Start:27-Dec-2021 Instruction Type:Provider Instructions for Treatment How to Access Health Informa tion Online using Patient Portal and [employer] Apps Indication:Non-smoker Start:27-Dec-2021 Instruction Type:Patient Education [facility]; [facility] Work Phone: instructions* Name Dates Details Patient Instructions Indication:Non-smoker Start:13-Jun-2022 Instruction Type:Provider Instructions for Treatment How to Access Health Informa tion Online using Patient Portal and [employer] Apps Indication:Non-smoker Start:13-Jun-2022 Instruction Type:Patient Education Patient Instructions Indication:BMI 22.0-22.9, adult Start:07-May-2022 Instruction Type:Provider Instructions for Treatment How to Access Health Informa tion Online using Patient Portal and [employer] Apps Indication:BMI 22.0-22.9, adult Start:07-May-2022 Instruction Type:Patient Education Patient Instructions Indication:Non-smoker Start:29-Mar-2022 Instruction Type:Provider Instructions for Treatment How to Access Health Informa tion Online using Patient Portal and [employer] Apps Indication:Non-smoker Start:29-Mar-2022 Instruction Type:Patient Education Patient Instructions Indication:BMI 23.0-23.9, adult Start:09-Mar-2022 Instruction Type:Provider Instructions for Treatment How to Access Health Informa tion Online using Patient Portal and [employer] Apps Indication:BMI 23.0-23.9, adult Start:09-Mar-2022 Instruction Type:Patient Education Patient Instructions Indication:Non-smoker Start:27-Dec-2021 Instruction Type:Provider Instructions for Treatment How to Access Health Informa tion Online using Patient Portal and [employer] Apps Indication:Non-smoker Start:27-Dec-2021 Instruction Type:Patient Education [facility]; [facility] Work Phone: instructions* Name Dates Details Patient Instructions Indication:Non-smoker Start:13-Jun-2022 Instruction Type:Provider Instructions for Treatment How to Access Health Informa tion Online using Patient Portal and [employer] Apps Indication:Non-smoker Start:13-Jun-2022 Instruction Type:Patient Education Patient Instructions Indication:BMI 22.0-22.9, adult Start:07-May-2022 Instruction Type:Provider Instructions for Treatment How to Access Health Informa tion Online using Patient Portal and [employer] Apps Indication:BMI 22.0-22.9, adult Start:07-May-2022 Instruction Type:Patient Education Patient Instructions Indication:Non-smoker Start:29-Mar-2022 Instruction Type:Provider Instructions for Treatment How to Access Health Informa tion Online using Patient Portal and [employer] Apps Indication:Non-smoker Start:29-Mar-2022 Instruction Type:Patient Education Patient Instructions Indication:BMI 23.0-23.9, adult Start:09-Mar-2022 Instruction Type:Provider Instructions for Treatment How to Access Health Informa tion Online using Patient Portal and [employer] Apps Indication:BMI 23.0-23.9, adult Start:09-Mar-2022 Instruction Type:Patient Education Patient Instructions Indication:Non-smoker Start:27-Dec-2021 Instruction Type:Provider Instructions for Treatment How to Access Health Informa tion Online using Patient Portal and [employer] Apps Indication:Non-smoker Start:27-Dec-2021 Instruction Type:Patient Education [facility]; [facility] Work Phone: Instructions* Name Dates Details Patient Instructions Indication:Non-smoker Start:13-Jun-2022 Instruction Type:Provider Instructions for Treatment How to Access Health Informa tion Online using Patient Portal and [employer] Apps Indication:Non-smoker Start:13-Jun-2022 Instruction Type:Patient Education Patient Instructions Indication:BMI 22.0-22.9, adult Start:07-May-2022 Instruction Type:Provider Instructions for Treatment How to Access Health Informa tion Online using Patient Portal and [employer] Apps Indication:BMI 22.0-22.9, adult Start:07-May-2022 Instruction Type:Patient Education Patient Instructions Indication:Non-smoker Start:29-Mar-2022 Instruction Type:Provider Instructions for Treatment How to Access Health Informa tion Online using Patient Portal and [employer] Apps Indication:Non-smoker Start:29-Mar-2022 Instruction Type:Patient Education Patient Instructions Indication:BMI 23.0-23.9, adult Start:09-Mar-2022 Instruction Type:Provider Instructions for Treatment How to Access Health Informa tion Online using Patient Portal and [employer] Apps Indication:BMI 23.0-23.9, adult Start:09-Mar-2022 Instruction Type:Patient Education Patient Instructions Indication:Non-smoker Start:27-Dec-2021 Instruction Type:Provider Instructions for Treatment How to Access Health Informa tion Online using Patient Portal and [employer] Apps Indication:Non-smoker Start:27-Dec-2021 Instruction Type:Patient Education [facility]; [facility] Work Phone: Instructions* Name Dates Details Patient Instructions Indication:BMI 22.0-22.9, adult Start:21-Jun-2022 Instruction Type:Provider Instructions for Treatment How to Access Health Informa tion Online using Patient Portal and [employer] Apps Indication:BMI 22.0-22.9, adult Start:21-Jun-2022 Instruction Type:Patient Education Patient Instructions Indication:Non-smoker Start:13-Jun-2022 Instruction Type:Provider Instructions for Treatment How to Access Health Informa tion Online using Patient Portal and [employer] Apps Indication:Non-smoker Start:13-Jun-2022 Instruction Type:Patient Education Patient Instructions Indication:BMI 22.0-22.9, adult Start:07-May-2022 Instruction Type:Provider Instructions for Treatment How to Access Health Informa tion Online using Patient Portal and [employer] Apps Indication:BMI 22.0-22.9, adult Start:07-May-2022 Instruction Type:Patient Education Patient Instructions Indication:Non-smoker Start:29-Mar-2022 Instruction Type:Provider Instructions for Treatment How to Access Health Informa tion Online using Patient Portal and [employer] Apps Indication:Non-smoker Start:29-Mar-2022 Instruction Type:Patient Education Patient Instructions Indication:BMI 23.0-23.9, adult Start:09-Mar-2022 Instruction Type:Provider Instructions for Treatment How to Access Health Informa tion Online using Patient Portal and [employer] Apps Indication:BMI 23.0-23.9, adult Start:09-Mar-2022 Instruction Type:Patient Education Patient Instructions Indication:Non-smoker Start:27-Dec-2021 Instruction Type:Provider Instructions for Treatment How to Access Health Informa tion Online using Patient Portal and [employer] Apps Indication:Non-smoker Start:27-Dec-2021 Instruction Type:Patient Education [facility]; [facility] Work Phone: instructions* Name Dates Details Patient Instructions Indication:BMI 22.0-22.9, adult Start:21-Jun-2022 Instruction Type:Provider Instructions for Treatment How to Access Health Informa tion Online using Patient Portal and [employer] Apps Indication:BMI 22.0-22.9, adult Start:21-Jun-2022 Instruction Type:Patient Education Patient Instructions Indication:Non-smoker Start:13-Jun-2022 Instruction Type:Provider Instructions for Treatment How to Access Health Informa tion Online using Patient Portal and [employer] Apps Indication:Non-smoker Start:13-Jun-2022 Instruction Type:Patient Education Patient Instructions Indication:BMI 22.0-22.9, adult Start:07-May-2022 Instruction Type:Provider Instructions for Treatment How to Access Health Informa tion Online using Patient Portal and [employer] Apps Indication:BMI 22.0-22.9, adult Start:07-May-2022 Instruction Type:Patient Education Patient Instructions Indication:Non-smoker Start:29-Mar-2022 Instruction Type:Provider Instructions for Treatment How to Access Health Informa tion Online using Patient Portal and [employer] Apps Indication:Non-smoker Start:29-Mar-2022 Instruction Type:Patient Education Patient Instructions Indication:BMI 23.0-23.9, adult Start:09-Mar-2022 Instruction Type:Provider Instructions for Treatment How to Access Health Informa tion Online using Patient Portal and [employer] Apps Indication:BMI 23.0-23.9, adult Start:09-Mar-2022 Instruction Type:Patient Education Patient Instructions Indication:Non-smoker Start:27-Dec-2021 Instruction Type:Provider Instructions for Treatment How to Access Health Informa tion Online using Patient Portal and [employer] Apps Indication:Non-smoker Start:27-Dec-2021 Instruction Type:Patient Education [facility]; [facility] Work Phone: [email or web address]* Name Dates Details Patient Instructions Indication:BMI 22.0-22.9, adult Start:02-Aug-2022 Instruction Type:Provider Instructions for Treatment How to Access Health Informa tion Online using Patient Portal and [employer] Apps Indication:BMI 22.0-22.9, adult Start:02-Aug-2022 Instruction Type:Patient Education Patient Instructions Indication:BMI 22.0-22.9, adult Start:21-Jun-2022 Instruction Type:Provider Instructions for Treatment How to Access Health Informa tion Online using Patient Portal and [employer] Apps Indication:BMI 22.0-22.9, adult Start:21-Jun-2022 Instruction Type:Patient Education Patient Instructions Indication:Non-smoker Start:13-Jun-2022 Instruction Type:Provider Instructions for Treatment How to Access Health Informa tion Online using Patient Portal and [employer] Apps Indication:Non-smoker Start:13-Jun-2022 Instruction Type:Patient Education Patient Instructions Indication:BMI 22.0-22.9, adult Start:07-May-2022 Instruction Type:Provider Instructions for Treatment How to Access Health Informa tion Online using Patient Portal and [employer] Apps Indication:BMI 22.0-22.9, adult Start:07-May-2022 Instruction Type:Patient Education Patient Instructions Indication:Non-smoker Start:29-Mar-2022 Instruction Type:Provider Instructions for Treatment How to Access Health Informa tion Online using Patient Portal and [employer] Apps Indication:Non-smoker Start:29-Mar-2022 Instruction Type:Patient Education Patient Instructions Indication:BMI 23.0-23.9, adult Start:09-Mar-2022 Instruction Type:Provider Instructions for Treatment How to Access Health Informa tion Online using Patient Portal and [employer] Apps Indication:BMI 23.0-23.9, adult Start:09-Mar-2022 Instruction Type:Patient Education Patient Instructions Indication:Non-smoker Start:27-Dec-2021 Instruction Type:Provider Instructions for Treatment How to Access Health Informa tion Online using Patient Portal and [employer] Apps Indication:Non-smoker Start:27-Dec-2021 Instruction Type:Patient Education [facility]; [facility] Work Phone: Instructions* Name Dates Details Patient Instructions Indication:BMI 22.0-22.9, adult Start:02-Aug-2022 Instruction Type:Provider Instructions for Treatment How to Access Health Informa tion Online using Patient Portal and [employer] Apps Indication:BMI 22.0-22.9, adult Start:02-Aug-2022 Instruction Type:Patient Education Patient Instructions Indication:BMI 22.0-22.9, adult Start:21-Jun-2022 Instruction Type:Provider Instructions for Treatment How to Access Health Informa tion Online using Patient Portal and [employer] Apps Indication:BMI 22.0-22.9, adult Start:21-Jun-2022 Instruction Type:Patient Education Patient Instructions Indication:Non-smoker Start:13-Jun-2022 Instruction Type:Provider Instructions for Treatment How to Access Health Informa tion Online using Patient Portal and [employer] Apps Indication:Non-smoker Start:13-Jun-2022 Instruction Type:Patient Education Patient Instructions Indication:BMI 22.0-22.9, adult Start:07-May-2022 Instruction Type:Provider Instructions for Treatment How to Access Health Informa tion Online using Patient Portal and [employer] Apps Indication:BMI 22.0-22.9, adult Start:07-May-2022 Instruction Type:Patient Education Patient Instructions Indication:Non-smoker Start:29-Mar-2022 Instruction Type:Provider Instructions for Treatment How to Access Health Informa tion Online using Patient Portal and [employer] Apps Indication:Non-smoker Start:29-Mar-2022 Instruction Type:Patient Education Patient Instructions Indication:BMI 23.0-23.9, adult Start:09-Mar-2022 Instruction Type:Provider Instructions for Treatment How to Access Health Informa tion Online using Patient Portal and [employer] Apps Indication:BMI 23.0-23.9, adult Start:09-Mar-2022 Instruction Type:Patient Education Patient Instructions Indication:Non-smoker Start:27-Dec-2021 Instruction Type:Provider Instructions for Treatment How to Access Health Informa tion Online using Patient Portal and [employer] Apps Indication:Non-smoker Start:27-Dec-2021 Instruction Type:Patient Education [facility]; [facility] Work Phone: Instructions* Name Dates Details Patient Instructions Indication:BMI 22.0-22.9, adult Start:02-Aug-2022 Instruction Type:Provider Instructions for Treatment How to Access Health Informa tion Online using Patient Portal and [employer] Apps Indication:BMI 22.0-22.9, adult Start:02-Aug-2022 Instruction Type:Patient Education Patient Instructions Indication:BMI 22.0-22.9, adult Start:21-Jun-2022 Instruction Type:Provider Instructions for Treatment How to Access Health Informa tion Online using Patient Portal and [employer] Apps Indication:BMI 22.0-22.9, adult Start:21-Jun-2022 Instruction Type:Patient Education Patient Instructions Indication:Non-smoker Start:13-Jun-2022 Instruction Type:Provider Instructions for Treatment How to Access Health Informa tion Online using Patient Portal and [employer] Apps Indication:Non-smoker Start:13-Jun-2022 Instruction Type:Patient Education Patient Instructions Indication:BMI 22.0-22.9, adult Start:07-May-2022 Instruction Type:Provider Instructions for Treatment How to Access Health Informa tion Online using Patient Portal and [employer] Apps Indication:BMI 22.0-22.9, adult Start:07-May-2022 Instruction Type:Patient Education Patient Instructions Indication:Non-smoker Start:29-Mar-2022 Instruction Type:Provider Instructions for Treatment How to Access Health Informa tion Online using Patient Portal and [employer] Apps Indication:Non-smoker Start:29-Mar-2022 Instruction Type:Patient Education Patient Instructions Indication:BMI 23.0-23.9, adult Start:09-Mar-2022 Instruction Type:Provider Instructions for Treatment How to Access Health Informa tion Online using Patient Portal and [employer] Apps Indication:BMI 23.0-23.9, adult Start:09-Mar-2022 Instruction Type:Patient Education Patient Instructions Indication:Non-smoker Start:27-Dec-2021 Instruction Type:Provider Instructions for Treatment How to Access Health Informa tion Online using Patient Portal and [employer] Apps Indication:Non-smoker Start:27-Dec-2021 Instruction Type:Patient Education [facility]; [facility] Work Phone: Instructions* Name Dates Details Patient Instructions Indication:BMI 22.0-22.9, adult Start:02-Aug-2022 Instruction Type:Provider Instructions for Treatment How to Access Health Informa tion Online using Patient Portal and [employer] Apps Indication:BMI 22.0-22.9, adult Start:02-Aug-2022 Instruction Type:Patient Education Patient Instructions Indication:BMI 22.0-22.9, adult Start:21-Jun-2022 Instruction Type:Provider Instructions for Treatment How to Access Health Informa tion Online using Patient Portal and [employer] Apps Indication:BMI 22.0-22.9, adult Start:21-Jun-2022 Instruction Type:Patient Education Patient Instructions Indication:Non-smoker Start:13-Jun-2022 Instruction Type:Provider Instructions for Treatment How to Access Health Informa tion Online using Patient Portal and [employer] Apps Indication:Non-smoker Start:13-Jun-2022 Instruction Type:Patient Education Patient Instructions Indication:BMI 22.0-22.9, adult Start:07-May-2022 Instruction Type:Provider Instructions for Treatment How to Access Health Informa tion Online using Patient Portal and [employer] Apps Indication:BMI 22.0-22.9, adult Start:07-May-2022 Instruction Type:Patient Education Patient Instructions Indication:Non-smoker Start:29-Mar-2022 Instruction Type:Provider Instructions for Treatment How to Access Health Informa tion Online using Patient Portal and [employer] Apps Indication:Non-smoker Start:29-Mar-2022 Instruction Type:Patient Education Patient Instructions Indication:BMI 23.0-23.9, adult Start:09-Mar-2022 Instruction Type:Provider Instructions for Treatment How to Access Health Informa tion Online using Patient Portal and [employer] Apps Indication:BMI 23.0-23.9, adult Start:09-Mar-2022 Instruction Type:Patient Education Patient Instructions Indication:Non-smoker Start:27-Dec-2021 Instruction Type:Provider Instructions for Treatment How to Access Health Informa tion Online using Patient Portal and [employer] Apps Indication:Non-smoker Start:27-Dec-2021 Instruction Type:Patient Education [facility]; [facility] Work Phone: Instructions* Name Dates Details How to Access Health Informa tion Online using Patient Portal and [employer] Apps Indication:Non-smoker Start:18-Oct-2022 Instruction Type:Patient Education Patient Instructions Indication:Non-smoker Start:18-Oct-2022 Instruction Type:Provider Instructions for Treatment Patient Instructions Indication:BMI 22.0-22.9, adult Start:02-Aug-2022 Instruction Type:Provider Instructions for Treatment How to Access Health Informa tion Online using Patient Portal and [employer] Apps Indication:BMI 22.0-22.9, adult Start:02-Aug-2022 Instruction Type:Patient Education Patient Instructions Indication:BMI 22.0-22.9, adult Start:21-Jun-2022 Instruction Type:Provider Instructions for Treatment How to Access Health Informa tion Online using Patient Portal and [employer] Apps Indication:BMI 22.0-22.9, adult Start:21-Jun-2022 Instruction Type:Patient Education Patient Instructions Indication:Non-smoker Start:13-Jun-2022 Instruction Type:Provider Instructions for Treatment How to Access Health Informa tion Online using Patient Portal and [employer] Apps Indication:Non-smoker Start:13-Jun-2022 Instruction Type:Patient Education Patient Instructions Indication:BMI 22.0-22.9, adult Start:07-May-2022 Instruction Type:Provider Instructions for Treatment How to Access Health Informa tion Online using Patient Portal and [employer] Apps Indication:BMI 22.0-22.9, adult Start:07-May-2022 Instruction Type:Patient Education Patient Instructions Indication:Non-smoker Start:29-Mar-2022 Instruction Type:Provider Instructions for Treatment How to Access Health Informa tion Online using Patient Portal and [employer] Apps Indication:Non-smoker Start:29-Mar-2022 Instruction Type:Patient Education Patient Instructions Indication:BMI 23.0-23.9, adult Start:09-Mar-2022 Instruction Type:Provider Instructions for Treatment How to Access Health Informa tion Online using Patient Portal and [employer] Apps Indication:BMI 23.0-23.9, adult Start:09-Mar-2022 Instruction Type:Patient Education Patient Instructions Indication:Non-smoker Start:27-Dec-2021 Instruction Type:Provider Instructions for Treatment How to Access Health Informa tion Online using Patient Portal and [employer] Apps Indication:Non-smoker Start:27-Dec-2021 Instruction Type:Patient Education [facility]; [facility] Work Phone: Instructions* Name Dates Details How to Access Health Informa tion Online using Patient Portal and 3rd [employer] Apps Indication:Non-smoker Start:18-Oct-2022 Instruction Type:Patient Education Patient Instructions Indication:Non-smoker Start:18-Oct-2022 Instruction Type:Provider Instructions for Treatment Patient Instructions Indication:BMI 22.0-22.9, adult Start:02-Aug-2022 Instruction Type:Provider Instructions for Treatment How to Access Health Informa tion Online using Patient Portal and 3rd [employer] Apps Indication:BMI 22.0-22.9, adult Start:02-Aug-2022 Instruction Type:Patient Education Patient Instructions Indication:BMI 22.0-22.9, adult Start:21-Jun-2022 Instruction Type:Provider Instructions for Treatment How to Access Health Informa tion Online using Patient Portal and 3rd [employer] Apps Indication:BMI 22.0-22.9, adult Start:21-Jun-2022 Instruction Type:Patient Education Patient Instructions Indication:Non-smoker Start:13-Jun-2022 Instruction Type:Provider Instructions for Treatment How to Access Health Informa tion Online using Patient Portal and 3rd [employer] Apps Indication:Non-smoker Start:13-Jun-2022 Instruction Type:Patient Education Patient Instructions Indication:BMI 22.0-22.9, adult Start:07-May-2022 Instruction Type:Provider Instructions for Treatment How to Access Health Informa tion Online using Patient Portal and 3rd [employer] Apps Indication:BMI 22.0-22.9, adult Start:07-May-2022 Instruction Type:Patient Education Patient Instructions Indication:Non-smoker Start:29-Mar-2022 Instruction Type:Provider Instructions for Treatment How to Access Health Informa tion Online using Patient Portal and 3rd [employer] Apps Indication:Non-smoker Start:29-Mar-2022 Instruction Type:Patient Education Patient Instructions Indication:BMI 23.0-23.9, adult Start:09-Mar-2022 Instruction Type:Provider Instructions for Treatment How to Access Health Informa tion Online using Patient Portal and 3rd [employer] Apps Indication:BMI 23.0-23.9, adult Start:09-Mar-2022 Instruction Type:Patient Education Patient Instructions Indication:Non-smoker Start:27-Dec-2021 Instruction Type:Provider Instructions for Treatment How to Access Health Informa tion Online using Patient Portal and 3rd [employer] Apps Indication:Non-smoker Start:27-Dec-2021 Instruction Type:Patient Education [facility] Work Phone: Instructions* Name Dates Details How to Access Health Informa tion Online using Patient Portal and 3rd [employer] Apps Indication:Non-smoker Start:18-Oct-2022 Instruction Type:Patient Education Patient Instructions Indication:Non-smoker Start:18-Oct-2022 Instruction Type:Provider Instructions for Treatment Patient Instructions Indication:BMI 22.0-22.9, adult Start:02-Aug-2022 Instruction Type:Provider Instructions for Treatment How to Access Health Informa tion Online using Patient Portal and 3rd [employer] Apps Indication:BMI 22.0-22.9, adult Start:02-Aug-2022 Instruction Type:Patient Education Patient Instructions Indication:BMI 22.0-22.9, adult Start:21-Jun-2022 Instruction Type:Provider Instructions for Treatment How to Access Health Informa tion Online using Patient Portal and 3rd [employer] Apps Indication:BMI 22.0-22.9, adult Start:21-Jun-2022 Instruction Type:Patient Education Patient Instructions Indication:Non-smoker Start:13-Jun-2022 Instruction Type:Provider Instructions for Treatment How to Access Health Informa tion Online using Patient Portal and 3rd [employer] Apps Indication:Non-smoker Start:13-Jun-2022 Instruction Type:Patient Education Patient Instructions Indication:BMI 22.0-22.9, adult Start:07-May-2022 Instruction Type:Provider Instructions for Treatment How to Access Health Informa tion Online using Patient Portal and 3rd [employer] Apps Indication:BMI 22.0-22.9, adult Start:07-May-2022 Instruction Type:Patient Education Patient Instructions Indication:Non-smoker Start:29-Mar-2022 Instruction Type:Provider Instructions for Treatment How to Access Health Informa tion Online using Patient Portal and 3rd [employer] Apps Indication:Non-smoker Start:29-Mar-2022 Instruction Type:Patient Education Patient Instructions Indication:BMI 23.0-23.9, adult Start:09-Mar-2022 Instruction Type:Provider Instructions for Treatment How to Access Health Informa tion Online using Patient Portal and 3rd [employer] Apps Indication:BMI 23.0-23.9, adult Start:09-Mar-2022 Instruction Type:Patient Education Patient Instructions Indication:Non-smoker Start:27-Dec-2021 Instruction Type:Provider Instructions for Treatment How to Access Health Informa tion Online using Patient Portal and 3rd [employer] Apps Indication:Non-smoker Start:27-Dec-2021 Instruction Type:Patient Education [facility]; [facility] Work Phone: Instructions* Name Dates Details How to Access Health Informa tion Online using Patient Portal and 3rd [employer] Apps Indication:Non-smoker Start:18-Oct-2022 Instruction Type:Patient Education Patient Instructions Indication:Non-smoker Start:18-Oct-2022 Instruction Type:Provider Instructions for Treatment Patient Instructions Indication:BMI 22.0-22.9, adult Start:02-Aug-2022 Instruction Type:Provider Instructions for Treatment How to Access Health Informa tion Online using Patient Portal and 3rd [employer] Apps Indication:BMI 22.0-22.9, adult Start:02-Aug-2022 Instruction Type:Patient Education Patient Instructions Indication:BMI 22.0-22.9, adult Start:21-Jun-2022 Instruction Type:Provider Instructions for Treatment How to Access Health Informa tion Online using Patient Portal and 3rd [employer] Apps Indication:BMI 22.0-22.9, adult Start:21-Jun-2022 Instruction Type:Patient Education Patient Instructions Indication:Non-smoker Start:13-Jun-2022 Instruction Type:Provider Instructions for Treatment How to Access Health Informa tion Online using Patient Portal and 3rd [employer] Apps Indication:Non-smoker Start:13-Jun-2022 Instruction Type:Patient Education Patient Instructions Indication:BMI 22.0-22.9, adult Start:07-May-2022 Instruction Type:Provider Instructions for Treatment How to Access Health Informa tion Online using Patient Portal and 3rd [employer] Apps Indication:BMI 22.0-22.9, adult Start:07-May-2022 Instruction Type:Patient Education Patient Instructions Indication:Non-smoker Start:29-Mar-2022 Instruction Type:Provider Instructions for Treatment How to Access Health Informa tion Online using Patient Portal and 3rd [employer] Apps Indication:Non-smoker Start:29-Mar-2022 Instruction Type:Patient Education Patient Instructions Indication:BMI 23.0-23.9, adult Start:09-Mar-2022 Instruction Type:Provider Instructions for Treatment How to Access Health Informa tion Online using Patient Portal and 3rd [employer] Apps Indication:BMI 23.0-23.9, adult Start:09-Mar-2022 Instruction Type:Patient Education Patient Instructions Indication:Non-smoker Start:27-Dec-2021 Instruction Type:Provider Instructions for Treatment How to Access Health Informa tion Online using Patient Portal and 3rd [employer] Apps Indication:Non-smoker Start:27-Dec-2021 Instruction Type:Patient Education [facility]; [facility] Work Phone: Instructions* Name Dates Details How to Access Health Informa tion Online using Patient Portal and 3rd [employer] Apps Indication:Non-smoker Start:18-Oct-2022 Instruction Type:Patient Education Patient Instructions Indication:Non-smoker Start:18-Oct-2022 Instruction Type:Provider Instructions for Treatment Patient Instructions Indication:BMI 22.0-22.9, adult Start:02-Aug-2022 Instruction Type:Provider Instructions for Treatment How to Access Health Informa tion Online using Patient Portal and 3rd [employer] Apps Indication:BMI 22.0-22.9, adult Start:02-Aug-2022 Instruction Type:Patient Education Patient Instructions Indication:BMI 22.0-22.9, adult Start:21-Jun-2022 Instruction Type:Provider Instructions for Treatment How to Access Health Informa tion Online using Patient Portal and 3rd [employer] Apps Indication:BMI 22.0-22.9, adult Start:21-Jun-2022 Instruction Type:Patient Education Patient Instructions Indication:Non-smoker Start:13-Jun-2022 Instruction Type:Provider Instructions for Treatment How to Access Health Informa tion Online using Patient Portal and 3rd [employer] Apps Indication:Non-smoker Start:13-Jun-2022 Instruction Type:Patient Education Patient Instructions Indication:BMI 22.0-22.9, adult Start:07-May-2022 Instruction Type:Provider Instructions for Treatment How to Access Health Informa tion Online using Patient Portal and 3rd [employer] Apps Indication:BMI 22.0-22.9, adult Start:07-May-2022 Instruction Type:Patient Education Patient Instructions Indication:Non-smoker Start:29-Mar-2022 Instruction Type:Provider Instructions for Treatment How to Access Health Informa tion Online using Patient Portal and 3rd [employer] Apps Indication:Non-smoker Start:29-Mar-2022 Instruction Type:Patient Education Patient Instructions Indication:BMI 23.0-23.9, adult Start:09-Mar-2022 Instruction Type:Provider Instructions for Treatment How to Access Health Informa tion Online using Patient Portal and 3rd [employer] Apps Indication:BMI 23.0-23.9, adult Start:09-Mar-2022 Instruction Type:Patient Education Patient Instructions Indication:Non-smoker Start:27-Dec-2021 Instruction Type:Provider Instructions for Treatment How to Access Health Informa tion Online using Patient Portal and 3rd [employer] Apps Indication:Non-smoker Start:27-Dec-2021 Instruction Type:Patient Education [facility]; [facility] Work Phone: Advance Directives No Advanced Directives Records FoundDocuments on File Type Date Recorded 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 Advance Directive(s) 06/30/2021 9:31 AM Advance Directive(s) 10/11/2020 1:13 PM Advance Directive(s) 10/10/2020 8:39 AM Wo amando Advance Directive(s) 01/19/2020 10:07 AM Advance Directive(s) 01/12/2020 9:48 AM Advance Directive(s) 07/12/2017 7:05 AM Advance Directive(s) 11/15/2015 6:46 AM Advance Directive(s) 11/04/2015 11:44 AM Documents on File Type Date Recorded 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 Advance Directive(s) 06/30/2021 9:31 AM Advance Directive(s) 10/11/2020 1:13 PM Advance Directive(s) 10/10/2020 8:39 AM Wo amando Advance Directive(s) 01/19/2020 10:07 AM Advance Directive(s) 01/12/2020 9:48 AM Advance Directive(s) 07/12/2017 7:05 AM Advance Directive(s) 11/15/2015 6:46 AM Advance Directive(s) 11/04/2015 11:44 AM Summary Purpose Family History No Family History Records FoundNo Family History Records FoundNo Family History Records Found Reason for Referral Specialty Diagnoses / Procedures Referred By Tanika heath Referred To Contact CT IMAGING Diagnoses Intracranial hemorrhage (HCC) Procedures CT BRAIN WO IVCON CT HEAD/BRAIN W/O CONTRAST MATERIAL Mercedes Navarrete PA-C [address] [place] [address] Ct Imaging Referral ID Status Reason Start Date Expiration Date V isits Requested Visits Authorized [id number] Closed Auto-Generate d Referral 07/16/2021 08/01/2022 1 1 Additional Source Comments Source Comments (unrecognize d section and content) In the event this informatio n is protected by the Federal Confidentiality of Alcohol and Drug Abuse Patient Records regulations: The Federal rules restrict any use of the information to criminally investigate or prosecute any alcohol or drug abuse patient.[facility] the event this information is protected by the Federal Confidentiality of Alcohol and Drug Abuse Patient Records regulations: The Federal rules restrict any use of the information to criminally investigate or prosecute any alcohol or drug abuse patient.[facility] the event this information is protected by the Federal Confidentiality of Alcohol and Drug Abuse Patient Records regulations: The Federal rules restrict any use of the information to criminally investigate or prosecute any alcohol or drug abuse patient.[facility] the event this information is protected by the Federal Confidentiality of Alcohol and Drug Abuse Patient Records regulations: The Federal rules restrict any use of the information to criminally investigate or prosecute any alcohol or drug abuse patient.[facility]In the event this information is protected by the Federal Confidentiality of Alcohol and Drug Abuse Patient Records regulations: The Federal rules restrict any use of the information to criminally investigate or prosecute any alcohol or drug abuse patient.[facility]In the event this information is protected by the Federal Confidentiality of Alcohol and Drug Abuse Patient Records regulations: The Federal rules restrict any use of the information to criminally investigate or prosecute any alcohol or drug abuse patient.[facility]In the event this information is protected by the Federal Confidentiality of Alcohol and Drug Abuse Patient Records regulations: The Federal rules restrict any use of the information to criminally investigate or prosecute any alcohol or drug abuse patient.[facility]In the event this information is protected by the Federal Confidentiality of Alcohol and Drug Abuse Patient Records regulations: The Federal rules restrict any use of the information to criminally investigate or prosecute any alcohol or drug abuse patient.[facility]In the event this information is protected by the Federal Confidentiality of Alcohol and Drug Abuse Patient Records regulations: The Federal rules restrict any use of the information to criminally investigate or prosecute any alcohol or drug abuse patient.[facility]In the event this information is protected by the Federal Confidentiality of Alcohol and Drug Abuse Patient Records regulations: The Federal rules restrict any use of the information to criminally investigate or prosecute any alcohol or drug abuse patient.[facility]In the event this information is protected by the Federal Confidentiality of Alcohol and Drug Abuse Patient Records regulations: The Federal rules restrict any use of the information to criminally investigate or prosecute any alcohol or drug abuse patient.[facility] HospitalIn the event this information is protected by the Federal Confidentiality of Alcohol and Drug Abuse Patient Records regulations: The Federal rules restrict any use of the information to criminally investigate or prosecute any alcohol or drug abuse patient.[facility] HospitalIn the event this information is protected by the Federal Confidentiality of Alcohol and Drug Abuse Patient Records regulations: The Federal rules restrict any use of the information to criminally investigate or prosecute any alcohol or drug abuse patient.[facility] HospitalIn the event this information is protected by the Federal Confidentiality of Alcohol and Drug Abuse Patient Records regulations: The Federal rules restrict any use of the information to criminally investigate or prosecute any alcohol or drug abuse patient.[facility] Reason for Visit (unrecogniz ed section and content) Reason Onset Date Comments Transition Of Care 07/06/2021 [facility] discharge 07-05-21- initial outreach Reason Comments Follow Up F/U - attempt made. No answer. Reason Comments Hospital Follow Up Specialty Diagnoses / Procedures Referred By Tanika t Referred To Contact CT IMAGING Diagnoses Intracranial hemorrhage (HCC) Procedures CT BRAIN WO IVCON CT HEAD/BRAIN W/O CONTRAST MATERIAL Mercedes Navarrete PA-C [address] [place] [address] Ct Imaging Referral ID Status Reason Start Date Expiration Date V isits Requested Visits Authorized [id number] Closed Auto-Generate d Referral 07/16/2021 08/01/2022 1 1 Reason Onset Date Comments Refill Request 07/28/2021 Reason Onset Date Comments Transition Of Care 08/02/2021 [facility] discharge 07-05-21 follow up Reason Onset Date Comments Refill Request 08/14/2021 Reason Comments review labs and medication Reason Onset Date Comments Population Health Navigation Outreach 07/05/2022 [facility] 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 Comments [facility] Reason Comments Hearing Loss Reason Onset Date Comments Population Health Navigation Outreach 10/15/2022 [facility] Care Teams (unrecognized sec tion and content) [place] Relationship Specialty Start Date End Date Reagan Mejia MD [address] [place] [address] PCP - General Internal Medicine 07/12/17 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, 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 Roof Bolter Helper 07/06/21 08/05/21 [place] Relationship Specialty Start Date End Date Reagan Mejia MD [address] [place] [address] PCP - General Internal Medicine 07/12/17 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, 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 Roof Bolter Helper 07/06/21 08/05/21 [place] Relationship Specialty Start Date End Date Regaan Mejia MD [address] [place] [address] PCP - General Internal Medicine 07/12/17 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, 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 Roof Bolter Helper 07/06/21 08/05/21 [place] Relationship Specialty Start Date End Date Reagan Mejia MD [address] [place] [address] PCP - General Internal Medicine 07/12/17 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, 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 Roof Bolter Helper 07/06/21 08/05/21 [place] Relationship Specialty Start Date End Date Reagan Mejia MD [address] [place] [address] PCP - General Internal Medicine 07/12/17 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, 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 Roof Bolter Helper 07/06/21 08/02/21 [place] Relationship Specialty Start Date End Date Reagan Mejia MD [address] [place] [address] PCP - General Internal Medicine 07/12/17 [place] Relationship Specialty Start Date End Date Reagan Mejia MD [address] [place], [place] [address] PCP - General Internal Medicine 07/12/17 [place] Relationship Specialty Start Date End Date Reagan Mejia MD [address] [place], [place] [address] PCP - General Internal Medicine 07/12/17 [place] Relationship Specialty Start Date End Date Reagan Mejia MD [address] [place], [place] [address] PCP - General Internal Medicine 07/12/17 [place] Relationship Specialty Start Date End Date Reagan Mejia MD [address] [place], [place] [address] PCP - General Internal Medicine 07/12/17 10/15/22 Fatimah Bond DO [address] [facility] [address] [place], [place] [id number] PCP - General Internal Medicine 10/16/22 INFORMATION SOURCE (unrecogn ized section and content) DATE CREATED AUTHOR AUTHOR'S ORGANIZ ATION 06/22/2022 [facility] DATE CREATED AUTHOR AUTHOR'S ORGANIZ ATION 10/17/2022 [facility] FOR RECORDS PERTAINING TO PATIENTS WHO ARE OR HAVE BEEN ENROLLED IN A CHEMICAL DEPENDENCY/SUBSTANCEABUSE PROGRAM, SOME INFORMATION MAY BE OMITTED. This clinical summary was aggregated from multiple sources. Caution should be exercised in using it in the provision of clinical care. This summary normalizes information from multiple sources, and as a consequence, information in this document may materially change the coding, format and clinical context of patient data. In addition, data may be omitted in some cases. CLINICAL DECISIONS SHOULD BE BASED ON THE PRIMARY CLINICAL RECORDS. [employer] [facility]. provides no warranty or guarantee of the accuracy or completeness of information in this document.
[2023-04-25 12:52] VITALS: BP 161/74; PULSE 69; RESP 18; TEMP 36.6; O2SAT 99; BMI 21.9
[2023-04-25 13:16] LABS: CREATININE FINGERSTICK < 1.0 mg/dL (0.55-1.02)
[2023-04-25 13:23] VITALS: BP 125/56; PULSE 80
[2023-04-25] MEDS: Nitroglycerin SL (ED/IMG/CATH) 0.4 MG TABLET 0.400000000000000022 MG SL (13:23)
[2023-04-25] MEDS: 0.9% Saline Lock 10 ML Syringe IV (13:27)
--- NOTE | 2023-05-19 16:51 | CCTA.WCONT ---
CCTA w/Cont Coronary Arteries Date of Study:: 04/25/23 Family history and heart history Coronary Calcium Scoring: High-resolution Computed Tomographic imaging of the chest was performed on [04/25/2023], with particular attention paid to the coronary arteries. Intravenous contrast agent was administered per protocol and images reconstructed and displayed. LEFT MAIN CORONARY ARTERY: Normal [] LEFT ANTERIOR DESCENDING CORONARY ARTERY: No significant atherosclerotic disease [] LEFT CIRCUMFLEX CORONARY ARTERY: No significant atherosclerotic cardiovascular disease [] RIGHT CORONARY ARTERY: Mild calcification with mild plaque disease noted in the mid to distal segment with no high-grade stenosis noted [] THORACIC AORTA: Normal CORONARY CALCIUM SCORE: 26 involving the right coronary artery Conclusion: Coronary calcium score and CT angio demonstrating mild calcification noted in the right coronary artery placing the placed patient between the 25th and 50th percentile and mild atherosclerotic plaquing noted in this vessel. []
== END | disposition home or self-care (01) ==
LOC: CT 12:27
PROVIDERS: PCP Internal Medicine; Referring Provider Nurse Practitioner Gerontology; Visit Provider Nurse Practitioner Gerontology
DX: I25.10 Atherosclerotic heart disease of native coronary artery without angina pectoris (principal); Z82.49 Family history of ischemic heart disease and other diseases of the circulatory system
CPT/HCPCS: 75571; 75574; 76380; Q9967; A4216

== ENCOUNTER → 2023-10-10 | Outpatient (CLI) | payer MEDICARE, BC, SELFPAY | END | disposition home or self-care (01) | LOC: LABSPEC 13:22 | PROVIDERS: PCP Internal Medicine; Referring Provider Internal Medicine Gastroenterology; Visit Provider Internal Medicine Gastroenterology | DX: Z12.11 Encounter for screening for malignant neoplasm of colon (principal) | CPT/HCPCS: 82274 ==

== ENCOUNTER 2023-11-26 18:09 | Emergency (ER) | payer MEDICARE, BC, SELFPAY ==
[2023-11-26 18:10] VITALS: BP 134/88; PULSE 97; RESP 18; TEMP 36.4; O2SAT 98; BMI 20.7
--- NOTE | 2023-11-26 19:40 | EDS_ITS ---
HPI History of Present Illness Chief Complaint: Headache Informant: patient Onset/Context/Timing Onset: Days (2) Context: Gradual Onset Timing: Continuous Quality: Dull Location: Right side of head Worsened by: Nothing Relieved by: Nothing Narrative Narrative: Patient presents with a headache that began 2 days ago. Patient states it is gradually gotten worse. Patient states it is mainly over the right side of her head. Patient describes it as dull. Patient states it has been constant. Patient states nothing makes it better and nothing makes it worse. Patient states she has had a history of strokes in the past and is concerned that this could be from a stroke. The patient also admits to some pain in her chest and cough. Patient admits to some nausea but denies any vomiting. Patient also admits to some diarrhea. [facility] Medical History Family history of premature CAD Wears hearing aid Wears glasses Wears partial dentures Arthritis Restless legs Back pain Injury of head and neck History of ulceration Non-smoker Leg cramps History of pain when walking H/O transesophageal echocardiography (JESS) for monitoring History of echocardiogram Cardiology follow-up encounter Chest pain Tick bite of right shoulder Implantable loop recorder present Hyperlipidemia Vascular dementia, moderate, with anxiety Diarrhea Abdominal pain Cerebrovascular accident (CVA) Hypercholesterolemia GERD (gastroesophageal reflux disease) Breast cyst History of UTI Quadrantanopia of right eye Depression MISTY (generalized anxiety disorder) Meniere's disease Gastritis and gastroduodenitis Chronic rhinitis Osteoporosis Mixed hyperlipidemia CVA, old, homonymous hemianopsia Home Medications ?Medication ?Instructions ?Recorded ?Last Taken ?Type vitamins A,C,W-krjj-ktbofk 2,148 1 tablet PO BID 06/29/20 03/16/23 History mcg-113 mg-45 mg-17.4 mg tablet aspirin 81 mg tablet,delayed 81 mg PO DAILY 07/27/21 03/16/23 History release (Mayela Low Dose Aspirin) triamterene 37.5 1 tab PO DAILY PRN 04/26/23 Unknown History mg-hydrochlorothiazide 25 mg tablet pantoprazole 40 mg tablet,delayed 40 mg PO DAILY #30 tabs 09/13/23 Unknown Rx release ezetimibe 10 mg tablet 10 mg PO QDAY 10/29/23 Unknown History Allergy/AdvReac Type Severity Reaction Status Date / Time sulfamethoxazole (From Allergy Intermediate Other Verified 11/26/23 18:10 Bactrim) trimethoprim (From Bactrim) Allergy Intermediate Other Verified 11/26/23 18:10 cetirizine (From Zyrtec) Allergy Unknown Unknown Verified 11/26/23 18:10 Desjajc-UGN-FiX Reductase Allergy Unknown Unknown Verified 11/26/23 18:10 Inhibitor Sulfa (Sulfonamide Allergy Unknown Unknown Verified 11/26/23 18:10 Antibiotics) Family History Other Heart disease Myocardial infarction Surgical History Hx of colonoscopy Hx of cataract extraction History of oophorectomy History of tonsillectomy Social History Smoking Status: Never smoker Electronic Cigarette Use: not used second hand exposure: No alcohol intake: never substance use type: does not use what type of physical activity do you participate in: none seatbelt use: always ROS ROS ED Constitutional Constitutional ED: Reports sweats; Denies chills or fever(s) Eyes Eyes: Denies blurry vision or change in vision ENT ENT ED: Reports rhinorrhea; Denies sore throat Cardiovascular Cardiovascular: Reports chest pain; Denies palpitations Respiratory/Chest Respiratory/Chest: Reports cough; Denies dyspnea Gastrointestinal Gastrointestinal: Reports diarrhea and nausea; Denies vomiting Genitourinary Genitourinary ED: Denies dysuria or hematuria Musculoskeletal Musculoskeletal: Denies back pain or neck pain Integumentary Denies abscess or rash Neurologic Neurologic: Reports headache(s); Denies weakness Allergic/Immunologic Allergic/Immunologic ED: Denies mouth swelling or urticaria EXAM Physical Exam Const Vital Signs: 11/26/23 18:10 11/26/23 20:15 11/26/23 22:00 Temperature 97.6 F L Temperature Source Temporal Pulse Rate 97 82 72 Respiratory Rate 18 18 18 Blood Pressure 134/88 H 152/128 H 111/54 L Blood Pressure Mean 103 136 73 Pulse Ox 98 95 95 Oxygen Delivery Method Room Air Room Air Room Air Positive well nourished and well developed General Appearance ED: well developed and NAD HEENT Reports moist mucous membranes Eyes PERRL and EOMs intact bilaterally Neck supple and no JVD Resp normal respiratory effort and clear to auscultation bilaterally Cardio regular rate and regular rhythm GI non-tender and non-distended Palpation: soft Neuro oriented x3, CN's II-XII intact bilaterally and no sensory deficits noted Sensorium / Orientation: alert Motor Exam: strength 5/5 throughout Psych mental status grossly normal MDM MDM MDM Narrative Medical decision making narrative: Differential diagnosis includes intracranial bleeding, migraine headache, stroke, cardiac dysrhythmia, cardiac ischemia, electrolyte abnormality, viral illness, gastroenteritis, and anxiety. EKG will be obtained to assess for cardiac dysrhythmia and cardiac ischemia. CT scan of the brain will be obtained to assess for stroke or intracranial bleeding. Chest x-ray will be obtained to assess for pneumonia and pneumothorax. CBC will be obtained to assess for leukocytosis and anemia. Basic metabolic profile will be obtained to assess for electrolyte abnormality and renal function. High-sensitivity troponin will be obtained to assess for ongoing cardiac ischemia. Urinalysis will be obtained to assess for urinary tract infection and hematuria. Lab Data Attestation: I reviewed the patient's lab results. Lab results narrative: CBC was reviewed and was within normal limits. Basic metabolic profile was reviewed. Sodium was slightly low at 132. The remainder was within normal limits. High-sensitivity troponin was reviewed and was normal at 5. Urinalysis was reviewed. There is no evidence of urinary tract infection or hematuria. Labs: Laboratory Results - last 24 hr 11/26/23 11/26/23 20:25 20:30 WBC 9.2 RBC 4.43 Hgb 12.9 Hct 38.1 MCV 86.0 MCH 29.1 MCHC 33.9 RDW Std Deviation 39.0 RDW Coeff of Rahul 12.4 Plt Count 244 MPV 9.8 Immature Gran % (Auto) 0.300 Neut % (Auto) 75.0 H Lymph % (Auto) 17.4 L [place] % (Auto) 6.4 Eos % (Auto) 0.4 Baso % (Auto) 0.5 Absolute Neuts (auto) 6.9 Absolute Lymphs (auto) 1.59 Nucleated RBC % 0 Sodium 132 L Potassium 3.7 Chloride 96 L Carbon Dioxide 26.0 Anion Gap 10 BUN 8 Creatinine 0.77 Estim Creat Clear Calc 44.44 Est GFR (MDRD) Af Amer 93 Est GFR (MDRD) Non-Af 77 BUN/Creatinine Ratio 10.4 Glucose 98 Calcium 9.2 Troponin I High Sens 5 Urine Color Yellow Urine Clarity Clear Urine pH 6.0 Ur Specific [place] 1.010 Urine Protein Negative Urine Glucose (UA) Normal Urine Ketones 5 H Urine Occult Blood 10 H Urine Nitrite Negative Urine Bilirubin Negative Urine Urobilinogen Normal Ur Leukocyte Esterase Negative Urine RBC 0 SEEN Urine WBC 0 SEEN Ur Squamous Epith Cells 0 SEEN Urine Bacteria RARE Urine Mucus 0 SEEN Radiography Chest X-Ray - ED: 2 View, Read by ED Physician, Read by Radiologist and No Acute Disease Diagnostic Testing: Clinical Impression(s) from Imaging Studies Brain CT 11/26/23 20:01 IMPRESSION: 1. No acute intracranial abnormality. There has been no significant change from the reference exam. 2. Senescent change with small vessel ischemia. 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 Electronically Signed: David Sanon MD at 20:52 EDT , Chest X-Ray 11/26/23 20:40 IMPRESSION: No radiographic evidence of acute cardiopulmonary disease. Electronically Signed: David Sanon MD at 21:17 EDT , PA and lateral chest x-ray was obtained. There are 2 views. On my independent interpretation, lung vega are clear. There is normal cardiac silhouette. Bony thorax is normal. There is no acute process noted. Radiologist also interpreted the x-ray and agrees. CT scan of the brain was obtained. There is no acute intracranial abnormality. There are prior occipital lobe infarct. There is no change from previous CT scan. This was interpreted by the radiologist and was also independently reviewed by myself. EKG Initial EKG: Attestation: I personally reviewed and interpreted this EKG as follows: Interpretation: Sinus Rhythm (72) and No Acute Injury Pattern Comments: EKG was obtained. On my independent interpretation, it showed a normal sinus rhythm with a rate of 72. OH interval, QRS interval, and QTc intervals were all normal. [place] was normal. There are no acute ST or T wave changes. Prior EKG tracings: available for review Prior: Unchanged (12/17/2022) Treatment and Re-Evaluation :: Patient was given IV fluids, Reglan, and Benadryl. Patient was feeling better on reevaluation. Patient states her headache has nearly resolved. Patient was advised of her findings. Patient has a HEART score of 3. Patient was advised that this is low risk for acute cardiac event. Patient was instructed to rest in a dark quiet room. Patient was instructed to follow-up with her primary care physician in 5 to 7 days. Patient understood and was agreeable with the plan. All questions were answered. Discharge Plan Triage Chief Complaint: Headache ED Provider: Maurice Giordano Dx/Rx/DC Orders Clinical Impression: Headache, Chest pain Instructions: ED Headache Unspecified Prescriptions: No Action vitamins A,C,P-moxg-xfnpzr 7,160-113-100 ebfo-pi-ksnr tablet 1 tablet PO BID Rx Instructions: administer with AM and PM meals aspirin [Mayela Low Dose Aspirin] 81 mg tablet,delayed release (DR/EC) 81 mg PO DAILY ezetimibe 10 mg tablet 10 mg PO QDAY triamterene-hydrochlorothiazid 37.5-25 mg tablet 1 tab PO DAILY PRN pantoprazole 40 mg tablet,delayed release (DR/EC) 40 mg PO DAILY Qty: 30 3RF Primary Care Provider: Fatimah Bond Referrals: Fatimah Bond DO [Primary Care Provider] - 5-7 Days Print Language: Bel[place]ian Disposition Disposition: Home, Self Care
--- NOTE | 2023-11-26 20:01 | CT_ITS ---
EXAM: CT HEAD WITHOUT INTRAVENOUS CONTRAST CLINICAL INDICATION: Headache TECHNIQUE: Multiple axial images were obtained of the head without intravenous contrast. This CT exam was performed using one or more of the following dose reduction techniques: automated exposure control, adjustment of the mA and/or kV according to patient size, and/or use of iterative reconstruction technique. COMPARISON: 12/17/2022 FINDINGS: BRAIN AND EXTRA-AXIAL SPACES: There is encephalomalacia in the left occipital lobe from remote ischemia. There is enlargement of ventricular system and cortical sulci. There is hypoattenuation in the periventricular white matter. No intra- or extra-axial hemorrhage. No intracranial mass or mass effect. Posterior fossa structures are unremarkable. Basal cisterns are patent. BONES/JOINTS: Unremarkable. No discrete lytic or blastic abnormalities. SINUSES: Unremarkable as visualized. Clear. MASTOID AIR CELLS: Unremarkable. Clear. ORBITS: Visualized globes, extraocular muscles, optic nerves and retrobulbar fat appear unremarkable. CT/Brain/Head without Contrast IMPRESSION: 1. No acute intracranial abnormality. There has been no significant change from the reference exam. 2. Senescent change with small vessel ischemia. 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 Electronically Signed: David Sanon MD at 20:52 EDT ,
--- NOTE | 2023-11-26 20:02 | EKG12_ITS ---
Test Reason : CP Blood Pressure : / mmHG Vent. Rate : 072 BPM Atrial Rate : 072 BPM P-R Int : 188 ms QRS Dur : 086 ms QT Int : 376 ms P-R-T Axes : 079 077 065 degrees QTc Int : 411 ms Normal sinus rhythm Normal ECG Confirmed by Bob Farias ([id number]), desk editor SAYRA LLANES ([id number]) on 11/27/2023 10:10:17 AM Referred By: TALIA Confirmed By:Bob Farias
[2023-11-26 20:15] VITALS: BP 152/128; PULSE 82; RESP 18; O2SAT 95
[2023-11-26] MEDS: DiphenhydrAMINE 50 MG/ML Syringe 25 MG IV (20:19)
[2023-11-26] MEDS: 0.9% Normal Saline (1000mL) 1,000 ML 1000 ML IV (20:20)
[2023-11-26] MEDS: Metoclopramide 10 MG/2 ML Vial IV (20:20)
[2023-11-26 20:36] LABS: Absolute Lymphocyte Count 1.59 X10^3/uL (0.83-4.51); Absolute Neutrophil Count 6.9 X10^3/uL (2.0-7.7); Basophil# 0.05 X10^3/uL; Basophil% 0.5 % (0-1); Eosinophil# 0.04 X10^3/uL; Eosinophils% 0.4 % (0-5); Hematocrit 38.1 % (37-47); Hemoglobin 12.9 g/dL (12.0-15.0); Lymphocyte # 1.59 X10^3/ul (0.83-4.51); Lymphocyte % 17.4 % (19-41); Mean Corp Hgb Conc 33.9 g/dL (32-36); Mean Corpuscular Hgb 29.1 pg (27.0-32.0); Mean Platelet Vol. 9.8 fl (6.2-12.0); Monocyte# 0.59 X10^3/uL; Monocyte% 6.4 % (0-10); NRBC Flagged by Analyzer 0 % (0-5); Neutrophil # 6.86 X10^3/uL (2.7-7.7); Platelet Count 244 K/mm3 (150-450); RBC Distribution Width CV 12.4 % (11.6-14.6); Red Blood Count 4.43 M/mm3 (4.2-5.4); White Blood Count 9.2 K/mm3 (4.4-11.0)
[2023-11-26 20:40] LABS: Mucous, Urine 0 SEEN /hpf (<or=2+); Red Blood Cells-Urine 0 SEEN /hpf (0-5); Squamous Epithelial Cells - UA 0 SEEN /hpf (5-10); White Blood Cells 0 SEEN /hpf (0-5)
--- NOTE | 2023-11-26 20:40 | RAD_ITS ---
EXAM: XR CHEST, 2 VIEWS CLINICAL INDICATION: Chest pain TECHNIQUE: Frontal and lateral views of the chest. COMPARISON: 12/17/2022 FINDINGS: LUNGS AND PLEURAL SPACES: Unremarkable. No consolidation or edema. No pneumothorax. No effusion. HEART: Unremarkable. Cardiac silhouette not enlarged. MEDIASTINUM: Central airways and mediastinal contour are unremarkable. BONES/JOINTS: Unremarkable. No acute fracture. SOFT TISSUES: Unremarkable. RAD/Chest PA and Lateral IMPRESSION: No radiographic evidence of acute cardiopulmonary disease. Electronically Signed: David Sanon MD at 21:17 EDT ,
[2023-11-26 20:41] LABS: Color, Urine Yellow (Yellow); Glucose, Dipstick Normal (Normal); Ketone-Dipstick 5 mg/dl (Negative); Leukocyte Esterase-Dipstick Negative /ul (Negative); Nitrite-Dipstick Negative (Negative); Occult Blood-Urine 10 /ul (Negative); Protein-Dipstick Negative (Negative); Urine Bilirubin Dipstick Negative (Negative); Urine Clarity Clear (Clear); Urine Urobilinogen Normal (Normal)
[2023-11-26 20:49] LABS: Bacteria RARE /hpf (None Seen)
[2023-11-26 20:55] LABS: Anion Gap 10 (5-15); BUN 8 mg/dL (7-18); BUN/Creat Ratio 10.4 RATIO (10-20); Calcium,Total 9.2 mg/dL (8.5-10.1); Chloride 96 mmol/L (98-107); Creatinine, Serum 0.77 mg/dL (0.55-1.02); EST Glomerular Filtration Rate 77 mL/min (>60); Est Glom Filt Rate - Afr Amer 93 mL/min (>60); Estimated Creatinine Clearance 44.44 ml/min; Glucose 98 mg/dL (74-106); Potassium 3.7 mmol/L (3.5-5.1); Sodium Level 132 mmol/L (136-145); Troponin-I HS 5 pg/mL (3.0-54.0)
[2023-11-26 22:00] VITALS: BP 111/54; PULSE 72; RESP 18; O2SAT 95
[2023-11-26 23:06] VITALS: BP 116/68; PULSE 70; RESP 18; TEMP 36.7; O2SAT 96
== END 2023-11-26 23:07 | disposition home or self-care (01) ==
PROVIDERS: Emergency Provider Emergency Medicine; PCP Internal Medicine; Visit Provider Emergency Medicine
DX: R51.9 Headache, unspecified (principal); R07.9 Chest pain, unspecified; E78.2 Mixed hyperlipidemia; Z86.73 Personal history of transient ischemic attack (TIA), and cerebral infarction without residual deficits; K21.9 Gastro-esophageal reflux disease without esophagitis; Z79.899 Other long term (current) drug therapy; Z98.49 Cataract extraction status, unspecified eye
CPT/HCPCS: 70450; 71046; 80048; 81001; 84484; 85025; 93005; 96361; 96374; 96375; 99283; J7030; A4216

== ENCOUNTER 2023-12-31 15:24 | Emergency (ER) | payer BC, MEDICARE, SELFPAY ==
[2023-12-31] VITALS (8 sets, daily range): BP systolic 126–157; BP diastolic 63–86; PULSE 66–77; RESP 16–18; TEMP 35.8–36.6; O2SAT 94–97; BMI 20.6
--- NOTE | 2023-12-31 19:04 | CT_ITS ---
EXAMINATION : Head CT w/out contrast HISTORY : falll COMPARISON : 11/26/2023. TECHNIQUE : Multiple contiguous axial images were obtained from the skull base to the vertex without intravenous contrast. A radiation dose optimization technique was used for this scan. Small amount of acute bifrontal subarachnoid hemorrhage. Small focal area of acute intraparenchymal hemorrhage in the left occipital lobe. There are periventricular white matter changes consistent with chronic microvascular ischemic disease. There is sulcal widening and ventricular enlargement consistent with cerebral atrophy. There is normal leone-white differentiation, without CT evidence of acute ischemia or infarct. The skull base and calvarium are unremarkable. The orbits are unremarkable. The paranasal sinuses are clear. The mastoid air cells are well-aerated. The soft tissues are unremarkable. CT/Brain/Head without Contrast IMPRESSION: Small amount of acute bifrontal subarachnoid hemorrhage. Small focal area of acute intraparenchymal hemorrhage in the left occipital lobe. Chronic involutional and ischemic changes of the brain. Electronically Signed: Freddy Roa MD at 20:09 EDT ,
--- NOTE | 2023-12-31 19:04 | CT_ITS ---
INDICATION: fall EXAMINATION: CT CERVICAL SPINE - CT Spine Cervical W/O Contrast Injection TECHNIQUE: Helically acquired images were obtained of the cervical spine. 2D reformatted images were reviewed. A radiation dose optimization technique was used for this scan. IV Contrast dosage and agent: None. COMPARISON: None. FINDINGS: VERTEBRAE: No fracture or traumatic subluxation. No discrete lytic or blastic abnormality. Normal alignment. Normal craniocervical junction and cervicothoracic junction. DISCS and SPINAL CANAL: Severe multilevel degenerative disc disease and spondylosis. No critical stenosis. NECK SOFT TISSUES: No prevertebral soft tissue swelling. There is no cervical adenopathy. LUNG APICES: Clear. CT/Spine Cervical without Contras IMPRESSION: No evidence of acute cervical spinal fracture or spondylolisthesis. Severe multilevel degenerative disc disease and spondylosis. Electronically Signed: Freddy Roa MD at 20:16 EDT ,
--- NOTE | 2023-12-31 19:04 | EKG12_ITS ---
Test Reason : DYSRHYTHMIA Blood Pressure : / mmHG Vent. Rate : 067 BPM Atrial Rate : 067 BPM P-R Int : 204 ms QRS Dur : 084 ms QT Int : 382 ms P-R-T Axes : 080 069 070 degrees QTc Int : 403 ms Normal sinus rhythm Normal ECG Confirmed by JOHNIE CARRERA, JULIAN ([id number]), fashion editor SAYRA LLANES ([id number]) on 01/02/2024 1:08:32 PM Referred By: TB Confirmed By:JULIAN JETT MD
[2023-12-31] MEDS: Acetaminophen 500 MG Tablet 1000 MG PO (19:23)
[2023-12-31 19:42] LABS: Absolute Lymphocyte Count 1.81 X10^3/uL (0.83-4.51); Absolute Neutrophil Count 4.4 X10^3/uL (2.0-7.7); Basophil# 0.05 X10^3/uL; Basophil% 0.7 % (0-1); Eosinophil# 0.05 X10^3/uL; Eosinophils% 0.7 % (0-5); Hematocrit 37.7 % (37-47); Hemoglobin 12.4 g/dL (12.0-15.0); Lymphocyte # 1.81 X10^3/ul (0.83-4.51); Lymphocyte % 26.3 % (19-41); Mean Corp Hgb Conc 32.9 g/dL (32-36); Mean Corpuscular Volume 88.1 fL (81-99); Mean Platelet Vol. 9.8 fl (6.2-12.0); Monocyte# 0.51 X10^3/uL; Monocyte% 7.4 % (0-10); NRBC Flagged by Analyzer 0 % (0-5); Neutrophil # 4.44 X10^3/uL (2.7-7.7); Neutrophil % 64.6 % (47-70); Platelet Count 256 K/mm3 (150-450); RBC Distribution Width CV 12.4 % (11.6-14.6); RBC Distribution Width SD 40.2 fl (35.1-43.9); Red Blood Count 4.28 M/mm3 (4.2-5.4); White Blood Count 6.9 K/mm3 (4.4-11.0)
--- NOTE | 2023-12-31 19:55 | RAD_ITS ---
INDICATION: chest pain EXAMINATION/TECHNIQUE: X-RAY - XR Chest 2 Views COMPARISON: None. FINDINGS: The lungs are clear. Tortuous and calcified thoracic aorta. The heart is not enlarged. No pleural effusion or pneumothorax. No acute osseous abnormalities. RAD/Chest PA and Lateral IMPRESSION: No acute radiographic abnormalities. Electronically Signed: Freddy Roa MD at 21:07 EDT ,
[2023-12-31 19:59] LABS: Anion Gap 6 (5-15); BUN 8 mg/dL (7-18); Calcium,Total 9.5 mg/dL (8.5-10.1); Chloride 101 mmol/L (98-107); Creatinine, Serum 0.67 mg/dL (0.55-1.02); EST Glomerular Filtration Rate 91 mL/min (>60); Est Glom Filt Rate - Afr Amer 110 mL/min (>60); Estimated Creatinine Clearance 44.44 ml/min; Glucose 102 mg/dL (74-106); Potassium 4.2 mmol/L (3.5-5.1); Sodium Level 134 mmol/L (136-145); Troponin-I HS 4 pg/mL (3.0-54.0)
--- NOTE | 2023-12-31 20:04 | ED.VIS.FALL ---
HPI HPI - Fall History of Present Illness Chief Complaint: Fall Narrative Narrative: Patient is a 78-year-old female past medical history of intracranial hemorrhage, CVA, hyperlipidemia, GERD, depression, M?ni?re's disease who presents to the emergency department with a chief complaint of headache. Patient states that on Saturday she was going up the steps and she fell backward hit her head she states that she not pass out lose consciousness remembers entire event. Patient denies any blood thinning medications. Patient states that she has had a persistent headache since then which is ultimately what prompted her to here today for further evaluation management. Patient states that she did not take anything for her headache. Patient notes that she did not have any chest pain shortness of breath lightheadedness or dizziness prior to the fall. Patient states that her dog was going upstairs with her and she was carrying stuff when she just lost her balance. [facility] Medical History Family history of premature CAD Wears hearing aid Wears glasses Wears partial dentures Arthritis Restless legs Back pain Injury of head and neck History of ulceration Non-smoker Leg cramps History of pain when walking H/O transesophageal echocardiography (JESS) for monitoring History of echocardiogram Cardiology follow-up encounter Chest pain Tick bite of right shoulder Implantable loop recorder present Hyperlipidemia Vascular dementia, moderate, with anxiety Diarrhea Abdominal pain Cerebrovascular accident (CVA) Hypercholesterolemia GERD (gastroesophageal reflux disease) Breast cyst History of UTI Quadrantanopia of right eye Depression MISTY (generalized anxiety disorder) Meniere's disease Gastritis and gastroduodenitis Chronic rhinitis Osteoporosis Mixed hyperlipidemia CVA, old, homonymous hemianopsia Home Medications ?Medication ?Instructions ?Recorded ?Last Taken ?Type vitamins A,C,F-kfkz-czftfh 2,148 1 tablet PO BID 06/29/20 03/16/23 History mcg-113 mg-45 mg-17.4 mg tablet aspirin 81 mg tablet,delayed 81 mg PO DAILY 07/27/21 03/16/23 History release (Mayela Low Dose Aspirin) triamterene 37.5 1 tab PO DAILY PRN 04/26/23 Unknown History mg-hydrochlorothiazide 25 mg tablet ezetimibe 10 mg tablet 10 mg PO QDAY 10/29/23 Unknown History pantoprazole 40 mg tablet,delayed 40 mg PO DAILY #90 TABLETS 12/12/23 Unknown Rx release Allergy/AdvReac Type Severity Reaction Status Date / Time sulfamethoxazole (From Allergy Intermediate Other Verified 12/31/23 15:24 Bactrim) trimethoprim (From Bactrim) Allergy Intermediate Other Verified 12/31/23 15:24 cetirizine (From Zyrtec) Allergy Unknown Unknown Verified 12/31/23 15:24 Svihoir-ETC-LyZ Reductase Allergy Unknown Unknown Verified 12/31/23 15:24 Inhibitor Sulfa (Sulfonamide Allergy Unknown Unknown Verified 12/31/23 15:24 Antibiotics) Family History Other Heart disease Myocardial infarction Surgical History Hx of colonoscopy Hx of cataract extraction History of oophorectomy History of tonsillectomy Social History Smoking Status: Never smoker Electronic Cigarette Use: not used second hand exposure: No alcohol intake: never substance use type: does not use what type of physical activity do you participate in: none seatbelt use: always ROS ROS ED ROS Narrative Constitutional: Complains of headache as noted above denies any fevers, chills, lightness, dizziness Eyes: Denies change in vision double vision blurry vision Cardiovascular: Denies chest pain or palpitations Respiratory: Denies coughing wheezing shortness of breath Abdomen: Denies abdominal pain nausea vomit diarrhea : Denies any urinary symptoms Neurological: Denies numbness, wheeze, tingling Musculoskeletal: Complains of some neck pain denies any other pain Skin: Denies rashes lesions EXAM Physical Exam Narrative Exam Narrative: General: Patient lying in bed rest comfortably did not appear to be acute distress Head: Atraumatic, normocephalic Eyes: PERRL bilateral, EOMI bilateral, no conjunctival injection noted Neck: Soft, supple, trach midline Cardiovascular: Regular rate and rhythm no murmurs gallops rubs noted Respiratory: Clear to auscultation bilaterally no rales rhonchi or wheeze noted Abdomen: Soft, nondistended, nontender to palpation, bowel sounds present arms for Musculoskeletal: No tenderness palpation in the midline of the cervical, thoracolumbar spines, all other bony prominences and joints taken through full range of motion no pain elicited Extremities: +5/5 strength noted in the bilateral lower extremities, no pedal edema no exam, radial pulses +2/4 in the bilateral upper extremities Neurological: Patient following commands knew that she was at [facility] there is 2023 Skin: Warm, dry, intact Const Vital Signs: 12/31/23 15:25 12/31/23 17:12 12/31/23 17:12 Temperature 96.4 F L Temperature Source Temporal Pulse Rate 72 69 Respiratory Rate 16 16 Respiratory Effort Normal Non-Labored Respiratory Depth Normal Respiratory Pattern Normal Blood Pressure 128/64 H 142/86 H Blood Pressure Mean 85 104 Pulse Ox 97 94 Oxygen Delivery Method Room Air Room Air Room Air 12/31/23 19:00 12/31/23 19:25 12/31/23 20:15 Temperature Temperature Source Pulse Rate 69 77 Respiratory Rate 18 18 Respiratory Effort Respiratory Depth Respiratory Pattern Blood Pressure 147/73 H 141/73 H Blood Pressure Mean 97 95 Pulse Ox 97 Oxygen Delivery Method Room Air Room Air 12/31/23 20:25 12/31/23 21:04 12/31/23 21:19 Temperature Temperature Source Pulse Rate 73 68 66 Respiratory Rate 17 Respiratory Effort Respiratory Depth Respiratory Pattern Blood Pressure 157/85 H 131/63 H 134/63 H Blood Pressure Mean 109 85 86 Pulse Ox Oxygen Delivery Method Room Air MDM MDM MDM Narrative Medical decision making narrative: Patient is a 78-year-old female who presents to the emerged part with chief complaint of fall hit her head on Saturday. Patient will have a workup performed here on the differential diagnose includes but not limited to headache, concussion, intracranial hemorrhage, cervical spine fracture. Once workup is obtained reviewed she will be reevaluated. Patient CBC reviewed and showed no evidence of leukocytosis white blood count normal at 6.9, hemoglobin stable 12.4, plate count normal at 256. Patient sodium normal 134, potassium normal at 4.2, creatinine normal at 0.67. Patient's glucose normal at 102, troponin was noted to be normal at 4. Patient's EKG reviewed and showed sinus rhythm with a rate of 67 bpm. Patient's chest x-ray was reviewed and showed no acute cardiopulmonary processes this was reviewed by myself independently as well as by radiology. Patient CT head and brain without contrast was reviewed and showed acute small amount of acute bifrontal subarachnoid hemorrhage small focal area of acute intraparenchymal hemorrhage in the left occipital lobe. Patient CT cervical spine was reviewed and showed no acute fracture or dislocation she has severe multilevel degenerative disc disease and spondylosis. Patient did become hypertensive here in the emergency department she was given labetalol and her blood pressure has remained less than 140 systolic. I called and discussed the case with Olu Melo Neuro fellow at [facility]. Had multiple conversations with him ultimately had conversation with the ER physician at [facility] Dr. Nettles who accept patient for transfer. The flight team is unable to fly the patient secondary to weather therefore she will be transported by ground. Patient was notified as well as her significant other at bedside they are agreeable this plan all question concerns answered. Lab Data Labs: Laboratory Results - last 24 hr 12/31/23 19:26 WBC 6.9 RBC 4.28 Hgb 12.4 Hct 37.7 MCV 88.1 MCH 29.0 MCHC 32.9 RDW Std Deviation 40.2 RDW Coeff of Rahul 12.4 Plt Count 256 MPV 9.8 Immature Gran % (Auto) 0.300 Neut % (Auto) 64.6 Lymph % (Auto) 26.3 [place] % (Auto) 7.4 Eos % (Auto) 0.7 Baso % (Auto) 0.7 Absolute Neuts (auto) 4.4 Absolute Lymphs (auto) 1.81 Nucleated RBC % 0 Sodium 134 L Potassium 4.2 Chloride 101 Carbon Dioxide 26.0 Anion Gap 6 BUN 8 Creatinine 0.67 Estim Creat Clear Calc 44.44 Est GFR (MDRD) Af Amer 110 Est GFR (MDRD) Non-Af 91 BUN/Creatinine Ratio 12.0 Glucose 102 Calcium 9.5 Troponin I High Sens 4 Radiography Diagnostic Testing: Clinical Impression(s) from Imaging Studies Brain CT 12/31/23 19:04 IMPRESSION: Small amount of acute bifrontal subarachnoid hemorrhage. Small focal area of acute intraparenchymal hemorrhage in the left occipital lobe. Chronic involutional and ischemic changes of the brain. Electronically Signed: Freddy Roa MD at 20:09 EDT , ADDENDUM: 12/31/232046 IMPRESSION: Small amount of acute bifrontal subarachnoid hemorrhage. Small focal area of acute intraparenchymal hemorrhage in the left occipital lobe. Chronic involutional and ischemic changes of the brain. N.B. : Juan José Dong DO, confirmed on 12/31/2023 20:40:57 (ET) that the healthcare facility has received the radiology report. Electronically Signed: Freddy Roa MD at 20:09 EDT , Cervical Spine CT 12/31/23 19:04 IMPRESSION: No evidence of acute cervical spinal fracture or spondylolisthesis. Severe multilevel degenerative disc disease and spondylosis. Electronically Signed: Freddy Roa MD at 20:16 EDT , Chest X-Ray 12/31/23 19:55 IMPRESSION: No acute radiographic abnormalities. Electronically Signed: Freddy Roa MD at 21:07 EDT , Discharge Plan Triage Chief Complaint: Fall ED Provider: Juan José Dong Dx/Rx/DC Orders Clinical Impression: Subarachnoid hemorrhage, Intraparenchymal hemorrhage of brain, Fall Prescriptions: No Action vitamins A,C,N-pwzf-cimutn 7,160-113-100 yrur-gi-ivam tablet 1 tablet PO BID Rx Instructions: administer with AM and PM meals aspirin [Mayela Low Dose Aspirin] 81 mg tablet,delayed release (DR/EC) 81 mg PO DAILY ezetimibe 10 mg tablet 10 mg PO QDAY triamterene-hydrochlorothiazid 37.5-25 mg tablet 1 tab PO DAILY PRN pantoprazole 40 mg tablet,delayed release (DR/EC) 40 mg PO DAILY Qty: 90 3RF Primary Care Provider: Fatimah Bond Referrals: Fatimah Bond DO [Primary Care Provider] - Print Language: Moroccan Disposition Disposition: DC/Tx to Another Type of HCF
[2023-12-31] MEDS: Labetalol (Prefilled) 20 MG/4 ML 10 MG IV (20:23)
== END 2023-12-31 22:13 | disposition other institution (70) ==
PROVIDERS: Emergency Provider Emergency Medicine; PCP Internal Medicine; Visit Provider Emergency Medicine
DX: I60.9 Nontraumatic subarachnoid hemorrhage, unspecified (principal); E78.2 Mixed hyperlipidemia; Z86.73 Personal history of transient ischemic attack (TIA), and cerebral infarction without residual deficits; K21.9 Gastro-esophageal reflux disease without esophagitis; F32.A Depression, unspecified; W10.9XXA Fall (on) (from) unspecified stairs and steps, initial encounter; Y92.008 Other place in unspecified non-institutional (private) residence as the place of occurrence of the external cause; Z79.82 Long term (current) use of aspirin
CPT/HCPCS: 70450; 71046; 72125; 80048; 84484; 85025; 93005; 96374; 99285; A4216

== ENCOUNTER → 2024-05-04 | Outpatient (CLI) | payer MEDICARE, BC, SELFPAY ==
[2024-05-04 10:18] LABS: Absolute Lymphocyte Count 1.88 X10^3/uL (0.83-4.51); Absolute Neutrophil Count 2.4 X10^3/uL (2.0-7.7); Eosinophil# 0.41 X10^3/uL; Hematocrit 40.4 % (37-47); Hemoglobin 13.7 g/dL (12.0-15.0); Lymphocyte # 1.88 X10^3/ul (0.83-4.51); Lymphocyte % 36.8 % (19-41); Mean Corp Hgb Conc 33.9 g/dL (32-36); Mean Corpuscular Hgb 29.8 pg (27.0-32.0); Mean Corpuscular Volume 87.8 fL (81-99); Monocyte# 0.36 X10^3/uL; NRBC Flagged by Analyzer 0 % (0-5); Neutrophil # 2.35 X10^3/uL (2.7-7.7); Platelet Count 246 K/mm3 (150-450); RBC Distribution Width CV 12.8 % (11.6-14.6); White Blood Count 5.1 K/mm3 (4.4-11.0)
[2024-05-04 11:24] LABS: AST(SGOT) 14 U/L (15-37); Alanine Aminotransfer ALT/SGPT 24 U/L (13-56); Albumin, Serum 3.5 g/dL (3.2-5.0); Alkaline Phosphatase 86 U/L (45-117); Anion Gap 8 (5-15); BUN 10 mg/dL (7-18); BUN/Creat Ratio 13.6 RATIO (10-20); Calcium,Total 8.9 mg/dL (8.5-10.1); Chloride 104 mmol/L (98-107); Cholesterol 230 mg/dL (200); Creatinine, Serum 0.74 mg/dL (0.55-1.02); EST Glomerular Filtration Rate 81 mL/min (>60); Est Glom Filt Rate - Afr Amer 98 mL/min (>60); Globulin 3.6 g/dL (2.2-4.2); Glucose 110 mg/dL (74-106); High Density Lipoprotein 100 mg/dL; Potassium 3.9 mmol/L (3.5-5.1); Protein, Total 7.1 g/dL (6.4-8.2); Sodium Level 136 mmol/L (136-145); Triglycerides 88 mg/dL; Very Low Density Lipoprotein 18 mg/dL (5-40)
[2024-05-08 01:06] LABS: Lyme IgG P18 Ab Absent (.); Lyme IgG P23 Ab Absent (.); Lyme IgG P28 Ab Absent (.); Lyme IgG P30 Ab Absent (.); Lyme IgG P39 Ab Absent (.); Lyme IgG P41 Ab Present (.); Lyme IgG P45 Ab Absent (.); Lyme IgG P58 Ab Absent (.); Lyme IgG P66 Ab Absent (.); Lyme IgG P93 Ab Absent (.); Lyme IgG WB Interpretation Negative (.); Lyme IgM P23 Ab Absent (.); Lyme IgM P39 Ab Absent (.); Lyme IgM P41 Ab Absent (.); Lyme IgM WB Interpretation Negative (.)
== END | disposition home or self-care (01) ==
LOC: MTLAB 09:24
PROVIDERS: PCP Internal Medicine; Referring Provider Internal Medicine; Visit Provider Internal Medicine
DX: E78.5 Hyperlipidemia, unspecified (principal); R73.09 Other abnormal glucose; T14.8XXA Other injury of unspecified body region, initial encounter; W57.XXXA Bitten or stung by nonvenomous insect and other nonvenomous arthropods, initial encounter
CPT/HCPCS: 36415; 80053; 80061; 84443; 85025; 86617

== ENCOUNTER → 2024-05-20 | Outpatient (CLI) | payer MEDICARE, BC, SELFPAY ==
--- NOTE | 2024-05-20 12:28 | NEURO ---
NCS and/or EMG Patient Report Ordering Doctor: Fatimah Bond DATE OF SERVICE: 05/20/24 Kiya presents with complaints of pain and numbness in both legs. Electrodiagnostic findings: Peroneal motor nerve demonstrates normal distal latency and amplitude bilaterally. There is a drop in conduction velocity across the fibular head bilaterally. Normal tibial motor response bilaterally. Normal tibial and peroneal F?waves. H reflex is borderline prolonged. Prolonged right sural latency is noted. Borderline prolonged left medial plantar response. Needle EMG testing was performed of the lower limbs. All muscles tested showed no evidence of denervation with normal motor unit action potentials. Electrodiagnostic impression: This an abnormal study in the lower limbs 1. 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 There is no evidence of axonal loss. 2. No electrodiagnostic evidence is noted for lumbosacral radiculopathy. Multi Select Codes Neurology Neurology Interp Codes: 88731-16 Musc test done w/n test comp (interp) (2) and 91503-93 Nrv cndj test 9-10 studies (interp)
== END | disposition home or self-care (01) ==
PROVIDERS: PCP Internal Medicine; Referring Provider Internal Medicine; Visit Provider Internal Medicine
DX: R20.2 Paresthesia of skin (principal)
CPT/HCPCS: 95886; 95911

== ENCOUNTER → 2024-06-04 | Outpatient (CLI) | payer MEDICARE, BC, SELFPAY ==
[2024-06-11 20:08] LABS: Folate, Hemolysate Test > 620.0 ng/mL (Not Estab.); Folates, RBC Test > 1590 ng/mL (>498); Free Kappa Light Chains 19.9 mg/L (3.3-19.4); Free Lambda Light Chains 10.2 mg/L (5.7-26.3); Vitamin B1, Thiamine 359.3 nmol/L (66.5-200.0)
== END | disposition home or self-care (01) ==
LOC: MTLAB 14:50
PROVIDERS: PCP Internal Medicine; Referring Provider Psychiatry & Neurology Neurology; Visit Provider Psychiatry & Neurology Neurology
DX: G62.9 Polyneuropathy, unspecified (principal); E78.00 Pure hypercholesterolemia, unspecified
CPT/HCPCS: 36415; 82747; 83883; 84425; 84443; 85014

== ENCOUNTER → 2024-08-21 | Outpatient (CLI) | payer MEDICARE, BC, SELFPAY ==
--- NOTE | 2024-08-21 12:32 | ECHOD_ITS ---
Reason For Study Reason For Study: STUART, Fatigue Procedure This was a 2D Doppler, Color Flow transthoracic echocardiogram. Exam performed in department. Left Ventricle Normal LV size. Left ventricular systolic function is normal. The left ventricular ejection fraction is 65 %. Stage 1 diastolic dysfunction. No regional wall motion abnormalities noted. Right Ventricle Normal RV size. Normal systolic function. Atria Normal left atrium. Normal right atrium. Mitral Valve Normal mitral valve. Tricuspid Valve Normal tricuspid valve. Aortic Valve Trisinus/trileaflet aortic valve. Pulmonic Valve Normal pulmonic valve. Great Vessels Normal aortic root. The pulmonary artery is normal size. Inferior vena cava collapse with respiration. Pericardium/Pleural No pericardial effusion. MMode/2D Measurements & Calculations LVIDd: 3.4 cm IVSd: 0.83 cm Ao root diam: 2.9 cm LVIDs: 2.1 cm LVPWd: 0.86 cm RVDd: 2.8 cm FS: 38.4 % LAV(MOD-bp): 17.4 ml LVAd ap4: 16.6 cm2 LVAd ap2: 19.8 cm2 LAV(MOD-bp) Indexed: 11.7 ml/m2 LVLd ap4: 6.8 cm LVLd ap2: 7.0 cm LAV(MOD-sp2): 14.5 ml EDV(MOD-sp4): 34.4 ml EDV(MOD-sp2): 46.7 ml LAV(MOD-sp4): 18.6 ml EDV(sp4-el): 34.3 ml EDV(sp2-el): 47.2 ml LVAs ap4: 8.7 cm2 LVAs ap2: 10.3 cm2 LVLs ap4: 5.6 cm LVLs ap2: 5.9 cm ESV(MOD-sp4): 11.8 ml ESV(MOD-sp2): 15.6 ml ESV(sp4-el): 11.4 ml ESV(sp2-el): 15.2 ml EF(MOD-sp4): 65.6 % EF(MOD-sp2): 66.7 % EF(sp4-el): 66.7 % SV(MOD-sp4): 22.5 ml SV(MOD-sp2): 31.2 ml SV(sp4-el): 22.9 ml SI(MOD-sp4): 15.2 ml/m2 SI(MOD-sp2): 20.9 ml/m2 LA A4 area: 9.1 cm2 LA dimension(2D): 2.8 cm RA A4 area: 10.3 cm2 TAPSE: 2.0 cm Time Measurements MV dec time: 0.16 sec Doppler Measurements & Calculations MV E max víctor: 68.0 cm/sec Lat Peak E' Víctor: 8.6 cm/sec Med Peak E' Víctor: 8.5 cm/sec MV A max víctor: 77.4 cm/sec E/E' lat: 7.9 E/E' med: 8.0 MV E/A: 0.88 Ao V2 max: 141.3 cm/sec LV V1 max: 79.1 cm/sec MV dec slope: 425.5 cm/sec2 Ao max P.0 mmHg LV V1 max P.5 mmHg Ao V2 mean: 107.9 cm/sec LV V1 mean P.3 mmHg Ao mean P.0 mmHg LV V1 mean: 54.1 cm/sec Ao V2 VTI: 33.6 cm LV V1 VTI: 17.4 cm AV (velocity ratio): 0.52 PA V2 max: 87.0 cm/sec TR max víctor: 205.3 cm/sec TR max P.9 mmHg ECHO/Echo Complete Interpretation Summary Normal LV size. Left ventricular systolic function is normal. The left ventricular ejection fraction is 65 %. Stage 1 diastolic dysfunction. The global longitudinal strain is normal. The global longitudinal strain = -17 % (normal). Ordering Physician: Carina Chauhan Referring Physician: Fatimah Bond M.D. Performed By: Daisy Romero RDCS
== END | disposition home or self-care (01) ==
LOC: CVS 12:29
PROVIDERS: PCP Internal Medicine; Referring Provider Nurse Practitioner Gerontology; Visit Provider Nurse Practitioner Gerontology
DX: R06.09 Other forms of dyspnea (principal)
CPT/HCPCS: 93306

== ENCOUNTER → 2024-11-12 | Outpatient (CLI) | payer MEDICARE, BC, SELFPAY ==
[2024-11-17 16:09] LABS: Albumin 3.8 g/dL (2.9-4.4); Gamma Globulin 1.0 g/dL (0.4-1.8); Immunoglobulin A 167 mg/dL (64-422); Immunoglobulin G 1001 mg/dL (586-1602); Immunoglobulin M 96 mg/dL (26-217); PROEL- TOTAL PROTEIN 6.7 g/dL (6.0-8.5)
== END | disposition home or self-care (01) ==
LOC: MTLAB 14:28
PROVIDERS: PCP Internal Medicine; Referring Provider Psychiatry & Neurology Neurology; Visit Provider Psychiatry & Neurology Neurology
DX: R73.9 Hyperglycemia, unspecified (principal); G62.9 Polyneuropathy, unspecified
CPT/HCPCS: 36415; 82784; 83036; 84165; 86334; 86335

== ENCOUNTER → 2024-12-17 | Outpatient (CLI) | payer MEDICARE, BC, SELFPAY ==
--- NOTE | 2024-12-17 12:49 | US_ITS ---
PROCEDURE: PELVIC W/ TRANSVAGINAL REASON FOR EXAM: ULTRASOUND, PELVIS, COMPLETE; TRANSVAGINAL AND TRANSABDOMINAL TECHNIQUE: Procedure Code: [id number] Modality: US Procedure: PELVIC W/ TRANSVAGINAL COMPARISON: None FINDINGS: Measurements: Uterus: 4.7 cm x 4.1 cm x 2.5 cm with a volume of 25 mL Endometrial Thickness: 2 mm Right Ovary: Not visualized. Left Ovary: Not visualized TRANSABDOMINAL: Uterus: Normal size, myometrial echotexture, and contour. Endometrium: Unremarkable. Right ovary: Not visualized. Left ovary: Not visualized. Other: No large pelvic mass identified. Transvaginal sonography was performed to better visualize the endometrium. TRANSVAGINAL: Uterus: Anteverted. Nabothian cyst. Endometrium: Normal echotexture. Right ovary: Not visualized. Left ovary: Not visualized. Other adnexal findings: None. Cul-de-sac: No free intraperitoneal fluid identified. Tenderness: No tenderness US/Pelvic w/ Transvaginal IMPRESSION: The ovaries were not visualized. The uterus is unremarkable. Reading Location: [place] [id number]
== END | disposition home or self-care (01) ==
LOC: US 12:46
PROVIDERS: PCP Internal Medicine; Referring Provider Internal Medicine; Visit Provider Internal Medicine
DX: R10.2 Pelvic and perineal pain (principal)
CPT/HCPCS: 76830; 76856

== ENCOUNTER 2025-01-07 12:04 | Emergency (ER) | payer MEDICARE, BC, SELFPAY ==
[2025-01-07 12:05] VITALS: PULSE 79; RESP 16; TEMP 36.6; O2SAT 98; BMI 20.5
[2025-01-07 12:08] VITALS: BP 131/60; PULSE 79; RESP 16; TEMP 36.6; O2SAT 98
--- NOTE | 2025-01-07 12:55 | ED.VIS.GI ---
HPI HPI - GI History of Present Illness Chief Complaint: Diarrhea Informant: patient Nausea/Vomiting/Emesis GI Symptom: Negative for Nausea or Vomiting Diarrhea/Melena/Hematochezia GI Symptom: Positive for Diarrhea Onset: Weeks (2 weeks.) Stool Quality: Positive for Loose Severity: Moderate Associated Symptoms Associated Symptoms: Negative for Dysuria, Frequency, Hematuria or Urgency Narrative Narrative: 71-year-old female history of prior stroke, prediabetes. Recent UTI E. coli. Was placed on amoxicillin was treated for 10 days. She has had 2 weeks of diarrhea around 5+ episodes a day. Denies any with emesis no gross blood. She is on no blood thinners besides aspirin. She is also having pelvic pain with no fall or trauma to her pelvis. Denies any dysuria. Prior similar symptoms: No Recent Illness/Hospitalization: No PFSH PFSH Medical History Family history of premature CAD Wears hearing aid Wears glasses Wears partial dentures Arthritis Restless legs Back pain Injury of head and neck History of ulceration Non-smoker Leg cramps History of pain when walking H/O transesophageal echocardiography (JESS) for monitoring History of echocardiogram Cardiology follow-up encounter Chest pain Tick bite of right shoulder Implantable loop recorder present Hyperlipidemia Vascular dementia, moderate, with anxiety Diarrhea Abdominal pain Cerebrovascular accident (CVA) Hypercholesterolemia GERD (gastroesophageal reflux disease) Breast cyst History of UTI Quadrantanopia of right eye Depression MISTY (generalized anxiety disorder) Meniere's disease Gastritis and gastroduodenitis Chronic rhinitis Osteoporosis Mixed hyperlipidemia CVA, old, homonymous hemianopsia Home Medications ?Medication ?Instructions ?Recorded ?Last Taken ?Type vitamins A,C,W-erjl-ekausq 2,148 1 tablet PO BID 06/29/20 03/16/23 History mcg-113 mg-45 mg-17.4 mg tablet aspirin 81 mg tablet,delayed 81 mg PO DAILY 07/27/21 03/16/23 History release (Mayela Low Dose Aspirin) ezetimibe 10 mg tablet 10 mg PO QDAY 10/29/23 Unknown History CPAP mask and supplies #1 ea 06/16/24 Unknown Rx coenzyme Q10 100 mg capsule 100 mg PO QDAY 07/23/24 Unknown History (CoQ-10) triamterene 37.5 1 tab PO DAILY PRN dizziness or 11/12/24 Unknown Rx mg-hydrochlorothiazide 25 mg tablet vertigo #30 tabs pantoprazole 40 mg tablet,delayed 40 mg PO DAILY #90 TABLETS 12/02/24 Unknown Rx release Allergy/AdvReac Type Severity Reaction Status Date / Time sulfamethoxazole (From Allergy Intermediate Other Verified 01/07/25 12:08 Bactrim) trimethoprim (From Bactrim) Allergy Intermediate Other Verified 01/07/25 12:08 cetirizine (From Zyrtec) Allergy Unknown Unknown Verified 01/07/25 12:08 Clnhfmd-IZG-DaM Reductase Allergy Unknown Unknown Verified 01/07/25 12:08 Inhibitor Sulfa (Sulfonamide Allergy Unknown Unknown Verified 01/07/25 12:08 Antibiotics) Family History Other Heart disease Myocardial infarction Surgical History Hx of colonoscopy Hx of cataract extraction History of oophorectomy History of tonsillectomy Social History Smoking Status: Never smoker Electronic Cigarette Use: not used second hand exposure: No alcohol intake: never substance use type: does not use what type of physical activity do you participate in: none seatbelt use: always ROS ROS ED ROS Narrative Diarrhea. Constitutional Constitutional ED: Denies chills or fever(s) ENT ENT ED: Denies ear pain Cardiovascular Cardiovascular: Denies chest pain Respiratory/Chest Respiratory/Chest: Denies cough or dyspnea Gastrointestinal Gastrointestinal: Reports diarrhea; Denies abdominal pain Genitourinary Genitourinary ED: Denies dysuria or hematuria Musculoskeletal Musculoskeletal: Denies arthralgias or back pain Integumentary Denies abscess or Abrasions Neurologic Neurologic: Denies headache(s) Psychiatric Psychiatric: Denies anxiety Endocrine Endocrinology: Denies polydipsia or polyphagia Hematologic/Lymphatic Hematologic/Lymphatic: Denies easy bleeding Allergic/Immunologic Allergic/Immunologic ED: Denies mouth swelling, tongue swelling or urticaria EXAM Physical Exam Narrative Exam Narrative: 79-year-old female no acute distress clinically looks well. Vital signs are stable afebrile. She does not look septic toxic. at bedside. H EENT exam pupils round react light. Moist mucous membranes. Neck nontender no JVD. No lymphadenopathy. Back nontender. Lungs clear to auscultation bilaterally. Heart regular rhythm no murmur. Chest wall ribs nontender. Abdomen soft nontender. Pelvic girdle intact. No hip tenderness or pain. No shortening or rotation. Both upper and lower extremities are normal strength. Normal range of motion. Full flexion-extension of both hips and knees. Normal dorsi plantarflexion. 5/5 extractor filler strength. Neurologically she is awake alert. Answer questions following commands. Benign exam. Const Vital Signs: 01/07/25 12:05 01/07/25 12:08 01/07/25 16:17 Temperature 98 F 98 F Temperature Source Oral Oral Pulse Rate 79 79 66 Respiratory Rate 16 16 16 Blood Pressure 131/60 H 106/66 Blood Pressure Mean 83 79 Pulse Ox 98 98 99 Oxygen Delivery Method Room Air Room Air Room Air MDM MDM MDM Narrative Medical decision making narrative: 79-year-old female with diarrhea for 2 weeks after being on antibiotics for UTI. Consider C. difficile. Screening labs to be obtained she is also having pelvis pain but exam of her pelvis is benign. X-ray to be obtained. Repeat exam patient is doing well. We went over her labs her CBC chemistry UA were negative. C. difficile was negative. She is comfortably discharged to home. Fluids. Imodium. Follow-up with her primary care physician if not improving. History & Record Review Discussion w/independent historian: Patient Additional record(s) reviewed:: Prior inpatient record, Prior outpatient record, Prior ED visit and Prior labs Lab Data Attestation: I reviewed the patient's lab results. Lab results narrative: CBC shows a white count of 5. H&H 13 and 37. Platelets 247. Electrolytes shows sodium 135. Gap 10. BUN and creatinine 11 and 0.7. Glucose 101. Liver enzymes normal. UA normal. No signs of infection. No white or red cells. No bacteria. Labs: Laboratory Results - last 24 hr 01/07/25 01/07/25 13:05 14:31 WBC 5.5 RBC 4.35 Hgb 13.4 Hct 37.7 MCV 86.7 MCH 30.8 MCHC 35.5 RDW Std Deviation 39.9 RDW Coeff of Rahul 12.6 Plt Count 247 MPV 10.0 Immature Gran % (Auto) 0.200 Neut % (Auto) 64.5 Lymph % (Auto) 25.5 Luna % (Auto) 8.3 Eos % (Auto) 0.6 Baso % (Auto) 0.9 Absolute Neuts (auto) 3.5 Absolute Lymphs (auto) 1.39 Nucleated RBC % 0 Sodium 135 Potassium 4.0 Chloride 100 Carbon Dioxide 25.1 Anion Gap 10 BUN 11 Creatinine 0.70 Estim Creat Clear Calc 43.73 L Est GFR (MDRD) Non-Af 89 BUN/Creatinine Ratio 15.5 Glucose 101 H Calcium 9.3 Total Bilirubin 0.54 AST 15 ALT 12 Alkaline Phosphatase 75 Total Protein 6.6 Albumin 4.2 Globulin 2.4 Albumin/Globulin Ratio 1.8 Urine Color Yellow Urine Clarity Sl. Cloudy Urine pH 6.0 Ur Specific [place] 1.015 Urine Protein 30 H Urine Glucose (UA) Normal Urine Ketones Negative Urine Occult Blood Negative Urine Nitrite Negative Urine Bilirubin Negative Urine Urobilinogen Normal Ur Leukocyte Esterase Negative Urine RBC 0 SEEN Urine WBC 0 SEEN Ur Squamous Epith Cells 0-5 SEEN Urine Bacteria 0 SEEN Urine Mucus 0 SEEN Radiography Diagnostic Testing: Clinical Impression(s) from Imaging Studies Pelvis X-Ray 01/07/25 13:15 IMPRESSION: Substantial degenerative changes are seen of the visualized lower lumbar spine. Minimal left and mild right sacroiliac joint degenerative changes are seen. The left hip joint demonstrates no significant arthritic process. Minimal right hip joint degenerative changes are seen, without associated joint narrowing. No evidence of femoral head osteonecrosis. On the solitary view obtained, no fracture or dislocation is seen. Reading Location: [place] [id number] Discharge Plan Triage Chief Complaint: Diarrhea ED Provider: Jonas Verdugo Dx/Rx/DC Orders Clinical Impression: Diarrhea Instructions: ED Diarrhea, Unknown Cause Prescriptions: No Action vitamins A,C,A-lbwf-qudrfi 7,160-113-100 lcco-uq-pqwd tablet 1 tablet PO BID Rx Instructions: administer with AM and PM meals aspirin [Mayela Low Dose Aspirin] 81 mg tablet,delayed release (DR/EC) 81 mg PO DAILY ezetimibe 10 mg tablet 10 mg PO QDAY coenzyme Q10 [CoQ-10] 100 mg capsule 100 mg PO QDAY triamterene-hydrochlorothiazid 37.5-25 mg tablet 1 tab PO DAILY PRN (Reason: dizziness or vertigo) Qty: 30 1RF (DME) CPAP mask and supplies See Rx Instructions .Route .MEDSUPPLY Qty: 1 0RF Rx Instructions: As directed pantoprazole 40 mg tablet,delayed release (DR/EC) 40 mg PO DAILY Qty: 90 3RF Primary Care Provider: Fatimah Bond Referrals: Fatimah Bond DO [Primary Care Provider, Internal Medicine] Activity Restrictions/Additional Instructions: Plenty of fluids and rest. Imodium for the diarrhea. I did use 3 Imodium the next several days each day. Has not stool is getting better you can stop. You can also use a probiotic and yogurt to help reestablish bacteria in your colon. The antibiotics probably cause this. Follow-up with your doctor if not improving for further evaluation. Print Language: Maori Disposition Disposition: Home, Self Care
[2025-01-07] MEDS: 0.9% Normal Saline (1000mL) 1,000 ML 999 ML IV (13:05)
[2025-01-07 13:12] LABS: Hematocrit 37.7 % (37-47); Hemoglobin 13.4 g/dL (12.0-15.0); Immature Granulocytes Count 0.010 X10^3/uL (0.0-0.0); Mean Corp Hgb Conc 35.5 g/dL (32-36); Mean Corpuscular Volume 86.7 fL (81-99); Mean Platelet Vol. 10.0 fl (6.2-12.0); NRBC Flagged by Analyzer 0 % (0-5); Platelet Count 247 K/mm3 (150-450); RBC Distribution Width CV 12.6 % (11.6-14.6); RBC Distribution Width SD 39.9 fl (35.1-43.9); Red Blood Count 4.35 M/mm3 (4.2-5.4); White Blood Count 5.5 K/mm3 (4.4-11.0)
--- NOTE | 2025-01-07 13:15 | RAD_ITS ---
PROCEDURE: PELVIS 1 OR 2 VIEWS 01/07/2025 REASON FOR EXAM: PAIN NO FALL TECHNIQUE: Procedure Code: RADPEL Modality: DX Procedure: PELVIS 1 View. COMPARISON: None. RAD/Pelvis 1 or 2 Views IMPRESSION: Substantial degenerative changes are seen of the visualized lower lumbar spine. Minimal left and mild right sacroiliac joint degenerative changes are seen. The left hip joint demonstrates no significant arthritic process. Minimal right hip joint degenerative changes are seen, without associated joint narrowing. No evidence of femoral head osteonecrosis. On the solitary view obtained, no fracture or dislocation is seen. Reading Location: [place] [id number]
[2025-01-07 13:40] LABS: AST(SGOT) 15 U/L (<=31); Alanine Aminotransfer ALT/SGPT 12 U/L (<=34); Albumin, Serum 4.2 g/dL (3.4-4.8); Alkaline Phosphatase 75 U/L (35-104); Anion Gap 10 (5-15); BUN 11 mg/dL (4-19); BUN/Creat Ratio 15.5 RATIO (10-20); Calcium,Total 9.3 mg/dL (7.6-11.0); Carbon Dioxide 25.1 mmol/L (21.0-32.0); Chloride 100 mmol/L (98-108); Estimated Creatinine Clearance 43.73 ml/min (50-250); Globulin 2.4 g/dL (2.2-4.2); Glucose 101 mg/dL (70-99); Potassium 4.0 mmol/L (3.3-5.1)
[2025-01-07 14:36] LABS: Mucous, Urine 0 SEEN /hpf (<or=2+); Red Blood Cells-Urine 0 SEEN /hpf (0-5)
[2025-01-07 14:45] LABS: Color, Urine Yellow (Yellow); Glucose, Dipstick Normal (Normal); Ketone-Dipstick Negative (Negative); Leukocyte Esterase-Dipstick Negative /ul (Negative); Nitrite-Dipstick Negative (Negative); Occult Blood-Urine Negative /ul (Negative); Protein-Dipstick 30 mg/dl (Negative); Specific Gravity, Urine 1.015 (1.002-1.030); Urine Bilirubin Dipstick Negative (Negative)
[2025-01-07 14:59] LABS: Squamous Epithelial Cells - UA 0-5 SEEN /hpf (5-10)
[2025-01-07 16:17] VITALS: BP 106/66; PULSE 66; RESP 16; O2SAT 99
[2025-01-07 17:09] VITALS: BP 106/66; PULSE 66; RESP 16; TEMP 36.6; O2SAT 99
== END 2025-01-07 17:13 | disposition home or self-care (01) ==
PROVIDERS: Emergency Provider Emergency Medicine; PCP Internal Medicine; Visit Provider Emergency Medicine
DX: R19.7 Diarrhea, unspecified (principal); R10.20 Pelvic and perineal pain unspecified side; Z86.73 Personal history of transient ischemic attack (TIA), and cerebral infarction without residual deficits; Z79.899 Other long term (current) drug therapy; Z79.82 Long term (current) use of aspirin; K21.9 Gastro-esophageal reflux disease without esophagitis
CPT/HCPCS: 72170; 80053; 81001; 85025; 87493; 96360; 99283; A4216

== ENCOUNTER → 2025-03-17 | Outpatient (CLI) | payer MEDICARE, BC, SELFPAY ==
[2025-03-17 14:48] LABS: Hematocrit 39.2 % (37-47); Hemoglobin 13.3 g/dL (12.0-15.0); Immature Granulocytes Count 0.020 X10^3/uL (0.0-0.0); Mean Corp Hgb Conc 33.9 g/dL (32-36); Mean Corpuscular Volume 87.3 fL (81-99); Mean Platelet Vol. 10.4 fl (6.2-12.0); NRBC Flagged by Analyzer 0 % (0-5); Platelet Count 261 K/mm3 (150-450); RBC Distribution Width CV 12.1 % (11.6-14.6); RBC Distribution Width SD 39.0 fl (35.1-43.9); Red Blood Count 4.49 M/mm3 (4.2-5.4); White Blood Count 7.9 K/mm3 (4.4-11.0)
[2025-03-17 15:47] LABS: Cholesterol 251 mg/dL (<=200); Low Density Lipoprotein Calc. 137 mg/dL; Triglycerides 104 mg/dL; Very Low Density Lipoprotein 21 mg/dL (5-40); cholesterol:hdl ratio screen 2.60
[2025-03-17 16:08] LABS: AST(SGOT) 18 U/L (<=31); Alanine Aminotransfer ALT/SGPT 12 U/L (<=34); Albumin, Serum 4.5 g/dL (3.4-4.8); Alkaline Phosphatase 84 U/L (35-104); Anion Gap 14 (5-15); BUN 15 mg/dL (4-19); BUN/Creat Ratio 22.0 RATIO (10-20); Calcium,Total 9.9 mg/dL (7.6-11.0); Carbon Dioxide 21.1 mmol/L (21.0-32.0); Chloride 95 mmol/L (98-108); Globulin 2.8 g/dL (2.2-4.2); Glucose 104 mg/dL (70-99); Potassium 4.2 mmol/L (3.3-5.1)
== END | disposition home or self-care (01) ==
LOC: LAB 13:59
PROVIDERS: PCP Internal Medicine; Referring Provider Student in an Organized Health Care Education/Training Program; Visit Provider Student in an Organized Health Care Education/Training Program
DX: Z01.818 Encounter for other preprocedural examination (principal); E78.5 Hyperlipidemia, unspecified
CPT/HCPCS: 80053; 80061; 85025